=== PATIENT | male | born 1975 | race Caucasian/White ===

== ENCOUNTER → 2018-07-28 | Outpatient (CLI) | payer OTHER | END | disposition home or self-care (01) | LOC: RADPETMAIN 12:59 | PROVIDERS: ATTEND Internal Medicine Hematology & Oncology | DX: Z53.9 Procedure and treatment not carried out, unspecified reason (principal) ==

== ENCOUNTER 2018-07-31 13:46 | Inpatient (IN) | payer OTHER ==
[~2018-07-31 13:46] MED LIST: ACETAMINOPHEN TAB 325 MG TAB PO ONE; FAMOTIDINE 20 MG/2 ML VIAL IV SCH; ONDANSETRON 16 MG in SODIUM CHLORIDE 0.9% 50 ML IVPB SCH; ONDANSETRON 4 MG/2 ML VIAL IVP PRN; diphenhydrAMINE 50 MG/ML 1 ML VIAL IVP ONE; methylPREDNISolone SOD SUCCI 125 MG/2 ML VIAL IVP ONE
[2018-07-31] MEDS ORDERED: DOXORUBICIN HCL IV SCH (23:00)
[2018-07-31] MEDS ORDERED: VINCRISTINE SULFATE IV SCH (23:00)
[2018-07-31] MEDS ORDERED: ETOPOSIDE IV SCH (23:00)
[2018-07-31] MEDS ORDERED: SODIUM CHLORIDE 0.9% IV SCH ×3 (23:00)
[2018-08-01] MEDS ORDERED: ONDANSETRON 4 MG/2 ML VIAL IVP PRN ×2 (07:14→14:38)
[2018-08-01 09:34] LABS: Basophils % (A) 1 %; Eosinophils # (A) 0.1 k/uL (0-0.7); Eosinophils % (A) 2 %; HCT 40.2 % (39.0-53.0); Hypochromasia Slight; Lymphocytes # (A) 0.9 k/uL (1.0-4.8); Lymphocytes % (A) 22 %; MCH 29.1 pg (25.0-35.0); MCHC 32.4 g/dL (31.0-37.0); MCV 89.7 fL (80.0-100.0); Mean Platelet Volume 7.9; Monocytes # (A) 0.4 k/uL (0-1.0); Monocytes % (A) 11 %; Neutrophils # (A) 2.6 k/uL (1.3-7.7); Neutrophils % (A) 63 %; Platelet Count 247 k/uL (150-450); RBC 4.48 m/uL (4.30-5.90); WBC 4.1 k/uL (3.8-10.6)
[2018-08-01 09:47] LABS: ALT 65 U/L (21-72); AST 60 U/L (17-59); Albumin 4.1 g/dL (3.5-5.0); Alkaline Phosphatase 66 U/L (38-126); Anion Gap 12 mmol/L; Blood Urea Nitrogen 11 mg/dL (9-20); Calcium 9.6 mg/dL (8.4-10.2); Carbon Dioxide 25 mmol/L (22-30); Chloride 103 mmol/L (98-107); Glucose 96 mg/dL (74-99); Potassium 4.4 mmol/L (3.5-5.1); Sodium 140 mmol/L (137-145); Total Bilirubin 1.1 mg/dL (0.2-1.3); Uric Acid 7.3 mg/dL (3.5-8.5)
[2018-08-01] MEDS ORDERED: ACETAMINOPHEN ORAL SUSP 160 MG/5 ML CUP PO ONE (10:30)
[2018-08-01] MEDS: SODIUM CHLORIDE 0.9% 1,000 ML IV SCH ×4 (10:31→17:44)
[2018-08-01] MEDS: predniSONE 20 MG TAB PO SCH ×3 (10:33→20:12)
[2018-08-01] MEDS: predniSONE 50 MG TAB PO SCH ×3 (10:33→20:12)
[2018-08-01] MEDS ORDERED: ACETAMINOPHEN TAB 325 MG TAB PO ONE (12:00)
[2018-08-01] MEDS ORDERED: methylPREDNISolone SOD SUCCI 125 MG/2 ML VIAL IVP ONE (12:00)
[2018-08-01] MEDS ORDERED: diphenhydrAMINE 50 MG/ML 1 ML VIAL IVP ONE (12:00)
[2018-08-01 12:03] LABS: LDH 3114 U/L (313-618)
[2018-08-01 12:20] LABS: Glucose,Whole Blood 115 mg/dL (75-99)
[2018-08-01] MEDS: INSULIN ASPART 100 UNIT/ML 1 ML 10 ML VIAL SQ SCH ×3 (13:07→20:21)
[2018-08-01] MEDS ORDERED: PROCHLORPERAZINE 10 MG TAB PO PRN (14:38)
--- NOTE | 2018-08-01 14:50 | P.HPIM ---
History of Present Illness H&P Date: 08/01/18 Chief Complaint: B-Cell Lymphoma This is a very nice patient who presented to [facility],on 07/20/2018 with chest pain,had a CXR which revealed mediastinal mass,CT scan of chest on 07/20/2018 revealed large anterior mediastinal mass,8.6x5.6 cm,abuts and partially displaced ascenting aorta,,right paratracheal nodes up to 2.5cm. He was transferred to [facility],on 07/22/2018,his CBC and CMP were unremarkable,serum AFP,HCG were normal,uric acid was 7.2,LDH was 705 (upper limit of normal was 250).Testicular ultrasound on 07/23/[address] scan of neck on 07/23/2018 revealed bilateral supraclavicular nodes that are visible but not enlarged,CT scan of abdomen/pelvis was negative. He had an echocardiogram at [facility] on 07/23/2018 which revealed normal EF of 69%. 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 BCL2 + in 30% and Cmyc + 40%, Molecular characteristics sent for FISH. He developed swelling in LUE at [facility],doppler confirmed DVT and was started on Lovenox. He continues to have dyspnea,also he has had cough for over a month and progressive dysphagea,has night sweats,lost 15-20 pounds over the last month. He presents today for first cycle of R-EPOCH Chemotherapy. He was started on ALlopurinol 2 days prior in office by Dr. Cervantes. An Echocardiogram was completed at [facility] on 07/23/18 and Hepatitis panel drawn prior to starting chemo. His sister at bedside. Review of Systems A 14 point review of systems assessed and completed and all negative except HPI. Past Medical History Past Medical History: Cancer, Diabetes Mellitus, Deep Vein Thrombosis (DVT), Hypertension, Osteoarthritis (OA), Pneumonia Additional Past Medical History / Comment(s): Pt states he started noticing difficulty with swallowing late in May 2018, went to [facility] on 07/20/18 d/t cough and chest pain, had cat scan that showed mediastinal mass and was sent on 07/21/18 to [facility] where he had mediastinal mass biopsy. He states he has also had a L arm DVT. Other hx: Chronic low back pain, NIDDM type II and last month unable to swallow his diabetic med, "walking" pneumonia as a teen. History of Any Multi-Drug Resistant Organisms: MRSA Date of last positivie culture/infection: 2013 per pt MDRO Source:: L leg Past Surgical History: Adenoidectomy, Orthopedic Surgery, Tonsillectomy Additional Past Surgical History / Comment(s): 07/23/18 PICC line, 07/22/18 mediastinal mass biopsy at [facility], R hand fracure with surgery/pins since removed. Past Anesthesia/Blood Transfusion Reactions: No Reported Reaction Smoking Status: Former smoker - Past Family History Mother Family Medical History: CVA/TIA, Diabetes Mellitus, Hyperlipidemia, Hypertension Father Family Medical History: Diabetes Mellitus Medications and Allergies Home Medications Medication Instructions Recorded Confirmed Type ARIPiprazole [Abilify] 5 mg PO HS 08/01/18 08/01/18 History Allopurinol [Zyloprim] 300 mg PO HS 08/01/18 08/01/18 History Atorvastatin [Lipitor] 20 mg PO HS 08/01/18 08/01/18 History Enoxaparin Sodium 150 mg SQ BID 08/01/18 08/01/18 History Gabapentin [Neurontin] 300 mg PO TID 08/01/18 08/01/18 History Glimepiride [Amaryl] 2 mg PO DAILY 08/01/18 08/01/18 History amLODIPine [Norvasc] 10 mg PO DAILY 08/01/18 08/01/18 History metFORMIN HCL [Glucophage] 1,000 mg PO BID 08/01/18 08/01/18 History Allergies Allergy/AdvReac Type Severity Reaction Status Date / Time No Known Allergies Allergy Verified 08/01/18 09:13 Physical Exam Vitals: Vital Signs Temp Pulse Resp BP Pulse Ox 08/01/18 13:56 97.5 F L 95 14 129/82 92 L 08/01/18 08:51 97.8 F 120 H 22 119/90 95 08/01/18 08:30 14 Intake and Output 07/31/18 08/01/18 08/01/18 22:59 06:59 14:59 Intake Total 300 Balance 300 Intake: Intake, IV Titration 300 Amount Sodium Chloride 0.9% 1, 300 000 ml @ 150 mls/hr IV . Q6H40M [facility] Rx#:[id number] - Constitutional General appearance: cooperative, no acute distress - EENT Eyes: EOMI, PERRLA ENT: NA/AT, normal oropharynx - Neck Neck: lymphadenopathy - Respiratory Respiratory: bilateral: diminished (MIld increased effort) - Cardiovascular Heart rate: 112 Rhythm: regular Heart sounds: normal: S1, S2 - Gastrointestinal Obese General gastrointestinal: soft - Integumentary Integumentary: pale - Neurologic non focal Neurologic: CNII-XII intact - Musculoskeletal Musculoskeletal: gait normal, strength equal bilaterally - Psychiatric Psychiatric: A&O x's 3, appropriate affect, intact judgment & insight Results CBC & Chem 7: 08/01/18 08:55 08/01/18 08:55 Labs: Abnormal Lab Results - Last 24 Hours (Table) 08/01/18 08/01/18 08/01/18 Range/Units 08:55 08:55 12:19 Lymphocytes # 0.9 L (1.0-4.8) k/uL POC Glucose (mg/dL) 115 H (75-99) mg/dL AST 60 H (17-59) U/L Lactate Dehydrogenase 3114 H (313-618) U/L Comments: Pathology from [facility] reviewed CT scan - abdomen: report reviewed CT scan - chest: report reviewed CT scan - pelvis: report reviewed Thrombosis Risk Factor Assmnt - DVT/VTE Prophylaxis DVT/VTE Prophylaxis: Pharmacologic Prophylaxis ordered - Choose All That Apply Any of the Below Risk Factors Present?: Yes Each Factor Represents 1 point: Age 41-60 years, Obesity (BMI >25) Other Risk Factors: Yes Each Risk Factor Represents 2 Points: Malignancy Each Risk Factor Represents 3 Points: Family history of DVT/PE Other congenital or acquired thrombophilia - If yes, enter type in comment: No Thrombosis Risk Factor Assessment Total Risk Factor Score: 7 Thrombosis Risk Factor Assessment Level: High Risk Assessment and Plan Plan: Assessment and Recommendations: 1. High Grade Large B Cell Lymphoma - 8.6X5.7CM Anterior mediastinal mass with bulky above diaphragm disease. CMYC , BCL2, BCL6 are pending by FISH - Cycle one of Chemotherapy to begin today DOse [id number] - He will follow-up in office after chemotherapy for neulasta. - Monitor closely for tumor lysis as he has bulky above diaphragm disease 2. LUE DVT: - Continue on Lovenox BID 3. Diabetes Mellitus: - Will ask Dr. Griffiths from to assist in managing medically during hospitalization Face to Face Counseling and coordinating care were discussed with patient and sister related to diagnosis and treatment plan. PPI PProphylaxis and VTE Time with Patient: Greater than 30
[2018-08-01] MEDS: GLIMEPIRIDE 2 MG TAB PO SCH (14:57)
[2018-08-01 15:37] VITALS: BMI 40.6
--- NOTE | 2018-08-01 16:23 | P.CONS ---
History of Present Illness - Reason for Consult Consult date: 08/01/18 medical management Requesting physician: Anand Cervantes - Chief Complaint cough shortness of breath - History of Present Illness This is a 42 years old male with past medical history of type 2 diabetes, recent diagnosis of DVT on Lovenox, hypertension, osteoarthritis with recent diagnosis of high-grade B cell lymphoma diagnosed by a computed tomography scan of the chest on 07/20/2018 which revealed a large anterior mediastinal mass 8.6 into 5.6 cm causing difficulty swallowing with dry cough and shortness of breath at rest. Patient to start EPOCH-R treatment cycle 1 of cycle 5 today Patient endorses orthopnea and difficulty swallowing solid food for the past 2 weeks. Patient has lost 10 pounds in the last 1 week and he is currently taking boost as a diet as he is unable to swallow anything else. He denies any use productive cough or PND, Lower extremity edema. He does have peripheral neuropathy from diabetes and is currently managed with metformin and glimepiride. Our team is consulted for medical management Review of Systems Constitutional: Denies chills, Denies fever, Denies lethargy, Denies malaise, Denies poor appetite, Denies weakness, Denies weight loss Eyes: denies decreased vision, denies diplopia, denies discharge, denies pain Ears: deny: decreased hearing Ears, nose, mouth and throat: Denies dental pain, Denies headache, Denies nasal discharge, Denies nose pain Cardiovascular: Denies chest pain, endorses decreased exercise tolerance, Denies edema, endorses high blood pressure, Denies irregular heart beat, Denies palpitations, Denies paroxysmal nocturnal dyspnea, Denies rapid heart beat, endorses shortness of breath Respiratory: Denies congestion, endorses cough, Denies cough with sputum, endorses dyspnea, Denies home oxygen, Denies wheezing Gastrointestinal: Denies abdominal pain, Denies change in bowel habits, Denies coffee ground emesis, Denies early satiety, Denies excessive gas, Denies heartburn, Denies hematemesis, Denies hematochezia, Denies loss of appetite, Denies nausea, Denies vomiting Genitourinary: Denies dysuria, Denies flank pain, Denies kidney stones, Denies menorrhagia, Denies urgency, Denies urinary frequency Musculoskeletal: Denies gait dysfunction, Denies limitation of motion, Denies morning stiffness, Denies muscle cramps Integumentary: Denies rash, Denies wounds, Denies brittle nails, Denies change in hair/nails, Denies darkening of skin Neurological: Denies balance difficulties, Denies change in speech, Denies double vision, Denies gait dysfunction, Denies loss of vision, Denies motor disturbance, Denies numbness, Denies paralysis, Denies paresthesias, Denies seizures Psychiatric: Denies anxiety, Denies depression Endocrine: Denies excessive sweating, Denies excessive thirst, Denies high blood sugars, Denies palpitations Hematologic/Lymphatic: Denies easy bruising, Denies lymphadenopathy Past Medical History Past Medical History: Cancer, Diabetes Mellitus, Deep Vein Thrombosis (DVT), Hyperlipidemia, Hypertension, Osteoarthritis (OA), Pneumonia Additional Past Medical History / Comment(s): Pt states he started noticing difficulty with swallowing late in May 2018, went to [facility] on 07/20/18 d/t cough and chest pain, had cat scan that showed mediastinal mass and was sent on 07/21/18 to [facility] where he had mediastinal mass biopsy. He states he has also had a L arm DVT. Other hx: Chronic low back pain, NIDDM type II and last month unable to swallow his diabetic med, "walking" pneumonia as a teen. History of Any Multi-Drug Resistant Organisms: MRSA Year Discovered:: 2013 per pt MDRO Source:: L leg Past Surgical History: Adenoidectomy, Orthopedic Surgery, Tonsillectomy Additional Past Surgical History / Comment(s): 07/23/18 PICC line, 07/22/18 mediastinal mass biopsy at [facility], R hand fracure with surgery/pins since removed. Past Anesthesia/Blood Transfusion Reactions: No Reported Reaction Past Psychological History: Bipolar Smoking Status: Former smoker (smoked 1 pack a day for 30 years quit on 2017) - Past Family History Mother Family Medical History: CVA/TIA, Diabetes Mellitus, Hyperlipidemia, Hypertension Father Family Medical History: Diabetes Mellitus Additional Family Medical History / Comment(s): Unmarried, caregiver for his mother, Medications and Allergies Home Medications Medication Instructions Recorded Confirmed Type ARIPiprazole [Abilify] 5 mg PO HS 08/01/18 08/01/18 History Allopurinol [Zyloprim] 300 mg PO HS 08/01/18 08/01/18 History Atorvastatin [Lipitor] 20 mg PO HS 08/01/18 08/01/18 History Enoxaparin Sodium 150 mg SQ BID 08/01/18 08/01/18 History Gabapentin [Neurontin] 300 mg PO TID 08/01/18 08/01/18 History Glimepiride [Amaryl] 2 mg PO DAILY 08/01/18 08/01/18 History amLODIPine [Norvasc] 10 mg PO DAILY 08/01/18 08/01/18 History metFORMIN HCL [Glucophage] 1,000 mg PO BID 08/01/18 08/01/18 History Allergies Allergy/AdvReac Type Severity Reaction Status Date / Time No Known Allergies Allergy Verified 08/01/18 09:13 Physical Exam Vitals: Vital Signs Temp Pulse Resp BP Pulse Ox 08/01/18 15:45 97.9 F 89 130/85 95 08/01/18 13:56 97.5 F L 95 14 129/82 92 L 08/01/18 08:51 97.8 F 120 H 22 119/90 95 08/01/18 08:30 14 Intake and Output 08/01/18 08/01/18 08/01/18 06:59 14:59 22:59 Intake Total 335 68 Balance 335 68 Intake: Intake, IV Titration 335 68 Amount Sodium Chloride 0.9% 1, 300 000 ml @ 150 mls/hr IV . Q6H40M [facility] Rx#:[id number] riTUXimab 1,000 mg In 35 68 Sodium Chloride 0.9% 500 ml @ Titrate IV .Q0M [facility] Rx#:[id number] Other: Weight 145.286 kg - Constitutional General appearance: cooperative, no acute distress, obese - EENT Eyes: anicteric sclerae, PERRLA, normal appearance ENT: hearing grossly normal - Neck Neck: no lymphadenopathy, normal ROM, no other, no rigidity, no stridor, no thyromegaly - Respiratory Respiratory: bilateral: CTA, decreased air entry bilaterally negative: dullness , rales, rhonchi - Cardiovascular Rhythm: regular Heart sounds: normal: S1, S2 Abnormal Heart Sounds: no systolic murmur, no diastolic murmur, no rub, no S3 Gallop, no S4 Gallop, no click, no other - Gastrointestinal General gastrointestinal: normal bowel sounds, soft nontender - Integumentary Integumentary: no rash - Neurologic Neurologic: CNII-XII intact - Musculoskeletal Musculoskeletal: gait normal, strength equal bilaterally - Psychiatric Psychiatric: A&O x's 3, appropriate affect Results CBC & Chem 7: 08/01/18 08:55 08/01/18 08:55 Labs: Abnormal Lab Results - Last 24 Hours (Table) 08/01/18 08/01/18 08/01/18 Range/Units 08:55 08:55 12:19 Lymphocytes # 0.9 L (1.0-4.8) k/uL POC Glucose (mg/dL) 115 H (75-99) mg/dL AST 60 H (17-59) U/L Lactate Dehydrogenase 3114 H (313-618) U/L Assessment and Plan Plan: #1 Mediastinal high-grade large B-cell lymphoma on R-EPOCH therapy with allopurinol. Cycle 1 of cycle 5. Monitor for pancytopenia, cystitis, worsening shortness of breath, blurry vision, hyperglycemia. Oncology managing the chemotherapy. Chemotherapy precautions to be followed #2 dysphagia secondary to compression of the esophagus by these mediastinal mass. Dietitian assess the patient. Clear liquid diet for now. Ensure clear with meals #3 shortness of breath and cough secondary to compression of trachea. DuoNeb as needed for shortness of breath. Watch for increased oxygen requirement. SpO2 to be maintained above 92% #4 type 2 diabetes. Continue metformin and glimepiride 2 mg at the current dose. Last A1c 5.7 according to patient. Watch for hypoglycemia glucose checked before meals and at bedtime #5 hyperlipidemia continue atorvastatin 20 mg by mouth at bedtime #6 hypertension continue amlodipine 10 mg by mouth daily #7 bipolar disorder continue Abilify 5 mg daily at bedtime #8 diabetes neuropathy continue gabapentin 300 mg 3 times a day #9 GI prophylaxis with Protonix 40 twice a day #10 recent diagnosis of DVT in left upper extremity on Lovenox 150 twice a day Code status full code Thank you for the consult. I'll be happy to assist the patient and his medical needs while patient is in the hospital..
[2018-08-01 16:37] LABS: Hepatitis A Antibody IgM Non-Reactive (Non-Reactive); Hepatitis B Core IgM Non-Reactive (Non-Reactive)
[2018-08-01 16:40] LABS: Glucose,Whole Blood 153 mg/dL (75-99)
--- NOTE | 2018-08-01 16:58 | ECHOF ---
Referral Reason:chemo started MEASUREMENTS -------- HEIGHT: 188.0 cm WEIGHT: 145.1 kg BP: 119/90 RVIDd: 3.5 cm (< 3.3) IVSd: 1.0 cm (0.6 - 1.1) LVIDd: 4.9 cm (3.9 - 5.3) LVPWd: 1.0 cm (0.6 - 1.1) IVSs: 1.5 cm LVIDs: 2.5 cm LVPWs: 1.5 cm LA Diam: 3.1 cm (2.7 - 3.8) Ao Diam: 3.6 cm (2.0 - 3.7) AV Cusp: 2.2 cm (1.5 - 2.6) LA Diam: 2.5 cm (2.7 - 3.8) MV E Anam: 0.90 m/s MV DecT: 514 ms MV A Anam: 1.04 m/s MV E/A Ratio: 0.87 AV maxP.63 mmHg AV meanP.72 mmHg RAP: 5.00 mmHg RVSP: 13.46 mmHg FINDINGS -------- Sinus rhythm. This was a technically difficult study with suboptimal views. The left ventricular size is normal. Left ventricular wall thickness is normal. Overall left vent ricular systolic function is normal with, an EF between 55 - 60 %. The right ventricle is mildly enlarged. The left atrial size is normal. The right atrium was not well visualized. 3 ml of Lumason was utilized for enhancement of images. There is mild aortic valve sclerosis. There is no evidence of aortic regurgitation. There is mild aortic stenosis present. Peak/mean gradient across the Aortic Valve is 20.63mmHg / 11.72mmHg. The mitral valve leaflets are mildly thickened. Mild mitral regurgitation is present. Trace tricuspid regurgitation present. Right ventricular systolic pressure is normal at < 35 mmHg. There is no evidence of pulmonary hypertension. The pulmonic valve was not well visualized. The aortic root size is normal. Normal inferior vena cava with normal inspiratory collapse consistent with estimated right atrial pre ssure of 5 mmHg. There is a moderate, generalized pericardial effusion present. There is no evidence of cardiac tamp onade. CONCLUSIONS -------- 1. Sinus rhythm. 2. This was a technically difficult study with suboptimal views. 3. The left ventricular size is normal. 4. Left ventricular wall thickness is normal. 5. Overall left ventricular systolic function is normal with, an EF between 55 - 60 %. 6. The right ventricle is mildly enlarged. 7. The left atrial size is normal. 8. The right atrium was not well visualized. 9. 3 ml of Lumason was utilized for enhancement of images. 10. There is mild aortic valve sclerosis. 11. There is mild aortic stenosis present. 12. Peak/mean gradient across the Aortic Valve is 20.63mmHg / 11.72mmHg. 13. The mitral valve leaflets are mildly thickened. 14. Mild mitral regurgitation is present. 15. Trace tricuspid regurgitation present. 16. Right ventricular systolic pressure is normal at < 35 mmHg. 17. The pulmonic valve was not well visualized. 18. The aortic root size is normal. 19. There is a moderate, generalized pericardial effusion present. 20. There is no evidence of cardiac tamponade. [employer]: Clyde Hill RDCS
[2018-08-01] MEDS: GABAPENTIN 300 MG CAP PO SCH ×2 (17:45→20:10)
[2018-08-01] MEDS: PANTOPRAZOLE 40 MG TABLET PO SCH (17:48)
[2018-08-01 19:14] LABS: Hemoglobin A1C 5.4 % (4.0-6.0)
[2018-08-01 19:52] LABS: Glucose,Whole Blood 334 mg/dL (75-99)
[2018-08-01] MEDS: ONDANSETRON 16 MG in SODIUM CHLORIDE 0.9% 50 ML IVPB SCH (20:00)
[2018-08-01] MEDS: SODIUM CHLORIDE 0.9% IV SCH ×3 (20:08→20:09)
[2018-08-01] MEDS: VINCRISTINE SULFATE IV SCH (20:08)
[2018-08-01] MEDS: ETOPOSIDE IV SCH (20:09)
[2018-08-01] MEDS: ENOXAPARIN 150 MG/ML SYRINGE SQ SCH (20:09)
[2018-08-01] MEDS: DOXORUBICIN HCL IV SCH (20:09)
[2018-08-01] MEDS: ALLOPURINOL 300 MG TAB PO SCH (20:10)
[2018-08-01] MEDS: ARIPiprazole 5 MG TAB PO SCH (20:10)
[2018-08-01] MEDS: ATORVASTATIN 20 MG TAB PO SCH (20:10)
[2018-08-01] MEDS: metFORMIN 500 MG TAB PO SCH (20:10)
[2018-08-01] MEDS: SENNOSIDES-DOCUSATE SODIUM 1 EACH TAB PO SCH (20:10)
[2018-08-01] MEDS: FAMOTIDINE 20 MG/2 ML VIAL IV SCH (20:25)
[2018-08-02] MEDS: SODIUM CHLORIDE 0.9% 1,000 ML IV SCH ×4 (00:15→19:19)
[2018-08-02 07:35] LABS: Glucose,Whole Blood 146 mg/dL (75-99)
[2018-08-02 07:45] LABS: Basophils % (A) 0 %; Eosinophils % (A) 1 %; HCT 35.8 % (39.0-53.0); HGB 11.7 gm/dL (13.0-17.5); Lymphocytes # (A) 0.4 k/uL (1.0-4.8); Lymphocytes % (A) 10 %; MCH 28.2 pg (25.0-35.0); MCHC 32.6 g/dL (31.0-37.0); MCV 86.5 fL (80.0-100.0); Mean Platelet Volume 7.8; Monocytes # (A) 0.2 k/uL (0-1.0); Monocytes % (A) 4 %; Neutrophils # (A) 3.3 k/uL (1.3-7.7); Neutrophils % (A) 85 %; Platelet Count 226 k/uL (150-450); RBC 4.14 m/uL (4.30-5.90); WBC 3.9 k/uL (3.8-10.6)
[2018-08-02] MEDS: predniSONE 50 MG TAB PO SCH ×2 (07:55→20:36)
[2018-08-02] MEDS: predniSONE 20 MG TAB PO SCH ×2 (07:55→20:37)
[2018-08-02] MEDS: INSULIN ASPART 100 UNIT/ML 1 ML 10 ML VIAL SQ SCH ×5 (07:56→21:13)
[2018-08-02] MEDS: PANTOPRAZOLE 40 MG TABLET PO SCH ×2 (07:56→16:59)
[2018-08-02] MEDS: ENOXAPARIN 150 MG/ML SYRINGE SQ SCH ×2 (07:56→20:37)
[2018-08-02] MEDS: GLIMEPIRIDE 2 MG TAB PO SCH (07:56)
[2018-08-02] MEDS: metFORMIN 500 MG TAB PO SCH ×2 (07:56→20:37)
[2018-08-02] MEDS: GABAPENTIN 300 MG CAP PO SCH ×3 (07:56→20:38)
[2018-08-02] MEDS: amLODIPine 10 MG TAB PO SCH (07:56)
[2018-08-02 07:58] LABS: ALT 49 U/L (21-72); AST 33 U/L (17-59); Albumin 3.6 g/dL (3.5-5.0); Alkaline Phosphatase 60 U/L (38-126); Anion Gap 8 mmol/L; Blood Urea Nitrogen 8 mg/dL (9-20); Calcium 9.3 mg/dL (8.4-10.2); Carbon Dioxide 22 mmol/L (22-30); Chloride 111 mmol/L (98-107); Glucose 137 mg/dL (74-99); Potassium 4.3 mmol/L (3.5-5.1); Sodium 141 mmol/L (137-145); Total Bilirubin 0.6 mg/dL (0.2-1.3); Total Protein 7.1 g/dL (6.3-8.2); Uric Acid 5.2 mg/dL (3.5-8.5)
[2018-08-02] MEDS: SENNOSIDES-DOCUSATE SODIUM 1 EACH TAB PO SCH ×2 (09:43→20:38)
[2018-08-02 11:35] LABS: Glucose,Whole Blood 230 mg/dL (75-99)
[2018-08-02] MEDS: FAMOTIDINE 20 MG/2 ML VIAL IV SCH ×2 (13:50→20:36)
[2018-08-02] MEDS: ONDANSETRON 16 MG in SODIUM CHLORIDE 0.9% 50 ML IVPB SCH ×2 (13:50→20:35)
--- NOTE | 2018-08-02 13:57 | P.PN ---
Subjective Progress Note Date: 08/02/18 This is a 42 years old male with past medical history of type 2 diabetes, recent diagnosis of DVT on Lovenox, hypertension, osteoarthritis with recent diagnosis of high-grade B cell lymphoma diagnosed by a computed tomography scan of the chest on 07/20/2018 which revealed a large anterior mediastinal mass 8.6 into 5.6 cm causing difficulty swallowing with dry cough and shortness of breath at rest. Patient to start EPOCH-R treatment cycle 1 of cycle 5 today Patient endorses orthopnea and difficulty swallowing solid food for the past 2 weeks. Patient has lost 10 pounds in the last 1 week and he is currently taking boost as a diet as he is unable to swallow anything else. He denies any use productive cough or PND, Lower extremity edema. He does have peripheral neuropathy from diabetes and is currently managed with metformin and glimepiride. Our team is consulted for medical management 08/02: Patient is tolerating a clear liquid diet and is asking for this to be advanced area patient has had some dysphagia and [place] therapy will be requested. For now diet will be advanced to full liquid only. Patient has started chemotherapy. He has been ambulating to the bathroom and back to his bed without dizziness. He denies having any diarrhea. No leg pain. No chest pain or shortness of breath. White count is currently normal. Creatinine 0.59. Blood sugars have had a few elevated readings secondary to steroids. No medication changes for this at this point. He'll be continued on his home medications of metformin and glimepiride along with NovoLog scale. We'll signs are stable. He has been afebrile. Pulse ox 94% on room air. Objective - Vital Signs Vital signs: Vital Signs Temp 97.4 F L 08/02/18 03:54 Pulse 81 08/02/18 03:54 Resp 16 08/02/18 03:54 BP 118/74 08/02/18 03:54 Pulse Ox 93 L 08/02/18 03:54 Intake & Output 08/01/18 08/02/18 08/02/18 18:59 06:59 18:59 Intake Total 717.0 2109.7 Balance 717.0 2109.7 Weight 145.286 kg Intake: Intake, IV Titration 717.0 2109.7 Amount DOXOrubicin HCL 27 mg In 56.7 Sodium Chloride 0.9% 250 ml @ 10.979 mls/hr IV Q24H [facility] Rx#:[id number] Etoposide 130 mg In 180 Sodium Chloride 0.9% 500 ml @ 21.104 mls/hr IV Q24H [facility] Rx#:[id number] Ondansetron 16 mg In 50 Sodium Chloride 0.9% 50 ml @ 100 mls/hr IVPB Q24H [facility] Rx#:[id number] Sodium Chloride 0.9% 1, 300 1800 000 ml @ 150 mls/hr IV . Q6H40M [facility] Rx#:[id number] riTUXimab 1,000 mg In 417.0 Sodium Chloride 0.9% 500 ml @ Titrate IV .Q0M [facility] Rx#:[id number] vinCRIStine SULFATE 1.1 23.0 mg In Sodium Chloride 0.9 % 50 ml @ 2.129 mls/hr IV Q24H [facility] Rx#:[id number] Other: Voiding Method Toilet - Exam General appearance: cooperative, no acute distress, obese - EENT Eyes: anicteric sclerae, PERRLA, normal appearance ENT: hearing grossly normal - Neck Neck: no lymphadenopathy, normal ROM, no other, no rigidity, no stridor, no thyromegaly - Respiratory Respiratory: bilateral: CTA, decreased air entry bilaterally negative: dullness , rales, rhonchi - Cardiovascular Rhythm: regular Heart sounds: normal: S1, S2 Abnormal Heart Sounds: no systolic murmur, no diastolic murmur, no rub, no S3 Gallop, no S4 Gallop, no click, no other - Gastrointestinal General gastrointestinal: normal bowel sounds, soft nontender - Integumentary Integumentary: no rash - Neurologic Neurologic: CNII-XII intact - Musculoskeletal Musculoskeletal: gait normal, strength equal bilaterally - Psychiatric Psychiatric: A&O x's 3, appropriate affect - Labs CBC & Chem 7: 08/02/18 07:02 08/02/18 07:02 Labs: Abnormal Lab Results - Last 24 Hours (Table) 08/01/18 08/01/18 08/01/18 Range/Units 08:55 12:19 16:39 RBC (4.30-5.90) m/uL Hgb (13.0-17.5) gm/dL Hct (39.0-53.0) % Lymphocytes # (1.0-4.8) k/uL Chloride (98-107) mmol/L BUN (9-20) mg/dL Creatinine (0.66-1.25) mg/dL Glucose (74-99) mg/dL POC Glucose (mg/dL) 115 H 153 H (75-99) mg/dL AST 60 H (17-59) U/L Lactate Dehydrogenase 3114 H (313-618) U/L 08/01/18 08/02/18 08/02/18 Range/Units 19:51 07:02 07:02 RBC 4.14 L (4.30-5.90) m/uL Hgb 11.7 L (13.0-17.5) gm/dL Hct 35.8 L (39.0-53.0) % Lymphocytes # 0.4 L (1.0-4.8) k/uL Chloride 111 H (98-107) mmol/L BUN 8 L (9-20) mg/dL Creatinine 0.59 L (0.66-1.25) mg/dL Glucose 137 H (74-99) mg/dL POC Glucose (mg/dL) 334 H (75-99) mg/dL AST (17-59) U/L Lactate Dehydrogenase (313-618) U/L 08/02/18 Range/Units 07:33 RBC (4.30-5.90) m/uL Hgb (13.0-17.5) gm/dL Hct (39.0-53.0) % Lymphocytes # (1.0-4.8) k/uL Chloride (98-107) mmol/L BUN (9-20) mg/dL Creatinine (0.66-1.25) mg/dL Glucose (74-99) mg/dL POC Glucose (mg/dL) 146 H (75-99) mg/dL AST (17-59) U/L Lactate Dehydrogenase (313-618) U/L Assessment and Plan Plan: #1 Mediastinal high-grade large B-cell lymphoma on R-EPOCH therapy with allopurinol. Cycle 1 of cycle 5. Monitor for pancytopenia, cystitis, worsening shortness of breath, blurry vision, hyperglycemia. Oncology managing the chemotherapy. Chemotherapy precautions to be followed #2 dysphagia secondary to compression of the esophagus by these mediastinal mass. Dietitian consult. Clear liquid diet and advance to full liquid. Ensure clear with meals. Speech therapy evaluation requested. #3 shortness of breath and cough secondary to compression of trachea. DuoNeb as needed for shortness of breath. Watch for increased oxygen requirement. SpO2 to be maintained above 92% #4 type 2 diabetes uncontrolled with hyperglycemia secondary to steroids. Continue metformin and glimepiride 2 mg at the current dose and NovoLog scale. Last A1c 5.7 according to patient. Watch for hypoglycemia glucose checked before meals and at bedtime #5 hyperlipidemia continue atorvastatin 20 mg by mouth at bedtime #6 hypertension continue amlodipine 10 mg by mouth daily #7 bipolar disorder continue Abilify 5 mg daily at bedtime #8 diabetes neuropathy continue gabapentin 300 mg 3 times a day #9 GI prophylaxis with Protonix 40 twice a day #10 recent diagnosis of DVT in left upper extremity on Lovenox 150 twice a day Code status full code Discharge plan: Return home Impression and plan of care have been directed as dictated by the signing physician. Ashley Hernandez nurse practitioner acting as scribe for signing physician.
--- NOTE | 2018-08-02 16:19 | P.PN ---
Subjective Progress Note Date: 08/02/18 Principal diagnosis: Large Diffuse B Cell non-hodgkins Lymphoma Tolerated Day one of R-EPOCH Well. Patient seen and evluated by Dr. Peguero today Objective - Vital Signs Vital signs: Vital Signs Temp 97.3 F L 08/02/18 13:24 Pulse 99 08/02/18 13:24 Resp 20 08/02/18 13:24 BP 134/91 08/02/18 13:24 Pulse Ox 94 L 08/02/18 13:24 Intake & Output 08/01/18 08/02/18 08/02/18 18:59 06:59 18:59 Intake Total 717.0 2109.7 1456.152 Balance 717.0 2109.7 1456.152 Weight 145.286 kg Intake: Intake, IV Titration 717.0 2109.7 1456.152 Amount DOXOrubicin HCL 27 mg In 56.7 87.832 Sodium Chloride 0.9% 250 ml @ 10.979 mls/hr IV Q24H [facility] Rx#:[id number] Etoposide 130 mg In 180 Sodium Chloride 0.9% 500 ml @ 21.104 mls/hr IV Q24H [facility] Rx#:[id number] Ondansetron 16 mg In 50 Sodium Chloride 0.9% 50 ml @ 100 mls/hr IVPB Q24H [facility] Rx#:[id number] Sodium Chloride 0.9% 1, 300 1800 1200 000 ml @ 150 mls/hr IV . Q6H40M [facility] Rx#:[id number] riTUXimab 1,000 mg In 417.0 Sodium Chloride 0.9% 500 ml @ Titrate IV .Q0M [facility] Rx#:[id number] vinCRIStine SULFATE 1.1 23.0 168.32 mg In Sodium Chloride 0.9 % 50 ml @ 2.129 mls/hr IV Q24H [facility] Rx#:[id number] Other: Voiding Method Toilet - Exam - Constitutional General appearance: cooperative, no acute distress - EENT Eyes: EOMI, PERRLA ENT: NA/AT, normal oropharynx - Neck Neck: lymphadenopathy - Respiratory Respiratory: bilateral: diminished (MIld increased effort) - Cardiovascular Heart rate: 112 Rhythm: regular Heart sounds: normal: S1, S2 - Gastrointestinal Obese General gastrointestinal: soft - Integumentary Integumentary: pale - Neurologic non focal Neurologic: CNII-XII intact - Musculoskeletal Musculoskeletal: gait normal, strength equal bilaterally - Psychiatric Psychiatric: A&O x's 3, appropriate affect, intact judgment & insight - Labs CBC & Chem 7: 08/02/18 07:02 08/02/18 07:02 Labs: Abnormal Lab Results - Last 24 Hours (Table) 08/01/18 08/01/18 08/02/18 Range/Units 16:39 19:51 07:02 RBC 4.14 L (4.30-5.90) m/uL Hgb 11.7 L (13.0-17.5) gm/dL Hct 35.8 L (39.0-53.0) % Lymphocytes # 0.4 L (1.0-4.8) k/uL Chloride (98-107) mmol/L BUN (9-20) mg/dL Creatinine (0.66-1.25) mg/dL Glucose (74-99) mg/dL POC Glucose (mg/dL) 153 H 334 H (75-99) mg/dL 08/02/18 08/02/18 08/02/18 Range/Units 07:02 07:33 11:33 RBC (4.30-5.90) m/uL Hgb (13.0-17.5) gm/dL Hct (39.0-53.0) % Lymphocytes # (1.0-4.8) k/uL Chloride 111 H (98-107) mmol/L BUN 8 L (9-20) mg/dL Creatinine 0.59 L (0.66-1.25) mg/dL Glucose 137 H (74-99) mg/dL POC Glucose (mg/dL) 146 H 230 H (75-99) mg/dL Assessment and Plan Plan: Assessment and Recommendations: 1. 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 CMYC , BCL2, BCL6 are pending by FISH - Cycle one of Chemotherapy to begin today DOse [id number] - He will follow-up in office after chemotherapy for neulasta. - Monitor closely for tumor lysis as he has bulky above diaphragm disease - COntinue Day 2 of Chemo 2. LUE DVT: Acute Diagnosed at [facility] last month - Continue on Lovenox BID - Present on admission 3. Diabetes Mellitus: - Will ask Dr. Griffiths from to assist in managing medically during hospitalization Face to Face Counseling and coordinating care were discussed with patient and sister related to diagnosis and treatment plan. PPI PProphylaxis and VTE Physician Attest: I have completed the full history and physical of this patient and agree with above dictation by Natalia Batista NP Dictated as a scribe.
[2018-08-02 16:55] LABS: Glucose,Whole Blood 93 mg/dL (75-99)
[2018-08-02] MEDS: ALLOPURINOL 300 MG TAB PO SCH (20:36)
[2018-08-02] MEDS: ATORVASTATIN 20 MG TAB PO SCH (20:36)
[2018-08-02] MEDS: ARIPiprazole 5 MG TAB PO SCH (20:37)
[2018-08-02 20:53] LABS: Glucose,Whole Blood 147 mg/dL (75-99)
[2018-08-02] MEDS: SODIUM CHLORIDE 0.9% IV SCH ×3 (21:46→21:53)
[2018-08-02] MEDS: DOXORUBICIN HCL IV SCH (21:46)
[2018-08-02] MEDS: VINCRISTINE SULFATE IV SCH (21:49)
[2018-08-02] MEDS: ETOPOSIDE IV SCH (21:53)
[2018-08-03] MEDS: SODIUM CHLORIDE 0.9% 1,000 ML IV SCH ×3 (04:12→16:39)
[2018-08-03 06:58] LABS: Basophils % (A) 0 %; Eosinophils # (A) 0.1 k/uL (0-0.7); Eosinophils % (A) 1 %; HCT 33.5 % (39.0-53.0); HGB 10.7 gm/dL (13.0-17.5); Hypochromasia Slight; Lymphocytes # (A) 0.4 k/uL (1.0-4.8); Lymphocytes % (A) 5 %; MCHC 31.9 g/dL (31.0-37.0); MCV 87.9 fL (80.0-100.0); Mean Platelet Volume 7.9; Monocytes # (A) 0.2 k/uL (0-1.0); Monocytes % (A) 3 %; Neutrophils % (A) 91 %; Platelet Count 223 k/uL (150-450); RBC 3.81 m/uL (4.30-5.90); RDW 13.2 % (11.5-15.5); WBC 7.7 k/uL (3.8-10.6)
[2018-08-03 07:08] LABS: Glucose,Whole Blood 130 mg/dL (75-99)
[2018-08-03 07:09] LABS: ALT 52 U/L (21-72); AST 27 U/L (17-59); Albumin 3.2 g/dL (3.5-5.0); Alkaline Phosphatase 47 U/L (38-126); Anion Gap 7 mmol/L; Blood Urea Nitrogen 8 mg/dL (9-20); Calcium 9.3 mg/dL (8.4-10.2); Carbon Dioxide 22 mmol/L (22-30); Chloride 111 mmol/L (98-107); Glucose 130 mg/dL (74-99); Potassium 4.2 mmol/L (3.5-5.1); Sodium 140 mmol/L (137-145); Total Bilirubin 0.4 mg/dL (0.2-1.3); Total Protein 6.3 g/dL (6.3-8.2); Uric Acid 4.4 mg/dL (3.5-8.5)
[2018-08-03] MEDS: INSULIN ASPART 100 UNIT/ML 1 ML 10 ML VIAL SQ SCH ×4 (08:39→21:38)
[2018-08-03] MEDS: predniSONE 20 MG TAB PO SCH ×2 (09:27→21:41)
[2018-08-03] MEDS: GLIMEPIRIDE 2 MG TAB PO SCH (09:27)
[2018-08-03] MEDS: PANTOPRAZOLE 40 MG TABLET PO SCH ×2 (09:27→16:40)
[2018-08-03] MEDS: GABAPENTIN 300 MG CAP PO SCH ×3 (09:28→21:41)
[2018-08-03] MEDS: amLODIPine 10 MG TAB PO SCH (09:28)
[2018-08-03] MEDS: predniSONE 50 MG TAB PO SCH ×2 (09:28→21:41)
[2018-08-03] MEDS: SENNOSIDES-DOCUSATE SODIUM 1 EACH TAB PO SCH ×2 (09:28→21:42)
[2018-08-03] MEDS: metFORMIN 500 MG TAB PO SCH ×2 (09:28→21:40)
[2018-08-03] MEDS: ENOXAPARIN 150 MG/ML SYRINGE SQ SCH ×2 (09:28→21:40)
[2018-08-03 11:38] LABS: Glucose,Whole Blood 136 mg/dL (75-99)
[2018-08-03] MEDS: SALT AND SODA MOUTHWASH 1,000 ML PO SCH ×2 (13:03→16:40)
--- NOTE | 2018-08-03 14:16 | P.PN ---
Subjective Progress Note Date: 08/03/18 Principal diagnosis: Large Diffuse B Cell non-hodgkins Lymphoma Day 3 of chemo tolerating well no acute complaints, wants to increase diet. Objective - Vital Signs Vital signs: Vital Signs Temp 97.4 F L 08/03/18 12:07 Pulse 76 08/03/18 12:07 Resp 20 08/03/18 12:07 BP 137/90 08/03/18 12:07 Pulse Ox 94 L 08/03/18 12:07 Intake & Output 08/02/18 08/03/18 08/03/18 18:59 06:59 18:59 Intake Total 4000.745 7035 Balance 8713.385 9955 Weight 145.286 kg Intake: Intake, IV Titration 6476.909 9417 Amount DOXOrubicin HCL 27 mg In 87.832 250 Sodium Chloride 0.9% 250 ml @ 10.979 mls/hr IV Q24H [facility] Rx#:[id number] Etoposide 130 mg In 500 Sodium Chloride 0.9% 500 ml @ 21.104 mls/hr IV Q24H [facility] Rx#:[id number] Sodium Chloride 0.9% 1, 1200 1350 000 ml @ 150 mls/hr IV . Q6H40M [facility] Rx#:[id number] vinCRIStine SULFATE 1.1 168.32 50 mg In Sodium Chloride 0.9 % 50 ml @ 2.129 mls/hr IV Q24H [facility] Rx#:[id number] Oral 100 Other: Voiding Method Toilet Toilet # Voids 2 # Bowel Movements 1 - Exam - Constitutional General appearance: cooperative, no acute distress - EENT Eyes: EOMI, PERRLA ENT: NA/AT, normal oropharynx - Neck Neck: lymphadenopathy - Respiratory Respiratory: bilateral: diminished (MIld increased effort) - Cardiovascular Heart rate: 112 Rhythm: regular Heart sounds: normal: S1, S2 - Gastrointestinal Obese General gastrointestinal: soft - Integumentary Integumentary: pale - Neurologic non focal Neurologic: CNII-XII intact - Musculoskeletal Musculoskeletal: gait normal, strength equal bilaterally - Psychiatric Psychiatric: A&O x's 3, appropriate affect, intact judgment & insight - Labs CBC & Chem 7: 08/03/18 06:44 08/03/18 06:44 Labs: Abnormal Lab Results - Last 24 Hours (Table) 08/02/18 08/03/18 08/03/18 Range/Units 20:51 06:44 06:44 RBC 3.81 L (4.30-5.90) m/uL Hgb 10.7 L (13.0-17.5) gm/dL Hct 33.5 L (39.0-53.0) % Lymphocytes # 0.4 L (1.0-4.8) k/uL Chloride 111 H (98-107) mmol/L BUN 8 L (9-20) mg/dL Creatinine 0.57 L (0.66-1.25) mg/dL Glucose 130 H (74-99) mg/dL POC Glucose (mg/dL) 147 H (75-99) mg/dL Albumin 3.2 L (3.5-5.0) g/dL 08/03/18 08/03/18 Range/Units 07:07 11:37 RBC (4.30-5.90) m/uL Hgb (13.0-17.5) gm/dL Hct (39.0-53.0) % Lymphocytes # (1.0-4.8) k/uL Chloride (98-107) mmol/L BUN (9-20) mg/dL Creatinine (0.66-1.25) mg/dL Glucose (74-99) mg/dL POC Glucose (mg/dL) 130 H 136 H (75-99) mg/dL Albumin (3.5-5.0) g/dL Assessment and Plan Plan: Assessment and Recommendations: 1. 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 CMYC , BCL2, BCL6 are pending by FISH - Cycle one of Chemotherapy to begin today DOse [id number] - He will follow-up in office after chemotherapy for neulasta. - Monitor closely for tumor lysis as he has bulky above diaphragm disease - COntinue Day 3 of Chemo - Increase Diet 2. LUE DVT: Acute Diagnosed at [facility] last month - Continue on Lovenox BID - Present on admission 3. Diabetes Mellitus: - Will ask Dr. Griffiths from to assist in managing medically during hospitalization Face to Face Counseling and coordinating care were discussed with patient and sister related to diagnosis and treatment plan. PPI PProphylaxis and VTE
--- NOTE | 2018-08-03 15:27 | P.PN ---
Subjective Progress Note Date: 08/03/18 This is a 42 years old male with past medical history of type 2 diabetes, recent diagnosis of DVT on Lovenox, hypertension, osteoarthritis with recent diagnosis of high-grade B cell lymphoma diagnosed by a computed tomography scan of the chest on 07/20/2018 which revealed a large anterior mediastinal mass 8.6 into 5.6 cm causing difficulty swallowing with dry cough and shortness of breath at rest. Patient to start EPOCH-R treatment cycle 1 of cycle 5 today Patient endorses orthopnea and difficulty swallowing solid food for the past 2 weeks. Patient has lost 10 pounds in the last 1 week and he is currently taking boost as a diet as he is unable to swallow anything else. He denies any use productive cough or PND, Lower extremity edema. He does have peripheral neuropathy from diabetes and is currently managed with metformin and glimepiride. Our team is consulted for medical management 08/02: Patient is tolerating a clear liquid diet and is asking for this to be advanced area patient has had some dysphagia and Beach therapy will be requested. For now diet will be advanced to full liquid only. Patient has started chemotherapy. He has been ambulating to the bathroom and back to his bed without dizziness. He denies having any diarrhea. No leg pain. No chest pain or shortness of breath. White count is currently normal. Creatinine 0.59. Blood sugars have had a few elevated readings secondary to steroids. No medication changes for this at this point. He'll be continued on his home medications of metformin and glimepiride along with NovoLog scale. We'll signs are stable. He has been afebrile. Pulse ox 94% on room air. 08/03: Hemoglobin is stable at 10.7. Speech therapy has evaluated and recommends GI consult which is been placed. Patient denies any new complaints. He is requesting diet advanced. He has been ambulating in his room with no lightheadedness or dizziness. No chest pain. No nausea or vomiting. Objective - Vital Signs Vital signs: Vital Signs Temp 97.9 F 08/03/18 04:00 Pulse 74 08/03/18 04:00 Resp 16 08/03/18 04:00 BP 117/65 08/03/18 04:00 Pulse Ox 94 L 08/03/18 04:00 Intake & Output 08/02/18 08/03/18 08/03/18 18:59 06:59 18:59 Intake Total 6482.775 5959 Balance 6320.298 7555 Intake: Intake, IV Titration 2109.709 5917 Amount DOXOrubicin HCL 27 mg In 87.832 250 Sodium Chloride 0.9% 250 ml @ 10.979 mls/hr IV Q24H [facility] Rx#:[id number] Etoposide 130 mg In 500 Sodium Chloride 0.9% 500 ml @ 21.104 mls/hr IV Q24H [facility] Rx#:[id number] Sodium Chloride 0.9% 1, 1200 1350 000 ml @ 150 mls/hr IV . Q6H40M [facility] Rx#:[id number] vinCRIStine SULFATE 1.1 168.32 50 mg In Sodium Chloride 0.9 % 50 ml @ 2.129 mls/hr IV Q24H [facility] Rx#:[id number] Oral 100 Other: Voiding Method Toilet Toilet # Voids 2 # Bowel Movements 1 - Exam General appearance: cooperative, no acute distress, obese - EENT Eyes: anicteric sclerae, PERRLA, normal appearance ENT: hearing grossly normal - Neck Neck: no lymphadenopathy, normal ROM, no other, no rigidity, no stridor, no thyromegaly - Respiratory Respiratory: bilateral: CTA, decreased air entry bilaterally negative: dullness , rales, rhonchi - Cardiovascular Rhythm: regular Heart sounds: normal: S1, S2 Abnormal Heart Sounds: no systolic murmur, no diastolic murmur, no rub, no S3 Gallop, no S4 Gallop, no click, no other - Gastrointestinal General gastrointestinal: normal bowel sounds, soft nontender - Integumentary Integumentary: no rash - Neurologic Neurologic: CNII-XII intact - Musculoskeletal Musculoskeletal: gait normal, strength equal bilaterally - Psychiatric Psychiatric: A&O x's 3, appropriate affect - Labs CBC & Chem 7: 08/03/18 06:44 08/03/18 06:44 Labs: Abnormal Lab Results - Last 24 Hours (Table) 08/02/18 08/02/18 08/03/18 Range/Units 11:33 20:51 06:44 RBC 3.81 L (4.30-5.90) m/uL Hgb 10.7 L (13.0-17.5) gm/dL Hct 33.5 L (39.0-53.0) % Lymphocytes # 0.4 L (1.0-4.8) k/uL Chloride (98-107) mmol/L BUN (9-20) mg/dL Creatinine (0.66-1.25) mg/dL Glucose (74-99) mg/dL POC Glucose (mg/dL) 230 H 147 H (75-99) mg/dL Albumin (3.5-5.0) g/dL 08/03/18 08/03/18 Range/Units 06:44 07:07 RBC (4.30-5.90) m/uL Hgb (13.0-17.5) gm/dL Hct (39.0-53.0) % Lymphocytes # (1.0-4.8) k/uL Chloride 111 H (98-107) mmol/L BUN 8 L (9-20) mg/dL Creatinine 0.57 L (0.66-1.25) mg/dL Glucose 130 H (74-99) mg/dL POC Glucose (mg/dL) 130 H (75-99) mg/dL Albumin 3.2 L (3.5-5.0) g/dL Assessment and Plan Plan: #1 Mediastinal high-grade large B-cell lymphoma on R-EPOCH therapy with allopurinol. Cycle 1 of cycle 5. Monitor for pancytopenia, cystitis, worsening shortness of breath, blurry vision, hyperglycemia. Oncology managing the chemotherapy. Chemotherapy precautions to be followed #2 dysphagia secondary to compression of the esophagus by these mediastinal mass. Dietitian consult. Clear liquid diet and advance to full liquid. Ensure clear with meals. Speech therapy evaluation noted. Consult with GI. #3 shortness of breath and cough secondary to compression of trachea. DuoNeb as needed for shortness of breath. Watch for increased oxygen requirement. SpO2 to be maintained above 92% #4 type 2 diabetes uncontrolled with hyperglycemia secondary to steroids. Continue metformin and glimepiride 2 mg at the current dose and NovoLog scale. Last A1c 5.7 according to patient. Watch for hypoglycemia glucose checked before meals and at bedtime #5 hyperlipidemia continue atorvastatin 20 mg by mouth at bedtime #6 hypertension continue amlodipine 10 mg by mouth daily #7 bipolar disorder continue Abilify 5 mg daily at bedtime #8 diabetes neuropathy continue gabapentin 300 mg 3 times a day #9 GI prophylaxis with Protonix 40 twice a day #10 recent diagnosis of DVT in left upper extremity on Lovenox 150 twice a day Code status full code Discharge plan: Return home Impression and plan of care have been directed as dictated by the signing physician. Ashley Hernandez nurse practitioner acting as scribe for signing physician.
[2018-08-03 16:59] LABS: Glucose,Whole Blood 98 mg/dL (75-99)
[2018-08-03 20:46] LABS: Glucose,Whole Blood 124 mg/dL (75-99)
[2018-08-03] MEDS: FAMOTIDINE 20 MG/2 ML VIAL IV SCH (21:39)
[2018-08-03] MEDS: ALLOPURINOL 300 MG TAB PO SCH (21:39)
[2018-08-03] MEDS: ONDANSETRON 16 MG in SODIUM CHLORIDE 0.9% 50 ML IVPB SCH (21:39)
[2018-08-03] MEDS: ARIPiprazole 5 MG TAB PO SCH (21:40)
[2018-08-03] MEDS: ATORVASTATIN 20 MG TAB PO SCH (21:40)
[2018-08-03] MEDS: SODIUM CHLORIDE 0.9% IV SCH ×3 (23:04)
[2018-08-03] MEDS: DOXORUBICIN HCL IV SCH (23:04)
[2018-08-03] MEDS: ETOPOSIDE IV SCH (23:04)
[2018-08-03] MEDS: VINCRISTINE SULFATE IV SCH (23:04)
[2018-08-04] MEDS: SODIUM CHLORIDE 0.9% 1,000 ML IV SCH ×4 (05:04→21:40)
[2018-08-04 07:47] LABS: Glucose,Whole Blood 114 mg/dL (75-99)
[2018-08-04] MEDS: INSULIN ASPART 100 UNIT/ML 1 ML 10 ML VIAL SQ SCH ×4 (08:02→21:40)
[2018-08-04 08:33] LABS: Basophils % (A) 0 %; Eosinophils % (A) 1 %; HGB 11.4 gm/dL (13.0-17.5); Hypochromasia Slight; Lymphocytes # (A) 0.3 k/uL (1.0-4.8); Lymphocytes % (A) 5 %; MCH 28.4 pg (25.0-35.0); MCHC 32.5 g/dL (31.0-37.0); MCV 87.5 fL (80.0-100.0); Mean Platelet Volume 7.8; Monocytes # (A) 0.2 k/uL (0-1.0); Monocytes % (A) 3 %; Neutrophils # (A) 4.7 k/uL (1.3-7.7); Neutrophils % (A) 91 %; Platelet Count 251 k/uL (150-450); RDW 13.3 % (11.5-15.5); WBC 5.2 k/uL (3.8-10.6)
[2018-08-04 08:50] LABS: ALT 50 U/L (21-72); AST 27 U/L (17-59); Albumin 3.5 g/dL (3.5-5.0); Alkaline Phosphatase 52 U/L (38-126); Anion Gap 8 mmol/L; Blood Urea Nitrogen 10 mg/dL (9-20); Calcium 9.4 mg/dL (8.4-10.2); Carbon Dioxide 26 mmol/L (22-30); Chloride 108 mmol/L (98-107); Glucose 127 mg/dL (74-99); Potassium 3.9 mmol/L (3.5-5.1); Sodium 142 mmol/L (137-145); Total Bilirubin 0.6 mg/dL (0.2-1.3); Total Protein 6.7 g/dL (6.3-8.2)
[2018-08-04] MEDS: SENNOSIDES-DOCUSATE SODIUM 1 EACH TAB PO SCH ×2 (08:50→21:39)
[2018-08-04] MEDS: metFORMIN 500 MG TAB PO SCH ×2 (08:51→21:40)
[2018-08-04] MEDS: GLIMEPIRIDE 2 MG TAB PO SCH (08:51)
[2018-08-04] MEDS: predniSONE 50 MG TAB PO SCH ×2 (08:51→21:41)
[2018-08-04] MEDS: predniSONE 20 MG TAB PO SCH ×2 (08:51→21:42)
[2018-08-04] MEDS: amLODIPine 10 MG TAB PO SCH (08:51)
[2018-08-04] MEDS: GABAPENTIN 300 MG CAP PO SCH ×3 (08:51→21:43)
[2018-08-04] MEDS: ENOXAPARIN 150 MG/ML SYRINGE SQ SCH ×2 (08:51→21:42)
[2018-08-04] MEDS: PANTOPRAZOLE 40 MG TABLET PO SCH ×2 (08:52→18:08)
[2018-08-04] MEDS: SALT AND SODA MOUTHWASH 1,000 ML PO SCH ×3 (08:52→18:08)
[2018-08-04 11:23] LABS: Glucose,Whole Blood 140 mg/dL (75-99)
--- NOTE | 2018-08-04 12:40 | P.PN ---
Subjective Progress Note Date: 08/04/18 This is a 42 years old male with past medical history of type 2 diabetes, recent diagnosis of DVT on Lovenox, hypertension, osteoarthritis with recent diagnosis of high-grade B cell lymphoma diagnosed by a computed tomography scan of the chest on 07/20/2018 which revealed a large anterior mediastinal mass 8.6 into 5.6 cm causing difficulty swallowing with dry cough and shortness of breath at rest. Patient to start EPOCH-R treatment cycle 1 of cycle 5 today Patient endorses orthopnea and difficulty swallowing solid food for the past 2 weeks. Patient has lost 10 pounds in the last 1 week and he is currently taking boost as a diet as he is unable to swallow anything else. He denies any use productive cough or PND, Lower extremity edema. He does have peripheral neuropathy from diabetes and is currently managed with metformin and glimepiride. Our team is consulted for medical management 08/02: Patient is tolerating a clear liquid diet and is asking for this to be advanced area patient has had some dysphagia and Beach therapy will be requested. For now diet will be advanced to full liquid only. Patient has started chemotherapy. He has been ambulating to the bathroom and back to his bed without dizziness. He denies having any diarrhea. No leg pain. No chest pain or shortness of breath. White count is currently normal. Creatinine 0.59. Blood sugars have had a few elevated readings secondary to steroids. No medication changes for this at this point. He'll be continued on his home medications of metformin and glimepiride along with NovoLog scale. We'll signs are stable. He has been afebrile. Pulse ox 94% on room air. 08/03: Hemoglobin is stable at 10.7. Speech therapy has evaluated and recommends GI consult which is been placed. Patient denies any new complaints. He is requesting diet advanced. He has been ambulating in his room with no lightheadedness or dizziness. No chest pain. No nausea or vomiting. 08/04. Patient denies any difficulty swallowing at this time patient states that it is now better. He was evaluated by speech and awaiting a GI consult. Hemoglobin has increased to 11.4. Patient tolerated the increase and diet well. Denies any nausea or vomiting. He has been ambulating in his room denies any lightheadedness or dizziness. Denies any chest pain. Objective - Vital Signs Vital signs: Vital Signs Temp 97.7 F 08/04/18 08:00 Pulse 83 08/04/18 08:00 Resp 17 08/04/18 08:00 BP 147/87 08/04/18 08:00 Pulse Ox 100 08/04/18 08:00 Intake & Output 08/03/18 08/04/18 08/04/18 18:59 06:59 18:59 Weight 145.286 kg 145.286 kg Other: Voiding Method Toilet Toilet # Voids 4 2 # Bowel Movements 1 - Exam Gen: This is a 42-year-old male, no acute distress, cooperative, obese HEENT: Head is atraumatic, normocephalic. Pupils equal, round. Sclerae is anicteric. NECK: Supple. No JVD. No lymphadenopathy. No thyromegaly. LUNGS: Clear to auscultation. No wheezes or rhonchi. No intercostal retractions. HEART: Regular rate and rhythm. No murmur. ABDOMEN: Soft. Bowel sounds are present. No masses. No tenderness. EXTREMITIES: No pedal edema. No calf tenderness. NEUROLOGICAL: Patient is awake, alert and oriented x3. Cranial nerves 2 through 12 are grossly intact. - Labs CBC & Chem 7: 08/04/18 08:07 08/04/18 08:07 Labs: Abnormal Lab Results - Last 24 Hours (Table) 08/03/18 08/04/18 08/04/18 Range/Units 20:45 07:45 08:07 RBC 4.00 L (4.30-5.90) m/uL Hgb 11.4 L (13.0-17.5) gm/dL Hct 35.0 L (39.0-53.0) % Lymphocytes # 0.3 L (1.0-4.8) k/uL Chloride (98-107) mmol/L Creatinine (0.66-1.25) mg/dL Glucose (74-99) mg/dL POC Glucose (mg/dL) 124 H 114 H (75-99) mg/dL 08/04/18 08/04/18 Range/Units 08:07 11:21 RBC (4.30-5.90) m/uL Hgb (13.0-17.5) gm/dL Hct (39.0-53.0) % Lymphocytes # (1.0-4.8) k/uL Chloride 108 H (98-107) mmol/L Creatinine 0.63 L (0.66-1.25) mg/dL Glucose 127 H (74-99) mg/dL POC Glucose (mg/dL) 140 H (75-99) mg/dL Assessment and Plan Plan: #1 Mediastinal high-grade large B-cell lymphoma on R-EPOCH therapy with allopurinol. Cycle 1 of cycle 5. Monitor for pancytopenia, cystitis, worsening shortness of breath, blurry vision, hyperglycemia. Oncology managing the chemotherapy. Chemotherapy precautions to be followed #2 dysphagia secondary to compression of the esophagus by these mediastinal mass. Dietitian consult. Advance to regular diet. Ensure clear with meals. Speech therapy evaluation noted. Consult with GI, completed. #3 shortness of breath and cough secondary to compression of trachea. DuoNeb as needed for shortness of breath. Watch for increased oxygen requirement. SpO2 to be maintained above 92% #4 type 2 diabetes uncontrolled with hyperglycemia secondary to steroids. Continue metformin and glimepiride 2 mg at the current dose and NovoLog scale. Last A1c 5.7 according to patient. Watch for hypoglycemia glucose checked before meals and at bedtime #5 hyperlipidemia continue atorvastatin 20 mg by mouth at bedtime #6 hypertension continue amlodipine 10 mg by mouth daily #7 bipolar disorder continue Abilify 5 mg daily at bedtime #8 diabetes neuropathy continue gabapentin 300 mg 3 times a day #9 GI prophylaxis with Protonix 40 twice a day #10 recent diagnosis of DVT in left upper extremity on Lovenox 150 twice a day Discharge plan: Return home Impression and plan of care have been directed as dictated by the signing physician. Rossy Quintanilla nurse practitioner acting as scribe for signing physician.
--- NOTE | 2018-08-04 16:00 | CONS ---
CONSULTATION DATE OF CONSULTATION: August 04, 2018. REQUESTING PHYSICIAN: Dr. Gibson. REASON FOR CONSULTATION: Dysphagia. HISTORY OF PRESENT ILLNESS: The patient is a 42 -year-old pleasant white male who was diagnosed with high-grade B- cell lymphoma on July 23, 2018 when he presented to the emergency room with chest pain and subsequent CT scan of the abdomen showed an 8 x 5 cm mass in the mediastinum. He was transferred to [facility], where he then had a biopsy performed. He was admitted to the hospital 3 days ago for the 1st cycle of chemotherapy. The reason we are consulted is because of progressive dysphagia to solids for the last 2 months duration. Initially, he started having dysphagia sometime in mid May that was progressively getting worse to a point that before this recent hospitalization, he was only able to swallow liquids. He lost 30 pounds since the onset of the symptoms. He denies any heartburn. He reports no odynophagia. He never had these symptoms in the past. Since the chemotherapy was started 3 days ago, today being his 3rd day of his 1st cycle, he feels that the dysphagia is better. Yesterday, his diet was advanced to a full liquid diet and tolerating well and requesting for more food today. He denies any abdominal pain. No nausea, vomiting. PAST MEDICAL HISTORY: Significant for diabetes mellitus, hyperlipidemia, degenerative joint disease, hypertension, DVT and recently diagnosed B-cell lymphoma. PAST SURGICAL HISTORY: Tonsillectomy and adenoidectomy, right hand fracture, surgery for right hand fracture. MEDICATIONS: Abilify, Zyloprim, Lipitor, Neurontin, Amaryl, Norvasc, Glucophage, and currently receiving chemotherapy. ALLERGIES: None. SOCIAL HISTORY: Former smoker. Occasional alcohol use. FAMILY HISTORY: Father has diabetes mellitus. Mother has diabetes mellitus and hyperlipidemia. REVIEW OF SYSTEMS: Cardiopulmonary: Denies any chest pain. He had this 2 weeks ago. No shortness of breath. Genitourinary: No dysuria or hematuria. Musculoskeletal: Unremarkable. Skin unremarkable. Endocrine unremarkable. Psychiatric unremarkable. GI as mentioned above. Neurology unremarkable. Oncology: Newly diagnosed high-grade B-cell lymphoma, presently undergoing chemotherapy. ENT: Vision unremarkable. Constitutional: Weight loss of 30 pounds. No fever, chills, night sweats. PHYSICAL EXAMINATION: He appears comfortable. No apparent distress. Vital signs stable. Blood pressure is 135/82, pulse is 92, temperature 97.6. HEENT examination unremarkable. Conjunctivae pink. Sclerae anicteric. Oral cavity no lesions. Neck no jugular venous distention or lymph node enlargement. Chest was clear to auscultation. HEART: Regular rate and rhythm. ABDOMEN: Soft. Nontender. Liver and spleen not palpable. Bowel sounds are positive. No organomegaly. Extremities: No pedal edema. Skin no rashes. NEUROLOGIC: Alert and oriented x3. No focal deficits. LABORATORY DATA: Labs from today WBC 5.2, hemoglobin 11.4, platelets are normal. Basic metabolic panel is within normal limits. IMPRESSION: This is a patient who was diagnosed with high-grade B-cell lymphoma 2 weeks ago when he presented with severe chest pain and a CT scan showing a 9 x 5 cm mediastinal mass for which he had a biopsy done at [facility]. He started on 1st cycle of chemotherapy today day #3 he has progressive dysphagia to solids for the last 2 months duration and lost about 30 pounds. In fact at the time of admission the hospital, he was only able to swallow liquids. However, as of today, he states that his dysphagia is gradually improving. Yesterday, he was able to tolerate full liquid diet and requesting to advance diet at this time. Denies any other gastrointestinal symptoms. Most likely we are dealing with extrinsic compression for the mediastinal mass of the esophagus causing progressive dysphagia to solids. RECOMMENDATIONS: 1. Continue with current medications. 2. Advance diet as tolerated and see how he handles it. 3. No need for any endoscopic intervention as the symptoms are gradually improving. We will follow the patient closely during the hospital stay. Thank you for this consultation. MMODL / IJN: [id number] /
[2018-08-04 17:33] LABS: Glucose,Whole Blood 120 mg/dL (75-99)
[2018-08-04 21:11] LABS: Glucose,Whole Blood 207 mg/dL (75-99)
[2018-08-04] MEDS: ATORVASTATIN 20 MG TAB PO SCH (21:40)
[2018-08-04] MEDS: ALLOPURINOL 300 MG TAB PO SCH (21:42)
[2018-08-04] MEDS: ARIPiprazole 5 MG TAB PO SCH (21:43)
--- NOTE | 2018-08-04 22:41 | PN ---
PROGRESS NOTE DATE OF SERVICE: August 04, 2018 CHIEF COMPLAINT: Tired. Senthil seen today as a followup. He feels a little tired, but overall he feels well. No nausea or vomiting. He is able to swallow very well. The swelling and his left upper extremity has dramatically improved. Bowels moving fine. No melena, hematochezia, hematuria or hemoptysis. MEDICATION: Reviewed in electronic medical record. PHYSICAL EXAM: Alert, oriented x3. No acute distress. Well developed, well nourished. Vital signs temperature 97.8, afebrile, pulse 71 regular, respiration 18, blood pressure 134/89. HEENT: Normocephalic, atraumatic. NECK: Supple. Chest equal expansion bilaterally. Lungs are clear to auscultation and percussion. Heart is regular rhythm. Abdomen is soft. No tenderness. Bowel sounds present. Extremities revealed no edema. The edema in the left upper extremity has significantly improved. LABORATORY DATA: From today, WBC of 5.2, hemoglobin 11.4, hematocrit 35.0, MCV is 87.5, platelets are 291. Sodium 142, potassium 3.9, chloride 108, the BUN is 10, creatinine 0.63. LFTs and alkaline phosphatase are within normal limits. IMPRESSION: 1. Mediastinal large B-cell lymphoma. The patient admitted for cycle #1 of the dose adjusted R-EPOCH regimen. He is tolerating cycle 1 fairly well. 2. Left upper extremity deep venous thrombosis related to bulky mediastinal node. This has improved. 3. Dysphagia and dyspnea also related to his mediastinal B-cell lymphoma. This has improved as well. RECOMMENDATION: 1. Continue with cycle #1 as scheduled without any dose medication. 2. Continue supportive care. 3. Monitor blood count. 4. Continue allopurinol. 5. Continue Lovenox. MMODL / IJN: [id number] /
[2018-08-05] MEDS: FAMOTIDINE 20 MG/2 ML VIAL IV SCH (00:30)
[2018-08-05] MEDS: ONDANSETRON 16 MG in SODIUM CHLORIDE 0.9% 50 ML IVPB SCH (00:30)
[2018-08-05] MEDS: ETOPOSIDE IV SCH (01:10)
[2018-08-05] MEDS: SODIUM CHLORIDE 0.9% IV SCH ×3 (01:10→01:12)
[2018-08-05] MEDS: DOXORUBICIN HCL IV SCH (01:11)
[2018-08-05] MEDS: VINCRISTINE SULFATE IV SCH (01:12)
[2018-08-05] MEDS: SODIUM CHLORIDE 0.9% 1,000 ML IV SCH ×4 (05:57→20:27)
[2018-08-05 07:49] LABS: Glucose,Whole Blood 121 mg/dL (75-99)
[2018-08-05 07:58] LABS: Basophils % (A) 0 %; Eosinophils % (A) 1 %; HCT 33.6 % (39.0-53.0); Lymphocytes # (A) 0.2 k/uL (1.0-4.8); Lymphocytes % (A) 6 %; MCH 28.4 pg (25.0-35.0); MCHC 32.8 g/dL (31.0-37.0); MCV 86.5 fL (80.0-100.0); Mean Platelet Volume 7.9; Monocytes % (A) 2 %; Neutrophils # (A) 2.6 k/uL (1.3-7.7); Neutrophils % (A) 91 %; Platelet Count 255 k/uL (150-450); RBC 3.88 m/uL (4.30-5.90); WBC 2.8 k/uL (3.8-10.6)
[2018-08-05 08:19] LABS: ALT 42 U/L (21-72); AST 23 U/L (17-59); Alkaline Phosphatase 47 U/L (38-126); Anion Gap 7 mmol/L; Blood Urea Nitrogen 14 mg/dL (9-20); Calcium 8.7 mg/dL (8.4-10.2); Carbon Dioxide 25 mmol/L (22-30); Chloride 110 mmol/L (98-107); Glucose 107 mg/dL (74-99); Potassium 3.9 mmol/L (3.5-5.1); Sodium 142 mmol/L (137-145); Total Bilirubin 0.5 mg/dL (0.2-1.3); Uric Acid 3.7 mg/dL (3.5-8.5)
--- NOTE | 2018-08-05 09:16 | PN ---
PROGRESS NOTE Patient is a 42-year-old pleasant white male diagnosed with high-grade large B-cell lymphoma 10 days ago and presently on his 1st cycle of chemotherapy. He was evaluated by me yesterday for progressive dysphagia to solids for the last 2 months duration. Since the chemotherapy has started dysphagia has significantly improved. He is on a clear liquid diet until yesterday. He was advanced to regular diet yesterday afternoon and the patient states that he has been able to tolerate food well with no episodes of dysphagia. In fact, he denies any esophageal symptoms. No heartburn. No odynophagia. He denies any abdominal pain. No nausea, vomiting. PHYSICAL EXAMINATION: He appears comfortable. No apparent distress. Vital signs are stable. Blood pressure is 129/80, pulse 82, temperature 97.5. HEENT examination unremarkable. Conjunctivae pink. Sclerae anicteric. Oral cavity no lesions. No jugular venous distention or lymph node enlargement. Chest was clear to auscultation. HEART: Regular rate and rhythm. Abdomen is soft. Bowel sounds are positive. No organomegaly. EXTREMITIES: No pedal edema. SKIN: No rashes. NEUROLOGIC: Alert and oriented x3. No focal deficits. LABS: From today: WBC 2.8, hemoglobin 11, platelets are normal. Basic metabolic panel is within normal limits. IMPRESSION: 1. Progressive dysphagia to solids for the last 2 months duration secondary to esophageal compression, possibly from the mediastinal mass, which has significantly improved since he was started on chemotherapy 4 days ago. The patient is on regular diet tolerating well. 2. High-grade B-cell lymphoma, presently on 1st cycle of chemotherapy, doing well. RECOMMENDATIONS: 1. Continue with regular diet. 2. No need for any endoscopy intervention. If he has any symptoms in the future, please call us. Thank you for this consultation. MMODL / IJN: [id number] /
[2018-08-05] MEDS: INSULIN ASPART 100 UNIT/ML 1 ML 10 ML VIAL SQ SCH ×4 (09:44→20:25)
[2018-08-05] MEDS: SENNOSIDES-DOCUSATE SODIUM 1 EACH TAB PO SCH ×2 (09:44→20:25)
[2018-08-05] MEDS: predniSONE 20 MG TAB PO SCH ×2 (09:50→20:20)
[2018-08-05] MEDS: predniSONE 50 MG TAB PO SCH ×2 (09:51→20:21)
[2018-08-05] MEDS: ENOXAPARIN 150 MG/ML SYRINGE SQ SCH ×2 (09:51→20:21)
[2018-08-05] MEDS: GABAPENTIN 300 MG CAP PO SCH ×3 (09:51→20:21)
[2018-08-05] MEDS: metFORMIN 500 MG TAB PO SCH ×2 (09:51→20:21)
[2018-08-05] MEDS: GLIMEPIRIDE 2 MG TAB PO SCH (09:51)
[2018-08-05] MEDS: SALT AND SODA MOUTHWASH 1,000 ML PO SCH ×3 (09:52→17:35)
[2018-08-05] MEDS: PANTOPRAZOLE 40 MG TABLET PO SCH ×2 (09:52→17:35)
[2018-08-05] MEDS: amLODIPine 10 MG TAB PO SCH (09:55)
[2018-08-05 11:56] LABS: Glucose,Whole Blood 139 mg/dL (75-99)
--- NOTE | 2018-08-05 12:57 | P.PN ---
Subjective Progress Note Date: 08/05/18 This is a 42 years old male with past medical history of type 2 diabetes, recent diagnosis of DVT on Lovenox, hypertension, osteoarthritis with recent diagnosis of high-grade B cell lymphoma diagnosed by a computed tomography scan of the chest on 07/20/2018 which revealed a large anterior mediastinal mass 8.6 into 5.6 cm causing difficulty swallowing with dry cough and shortness of breath at rest. Patient to start EPOCH-R treatment cycle 1 of cycle 5 today Patient endorses orthopnea and difficulty swallowing solid food for the past 2 weeks. Patient has lost 10 pounds in the last 1 week and he is currently taking boost as a diet as he is unable to swallow anything else. He denies any use productive cough or PND, Lower extremity edema. He does have peripheral neuropathy from diabetes and is currently managed with metformin and glimepiride. Our team is consulted for medical management 08/02: Patient is tolerating a clear liquid diet and is asking for this to be advanced area patient has had some dysphagia and Beach therapy will be requested. For now diet will be advanced to full liquid only. Patient has started chemotherapy. He has been ambulating to the bathroom and back to his bed without dizziness. He denies having any diarrhea. No leg pain. No chest pain or shortness of breath. White count is currently normal. Creatinine 0.59. Blood sugars have had a few elevated readings secondary to steroids. No medication changes for this at this point. He'll be continued on his home medications of metformin and glimepiride along with NovoLog scale. We'll signs are stable. He has been afebrile. Pulse ox 94% on room air. 08/03: Hemoglobin is stable at 10.7. Speech therapy has evaluated and recommends GI consult which is been placed. Patient denies any new complaints. He is requesting diet advanced. He has been ambulating in his room with no lightheadedness or dizziness. No chest pain. No nausea or vomiting. 08/04. Patient denies any difficulty swallowing at this time patient states that it is now better. He was evaluated by speech and awaiting a GI consult. Hemoglobin has increased to 11.4. Patient tolerated the increase and diet well. Denies any nausea or vomiting. He has been ambulating in his room denies any lightheadedness or dizziness. Denies any chest pain. 08/05: Patient denies any stridor, difficulty swallowing, difficulty breathing, patient states that he is feeling much better at this time. It is on a regular diet and tolerating it well at this time. GI consult was completed no endoscopic testing needed at this time. He denies any nausea or vomiting. He has been ambulating in his room without any difficulties. He continues to receive chemotherapy and is under chemotherapy precautions. WBC 2.8, RBCs 3.88 , hemoglobin 11.0 platelets 255 Objective - Vital Signs Vital signs: Vital Signs Temp 97.6 F 08/05/18 12:09 Pulse 79 08/05/18 12:09 Resp 16 08/05/18 12:09 BP 136/93 08/05/18 12:09 Pulse Ox 94 L 08/05/18 12:09 Intake & Output 08/04/18 08/05/18 08/05/18 18:59 06:59 18:59 Intake Total 1473.6 590 Balance 1473.6 590 Weight 145.286 kg Intake: Intake, IV Titration 1473.6 Amount DOXOrubicin HCL 27 mg In 88 Sodium Chloride 0.9% 250 ml @ 10.979 mls/hr IV Q24H [facility] Rx#:[id number] Etoposide 130 mg In 168 Sodium Chloride 0.9% 500 ml @ 21.104 mls/hr IV Q24H [facility] Rx#:[id number] Sodium Chloride 0.9% 1, 1200 000 ml @ 150 mls/hr IV . Q6H40M [facility] Rx#:[id number] vinCRIStine SULFATE 1.1 17.6 mg In Sodium Chloride 0.9 % 50 ml @ 2.129 mls/hr IV Q24H [facility] Rx#:[id number] Oral 590 Other: Voiding Method Toilet Toilet Toilet # Voids 2 - Exam Gen: This is a 42-year-old male, no acute distress, cooperative, obese HEENT: Head is atraumatic, normocephalic. Pupils equal, round. Sclerae is anicteric. NECK: Supple. No JVD. No lymphadenopathy. No thyromegaly. LUNGS: Clear to auscultation. No wheezes or rhonchi. No intercostal retractions. HEART: Regular rate and rhythm. No murmur. ABDOMEN: Soft. Bowel sounds are present. No masses. No tenderness. EXTREMITIES: No pedal edema. No calf tenderness. NEUROLOGICAL: Patient is awake, alert and oriented x3. Cranial nerves 2 through 12 are grossly intact. - Labs CBC & Chem 7: 08/05/18 07:30 08/05/18 07:30 Labs: Abnormal Lab Results - Last 24 Hours (Table) 08/04/18 08/04/18 08/05/18 Range/Units 17:32 20:51 07:30 WBC 2.8 L (3.8-10.6) k/uL RBC 3.88 L (4.30-5.90) m/uL Hgb 11.0 L (13.0-17.5) gm/dL Hct 33.6 L (39.0-53.0) % Lymphocytes # 0.2 L (1.0-4.8) k/uL Chloride (98-107) mmol/L Creatinine (0.66-1.25) mg/dL Glucose (74-99) mg/dL POC Glucose (mg/dL) 120 H 207 H (75-99) mg/dL Total Protein (6.3-8.2) g/dL Albumin (3.5-5.0) g/dL 08/05/18 08/05/18 08/05/18 Range/Units 07:30 07:47 11:55 WBC (3.8-10.6) k/uL RBC (4.30-5.90) m/uL Hgb (13.0-17.5) gm/dL Hct (39.0-53.0) % Lymphocytes # (1.0-4.8) k/uL Chloride 110 H (98-107) mmol/L Creatinine 0.57 L (0.66-1.25) mg/dL Glucose 107 H (74-99) mg/dL POC Glucose (mg/dL) 121 H 139 H (75-99) mg/dL Total Protein 6.0 L (6.3-8.2) g/dL Albumin 3.0 L (3.5-5.0) g/dL Assessment and Plan Plan: #1 Mediastinal high-grade large B-cell lymphoma on R-EPOCH therapy with allopurinol. Cycle 1 of cycle 5. Monitor for pancytopenia, cystitis, worsening shortness of breath, blurry vision, hyperglycemia. Oncology managing the chemotherapy. Chemotherapy precautions to be followed #2 dysphagia secondary to compression of the esophagus by these mediastinal mass. Dietitian consult. Advance to regular diet. Ensure clear with meals. Speech therapy evaluation noted. Consult with GI, completed no endoscopic procedures needed at this time. #3 shortness of breath and cough secondary to compression of trachea. DuoNeb as needed for shortness of breath. Watch for increased oxygen requirement. SpO2 to be maintained above 92% #4 type 2 diabetes uncontrolled with hyperglycemia secondary to steroids. Continue metformin and glimepiride 2 mg at the current dose and NovoLog scale. Last A1c 5.7 according to patient. Watch for hypoglycemia glucose checked before meals and at bedtime #5 hyperlipidemia continue atorvastatin 20 mg by mouth at bedtime #6 hypertension continue amlodipine 10 mg by mouth daily #7 bipolar disorder continue Abilify 5 mg daily at bedtime #8 diabetes neuropathy continue gabapentin 300 mg 3 times a day #9 GI prophylaxis with Protonix 40 twice a day #10 recent diagnosis of DVT in left upper extremity on Lovenox 150 twice a day Discharge plan: Return home Impression and plan of care have been directed as dictated by the signing physician. Rossy Quintanilla nurse practitioner acting as scribe for signing physician.
[2018-08-05 16:38] LABS: Glucose,Whole Blood 96 mg/dL (75-99)
--- NOTE | 2018-08-05 18:34 | PN ---
PROGRESS NOTE DATE OF SERVICE: August 05, 2018. CHIEF COMPLAINT: Tired. Senthil is seen today as followup. He feels a little tired but overall is tolerating chemotherapy very well. No nausea or vomiting. The bowels are working fine. No diarrhea. No fever or chills. His medication reviewed in electronic record. PHYSICAL EXAMINATION: He is alert, oriented x3. No acute distress. Well developed, well nourished. VITAL SIGNS: Temperature 97.6, afebrile, pulse 79 and regular, respirations 16, blood pressure 136/93. HEENT: Normocephalic, atraumatic. NECK: Supple. Chest equal expansion bilaterally. LUNGS: Clear to auscultation. Heart is regular rate and rhythm. ABDOMEN: Soft. No tenderness or organomegaly. EXTREMITIES: No edema. SKIN: No significant bruises. SIGNIFICANT LABORATORY DATA: From today WBC of 2.8, hemoglobin 11.0, hematocrit 33.6, platelets are 255. Sodium 142, potassium 3.9, chloride 110, BUN is 7, creatinine is 0.57, and LFT and alkaline phosphatase are within normal range. IMPRESSION: 1. Mediastinal B-cell lymphoma. The patient on his 1st cycle of dose adjusted R Epoch regimen. He is tolerating treatment fairly well and clinically he does appear to be responding as well. His dysphagia has resolved and the swelling in the left upper extremity has improved as well. 2. Left upper extremity deep venous thrombosis. 3. Developing anemia and leukopenia related to chemotherapy. RECOMMENDATIONS: 1. Monitor blood count. Continue to monitor blood count. 2. Continue with the chemotherapy as scheduled without any dose adjustment or changes. 3. Continue low molecular weight heparin. 4. Continue supportive care. 5. MMODL / IJN: [id number] /
[2018-08-05 20:14] LABS: Glucose,Whole Blood 121 mg/dL (75-99)
[2018-08-05] MEDS: ATORVASTATIN 20 MG TAB PO SCH (20:21)
[2018-08-05] MEDS: ALLOPURINOL 300 MG TAB PO SCH (20:22)
[2018-08-05] MEDS: ARIPiprazole 5 MG TAB PO SCH (20:22)
[2018-08-05] MEDS ORDERED: SODIUM CHLORIDE 0.9% IV ONE (23:00)
[2018-08-05] MEDS ORDERED: CYCLOPHOSPHAMIDE IV ONE (23:00)
[2018-08-06 00:32] VITALS: RESP 16
[2018-08-06] MEDS: ONDANSETRON 16 MG in SODIUM CHLORIDE 0.9% 50 ML IVPB SCH (01:18)
[2018-08-06] MEDS: FAMOTIDINE 20 MG/2 ML VIAL IV SCH (01:18)
[2018-08-06] MEDS: SODIUM CHLORIDE 0.9% 1,000 ML IV SCH ×2 (01:45→08:13)
[2018-08-06 07:20] LABS: Glucose,Whole Blood 119 mg/dL (75-99)
[2018-08-06] MEDS: INSULIN ASPART 100 UNIT/ML 1 ML 10 ML VIAL SQ SCH ×2 (08:14→11:45)
[2018-08-06] MEDS: PANTOPRAZOLE 40 MG TABLET PO SCH (08:15)
[2018-08-06] MEDS: SALT AND SODA MOUTHWASH 1,000 ML PO SCH ×2 (08:15→11:45)
[2018-08-06] MEDS: GLIMEPIRIDE 2 MG TAB PO SCH (08:15)
[2018-08-06] MEDS: metFORMIN 500 MG TAB PO SCH (08:16)
[2018-08-06] MEDS: amLODIPine 10 MG TAB PO SCH (08:16)
[2018-08-06] MEDS: GABAPENTIN 300 MG CAP PO SCH (08:16)
[2018-08-06] MEDS: SENNOSIDES-DOCUSATE SODIUM 1 EACH TAB PO SCH (08:29)
[2018-08-06 09:14] LABS: Basophils % (A) 0 %; Eosinophils % (A) 1 %; HCT 32.7 % (39.0-53.0); HGB 11.4 gm/dL (13.0-17.5); Lymphocytes # (A) 0.2 k/uL (1.0-4.8); Lymphocytes % (A) 5 %; MCHC 34.8 g/dL (31.0-37.0); MCV 83.5 fL (80.0-100.0); Mean Platelet Volume 7.4; Monocytes % (A) 1 %; Neutrophils % (A) 93 %; Platelet Count 236 k/uL (150-450); Poikilocytosis Slight; RBC 3.91 m/uL (4.30-5.90); RDW 12.9 % (11.5-15.5); WBC 3.3 k/uL (3.8-10.6)
[2018-08-06 09:22] LABS: ALT 40 U/L (21-72); AST 27 U/L (17-59); Alkaline Phosphatase 43 U/L (38-126); Anion Gap 10 mmol/L; Blood Urea Nitrogen 15 mg/dL (9-20); Calcium 8.6 mg/dL (8.4-10.2); Carbon Dioxide 24 mmol/L (22-30); Chloride 106 mmol/L (98-107); Glucose 142 mg/dL (74-99); Potassium 3.4 mmol/L (3.5-5.1); Sodium 140 mmol/L (137-145); Total Bilirubin 0.5 mg/dL (0.2-1.3); Total Protein 5.8 g/dL (6.3-8.2); Uric Acid 3.3 mg/dL (3.5-8.5)
[2018-08-06] MEDS: ENOXAPARIN 150 MG/ML SYRINGE SQ SCH (10:01)
[2018-08-06] MEDS ORDERED: POTASSIUM CHLORIDE ER 20 MEQ TAB.ER PO STA (11:04)
[2018-08-06 11:35] LABS: Glucose,Whole Blood 101 mg/dL (75-99)
--- NOTE | 2018-08-06 12:03 | P.DS ---
Providers Date of admission: 08/01/18 08:00 Expected date of discharge: 08/06/18 Attending physician: Anand Cervantes Consults: 08/01/18 11:58 Consult Physician Routine Consulting Provider: Nena Griffiths Consult Reason/Comments: medical mgmt. Do you want consulting provider notified?: Yes 08/03/18 11:16 Consult Physician Routine Consulting Provider: Catalino Wise Consult Reason/Comments: dysphagia Do you want consulting provider notified?: Yes Primary care physician: Luisa Gibson - Discharge Diagnosis(es) (1) Lymphoma Primary medistinal, s/p 1st dose of DA R-EPOCH with good tolerance. Pt insurance would not approve G-CSF prophylactically, pt has to become neutropenic. Pt educated on infection prevention and self care. CBC in 2 days in office Current Visit: Yes Status: Acute Priority: High (2) Hypokalemia Mild hypokalemia, 3.4. 1 dose oral given STAT. 3 days oral supplement prescribed, Rx sent to pt [facility]. He is aware. BMP with lab draw in 2 days. Current Visit: Yes Status: Acute Priority: Medium Hospital Course: Pt admitted for 1st cycle of dose credit adjuster R-EPOCH for newly diagnosed primary medistinal lymphoma. Pt tolerated treatment well, no fever, nausea, new couhg, abd discomfort, treated constipation, no bleeding, swelling or pain. He is ready to go home. Pertinent Studies: none Procedures: ECHO Patient Condition at Discharge: Stable Plan - Discharge Summary Discharge Rx Participant: No New Discharge Prescriptions: New Potassium Chloride [Klor-Con 20] 20 meq PO DAILY #3 tab No Action metFORMIN HCL [Glucophage] 1,000 mg PO BID Gabapentin [Neurontin] 300 mg PO TID amLODIPine [Norvasc] 10 mg PO DAILY Glimepiride [Amaryl] 2 mg PO DAILY Enoxaparin Sodium 150 mg SQ BID Atorvastatin [Lipitor] 20 mg PO HS ARIPiprazole [Abilify] 5 mg PO HS Allopurinol [Zyloprim] 300 mg PO HS Discharge Medication List ARIPiprazole [Abilify] 5 mg PO HS 08/01/18 [History] Allopurinol [Zyloprim] 300 mg PO HS 08/01/18 [History] Atorvastatin [Lipitor] 20 mg PO HS 08/01/18 [History] Enoxaparin Sodium 150 mg SQ BID 08/01/18 [History] Gabapentin [Neurontin] 300 mg PO TID 08/01/18 [History] Glimepiride [Amaryl] 2 mg PO DAILY 08/01/18 [History] amLODIPine [Norvasc] 10 mg PO DAILY 08/01/18 [History] metFORMIN HCL [Glucophage] 1,000 mg PO BID 08/01/18 [History] Potassium Chloride [Klor-Con 20] 20 meq PO DAILY #3 tab 08/06/18 [Rx] Follow up Appointment(s)/Referral(s): Anand Cervantes MD [STAFF PHYSICIAN] - 08/08/18 2:30 pm Patient Instructions/Handouts: Eating During Cancer Treatment (DC), Hypokalemia (DC), Preventing Infections (GEN), Self Care Measures With Cancer ( DC), How To Wash Your Hands (DC), Mouth Care for the Cancer Patient (DC), Intravenous Chemotherapy (DC), Types of Chemotherapy (GEN) Activity/Diet/Wound Care/Special Instructions: Activity as tolerated Diet as tolerated Monitor for fevers. CALL DR FOR TEMP 100.5F or higher [place] fluid intake Plenty of rest/balance with activity Discharge Disposition: HOME SELF-CARE Pending Studies Pending Results: none
[2018-08-06 12:49] VITALS: BP 140/92; PULSE 80; TEMP 96.1
--- NOTE | 2018-08-06 15:56 | P.PN ---
Subjective Progress Note Date: 08/06/18 This is a 42 years old male with past medical history of type 2 diabetes, recent diagnosis of DVT on Lovenox, hypertension, osteoarthritis with recent diagnosis of high-grade B cell lymphoma diagnosed by a computed tomography scan of the chest on 07/20/2018 which revealed a large anterior mediastinal mass 8.6 into 5.6 cm causing difficulty swallowing with dry cough and shortness of breath at rest. Patient to start EPOCH-R treatment cycle 1 of cycle 5 today Patient endorses orthopnea and difficulty swallowing solid food for the past 2 weeks. Patient has lost 10 pounds in the last 1 week and he is currently taking boost as a diet as he is unable to swallow anything else. He denies any use productive cough or PND, Lower extremity edema. He does have peripheral neuropathy from diabetes and is currently managed with metformin and glimepiride. Our team is consulted for medical management 08/02: Patient is tolerating a clear liquid diet and is asking for this to be advanced area patient has had some dysphagia and Beach therapy will be requested. For now diet will be advanced to full liquid only. Patient has started chemotherapy. He has been ambulating to the bathroom and back to his bed without dizziness. He denies having any diarrhea. No leg pain. No chest pain or shortness of breath. White count is currently normal. Creatinine 0.59. Blood sugars have had a few elevated readings secondary to steroids. No medication changes for this at this point. He'll be continued on his home medications of metformin and glimepiride along with NovoLog scale. We'll signs are stable. He has been afebrile. Pulse ox 94% on room air. 08/03: Hemoglobin is stable at 10.7. Speech therapy has evaluated and recommends GI consult which is been placed. Patient denies any new complaints. He is requesting diet advanced. He has been ambulating in his room with no lightheadedness or dizziness. No chest pain. No nausea or vomiting. 08/04. Patient denies any difficulty swallowing at this time patient states that it is now better. He was evaluated by speech and awaiting a GI consult. Hemoglobin has increased to 11.4. Patient tolerated the increase and diet well. Denies any nausea or vomiting. He has been ambulating in his room denies any lightheadedness or dizziness. Denies any chest pain. 08/05: Patient denies any stridor, difficulty swallowing, difficulty breathing, patient states that he is feeling much better at this time. It is on a regular diet and tolerating it well at this time. GI consult was completed no endoscopic testing needed at this time. He denies any nausea or vomiting. He has been ambulating in his room without any difficulties. He continues to receive chemotherapy and is under chemotherapy precautions. WBC 2.8, RBCs 3.88 , hemoglobin 11.0 platelets 255 08/06: Patient states he completed his chemotherapy this morning at 3 AM. He states his swallowing is much better. He denies any chest pain or shortness of breath. He has been seen by Dr. Hoang and diet advanced. He denies any joint pain. He has a little cough. Patient is scheduled for discharge home today by oncology. Objective - Vital Signs Vital signs: Vital Signs Temp 97.7 F 08/06/18 06:34 Pulse 84 08/06/18 06:34 Resp 16 08/06/18 06:34 BP 154/99 08/06/18 06:34 Pulse Ox 94 L 08/06/18 06:34 Intake & Output 08/05/18 08/06/18 08/06/18 18:59 06:59 18:59 Intake Total 1464 3830 Balance 1464 3830 Intake: Intake, IV Titration 1464 2450 Amount Cyclophosphamide 2,000 mg 250 In Sodium Chloride 0.9% 250 ml @ 500 mls/hr IV ONCE ONE Rx#:[id number] DOXOrubicin HCL 27 mg In 80 250 Sodium Chloride 0.9% 250 ml @ 10.979 mls/hr IV Q24H [facility] Rx#:[id number] Etoposide 130 mg In 168 500 Sodium Chloride 0.9% 500 ml @ 21.104 mls/hr IV Q24H [facility] Rx#:[id number] Ondansetron 16 mg In 50 Sodium Chloride 0.9% 50 ml @ 100 mls/hr IVPB Q24H [facility] Rx#:[id number] Sodium Chloride 0.9% 1, 1200 1350 000 ml @ 150 mls/hr IV . Q6H40M [facility] Rx#:[id number] vinCRIStine SULFATE 1.1 16 50 mg In Sodium Chloride 0.9 % 50 ml @ 2.129 mls/hr IV Q24H [facility] Rx#:[id number] Oral 1380 Other: Voiding Method Toilet Toilet Toilet # Voids 3 - Exam General appearance: cooperative, no acute distress, obese - EENT Eyes: anicteric sclerae, PERRLA, normal appearance ENT: hearing grossly normal - Neck Neck: no lymphadenopathy, normal ROM, no other, no rigidity, no stridor, no thyromegaly - Respiratory Respiratory: bilateral: CTA, decreased air entry bilaterally negative: dullness , rales, rhonchi - Cardiovascular Rhythm: regular Heart sounds: normal: S1, S2 Abnormal Heart Sounds: no systolic murmur, no diastolic murmur, no rub, no S3 Gallop, no S4 Gallop, no click, no other - Gastrointestinal General gastrointestinal: normal bowel sounds, soft nontender - Integumentary Integumentary: no rash - Neurologic Neurologic: CNII-XII intact - Musculoskeletal Musculoskeletal: gait normal, strength equal bilaterally - Psychiatric Psychiatric: A&O x's 3, appropriate affect - Labs CBC & Chem 7: 08/06/18 08:52 08/06/18 08:52 Labs: Abnormal Lab Results - Last 24 Hours (Table) 08/05/18 08/05/18 08/06/18 Range/Units 11:55 20:13 07:20 WBC (3.8-10.6) k/uL RBC (4.30-5.90) m/uL Hgb (13.0-17.5) gm/dL Hct (39.0-53.0) % Lymphocytes # (1.0-4.8) k/uL Potassium (3.5-5.1) mmol/L Creatinine (0.66-1.25) mg/dL Glucose (74-99) mg/dL POC Glucose (mg/dL) 139 H 121 H 119 H (75-99) mg/dL Uric Acid (3.5-8.5) mg/dL Total Protein (6.3-8.2) g/dL Albumin (3.5-5.0) g/dL 08/06/18 08/06/18 Range/Units 08:52 08:52 WBC 3.3 L (3.8-10.6) k/uL RBC 3.91 L (4.30-5.90) m/uL Hgb 11.4 L (13.0-17.5) gm/dL Hct 32.7 L (39.0-53.0) % Lymphocytes # 0.2 L (1.0-4.8) k/uL Potassium 3.4 L (3.5-5.1) mmol/L Creatinine 0.55 L (0.66-1.25) mg/dL Glucose 142 H (74-99) mg/dL POC Glucose (mg/dL) (75-99) mg/dL Uric Acid 3.3 L (3.5-8.5) mg/dL Total Protein 5.8 L (6.3-8.2) g/dL Albumin 3.0 L (3.5-5.0) g/dL Assessment and Plan Plan: #1 Mediastinal high-grade large B-cell lymphoma on R-EPOCH therapy with allopurinol. Cycle 1 of cycle 5. Monitor for pancytopenia, cystitis, worsening shortness of breath, blurry vision, hyperglycemia. Oncology managing the chemotherapy. Chemotherapy precautions to be followed #2 dysphagia secondary to compression of the esophagus by these mediastinal mass. Dietitian consult. Ensure clear with meals. Speech therapy evaluation noted. Consult with GI. Symptoms have resolved and diet advanced. #3 shortness of breath and cough secondary to compression of trachea. DuoNeb as needed for shortness of breath. Watch for increased oxygen requirement. SpO2 to be maintained above 92% #4 type 2 diabetes uncontrolled with hyperglycemia secondary to steroids. Continue metformin and glimepiride 2 mg at the current dose and NovoLog scale. Last A1c 5.7 according to patient. Watch for hypoglycemia glucose checked before meals and at bedtime #5 hyperlipidemia continue atorvastatin 20 mg by mouth at bedtime #6 hypertension continue amlodipine 10 mg by mouth daily #7 bipolar disorder continue Abilify 5 mg daily at bedtime #8 diabetes neuropathy continue gabapentin 300 mg 3 times a day #9 GI prophylaxis with Protonix 40 twice a day #10 recent diagnosis of DVT in left upper extremity on Lovenox 150 twice a day Code status full code Discharge plan: Return home Impression and plan of care have been directed as dictated by the signing physician. Ashley Hernandez nurse practitioner acting as scribe for signing physician.
== END 2018-08-06 13:25 | disposition home or self-care (01) | DRG 847 ==
LOC: 5ONC 08-01 08:00
PROVIDERS: ADMIT Internal Medicine Hematology & Oncology; ATTEND Internal Medicine Hematology & Oncology
DX: Z51.11 Encounter for antineoplastic chemotherapy (principal); C85.22 Mediastinal (thymic) large B-cell lymphoma, intrathoracic lymph nodes; I82.622 Acute embolism and thrombosis of deep veins of left upper extremity; D70.1 Agranulocytosis secondary to cancer chemotherapy; E11.42 Type 2 diabetes mellitus with diabetic polyneuropathy; E11.65 Type 2 diabetes mellitus with hyperglycemia; R13.10 Dysphagia, unspecified; K22.2 Esophageal obstruction; J39.8 Other specified diseases of upper respiratory tract; T45.1X5A Adverse effect of antineoplastic and immunosuppressive drugs, initial encounter; E78.5 Hyperlipidemia, unspecified; F31.9 Bipolar disorder, unspecified; I10 Essential (primary) hypertension; M19.91 Primary osteoarthritis, unspecified site; E87.6 Hypokalemia; T38.0X5A Adverse effect of glucocorticoids and synthetic analogues, initial encounter; G89.29 Other chronic pain; M54.5 Low back pain; Z79.84 Long term (current) use of oral hypoglycemic drugs; Z79.899 Other long term (current) drug therapy; Z87.01 Personal history of pneumonia (recurrent); Z86.718 Personal history of other venous thrombosis and embolism; Z86.14 Personal history of Methicillin resistant Staphylococcus aureus infection; Z87.81 Personal history of (healed) traumatic fracture; Z87.891 Personal history of nicotine dependence; Z83.3 Family history of diabetes mellitus; Z82.49 Family history of ischemic heart disease and other diseases of the circulatory system; Z83.49 Family history of other endocrine, nutritional and metabolic diseases; Z82.3 Family history of stroke
CPT/HCPCS: 80053; 80074; 83036; 83615; 84550; 85025; 93306

== ENCOUNTER 2018-08-23 09:02 | Inpatient (IN) | payer OTHER ==
[~2018-08-23 09:02] MED LIST changes: -ACETAMINOPHEN TAB 325 MG TAB PO ONE; -FAMOTIDINE 20 MG/2 ML VIAL IV SCH; -ONDANSETRON 16 MG in SODIUM CHLORIDE 0.9% 50 ML IVPB SCH; -diphenhydrAMINE 50 MG/ML 1 ML VIAL IVP ONE; -methylPREDNISolone SOD SUCCI 125 MG/2 ML VIAL IVP ONE
[2018-08-23] MEDS ORDERED: LIDOCAINE 1% INJ 10MG/ML (20 ML MDV) SQ ONE (11:45)
[2018-08-23] MEDS ORDERED: ACETAMINOPHEN TAB 325 MG TAB PO ONE (12:00)
[2018-08-23] MEDS ORDERED: methylPREDNISolone SOD SUCCI 125 MG/2 ML VIAL IV ONE (12:00)
[2018-08-23] MEDS ORDERED: diphenhydrAMINE 50 MG/ML 1 ML VIAL IVP ONE (12:00)
[2018-08-23 12:09] LABS: Glucose,Whole Blood 97 mg/dL (75-99)
[2018-08-23 12:11] LABS: HCT 36.8 % (39.0-53.0); HGB 12.2 gm/dL (13.0-17.5); MCH 28.3 pg (25.0-35.0); MCV 85.7 fL (80.0-100.0); Mean Platelet Volume 6.8; Platelet Count 337 k/uL (150-450); RDW 15.5 % (11.5-15.5); WBC 6.9 k/uL (3.8-10.6)
[2018-08-23] MEDS: INSULIN ASPART 100 UNIT/ML 1 ML 10 ML VIAL SQ SCH ×3 (12:22→22:14)
[2018-08-23] MEDS: SODIUM CHLORIDE 0.9% 1,000 ML IV SCH ×2 (12:22→17:51)
[2018-08-23 12:24] LABS: ALT 68 U/L (21-72); AST 32 U/L (17-59); Albumin 3.7 g/dL (3.5-5.0); Alkaline Phosphatase 84 U/L (38-126); Anion Gap 6 mmol/L; Blood Urea Nitrogen 8 mg/dL (9-20); Calcium 9.2 mg/dL (8.4-10.2); Carbon Dioxide 26 mmol/L (22-30); Chloride 108 mmol/L (98-107); Glucose 94 mg/dL (74-99); Potassium 4.2 mmol/L (3.5-5.1); Sodium 140 mmol/L (137-145); Total Bilirubin 0.4 mg/dL (0.2-1.3); Total Protein 6.7 g/dL (6.3-8.2); Uric Acid 4.5 mg/dL (3.5-8.5)
[2018-08-23] MEDS ORDERED: riTUXimab 1,000 MG in SODIUM CHLORIDE 0.9% 500 ML 500 ML IV ONE (12:30)
[2018-08-23 12:38] LABS: Band Neutrophils % 4 %; Metamyelocytes # (M) 0.07 k/uL (0); Metamyelocytes % 1 %; Monocytes # (M) 0.97 k/uL (0-1.0); Myelocytes # (M) 0.14 k/uL (0); Myelocytes % 2 %; Neutrophils % (M) 62 %; Nucleated Red Blood Cells 0 /100 WBC (0-0); Promyelocytes # (M) 0.14 k/uL (0); Promyelocytes % 2 %; Total Cells Counted 200
[2018-08-23 12:39] LABS: Anisocytosis (M) Present; Poikilocytosis (M) Present
[2018-08-23] MEDS: predniSONE 20 MG TAB PO SCH ×3 (12:43→22:30)
[2018-08-23] MEDS: ONDANSETRON 16 MG in SODIUM CHLORIDE 0.9% 50 ML IVPB SCH (12:43)
[2018-08-23] MEDS: FAMOTIDINE 20 MG/2 ML VIAL IV SCH (12:44)
[2018-08-23] MEDS: predniSONE 50 MG TAB PO SCH ×2 (12:44→22:30)
--- NOTE | 2018-08-23 14:01 | P.HPIM ---
History of Present Illness H&P Date: 08/23/18 Chief Complaint: Timed Chemotherapy This is a very nice patient who presented to [facility],on 07/20/2018 with chest pain,had a CXR which revealed mediastinal mass,CT scan of chest on 07/20/2018 revealed large anterior mediastinal mass,8.6x5.6 cm,abuts and partially displaced ascenting aorta,,right paratracheal nodes up to 2.5cm. He was transferred to [facility],on 07/22/2018,his CBC and CMP were unremarkable,serum AFP,HCG were normal,uric acid was 7.2,LDH was 705 (upper limit of normal was 250).Testicular ultrasound on 07/23/[address] scan of neck on 07/23/2018 revealed bilateral supraclavicular nodes that are visible but not enlarged,CT scan of abdomen/pelvis was negative. He had an echocardiogram at [facility] on 07/23/2018 which revealed normal EF of 69%. 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 He developed swelling in LUE at [facility],doppler confirmed DVT and was started on Lovenox. Attempted staging PET scan,however,he could not have it due to significant dyspnea. On 07/31/2018,he was admitted for cycle#1 of DA-R-EPOCH regimen, He tolerated the first cycle well,the swelling in LUE resolved,no more dysphagea,no more dyspnea. He now presents for inpatient chemotherapy cycle number 2 of R-EPOCH. Review of Systems A 14 point review of systems assessed and completed and all negative except HPI Past Medical History Past Medical History: Cancer, Diabetes Mellitus, Deep Vein Thrombosis (DVT), Hyperlipidemia, Hypertension, Osteoarthritis (OA), Pneumonia Additional Past Medical History / Comment(s): Pt states he started noticing difficulty with swallowing June,, went to [facility] on 07/20/18 d/t cough and chest pain, had cat scan that showed mediastinal mass and was sent on to [facility] where he had mediastinal mass biopsy. He states he has also had a L arm DVT. Other hx: Chronic low back pain, NIDDM type II, pt states dysphagia has resolved, "walking" pneumonia as a teen. History of Any Multi-Drug Resistant Organisms: MRSA Date of last positivie culture/infection: 2013 per pt MDRO Source:: L leg Past Surgical History: Adenoidectomy, Orthopedic Surgery, Tonsillectomy Additional Past Surgical History / Comment(s): PICC lines with current one placed 08/23/18, 07/22/18 mediastinal mass biopsy at [facility], R hand fracure with surgery/pins since removed. 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, Medications and Allergies Home Medications Medication Instructions Recorded Confirmed Type ARIPiprazole [Abilify] 5 mg PO HS 08/01/18 08/23/18 History Allopurinol [Zyloprim] 300 mg PO DAILY 08/01/18 08/23/18 History Atorvastatin [Lipitor] 20 mg PO HS 08/01/18 08/23/18 History Enoxaparin Sodium 150 mg SQ BID 08/01/18 08/23/18 History Gabapentin [Neurontin] 300 mg PO TID 08/01/18 08/23/18 History Glimepiride [Amaryl] 2 mg PO DAILY 08/01/18 08/23/18 History amLODIPine [Norvasc] 10 mg PO HS 08/01/18 08/23/18 History metFORMIN HCL [Glucophage] 1,000 mg PO BID 08/01/18 08/23/18 History Allergies Allergy/AdvReac Type Severity Reaction Status Date / Time No Known Allergies Allergy Verified 08/23/18 10:00 Physical Exam - Constitutional General appearance: average body habitus, cooperative, morbidly obese, no acute distress - EENT Eyes: EOMI, PERRLA, dentition normal, normal appearance ENT: NA/AT, normal oropharynx - Neck mild cervical adenopathy, improved, neck supple, trachea midline - Respiratory Respiratory: bilateral: CTA (No increased effort) - Cardiovascular Rhythm: regular Heart sounds: normal: S1, S2 - Gastrointestinal General gastrointestinal: normal bowel sounds, soft - Integumentary Integumentary: normal - Neurologic no focal defects Neurologic: CNII-XII intact - Musculoskeletal Musculoskeletal: gait normal, generalized weakness, strength equal bilaterally - Psychiatric Psychiatric: A&O x's 3, appropriate affect, intact judgment & insight Results CBC & Chem 7: 08/24/18 07:44 08/24/18 07:44 Labs: Abnormal Lab Results - Last 24 Hours (Table) 08/23/18 08/23/18 Range/Units 11:55 11:55 Hgb 12.2 L (13.0-17.5) gm/dL Hct 36.8 L (39.0-53.0) % Metamyelocytes # (Man) 0.07 H (0) k/uL Myelocytes # (Manual) 0.14 H (0) k/uL Promyelocytes # (Man) 0.14 H (0) k/uL Chloride 108 H (98-107) mmol/L BUN 8 L (9-20) mg/dL Creatinine 0.59 L (0.66-1.25) mg/dL Thrombosis Risk Factor Assmnt - DVT/VTE Prophylaxis DVT/VTE Prophylaxis: Pharmacologic Prophylaxis ordered - Choose All That Apply Each Factor Represents 1 point: Age 41-60 years Other Risk Factors: No Thrombosis Risk Factor Assessment Total Risk Factor Score: 1 Thrombosis Risk Factor Assessment Level: Low Risk Assessment and Plan Plan: Assessment and Plan Plan: Assessment and Recommendations: 1. High Grade Large B Cell Lymphoma - 8.6X5.7CM Anterior mediastinal mass with bulky above diaphragm disease. CMYC , BCL2, BCL6 are pending by FISH - Cycle Two of Chemotherapy to begin today DOse [id number] - He will follow-up in office after chemotherapy for neulasta. He did become neutropenic after cycle one as insurance would not approve prophylaxis neulasta , now since he had prolonged neutropenia resubmission for neulasta has been placed and appointment in office 24 hours after chemotherapy (likely next week Monday) will be made for him. - Monitor closely for tumor lysis as he has bulky above diaphragm disease, continue allopurinol - CBC, CMP, Uric acid daily 2. LUE DVT: - Continue on Lovenox BID 3. Diabetes Mellitus: - Will ask Dr. Griffiths from to assist in managing medically during hospitalization for known Diabetes and high dose steroids. PPI PProphylaxis and VTE
[2018-08-23] MEDS ORDERED: PROCHLORPERAZINE 10 MG TAB PO PRN (14:02)
[2018-08-23] MEDS: GLIMEPIRIDE 2 MG TAB PO SCH (15:57)
[2018-08-23] MEDS: ALLOPURINOL 300 MG TAB PO SCH (15:57)
[2018-08-23] MEDS: metFORMIN 500 MG TAB PO SCH ×2 (15:57→22:14)
[2018-08-23 16:48] LABS: Glucose,Whole Blood 170 mg/dL (75-99)
[2018-08-23] MEDS: GABAPENTIN 300 MG CAP PO SCH ×2 (17:09→22:15)
[2018-08-23] MEDS: PANTOPRAZOLE 40 MG TABLET PO SCH (18:39)
[2018-08-23] MEDS: SODIUM CHLORIDE 0.9% IV SCH ×3 (18:40)
[2018-08-23] MEDS: ETOPOSIDE IV SCH (18:40)
[2018-08-23] MEDS: VINCRISTINE SULFATE IV SCH (18:40)
[2018-08-23] MEDS: DOXORUBICIN HCL IV SCH (18:40)
[2018-08-23 20:45] LABS: Glucose,Whole Blood 205 mg/dL (75-99)
[2018-08-23] MEDS: ENOXAPARIN 150 MG/ML SYRINGE SQ SCH (22:13)
[2018-08-23] MEDS: ARIPiprazole 5 MG TAB PO SCH (22:13)
[2018-08-23] MEDS: amLODIPine 10 MG TAB PO SCH (22:13)
[2018-08-23] MEDS: ATORVASTATIN 20 MG TAB PO SCH (22:13)
[2018-08-24 07:01] LABS: Glucose,Whole Blood 165 mg/dL (75-99)
[2018-08-24] MEDS: ENOXAPARIN 150 MG/ML SYRINGE SQ SCH ×2 (08:05→21:00)
[2018-08-24] MEDS: INSULIN ASPART 100 UNIT/ML 1 ML 10 ML VIAL SQ SCH ×4 (08:05→21:02)
[2018-08-24 08:06] LABS: Basophils % (A) 0 %; Eosinophils % (A) 0 %; HGB 12.6 gm/dL (13.0-17.5); Lymphocytes # (A) 1.2 k/uL (1.0-4.8); Lymphocytes % (A) 7 %; MCH 28.4 pg (25.0-35.0); MCHC 33.2 g/dL (31.0-37.0); MCV 85.5 fL (80.0-100.0); Mean Platelet Volume 7.2; Monocytes # (A) 0.4 k/uL (0-1.0); Monocytes % (A) 2 %; Neutrophils # (A) 16.4 k/uL (1.3-7.7); Neutrophils % (A) 91 %; Platelet Count 329 k/uL (150-450); RBC 4.44 m/uL (4.30-5.90); RDW 15.2 % (11.5-15.5); WBC 18.1 k/uL (3.8-10.6)
[2018-08-24] MEDS: metFORMIN 500 MG TAB PO SCH ×2 (08:07→21:01)
[2018-08-24] MEDS: predniSONE 50 MG TAB PO SCH ×2 (08:07→21:00)
[2018-08-24] MEDS: ALLOPURINOL 300 MG TAB PO SCH (08:07)
[2018-08-24] MEDS: PANTOPRAZOLE 40 MG TABLET PO SCH ×2 (08:07→17:52)
[2018-08-24] MEDS: GLIMEPIRIDE 2 MG TAB PO SCH (08:07)
[2018-08-24] MEDS: GABAPENTIN 300 MG CAP PO SCH ×3 (08:07→21:01)
[2018-08-24] MEDS: predniSONE 20 MG TAB PO SCH ×2 (08:07→21:01)
[2018-08-24 08:16] LABS: ALT 54 U/L (21-72); AST 22 U/L (17-59); Albumin 3.6 g/dL (3.5-5.0); Alkaline Phosphatase 70 U/L (38-126); Anion Gap 9 mmol/L; Blood Urea Nitrogen 10 mg/dL (9-20); Calcium 9.6 mg/dL (8.4-10.2); Carbon Dioxide 22 mmol/L (22-30); Chloride 111 mmol/L (98-107); Glucose 172 mg/dL (74-99); Potassium 4.1 mmol/L (3.5-5.1); Sodium 142 mmol/L (137-145); Total Bilirubin 0.4 mg/dL (0.2-1.3); Total Protein 6.6 g/dL (6.3-8.2); Uric Acid 4.2 mg/dL (3.5-8.5)
[2018-08-24 11:14] LABS: Glucose,Whole Blood 189 mg/dL (75-99)
[2018-08-24] MEDS: SODIUM CHLORIDE 0.9% 1,000 ML IV SCH ×4 (11:29→17:54)
--- NOTE | 2018-08-24 13:42 | P.CONS ---
History of Present Illness - Reason for Consult Consult date: 08/24/18 Requesting physician: Anand Cervantes - Chief Complaint timed chemotherapy - History of Present Illness This is a 42-year-old gentleman patient of Dr. Gibson. He has underlying history of diabetes mellitus type 2, recently diagnosed high-grade B-cell lymphoma on 07/20/2018, workup up at [facility] with a large anterior mediastinal mass 8.6 cm x 5.6 cm causing severe dysphagia, was started on 08/01/18 now coming in for time chemotherapy using etoposide ,doxorubicin cyclophosphamideand vincristine. Patient's doing well, appetite is 100%, and the nausea no vomiting or diarrhea, patient denies any GI upset, no chest pain, patient denies any concurrent dysphagia, no headaches and no neuropathy balance is good without any recent falls.patient is requesting a brand-new meter for his blood sugar checks at home, Review of Systems Constitutional: Reports as per HPI, Denies anorexia, Denies chills, Denies chronic headaches, Denies chronic pain, Denies daytime sleepiness, Denies fatigue, Denies fever, Denies lethargy, Denies malaise, Denies night sweats, Denies poor appetite, Denies sweats, Denies weakness, Denies weight gain, Denies weight loss Ears, nose, mouth and throat: Reports as per HPI, Denies ant. neck pain, Denies bleeding gums, Denies dental pain, Denies dysphagia, Denies epistaxis, Denies headache, Denies hoarseness, Denies mouth pain, Denies nasal congestion, Denies nasal discharge, Denies neck fullness/pressure, Denies neck lump, Denies nose pain, Denies odynophagia, Denies post-nasal drip, Denies sinus pain, Denies sinus pressure, Denies swelling in mouth, Denies swelling in throat, Denies sore throat, Denies vertigo, Denies voice changes Cardiovascular: Reports as per HPI, Denies chest pain, Denies claudication, Denies decreased exercise tolerance, Denies dyspnea on exertion, Denies edema, Denies high blood pressure, Denies irregular heart beat, Denies leg edema, Denies lightheadedness, Denies orthopnea, Denies palpitations, Denies paroxysmal nocturnal dyspnea, Denies phlebitis, Denies rapid heart beat, Denies shortness of breath, Denies syncope Respiratory: Reports as per HPI, Denies congestion, Denies cough, Denies cough with sputum, Denies dyspnea, Denies excessive sputum, Denies hemoptysis, Denies home oxygen, Denies pain, Denies pain on inspiration, Denies pleurisy, Denies respiratory infections, Denies sleep apnea, Denies snoring, Denies wheezing Gastrointestinal: Reports as per HPI, Denies abdominal pain, Denies belching, Denies bloating, Denies BRBPR, Denies change in bowel habits, Denies coffee ground emesis, Denies constipation, Denies diarrhea, Denies dyspepsia, Denies early satiety, Denies excessive gas, Denies heartburn, Denies hematemesis, Denies hematochezia, Denies indigestion, Denies jaundice, Denies lactose intolerance, Denies loss of appetite, Denies melena, Denies nausea, Denies vomiting Genitourinary: Reports as per HPI, Denies decreased libido, Denies difficulties fathering child, Denies discharge, Denies dysuria, Denies erectile dysfunction, Denies flank pain, Denies genital pain, Denies genital sores, Denies hematuria, Denies impotence, Denies incontinence, Denies kidney stones, Denies nocturia, Denies polyuria, Denies testicular lump, Denies testicular pain, Denies urinary frequency, Denies urinary hesitancy, Denies urinary retention Musculoskeletal: Reports as per HPI, Denies arm numbness/tingling, Denies atrophy, Denies fractures, Denies frequent falls, Denies gait dysfunction, Denies hot joints, Denies leg numbness/tingling, Denies limitation of motion, Denies loss of height, Denies low back pain, Denies morning stiffness, Denies muscle cramps, Denies muscle weakness, Denies myalgias, Denies neck pain, Denies neck stiffness, Denies prior amputations, Denies redness of joints, Denies shooting arm pain, Denies shooting leg pain Integumentary: Reports as per HPI, Denies acne, Denies boils, Denies brittle nails, Denies change in hair/nails, Denies color changes, Denies darkening of skin, Denies depigmentation, Denies dryness, Denies foot/leg ulcers, Denies growths, Denies hirsutism, Denies lesions, Denies onychomycosis, Denies pruritus , Denies rash, Denies sores, Denies striae, Denies unusual bruising, Denies wounds Neurological: Reports as per HPI, Denies aphasia, Denies ataxia, Denies balance difficulties, Denies burning pain, Denies change in mentation, Denies change in smell/taste, Denies change in speech, Denies confusion, Denies convulsions, Denies double vision, Denies gait dysfunction, Denies head injury, Denies headaches, Denies hearing difficulties, Denies lack of coordination, Denies loss of vision, Denies memory loss, Denies migraines, Denies motor disturbance, Denies numbness, Denies paralysis, Denies paresthesias, Denies seizures, Denies sensory deficit, Denies spasticity, Denies syncope, Denies tic, Denies tingling , Denies transient paralysis, Denies tremors, Denies vertigo, Denies weakness, Denies visual changes Psychiatric: Reports as per HPI, Reports change in appetite, Denies anhedonia, Denies anxiety, Denies anxiety attacks, Denies change in libido, Denies change in sleep habits, Denies confusion, Denies depression, Denies difficulty concentrating, Denies disorientation, Denies hallucinations, Denies hopelessness , Denies hypersomnia, Denies insomnia, Denies irritability, Denies memory loss, Denies mood swings, Denies paranoia, Denies sadness/tearfulness, Denies sleep disturbances, Denies suicidal ideation Endocrine: Reports as per HPI, Denies cold intolerance, Denies deepening of the voice, Denies excessive sweating, Denies excessive thirst, Denies fatigue, Denies flushing, Denies heat intolerance, Denies high blood sugars, Denies increase in ring/shoe/hat size, Denies low blood sugars, Denies nocturia, Denies palpitations, Denies polydipsia, Denies polyphagia, Denies polyuria, Denies proptosis, Denies recent glucocorticoid use, Denies thyroid mass, Denies weight change Hematologic/Lymphatic: Reports as per HPI, Reports lymphadenopathy Allergic/Immunologic: Reports as per HPI, Denies allergic rhinitis, Denies anaphylaxis, Denies angioedema, Denies gluten intolerance, Denies persistent infections, Denies seasonal allergies, Denies urticaria, Denies wheezing Past Medical History Past Medical History: Cancer, Diabetes Mellitus, Deep Vein Thrombosis (DVT), Hyperlipidemia, Hypertension, Osteoarthritis (OA), Pneumonia Additional Past Medical History / Comment(s): Pt states he started noticing difficulty with swallowing June,, went to [facility] on 07/20/18 d/t cough and chest pain, had cat scan that showed mediastinal mass and was sent on to [facility] where he had mediastinal mass biopsy. He states he has also had a L arm DVT. Other hx: Chronic low back pain, NIDDM type II, pt states dysphagia has resolved, "walking" pneumonia as a teen. History of Any Multi-Drug Resistant Organisms: MRSA Year Discovered:: 2013 per pt MDRO Source:: L leg Past Surgical History: Adenoidectomy, Orthopedic Surgery, Tonsillectomy Additional Past Surgical History / Comment(s): PICC lines with current one placed 08/23/18, 07/22/18 mediastinal mass biopsy at [facility], R hand fracure with surgery/pins since removed. 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, Medications and Allergies Home Medications Medication Instructions Recorded Confirmed Type ARIPiprazole [Abilify] 5 mg PO HS 08/01/18 08/23/18 History Allopurinol [Zyloprim] 300 mg PO DAILY 08/01/18 08/23/18 History Atorvastatin [Lipitor] 20 mg PO HS 08/01/18 08/23/18 History Enoxaparin Sodium 150 mg SQ BID 08/01/18 08/23/18 History Gabapentin [Neurontin] 300 mg PO TID 08/01/18 08/23/18 History Glimepiride [Amaryl] 2 mg PO DAILY 08/01/18 08/23/18 History amLODIPine [Norvasc] 10 mg PO HS 08/01/18 08/23/18 History metFORMIN HCL [Glucophage] 1,000 mg PO BID 08/01/18 08/23/18 History Allergies Allergy/AdvReac Type Severity Reaction Status Date / Time No Known Allergies Allergy Verified 08/23/18 10:00 Physical Exam Vitals: Vital Signs Temp Pulse Pulse Resp BP Pulse Ox 08/23/18 16:21 98.1 F 82 14 124/85 94 L 08/23/18 16:00 98.0 F 80 18 128/74 96 08/23/18 15:43 98.2 F 82 18 126/70 97 08/23/18 15:42 98.2 F 82 18 139/70 98 08/23/18 14:42 82 16 117/79 08/23/18 14:20 85 16 116/80 08/23/18 14:05 98 129/83 94 L 08/23/18 13:50 91 139/93 96 08/23/18 13:35 98.2 F 95 16 131/91 98 Intake and Output 08/23/18 08/23/18 08/23/18 06:59 14:59 22:59 Intake Total 289.6 254.20 Balance 289.6 254.20 Intake: Intake, IV Titration 49.6 254.20 Amount riTUXimab 1,000 mg In 49.6 254.20 Sodium Chloride 0.9% 500 ml 500 ml @ 31 mls/hr IV .[id number] Rx#: [id number] Oral 240 Other: Voiding Method Toilet Urinal # Voids 3 - Constitutional General appearance: cooperative, no acute distress - EENT Eyes: anicteric sclerae, PERRLA, dentition normal, normal appearance ENT: hearing grossly normal, NA/AT, normal oropharynx - Neck Neck: normal ROM - Respiratory Respiratory: bilateral: CTA, negative: diminished, dullness, rales, rhonchi, wheezing, prolonged expiration - Cardiovascular Rhythm: regular Heart sounds: normal: S1, S2 - Gastrointestinal General gastrointestinal: normal bowel sounds, soft - Integumentary Integumentary: decreased turgor, normal - Neurologic Neurologic: CNII-XII intact - Musculoskeletal Musculoskeletal: gait normal, strength equal bilaterally - Psychiatric Psychiatric: A&O x's 3, appropriate affect, intact judgment & insight Results CBC & Chem 7: 08/24/18 07:44 08/24/18 07:44 Labs: Abnormal Lab Results - Last 24 Hours (Table) 08/23/18 08/23/18 Range/Units 11:55 11:55 Hgb 12.2 L (13.0-17.5) gm/dL Hct 36.8 L (39.0-53.0) % Metamyelocytes # (Man) 0.07 H (0) k/uL Myelocytes # (Manual) 0.14 H (0) k/uL Promyelocytes # (Man) 0.14 H (0) k/uL Chloride 108 H (98-107) mmol/L BUN 8 L (9-20) mg/dL Creatinine 0.59 L (0.66-1.25) mg/dL Laboratory Results WBC 18.1 k/uL (3.8-10.6) H 08/24/18 07:44 RBC 4.44 m/uL (4.30-5.90) 08/24/18 07:44 Hgb 12.6 gm/dL (13.0-17.5) L 08/24/18 07:44 Hct 38.0 % (39.0-53.0) L 08/24/18 07:44 MCV 85.5 fL (80.0-100.0) 08/24/18 07:44 MCH 28.4 pg (25.0-35.0) 08/24/18 07:44 MCHC 33.2 g/dL (31.0-37.0) 08/24/18 07:44 RDW 15.2 % (11.5-15.5) 08/24/18 07:44 Plt Count 329 k/uL (150-450) 08/24/18 07:44 Neutrophils % 91 % 08/24/18 07:44 Neutrophils % (Manual) 62 % 08/23/18 11:55 Band Neutrophils % 4 % 08/23/18 11:55 Lymphocytes % 7 % 08/24/18 07:44 Lymphocytes % (Manual) 16 % 08/23/18 11:55 Monocytes % 2 % 08/24/18 07:44 Monocytes % (Manual) 14 % 08/23/18 11:55 Eosinophils % 0 % 08/24/18 07:44 Basophils % 0 % 08/24/18 07:44 Metamyelocytes % 1 % 08/23/18 11:55 Myelocytes % 2 % 08/23/18 11:55 Promyelocytes % 2 % 08/23/18 11:55 Neutrophils # 16.4 k/uL (1.3-7.7) H 08/24/18 07:44 Neutrophils # (Manual) 4.50 k/uL (1.3-7.7) 08/23/18 11:55 Lymphocytes # 1.2 k/uL (1.0-4.8) 08/24/18 07:44 Lymphocytes # (Manual) 1.10 k/uL (1.0-4.8) 08/23/18 11:55 Monocytes # 0.4 k/uL (0-1.0) 08/24/18 07:44 Monocytes # (Manual) 0.97 k/uL (0-1.0) 08/23/18 11:55 Eosinophils # 0.0 k/uL (0-0.7) 08/24/18 07:44 Basophils # 0.0 k/uL (0-0.2) 08/24/18 07:44 Metamyelocytes # (Man) 0.07 k/uL (0) H 08/23/18 11:55 Myelocytes # (Manual) 0.14 k/uL (0) H 08/23/18 11:55 Promyelocytes # (Man) 0.14 k/uL (0) H 08/23/18 11:55 Nucleated RBCs 0 /100 WBC (0-0) 08/23/18 11:55 Poikilocytosis (manual Present 08/23/18 11:55 Anisocytosis (manual) Present 08/23/18 11:55 Sodium 142 mmol/L (137-145) 08/24/18 07:44 Potassium 4.1 mmol/L (3.5-5.1) 08/24/18 07:44 Chloride 111 mmol/L (98-107) H 08/24/18 07:44 Carbon Dioxide 22 mmol/L (22-30) 08/24/18 07:44 Anion Gap 9 mmol/L 08/24/18 07:44 BUN 10 mg/dL (9-20) 08/24/18 07:44 Creatinine 0.55 mg/dL (0.66-1.25) L 08/24/18 07:44 Est GFR (CKD-EPI)AfAm >90 (>60 ml/min/1.73 sqM) 08/24/18 07:44 Est GFR (CKD-EPI)NonAf >90 (>60 ml/min/1.73 sqM) 08/24/18 07:44 Glucose 172 mg/dL (74-99) H 08/24/18 07:44 POC Glucose (mg/dL) 189 mg/dL (75-99) H 08/24/18 11:08 POC Glu [employer] ID Ld Wolfe 08/24/18 11:[address] Glu mg/dL 126 08/23/18 11:55 Hemoglobin A1c 6.0 % (4.0-6.0) 08/23/18 11:55 Uric Acid 4.2 mg/dL (3.5-8.5) 08/24/18 07:44 Calcium 9.6 mg/dL (8.4-10.2) 08/24/18 07:44 Total Bilirubin 0.4 mg/dL (0.2-1.3) 08/24/18 07:44 AST 22 U/L (17-59) 08/24/18 07:44 ALT 54 U/L (21-72) 08/24/18 07:44 Alkaline Phosphatase 70 U/L (38-126) 08/24/18 07:44 Total Protein 6.6 g/dL (6.3-8.2) 08/24/18 07:44 Albumin 3.6 g/dL (3.5-5.0) 08/24/18 07:44 Assessment and Plan Plan: 1 Primary Mediastinal high-grade large B-cell lymphoma on R-EPOCH therapy with allopurinol. Cycle [address]-guided biopsy at [facility] on , hyperlipidemia Sagastume for acute index, germinal type BCL-2plus in 30% and CMyc +40% Monitor for pancytopenia, cystitis, worsening shortness of breath , blurry vision, hyperglycemia. Oncology managing the chemotherapy. Chemotherapy precautions to be followed #2 dysphagia secondary to compression of the esophagus by these mediastinal massimproving nutrition, soft diet,. monitor blood sugars, Ensure clear with meals #3 history ofshortness of breath and cough secondary to compression of tracheaimproved. DuoNeb as needed for shortness of breath. provide O2 supplementation if needed SpO2 to be maintained above 92% #4 type 2 diabeteswith labile blood sugars secondary to intermittent nutritional deficits, doing ok with intake currently, expect fluctuation related to chemo sideeffects in the next few days. Continue metformin and glimepiride 2 mg at the current dose. Last A1c 5.7 according to patient. Watch for hypoglycemia glucose checked before meals and at bedtime, home blood sugar monitor #5 hyperlipidemia continue atorvastatin 20 mg by mouth at bedtime #6 hypertension continue amlodipine 10 mg by mouth daily #7 bipolar disorder continue Abilify 5 mg daily at bedtime #8 diabetes neuropathy continue gabapentin 300 mg 3 times a day #9 GI prophylaxis with Protonix 40 twice a day #10 recent diagnosis of DVT in left upper extremity on Lovenox 150 twice a daydate of diagnosis [id number]/24/2018
[2018-08-24] MEDS: FAMOTIDINE 20 MG/2 ML VIAL IV SCH (16:56)
[2018-08-24] MEDS: ONDANSETRON 16 MG in SODIUM CHLORIDE 0.9% 50 ML IVPB SCH (16:58)
[2018-08-24 17:08] LABS: Glucose,Whole Blood 184 mg/dL (75-99)
[2018-08-24] MEDS: VINCRISTINE SULFATE IV SCH (17:41)
[2018-08-24] MEDS: DOXORUBICIN HCL IV SCH (17:41)
[2018-08-24] MEDS: ETOPOSIDE IV SCH (17:41)
[2018-08-24] MEDS: SODIUM CHLORIDE 0.9% IV SCH ×3 (17:41)
--- NOTE | 2018-08-24 19:51 | P.PN ---
Subjective Progress Note Date: 08/24/18 Principal diagnosis: Large b cell lymphoma timed chemo Day 2 of R-EPOCH and no complaints, eating well, tolerating well and in good spirits. Objective - Vital Signs Vital signs: Vital Signs Temp 97.7 F 08/24/18 16:00 Pulse 80 08/24/18 16:00 Resp 16 08/24/18 16:00 BP 126/76 08/24/18 16:00 Pulse Ox 94 L 08/24/18 16:00 Intake & Output 08/24/18 08/24/18 08/25/18 06:59 18:59 06:59 Intake Total 450 240 Balance 450 240 Intake: Intake, IV Titration 450 Amount Sodium Chloride 0.9% 1, 450 000 ml @ 150 mls/hr IV . Q6H40M [facility] Rx#:[id number] Oral 240 Other: Voiding Method Toilet Toilet Urinal Urinal # Voids 4 - Exam Constitutional General appearance: average body habitus, cooperative, morbidly obese, no acute distress - EENT Eyes: EOMI, PERRLA, dentition normal, normal appearance ENT: NA/AT, normal oropharynx - Neck mild cervical adenopathy, improved, neck supple, trachea midline - Respiratory Respiratory: bilateral: CTA (No increased effort) - Cardiovascular Rhythm: regular Heart sounds: normal: S1, S2 - Gastrointestinal General gastrointestinal: normal bowel sounds, soft - Integumentary Integumentary: normal - Neurologic no focal defects Neurologic: CNII-XII intact - Musculoskeletal Musculoskeletal: gait normal, generalized weakness, strength equal bilaterally - Psychiatric Psychiatric: A&O x's 3, appropriate affect, intact judgment & insight - Labs CBC & Chem 7: 08/24/18 07:44 08/24/18 07:44 Labs: Abnormal Lab Results - Last 24 Hours (Table) 08/23/18 08/24/18 08/24/18 Range/Units 20:41 07:00 07:44 WBC 18.1 H (3.8-10.6) k/uL Hgb 12.6 L (13.0-17.5) gm/dL Hct 38.0 L (39.0-53.0) % Neutrophils # 16.4 H (1.3-7.7) k/uL Chloride (98-107) mmol/L Creatinine (0.66-1.25) mg/dL Glucose (74-99) mg/dL POC Glucose (mg/dL) 205 H 165 H (75-99) mg/dL 08/24/18 08/24/18 08/24/18 Range/Units 07:44 11:08 17:07 WBC (3.8-10.6) k/uL Hgb (13.0-17.5) gm/dL Hct (39.0-53.0) % Neutrophils # (1.3-7.7) k/uL Chloride 111 H (98-107) mmol/L Creatinine 0.55 L (0.66-1.25) mg/dL Glucose 172 H (74-99) mg/dL POC Glucose (mg/dL) 189 H 184 H (75-99) mg/dL Assessment and Plan Plan: Assessment and Plan Plan: Assessment and Recommendations: 1. High Grade Large B Cell Lymphoma - 8.6X5.7CM Anterior mediastinal mass with bulky above diaphragm disease. CMYC , BCL2, BCL6 are pending by FISH - Cycle Two of Chemotherapy to begin today DOse [id number] - He will follow-up in office after chemotherapy for neulasta. He did become neutropenic after cycle one as insurance would not approve prophylaxis neulasta , now since he had prolonged neutropenia resubmission for neulasta has been placed and appointment in office 24 hours after chemotherapy (likely next week Monday) will be made for him. - Monitor closely for tumor lysis as he has bulky above diaphragm disease, continue allopurinol - CBC, CMP, Uric acid daily - Continue today with Day 2 of R-epoch 2. LUE DVT: - Continue on Lovenox BID 3. Diabetes Mellitus: - Will ask Dr. Griffiths from to assist in managing medically during hospitalization for known Diabetes and high dose steroids. PPI PProphylaxis and VTE
[2018-08-24 20:42] LABS: Glucose,Whole Blood 210 mg/dL (75-99)
[2018-08-24] MEDS: ATORVASTATIN 20 MG TAB PO SCH (21:00)
[2018-08-24] MEDS: amLODIPine 10 MG TAB PO SCH (21:01)
[2018-08-24] MEDS: ARIPiprazole 5 MG TAB PO SCH (21:02)
[2018-08-25] MEDS: SODIUM CHLORIDE 0.9% 1,000 ML IV SCH ×3 (05:23→17:53)
[2018-08-25 07:22] LABS: Glucose,Whole Blood 174 mg/dL (75-99)
[2018-08-25 07:48] LABS: Basophils % (A) 0 %; Eosinophils % (A) 0 %; HCT 35.2 % (39.0-53.0); HGB 11.5 gm/dL (13.0-17.5); Lymphocytes # (A) 0.7 k/uL (1.0-4.8); Lymphocytes % (A) 4 %; MCH 28.2 pg (25.0-35.0); MCHC 32.8 g/dL (31.0-37.0); Mean Platelet Volume 7.3; Monocytes # (A) 0.5 k/uL (0-1.0); Monocytes % (A) 3 %; Neutrophils # (A) 14.7 k/uL (1.3-7.7); Neutrophils % (A) 92 %; Platelet Count 278 k/uL (150-450); RBC 4.09 m/uL (4.30-5.90); RDW 15.4 % (11.5-15.5); WBC 15.9 k/uL (3.8-10.6)
[2018-08-25 08:51] LABS: ALT 38 U/L (21-72); AST 16 U/L (17-59); Albumin 3.1 g/dL (3.5-5.0); Alkaline Phosphatase 64 U/L (38-126); Anion Gap 8 mmol/L; Blood Urea Nitrogen 14 mg/dL (9-20); Carbon Dioxide 22 mmol/L (22-30); Chloride 112 mmol/L (98-107); Glucose 149 mg/dL (74-99); Sodium 142 mmol/L (137-145); Total Bilirubin 0.3 mg/dL (0.2-1.3); Total Protein 5.9 g/dL (6.3-8.2); Uric Acid 4.2 mg/dL (3.5-8.5)
[2018-08-25] MEDS: ENOXAPARIN 150 MG/ML SYRINGE SQ SCH ×2 (09:20→20:30)
[2018-08-25] MEDS: predniSONE 20 MG TAB PO SCH ×2 (09:21→20:31)
[2018-08-25] MEDS: INSULIN ASPART 100 UNIT/ML 1 ML 10 ML VIAL SQ SCH ×4 (09:21→20:32)
[2018-08-25] MEDS: predniSONE 50 MG TAB PO SCH ×2 (09:21→20:30)
[2018-08-25] MEDS: GABAPENTIN 300 MG CAP PO SCH ×3 (09:21→20:31)
[2018-08-25] MEDS: GLIMEPIRIDE 2 MG TAB PO SCH (09:22)
[2018-08-25] MEDS: PANTOPRAZOLE 40 MG TABLET PO SCH ×2 (09:22→17:54)
[2018-08-25] MEDS: metFORMIN 500 MG TAB PO SCH ×2 (09:22→20:32)
[2018-08-25] MEDS: ALLOPURINOL 300 MG TAB PO SCH (09:22)
[2018-08-25 11:27] LABS: Glucose,Whole Blood 182 mg/dL (75-99)
--- NOTE | 2018-08-25 12:25 | P.PN ---
Subjective Progress Note Date: 08/25/18 This is a 42-year-old gentleman patient of Dr. Gibson. He has underlying history of diabetes mellitus type 2, recently diagnosed high-grade B-cell lymphoma on 07/20/2018, workup up at [facility] with a large anterior mediastinal mass 8.6 cm x 5.6 cm causing severe dysphagia, was started on 08/01/18 now coming in for time chemotherapy using etoposide ,doxorubicin cyclophosphamideand vincristine. Patient's doing well, appetite is 100%, and the nausea no vomiting or diarrhea, patient denies any GI upset, no chest pain, patient denies any concurrent dysphagia, no headaches and no neuropathy balance is good without any recent falls.patient is requesting a brand-new meter for his blood sugar checks at home, 08/25: Patient is tolerating chemotherapy with no new complaints. He is not having any dysphagia. No nausea or vomiting. He denies having any diarrhea. Patient has been afebrile. Pulse ox is 93% on room air. White count is at 15.9 , hemoglobin 11.5, platelet count normal. Creatinine 0.62. Capillary blood glucose running between 174 and 210. Review Of Systems: Constitutional: No fever, no chills, no night sweats. No weight change. No weakness, fatigue or lethargy. EENT: No headache. No blurred vision or double vision, no loss of vision. No nasal drainage or congestion. No epistaxis. No sore throat. No dysphagia. Lungs: No shortness of breath, cough, no sputum production. No wheezing. Cardiovascular: No chest pain, no lower extremity edema. No lightheadedness or dizziness. No syncopal episodes. Abdominal: No abdominal pain. No nausea, vomiting. No diarrhea. No constipation. No bloody or tarry stools. No loss of appetite. Genitourinary: No dysuria, increased frequency, urgency. No urinary retention. Musculoskeletal: No myalgias. No muscle weakness, no gait dysfunction, no frequent falls. No back pain. No neck pain. Integumentary: No wounds, no lesions. No rash or pruritus. No unusual bruising. No change in hair or nails. Neurologic: No aphasia. No facial droop. No change in mentation. No head injury. No headache. No paralysis. No paresthesia. Psychiatric: No depression. No anxiety. No mood swings. Endocrine: +abnormal blood sugars. No weight change. No excessive sweating or thirst. No cold intolerance. Objective - Vital Signs Vital signs: Vital Signs Temp 97.6 F 08/25/18 08:00 Pulse 93 08/25/18 08:00 Resp 18 08/25/18 08:00 BP 128/76 08/25/18 08:00 Pulse Ox 93 L 08/25/18 08:00 Intake & Output 08/24/18 08/25/18 08/25/18 18:59 06:59 18:59 Intake Total 240 450 Balance 240 450 Weight 139.253 kg Intake: IV 450 Sodium Chloride 0.9% 1, 450 000 ml @ 150 mls/hr IV . Q6H40M [facility] Rx#:[id number] Oral 240 Other: Voiding Method Toilet Toilet Toilet Urinal Urinal Urinal # Voids 4 2 - Exam General appearance: cooperative, no acute distress, patient resting in bed. - EENT Eyes: anicteric sclerae, PERRLA, dentition normal, normal appearance ENT: hearing grossly normal, NA/AT, normal oropharynx - Neck Neck: normal ROM - Respiratory Respiratory: bilateral: CTA, negative: diminished, dullness, rales, rhonchi, wheezing, prolonged expiration - Cardiovascular Rhythm: regular Heart sounds: normal: S1, S2 - Gastrointestinal General gastrointestinal: normal bowel sounds, soft, nontender - Integumentary Integumentary: decreased turgor, normal - Neurologic Neurologic: CNII-XII intact - Musculoskeletal Musculoskeletal: gait normal, strength equal bilaterally - Psychiatric Psychiatric: A&O x's 3, appropriate affect, intact judgment & insight - Labs CBC & Chem 7: 08/25/18 07:06 08/25/18 07:06 Labs: Abnormal Lab Results - Last 24 Hours (Table) 08/24/18 08/24/18 08/24/18 Range/Units 11:08 17:07 20:39 WBC (3.8-10.6) k/uL RBC (4.30-5.90) m/uL Hgb (13.0-17.5) gm/dL Hct (39.0-53.0) % Neutrophils # (1.3-7.7) k/uL Lymphocytes # (1.0-4.8) k/uL Chloride (98-107) mmol/L Creatinine (0.66-1.25) mg/dL Glucose (74-99) mg/dL POC Glucose (mg/dL) 189 H 184 H 210 H (75-99) mg/dL AST (17-59) U/L Total Protein (6.3-8.2) g/dL Albumin (3.5-5.0) g/dL 08/25/18 08/25/18 08/25/18 Range/Units 07:06 07:06 07:10 WBC 15.9 H (3.8-10.6) k/uL RBC 4.09 L (4.30-5.90) m/uL Hgb 11.5 L (13.0-17.5) gm/dL Hct 35.2 L (39.0-53.0) % Neutrophils # 14.7 H (1.3-7.7) k/uL Lymphocytes # 0.7 L (1.0-4.8) k/uL Chloride 112 H (98-107) mmol/L Creatinine 0.62 L (0.66-1.25) mg/dL Glucose 149 H (74-99) mg/dL POC Glucose (mg/dL) 174 H (75-99) mg/dL AST 16 L (17-59) U/L Total Protein 5.9 L (6.3-8.2) g/dL Albumin 3.1 L (3.5-5.0) g/dL Assessment and Plan Plan: 1. Primary mediastinal high-grade large B-cell lymphoma on R-EPOCH therapy with allopurinol. Cycle [address]-guided biopsy at [facility] on 07/23/2018, hyperlipidemia Sagastume for acute index, germinal type BCL-2plus in 30% and CMyc +40% Monitor for pancytopenia, cystitis, worsening shortness of breath, blurry vision, hyperglycemia. Oncology managing the chemotherapy. Chemotherapy precautions to be followed 2. Dysphagia secondary to compression of the esophagus by these mediastinal massimproving nutrition, soft diet, improved. Ensure clear with meals 3. history of shortness of breath and cough secondary to compression of trachea , improved. DuoNeb as needed for shortness of breath. provide O2 supplementation if needed SpO2 to be maintained above 92% 4. type 2 diabetes uncontrolled with hyperglycemia. Continue metformin and glimepiride 2 mg at the current dose, insulin scale. A1c 6. 5. Hyperlipidemia continue atorvastatin 20 mg by mouth at bedtime 6. hypertension continue amlodipine 10 mg by mouth daily 7. bipolar disorder continue Abilify 5 mg daily at bedtime 8. diabetes neuropathy continue gabapentin 300 mg 3 times a day 9. GI prophylaxis with Protonix 40 twice a day 10. recent diagnosis of DVT in left upper extremity on Lovenox 150 twice a daydate of diagnosis [id number]/24/2018 Discharge plan: Return home Impression and plan of care have been directed as dictated by the signing physician. Ashley Hernandez nurse practitioner acting as scribe for signing physician.
--- NOTE | 2018-08-25 15:54 | P.PN ---
Subjective Progress Note Date: 08/25/18 Principal diagnosis: Large b cell lymphoma timed chemo Day 3 of R-EPOCH and no complaints, eating well, tolerating well and in good spirits. Eating well, just "bored" Objective - Vital Signs Vital signs: Vital Signs Temp 97.7 F 08/25/18 12:00 Pulse 82 08/25/18 12:00 Resp 18 08/25/18 12:00 BP 135/82 08/25/18 12:00 Pulse Ox 96 08/25/18 12:00 Intake & Output 08/24/18 08/25/18 08/25/18 18:59 06:59 18:59 Intake Total 240 450 Balance 240 450 Weight 139.253 kg Intake: IV 450 Sodium Chloride 0.9% 1, 450 000 ml @ 150 mls/hr IV . Q6H40M [facility] Rx#:[id number] Oral 240 Other: Voiding Method Toilet Toilet Toilet Urinal Urinal Urinal # Voids 4 2 2 - Exam Constitutional General appearance: average body habitus, cooperative, morbidly obese, no acute distress - EENT Eyes: EOMI, PERRLA, dentition normal, normal appearance ENT: NA/AT, normal oropharynx - Neck mild cervical adenopathy, improved, neck supple, trachea midline - Respiratory Respiratory: bilateral: CTA (No increased effort) - Cardiovascular Rhythm: regular Heart sounds: normal: S1, S2 - Gastrointestinal General gastrointestinal: normal bowel sounds, soft - Integumentary Integumentary: normal - Neurologic no focal defects Neurologic: CNII-XII intact - Musculoskeletal Musculoskeletal: gait normal, generalized weakness, strength equal bilaterally - Psychiatric Psychiatric: A&O x's 3, appropriate affect, intact judgment & insight - Labs CBC & Chem 7: 08/25/18 07:06 08/25/18 07:06 Labs: Abnormal Lab Results - Last 24 Hours (Table) 08/24/18 08/24/18 08/25/18 Range/Units 17:07 20:39 07:06 WBC 15.9 H (3.8-10.6) k/uL RBC 4.09 L (4.30-5.90) m/uL Hgb 11.5 L (13.0-17.5) gm/dL Hct 35.2 L (39.0-53.0) % Neutrophils # 14.7 H (1.3-7.7) k/uL Lymphocytes # 0.7 L (1.0-4.8) k/uL Chloride (98-107) mmol/L Creatinine (0.66-1.25) mg/dL Glucose (74-99) mg/dL POC Glucose (mg/dL) 184 H 210 H (75-99) mg/dL AST (17-59) U/L Total Protein (6.3-8.2) g/dL Albumin (3.5-5.0) g/dL 08/25/18 08/25/18 08/25/18 Range/Units 07:06 07:10 11:25 WBC (3.8-10.6) k/uL RBC (4.30-5.90) m/uL Hgb (13.0-17.5) gm/dL Hct (39.0-53.0) % Neutrophils # (1.3-7.7) k/uL Lymphocytes # (1.0-4.8) k/uL Chloride 112 H (98-107) mmol/L Creatinine 0.62 L (0.66-1.25) mg/dL Glucose 149 H (74-99) mg/dL POC Glucose (mg/dL) 174 H 182 H (75-99) mg/dL AST 16 L (17-59) U/L Total Protein 5.9 L (6.3-8.2) g/dL Albumin 3.1 L (3.5-5.0) g/dL Assessment and Plan Plan: Assessment and Plan Plan: Assessment and Recommendations: 1. High Grade Large B Cell Lymphoma - 8.6X5.7CM Anterior mediastinal mass with bulky above diaphragm disease. CMYC , BCL2, BCL6 are pending by FISH - Cycle Two of Chemotherapy to begin today DOse [id number] - He will follow-up in office after chemotherapy for neulasta. He did become neutropenic after cycle one as insurance would not approve prophylaxis neulasta , now since he had prolonged neutropenia resubmission for neulasta has been placed and appointment in office 24 hours after chemotherapy (likely next week Monday) will be made for him. - Monitor closely for tumor lysis as he has bulky above diaphragm disease, continue allopurinol - CBC, CMP, Uric acid daily 2. LUE DVT: - Continue on Lovenox BID 3. Diabetes Mellitus: - Will ask Dr. Griffiths from to assist in managing medically during hospitalization for known Diabetes and high dose steroids. PPI PProphylaxis and VTE Continue with Day 3 of chemotherapy and supportive medications prn.
[2018-08-25 16:56] LABS: Glucose,Whole Blood 111 mg/dL (75-99)
[2018-08-25] MEDS: ONDANSETRON 16 MG in SODIUM CHLORIDE 0.9% 50 ML IVPB SCH (17:46)
[2018-08-25] MEDS: FAMOTIDINE 20 MG/2 ML VIAL IV SCH (17:46)
[2018-08-25] MEDS: SODIUM CHLORIDE 0.9% IV SCH ×3 (19:04→19:08)
[2018-08-25] MEDS: VINCRISTINE SULFATE IV SCH (19:04)
[2018-08-25] MEDS: ETOPOSIDE IV SCH (19:05)
[2018-08-25] MEDS: DOXORUBICIN HCL IV SCH (19:08)
[2018-08-25 20:18] LABS: Glucose,Whole Blood 182 mg/dL (75-99)
[2018-08-25] MEDS: ARIPiprazole 5 MG TAB PO SCH (20:30)
[2018-08-25] MEDS: amLODIPine 10 MG TAB PO SCH (20:31)
[2018-08-25] MEDS: ATORVASTATIN 20 MG TAB PO SCH (20:31)
[2018-08-26] MEDS: SODIUM CHLORIDE 0.9% 1,000 ML IV SCH ×5 (04:51→21:02)
[2018-08-26 07:01] LABS: Glucose,Whole Blood 162 mg/dL (75-99)
[2018-08-26 07:06] LABS: Basophils % (A) 0 %; Eosinophils % (A) 0 %; HCT 33.6 % (39.0-53.0); HGB 11.2 gm/dL (13.0-17.5); Lymphocytes # (A) 0.6 k/uL (1.0-4.8); Lymphocytes % (A) 6 %; MCH 28.8 pg (25.0-35.0); MCHC 33.4 g/dL (31.0-37.0); Mean Platelet Volume 7.2; Monocytes # (A) 0.4 k/uL (0-1.0); Monocytes % (A) 4 %; Neutrophils # (A) 9.8 k/uL (1.3-7.7); Neutrophils % (A) 90 %; Platelet Count 258 k/uL (150-450); RDW 15.8 % (11.5-15.5); WBC 10.9 k/uL (3.8-10.6)
[2018-08-26 07:22] LABS: ALT 28 U/L (21-72); AST 17 U/L (17-59); Alkaline Phosphatase 55 U/L (38-126); Anion Gap 9 mmol/L; Blood Urea Nitrogen 15 mg/dL (9-20); Calcium 8.9 mg/dL (8.4-10.2); Carbon Dioxide 22 mmol/L (22-30); Chloride 111 mmol/L (98-107); Glucose 139 mg/dL (74-99); Potassium 3.9 mmol/L (3.5-5.1); Sodium 142 mmol/L (137-145); Total Bilirubin 0.4 mg/dL (0.2-1.3); Total Protein 5.7 g/dL (6.3-8.2); Uric Acid 4.4 mg/dL (3.5-8.5)
[2018-08-26] MEDS: INSULIN ASPART 100 UNIT/ML 1 ML 10 ML VIAL SQ SCH ×4 (08:19→20:59)
[2018-08-26] MEDS: PANTOPRAZOLE 40 MG TABLET PO SCH ×2 (08:21→17:46)
[2018-08-26] MEDS: predniSONE 20 MG TAB PO SCH ×2 (08:22→20:59)
[2018-08-26] MEDS: metFORMIN 500 MG TAB PO SCH ×2 (08:22→20:59)
[2018-08-26] MEDS: predniSONE 50 MG TAB PO SCH ×2 (08:22→20:59)
[2018-08-26] MEDS: ENOXAPARIN 150 MG/ML SYRINGE SQ SCH ×2 (08:23→20:59)
[2018-08-26] MEDS: ALLOPURINOL 300 MG TAB PO SCH (08:23)
[2018-08-26] MEDS: GLIMEPIRIDE 2 MG TAB PO SCH (08:24)
[2018-08-26] MEDS: GABAPENTIN 300 MG CAP PO SCH ×3 (08:24→21:00)
[2018-08-26 11:41] LABS: Glucose,Whole Blood 130 mg/dL (75-99)
--- NOTE | 2018-08-26 11:50 | P.PN ---
Subjective Progress Note Date: 08/26/18 This is a 42-year-old gentleman patient of Dr. Gibson. He has underlying history of diabetes mellitus type 2, recently diagnosed high-grade B-cell lymphoma on 07/20/2018, workup up at [facility] with a large anterior mediastinal mass 8.6 cm x 5.6 cm causing severe dysphagia, was started on 08/01/18 now coming in for time chemotherapy using etoposide ,doxorubicin cyclophosphamideand vincristine. Patient's doing well, appetite is 100%, and the nausea no vomiting or diarrhea, patient denies any GI upset, no chest pain, patient denies any concurrent dysphagia, no headaches and no neuropathy balance is good without any recent falls.patient is requesting a brand-new meter for his blood sugar checks at home, 08/25: Patient is tolerating chemotherapy with no new complaints. He is not having any dysphagia. No nausea or vomiting. He denies having any diarrhea. Patient has been afebrile. Pulse ox is 93% on room air. White count is at 15.9 , hemoglobin 11.5, platelet count normal. Creatinine 0.62. Capillary blood glucose running between 174 and 210. 08/26: Patient is tolerating chemotherapy well. He has not had any nausea, vomiting, diarrhea. He has been able to ambulate. His blood sugars are improved. He does have some increased edema to the left hand and has been recommended to elevate on 2 pillows. He has been receiving Lovenox for DVT of the left arm. Patient will be completing his chemotherapy late tomorrow anticipate discharge on Monday. Review Of Systems: Constitutional: No fever, no chills, no night sweats. No weight change. No weakness, fatigue or lethargy. EENT: No headache. No blurred vision or double vision, no loss of vision. No nasal drainage or congestion. No epistaxis. No sore throat. No dysphagia. Lungs: No shortness of breath, cough, no sputum production. No wheezing. Cardiovascular: No chest pain, no lower extremity edema. No lightheadedness or dizziness. No syncopal episodes. Abdominal: No abdominal pain. No nausea, vomiting. No diarrhea. No constipation. No bloody or tarry stools. No loss of appetite. Genitourinary: No dysuria, increased frequency, urgency. No urinary retention. Musculoskeletal: No myalgias. No muscle weakness, no gait dysfunction, no frequent falls. No back pain. No neck pain. Integumentary: No wounds, no lesions. No rash or pruritus. No unusual bruising. No change in hair or nails. Neurologic: No aphasia. No facial droop. No change in mentation. No head injury. No headache. No paralysis. No paresthesia. Psychiatric: No depression. No anxiety. No mood swings. Endocrine: +abnormal blood sugars. Objective - Vital Signs Vital signs: Vital Signs Temp 97.6 F 08/26/18 07:59 Pulse 50 L 08/26/18 07:59 Resp 18 08/26/18 07:59 BP 132/77 08/26/18 07:59 Pulse Ox 97 08/26/18 07:59 Intake & Output 08/25/18 08/26/18 08/26/18 18:59 06:59 18:59 Intake Total 1650 Balance 1650 Intake: IV 1650 Sodium Chloride 0.9% 1, 1650 000 ml @ 150 mls/hr IV . Q6H40M [facility] Rx#:[id number] Other: Voiding Method Toilet Toilet Toilet Urinal Urinal Urinal # Voids 2 - Exam General appearance: cooperative, no acute distress, patient resting in bed. - EENT Eyes: anicteric sclerae, PERRLA, dentition normal, normal appearance ENT: hearing grossly normal, NA/AT, normal oropharynx - Neck Neck: normal ROM - Respiratory Respiratory: bilateral: CTA, negative: diminished, dullness, rales, rhonchi, wheezing, prolonged expiration - Cardiovascular Rhythm: regular Heart sounds: normal: S1, S2 - Gastrointestinal General gastrointestinal: normal bowel sounds, soft, nontender - Integumentary Integumentary: decreased turgor, normal - Neurologic Neurologic: CNII-XII intact - Musculoskeletal Musculoskeletal: gait normal, strength equal bilaterally, increased edema to the left hand - Psychiatric Psychiatric: A&O x's 3, appropriate affect, intact judgment & insight - Labs CBC & Chem 7: 08/26/18 06:37 08/26/18 06:37 Labs: Abnormal Lab Results - Last 24 Hours (Table) 08/25/18 08/25/18 08/25/18 Range/Units 11:25 16:53 20:16 WBC (3.8-10.6) k/uL RBC (4.30-5.90) m/uL Hgb (13.0-17.5) gm/dL Hct (39.0-53.0) % RDW (11.5-15.5) % Neutrophils # (1.3-7.7) k/uL Lymphocytes # (1.0-4.8) k/uL Chloride (98-107) mmol/L Creatinine (0.66-1.25) mg/dL Glucose (74-99) mg/dL POC Glucose (mg/dL) 182 H 111 H 182 H (75-99) mg/dL Total Protein (6.3-8.2) g/dL Albumin (3.5-5.0) g/dL 08/26/18 08/26/18 08/26/18 Range/Units 06:37 06:37 06:59 WBC 10.9 H (3.8-10.6) k/uL RBC 3.90 L (4.30-5.90) m/uL Hgb 11.2 L (13.0-17.5) gm/dL Hct 33.6 L (39.0-53.0) % RDW 15.8 H (11.5-15.5) % Neutrophils # 9.8 H (1.3-7.7) k/uL Lymphocytes # 0.6 L (1.0-4.8) k/uL Chloride 111 H (98-107) mmol/L Creatinine 0.65 L (0.66-1.25) mg/dL Glucose 139 H (74-99) mg/dL POC Glucose (mg/dL) 162 H (75-99) mg/dL Total Protein 5.7 L (6.3-8.2) g/dL Albumin 3.0 L (3.5-5.0) g/dL Assessment and Plan Plan: 1. Primary mediastinal high-grade large B-cell lymphoma on R-EPOCH therapy with allopurinol. [address]-guided biopsy at [facility] on 07/23/2018, hyperlipidemia Sagastume for acute index, germinal type BCL-2plus in 30% and CMyc +40% Monitor for pancytopenia, cystitis, worsening shortness of breath, blurry vision, hyperglycemia. Oncology managing the chemotherapy. Chemotherapy precautions. 2. Dysphagia secondary to compression of the esophagus by these mediastinal massimproving nutrition, consistent carb diet Ensure clear with meals 3. History of shortness of breath and cough secondary to compression of trachea , improved. DuoNeb as needed for shortness of breath. provide O2 supplementation if needed SpO2 to be maintained above 92%. Respiratory status is stable 4. Type 2 diabetes uncontrolled with hyperglycemia. Continue metformin and glimepiride 2 mg at the current dose, insulin scale. A1c 6. 5. Hyperlipidemia continue atorvastatin 20 mg by mouth at bedtime 6. Hypertension continue amlodipine 10 mg by mouth daily 7. Bipolar disorder continue Abilify 5 mg daily at bedtime 8. Diabetes neuropathy continue gabapentin 300 mg 3 times a day 9. GI prophylaxis with Protonix 40 twice a day 10. Recent diagnosis of DVT in left upper extremity on Lovenox 150 twice a daydate of diagnosis [id number]/24/2018. Elevate left arm on 2 pillows Discharge plan: Return home Impression and plan of care have been directed as dictated by the signing physician. Ashley Hernandez nurse practitioner acting as scribe for signing physician.
--- NOTE | 2018-08-26 12:52 | P.PN ---
Subjective Progress Note Date: 08/26/18 Principal diagnosis: Large b cell lymphoma timed chemo Day 4 of R-EPOCH and no complaints, eating well, tolerating well and in good spirits. Objective - Vital Signs Vital signs: Vital Signs Temp 97.6 F 08/26/18 11:33 Pulse 68 08/26/18 11:33 Resp 18 08/26/18 11:33 BP 136/86 08/26/18 11:33 Pulse Ox 98 08/26/18 11:33 Intake & Output 08/25/18 08/26/18 08/26/18 18:59 06:59 18:59 Intake Total 1650 Balance 1650 Intake: IV 1650 Sodium Chloride 0.9% 1, 1650 000 ml @ 150 mls/hr IV . Q6H40M [facility] Rx#:[id number] Other: Voiding Method Toilet Toilet Toilet Urinal Urinal Urinal # Voids 2 - Exam Constitutional General appearance: average body habitus, cooperative, morbidly obese, no acute distress - EENT Eyes: EOMI, PERRLA, dentition normal, normal appearance ENT: NA/AT, normal oropharynx - Neck mild cervical adenopathy, improved, neck supple, trachea midline - Respiratory Respiratory: bilateral: CTA (No increased effort) - Cardiovascular Rhythm: regular Heart sounds: normal: S1, S2 - Gastrointestinal General gastrointestinal: normal bowel sounds, soft - Integumentary Integumentary: normal - Neurologic no focal defects Neurologic: CNII-XII intact - Musculoskeletal Musculoskeletal: gait normal, generalized weakness, strength equal bilaterally - Psychiatric Psychiatric: A&O x's 3, appropriate affect, intact judgment & insight - Labs CBC & Chem 7: 08/26/18 06:37 08/26/18 06:37 Labs: Abnormal Lab Results - Last 24 Hours (Table) 08/25/18 08/25/18 08/26/18 Range/Units 16:53 20:16 06:37 WBC 10.9 H (3.8-10.6) k/uL RBC 3.90 L (4.30-5.90) m/uL Hgb 11.2 L (13.0-17.5) gm/dL Hct 33.6 L (39.0-53.0) % RDW 15.8 H (11.5-15.5) % Neutrophils # 9.8 H (1.3-7.7) k/uL Lymphocytes # 0.6 L (1.0-4.8) k/uL Chloride (98-107) mmol/L Creatinine (0.66-1.25) mg/dL Glucose (74-99) mg/dL POC Glucose (mg/dL) 111 H 182 H (75-99) mg/dL Total Protein (6.3-8.2) g/dL Albumin (3.5-5.0) g/dL 08/26/18 08/26/18 08/26/18 Range/Units 06:37 06:59 11:28 WBC (3.8-10.6) k/uL RBC (4.30-5.90) m/uL Hgb (13.0-17.5) gm/dL Hct (39.0-53.0) % RDW (11.5-15.5) % Neutrophils # (1.3-7.7) k/uL Lymphocytes # (1.0-4.8) k/uL Chloride 111 H (98-107) mmol/L Creatinine 0.65 L (0.66-1.25) mg/dL Glucose 139 H (74-99) mg/dL POC Glucose (mg/dL) 162 H 130 H (75-99) mg/dL Total Protein 5.7 L (6.3-8.2) g/dL Albumin 3.0 L (3.5-5.0) g/dL Assessment and Plan Plan: Assessment and Plan Plan: Assessment and Recommendations: 1. High Grade Large B Cell Lymphoma - 8.6X5.7CM Anterior mediastinal mass with bulky above diaphragm disease. CMYC , BCL2, BCL6 are pending by FISH - Cycle Two of Chemotherapy to begin today DOse [id number] - He will follow-up in office after chemotherapy for neulasta. He did become neutropenic after cycle one as insurance would not approve prophylaxis neulasta , now since he had prolonged neutropenia resubmission for neulasta has been placed and appointment in office 24 hours after chemotherapy (likely next week Monday) will be made for him. - Monitor closely for tumor lysis as he has bulky above diaphragm disease, continue allopurinol - CBC, CMP, Uric acid daily 2. LUE DVT: - Continue on Lovenox BID 3. Diabetes Mellitus: - Will ask Dr. Griffiths from to assist in managing medically during hospitalization for known Diabetes and high dose steroids. PPI PProphylaxis and VTE Continue with Day 4 of chemotherapy and supportive medications prn. Physician Attst: I have completed the full history and physical of this patient and agree with above dictation by Natalia Batista NP DIctated as a scribe
[2018-08-26 17:25] LABS: Glucose,Whole Blood 153 mg/dL (75-99)
[2018-08-26] MEDS: ONDANSETRON 16 MG in SODIUM CHLORIDE 0.9% 50 ML IVPB SCH (17:46)
[2018-08-26] MEDS: FAMOTIDINE 20 MG/2 ML VIAL IV SCH (17:46)
[2018-08-26] MEDS: DOXORUBICIN HCL IV SCH (19:45)
[2018-08-26] MEDS: SODIUM CHLORIDE 0.9% IV SCH ×3 (19:45→19:46)
[2018-08-26] MEDS: VINCRISTINE SULFATE IV SCH (19:45)
[2018-08-26] MEDS: ETOPOSIDE IV SCH (19:46)
[2018-08-26 20:58] LABS: Glucose,Whole Blood 178 mg/dL (75-99)
[2018-08-26] MEDS: amLODIPine 10 MG TAB PO SCH (21:00)
[2018-08-26] MEDS: ARIPiprazole 5 MG TAB PO SCH (21:00)
[2018-08-26] MEDS: ATORVASTATIN 20 MG TAB PO SCH (21:00)
[2018-08-27] MEDS: SODIUM CHLORIDE 0.9% 1,000 ML IV SCH ×3 (06:11→16:32)
[2018-08-27 06:56] LABS: Glucose,Whole Blood 132 mg/dL (75-99)
[2018-08-27] MEDS: metFORMIN 500 MG TAB PO SCH (07:43)
[2018-08-27] MEDS: predniSONE 50 MG TAB PO SCH (07:43)
[2018-08-27] MEDS: predniSONE 20 MG TAB PO SCH (07:43)
[2018-08-27] MEDS: ALLOPURINOL 300 MG TAB PO SCH (07:43)
[2018-08-27] MEDS: PANTOPRAZOLE 40 MG TABLET PO SCH ×2 (07:43→17:50)
[2018-08-27] MEDS: GABAPENTIN 300 MG CAP PO SCH ×2 (07:43→17:50)
[2018-08-27] MEDS: INSULIN ASPART 100 UNIT/ML 1 ML 10 ML VIAL SQ SCH ×3 (07:44→17:50)
[2018-08-27] MEDS: GLIMEPIRIDE 2 MG TAB PO SCH (07:44)
[2018-08-27 07:51] LABS: Basophils % (A) 0 %; Eosinophils % (A) 0 %; HCT 33.5 % (39.0-53.0); HGB 11.5 gm/dL (13.0-17.5); Lymphocytes # (A) 0.4 k/uL (1.0-4.8); Lymphocytes % (A) 5 %; MCH 28.9 pg (25.0-35.0); MCHC 34.3 g/dL (31.0-37.0); MCV 84.3 fL (80.0-100.0); Mean Platelet Volume 7.5; Monocytes # (A) 0.2 k/uL (0-1.0); Monocytes % (A) 3 %; Neutrophils # (A) 5.9 k/uL (1.3-7.7); Neutrophils % (A) 91 %; Platelet Count 243 k/uL (150-450); RBC 3.98 m/uL (4.30-5.90); RDW 15.2 % (11.5-15.5); WBC 6.5 k/uL (3.8-10.6)
[2018-08-27 07:53] LABS: ALT 40 U/L (21-72); AST 19 U/L (17-59); Alkaline Phosphatase 53 U/L (38-126); Anion Gap 5 mmol/L; Blood Urea Nitrogen 15 mg/dL (9-20); Calcium 8.7 mg/dL (8.4-10.2); Carbon Dioxide 27 mmol/L (22-30); Chloride 108 mmol/L (98-107); Glucose 120 mg/dL (74-99); Potassium 3.9 mmol/L (3.5-5.1); Sodium 140 mmol/L (137-145); Total Bilirubin 0.5 mg/dL (0.2-1.3); Total Protein 5.7 g/dL (6.3-8.2); Uric Acid 4.4 mg/dL (3.5-8.5)
--- NOTE | 2018-08-27 10:48 | IR ---
EXAMINATION TYPE: IR cvc insert >=5 years DATE OF EXAM: 08/23/2018 COMPARISON: NONE CLINICAL HISTORY: B-cell lymphoma Needs long-term intravenous access for therapy. PROCEDURE: After informed consent, the skin overlying the left cephalic vein was localized with ultrasound and n oted to be compressible and patent. An ultrasound image was obtained and submitted on the patient's chart. The overlying skin was prepped and draped and Lidocaine was used for local anesthesia. A ski n eli was made with a scalpel. Access was gained to the vein under ultrasound guidance with a 21 ga uge needle and a 0.018 inch wire was advanced. Access site was dilated with Peel-Away sheath and cat heter tailored to the appropriate length and advanced such that the distal tip is at the cavoatrial j unction. Spot image was obtained verifying placement. Catheter was fixed to the skin and a sterile dressing was placed following hemostasis. Catheter was aspirated and flushed with saline. Patient w as discharged in stable condition without complication. Maximal barrier technique is utilized. Ultra sound image is documented on the chart. Ultrasound used with sterile technique. Fluoro time and fluoroscopic images submitted to document procedure: 796 intraoperative C-arm images, 2.3 minutes fluoroscopy time IMPRESSION: STATUS POST ULTRASOUND AND FLUOROSCOPIC GUIDED PICC LINE PLACEMENT, READY FOR USE. THIS PROCEDURE WAS PERFORMED BY THE UNDERSIGNED.
[2018-08-27] MEDS: ENOXAPARIN 150 MG/ML SYRINGE SQ SCH (11:26)
[2018-08-27 11:53] LABS: Glucose,Whole Blood 82 mg/dL (75-99)
[2018-08-27 12:21] VITALS: RESP 20; TEMP 98
--- NOTE | 2018-08-27 15:16 | P.PN ---
Subjective Progress Note Date: 08/27/18 This is a 42-year-old gentleman patient of Dr. Gibson. 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 with a large anterior mediastinal mass 8.6 cm x 5.6 cm causing severe dysphagia, was started on 08/01/18 now coming in for time chemotherapy using etoposide ,doxorubicin cyclophosphamideand vincristine. Patient's doing well, appetite is 100%, and the nausea no vomiting or diarrhea, patient denies any GI upset, no chest pain, patient denies any concurrent dysphagia, no headaches and no neuropathy balance is good without any recent falls.patient is requesting a brand-new meter for his blood sugar checks at home, 08/25: Patient is tolerating chemotherapy with no new complaints. He is not having any dysphagia. No nausea or vomiting. He denies having any diarrhea. Patient has been afebrile. Pulse ox is 93% on room air. White count is at 15.9 , hemoglobin 11.5, platelet count normal. Creatinine 0.62. Capillary blood glucose running between 174 and 210. 08/26: Patient is tolerating chemotherapy well. He has not had any nausea, vomiting, diarrhea. He has been able to ambulate. His blood sugars are improved. He does have some increased edema to the left hand and has been recommended to elevate on 2 pillows. He has been receiving Lovenox for DVT of the left arm. Patient will be completing his chemotherapy late tomorrow anticipate discharge on Monday. 08/27: Patient denies any new complaints. He does state that he is tired and on ambulating very much. Oncology is planning for possible discharge later today after chemotherapy is completed and plan for follow-up in the office for [facility]ader. Regarding the glucometer that we have ordered, correctional case records supervisor is trying to obtain glucometer for him prior to discharge. His vital signs have been stable, blood pressure on the high side. Pulse ox is 98% on room air. Blood sugars are running between 82 and 178 which will be improved once he is off steroids for chemotherapy. White count is 6.5, hemoglobin 11.5, platelet count 243. Patient is cleared for discharge from medicine if arrangements are made for this evening. Review Of Systems: Constitutional: No fever, no chills, no night sweats. No weight change. No weakness, +fatigue. EENT: No headache. No blurred vision or double vision, no loss of vision. No nasal drainage or congestion. No epistaxis. No sore throat. No dysphagia. Lungs: No shortness of breath, cough, no sputum production. No wheezing. Cardiovascular: No chest pain, no lower extremity edema. No lightheadedness or dizziness. No syncopal episodes. Abdominal: No abdominal pain. No nausea, vomiting. No diarrhea. No constipation. No bloody or tarry stools. No loss of appetite. No dysuria. Genitourinary: No dysuria, increased frequency, urgency. No urinary retention. Musculoskeletal: No myalgias. No muscle weakness, no gait dysfunction, no frequent falls. No back pain. No neck pain. Integumentary: No wounds, no lesions. No rash or pruritus. No unusual bruising. No change in hair or nails. Neurologic: No aphasia. No facial droop. No change in mentation. No head injury. No headache. No paralysis. No paresthesia. Psychiatric: No depression. No anxiety. No mood swings. Endocrine: +abnormal blood sugars. Objective - Vital Signs Vital signs: Vital Signs Temp 97.7 F 08/27/18 08:00 Pulse 90 08/27/18 08:00 Resp 18 08/27/18 08:00 BP 128/74 08/27/18 08:00 Pulse Ox 95 08/27/18 08:00 Intake & Output 08/26/18 08/27/18 08/27/18 18:59 06:59 18:59 Intake Total 1468.0 2913.6 Balance 1468.0 2913.6 Intake: IV 1800 Sodium Chloride 0.9% 1, 1800 000 ml @ 150 mls/hr IV . Q6H40M [facility] Rx#:[id number] Intake, IV Titration 1468.0 403.6 Amount DOXOrubicin HCL 26 mg In 80.8 129.6 Sodium Chloride 0.9% 250 ml @ 10.958 mls/hr IV Q24H [facility] Rx#:[id number] Etoposide 130 mg In 168.8 249 Sodium Chloride 0.9% 500 ml 500 ml @ 21.104 mls/hr IV Q24H [facility] Rx#: [id number] Sodium Chloride 0.9% 1, 1200 000 ml @ 150 mls/hr IV . Q6H40M [facility] Rx#:[id number] vinCRIStine SULFATE 1.1 18.4 25.0 mg In Sodium Chloride 0.9 % 50 ml @ 2.129 mls/hr IV Q24H [facility] Rx#:[id number] Oral 710 Other: Voiding Method Toilet Toilet Toilet - Exam General appearance: cooperative, no acute distress, patient sistting up in bed. - EENT Eyes: anicteric sclerae, PERRLA, dentition normal, normal appearance ENT: hearing grossly normal, NA/AT, normal oropharynx - Neck Neck: normal ROM - Respiratory Respiratory: bilateral: CTA, negative: diminished, dullness, rales, rhonchi, wheezing, prolonged expiration - Cardiovascular Rhythm: regular Heart sounds: normal: S1, S2 - Gastrointestinal General gastrointestinal: normal bowel sounds, soft, nontender - Integumentary Integumentary: decreased turgor, normal - Neurologic Neurologic: CNII-XII intact - Musculoskeletal Musculoskeletal: gait normal, strength equal bilaterally, increased edema to the left hand - Psychiatric Psychiatric: A&O x's 3, appropriate affect, intact judgment & insight - Labs CBC & Chem 7: 08/27/18 06:29 08/27/18 06:29 Labs: Abnormal Lab Results - Last 24 Hours (Table) 08/26/18 08/26/18 08/27/18 Range/Units 17:24 20:57 06:29 RBC 3.98 L (4.30-5.90) m/uL Hgb 11.5 L (13.0-17.5) gm/dL Hct 33.5 L (39.0-53.0) % Lymphocytes # 0.4 L (1.0-4.8) k/uL Chloride (98-107) mmol/L Creatinine (0.66-1.25) mg/dL Glucose (74-99) mg/dL POC Glucose (mg/dL) 153 H 178 H (75-99) mg/dL Total Protein (6.3-8.2) g/dL Albumin (3.5-5.0) g/dL 08/27/18 08/27/18 Range/Units 06:29 06:55 RBC (4.30-5.90) m/uL Hgb (13.0-17.5) gm/dL Hct (39.0-53.0) % Lymphocytes # (1.0-4.8) k/uL Chloride 108 H (98-107) mmol/L Creatinine 0.65 L (0.66-1.25) mg/dL Glucose 120 H (74-99) mg/dL POC Glucose (mg/dL) 132 H (75-99) mg/dL Total Protein 5.7 L (6.3-8.2) g/dL Albumin 3.0 L (3.5-5.0) g/dL Assessment and Plan Plan: 1. Primary mediastinal high-grade large B-cell lymphoma on R-EPOCH therapy with allopurinol. Cycle [address]-guided biopsy at [facility] on 07/23/2018, hyperlipidemia Sagastume for acute index, germinal type BCL-2plus in 30% and CMyc +40% Monitor for pancytopenia, cystitis, worsening shortness of breath, blurry vision, hyperglycemia. Oncology managing the chemotherapy. Chemotherapy precautions. 2. Dysphagia secondary to compression of the esophagus by these mediastinal massimproving nutrition, consistent carb diet Ensure clear with meals 3. History of shortness of breath and cough secondary to compression of trachea , improved. DuoNeb as needed for shortness of breath. provide O2 supplementation if needed SpO2 to be maintained above 92%. Respiratory status is stable 4. Type 2 diabetes uncontrolled with hyperglycemia. Continue metformin and glimepiride 2 mg at the current dose, insulin scale. A1c 6. 5. Hyperlipidemia continue atorvastatin 20 mg by mouth at bedtime 6. Hypertension continue amlodipine 10 mg by mouth daily 7. Bipolar disorder continue Abilify 5 mg daily at bedtime 8. Diabetes neuropathy continue gabapentin 300 mg 3 times a day 9. GI prophylaxis with Protonix 40 twice a day 10. Recent diagnosis of DVT in left upper extremity on Lovenox 150 twice a daydate of diagnosis [id number]/2018. Elevate left arm on 2 pillows Discharge plan: Return home this evening Impression and plan of care have been directed as dictated by the signing physician. Ashley Hernandez nurse practitioner acting as scribe for signing physician.
[2018-08-27] MEDS ORDERED: SODIUM CHLORIDE 0.9% IV ONE (16:00)
[2018-08-27] MEDS ORDERED: CYCLOPHOSPHAMIDE IV ONE (16:00)
[2018-08-27 17:32] LABS: Glucose,Whole Blood 163 mg/dL (75-99)
[2018-08-27 17:39] VITALS: BP 136/83; PULSE 87
--- NOTE | 2018-08-27 17:45 | P.DS ---
Providers Date of admission: 08/23/18 09:02 Expected date of discharge: 08/27/18 Attending physician: Ángel Peguero Consults: 08/23/18 13:56 Consult Physician Routine Consulting Provider: Nena Griffiths Consult Reason/Comments: medical Management Do you want consulting provider notified?: Yes Primary care physician: Stated None Hospital Course: Timed Chemotherapy with cycle 2 of R-EPOCH tolerated well Pertinent Studies: CBC, CMP, Uric Acid Patient Condition at Discharge: Fair Plan - Discharge Summary Discharge Rx Participant: No New Discharge Prescriptions: New Prochlorperazine [Compazine] 10 mg PO Q6HR PRN #45 tab PRN Reason: Nausea And Vomiting Ondansetron [Zofran] 4 mg PO QID PRN #45 vial PRN Reason: Nausea Pantoprazole [Protonix] 40 mg PO AC-BID tablet. Continue metFORMIN HCL [Glucophage] 1,000 mg PO BID Gabapentin [Neurontin] 300 mg PO TID amLODIPine [Norvasc] 10 mg PO HS Glimepiride [Amaryl] 2 mg PO DAILY Enoxaparin Sodium 150 mg SQ BID Atorvastatin [Lipitor] 20 mg PO HS ARIPiprazole [Abilify] 5 mg PO HS Allopurinol [Zyloprim] 300 mg PO DAILY Discharge Medication List ARIPiprazole [Abilify] 5 mg PO HS 08/01/18 [History] Allopurinol [Zyloprim] 300 mg PO DAILY 08/01/18 [History] Atorvastatin [Lipitor] 20 mg PO HS 08/01/18 [History] Enoxaparin Sodium 150 mg SQ BID 08/01/18 [History] Gabapentin [Neurontin] 300 mg PO TID 08/01/18 [History] Glimepiride [Amaryl] 2 mg PO DAILY 08/01/18 [History] amLODIPine [Norvasc] 10 mg PO HS 08/01/18 [History] metFORMIN HCL [Glucophage] 1,000 mg PO BID 08/01/18 [History] Ondansetron [Zofran] 4 mg PO QID PRN #45 vial 08/27/18 [Rx] Pantoprazole [Protonix] 40 mg PO AC-BID tablet. 08/27/18 [Rx] Prochlorperazine [Compazine] 10 mg PO Q6HR PRN #45 tab 08/27/18 [Rx] Follow up Appointment(s)/Referral(s): Natalia Batista ANPBC [Nurse Practitioner] - 08/29/18 9:00 am Patient Instructions/Handouts: Eating During Cancer Treatment (GEN), Neutropenia (GEN), Chemo Induced Nausea and Vomiting (GEN) Activity/Diet/Wound Care/Special Instructions: 20 minutes of walking a day wash hands and stay away from those sick See COLLEGE ADVISOR or DR in office next week Neulasta injection in office on 08/29 - start claritin every night at 10mg dose on day of injectin. Discharge Disposition: HOME SELF-CARE
--- NOTE | 2018-08-27 17:46 | P.PN ---
Subjective Progress Note Date: 08/27/18 Principal diagnosis: Large b cell lymphoma timed chemo Day 5 of R-EPOCH and no complaints, eating well, tolerating well and in good spirits. Objective - Vital Signs Vital signs: Vital Signs Temp 98 F 08/27/18 12:00 Pulse 87 08/27/18 16:00 Resp 20 08/27/18 12:00 BP 136/83 08/27/18 16:00 Pulse Ox 97 08/27/18 16:00 Intake & Output 08/26/18 08/27/18 08/27/18 18:59 06:59 18:59 Intake Total 1468.0 2913.6 1455.984 Balance 1468.0 2913.6 1455.984 Intake: IV 1800 Sodium Chloride 0.9% 1, 1800 000 ml @ 150 mls/hr IV . Q6H40M [facility] Rx#:[id number] Intake, IV Titration 1468.0 403.6 1455.984 Amount DOXOrubicin HCL 26 mg In 80.8 129.6 87.664 Sodium Chloride 0.9% 250 ml @ 10.958 mls/hr IV Q24H [facility] Rx#:[id number] Etoposide 130 mg In 168.8 249 168.32 Sodium Chloride 0.9% 500 ml 500 ml @ 21.104 mls/hr IV Q24H [facility] Rx#: [id number] Sodium Chloride 0.9% 1, 1200 1200 000 ml @ 150 mls/hr IV . Q6H40M [facility] Rx#:[id number] vinCRIStine SULFATE 1.1 18.4 25.0 mg In Sodium Chloride 0.9 % 50 ml @ 2.129 mls/hr IV Q24H [facility] Rx#:[id number] Oral 710 Other: Voiding Method Toilet Toilet Toilet - Exam Constitutional General appearance: average body habitus, cooperative, morbidly obese, no acute distress - EENT Eyes: EOMI, PERRLA, dentition normal, normal appearance ENT: NA/AT, normal oropharynx - Neck mild cervical adenopathy, improved, neck supple, trachea midline - Respiratory Respiratory: bilateral: CTA (No increased effort) - Cardiovascular Rhythm: regular Heart sounds: normal: S1, S2 - Gastrointestinal General gastrointestinal: normal bowel sounds, soft - Integumentary Integumentary: normal - Neurologic no focal defects Neurologic: CNII-XII intact - Musculoskeletal Musculoskeletal: gait normal, generalized weakness, strength equal bilaterally - Psychiatric Psychiatric: A&O x's 3, appropriate affect, intact judgment & insight - Labs CBC & Chem 7: 08/27/18 06:29 08/27/18 06:29 Labs: Abnormal Lab Results - Last 24 Hours (Table) 08/26/18 08/27/18 08/27/18 Range/Units 20:57 06:29 06:29 RBC 3.98 L (4.30-5.90) m/uL Hgb 11.5 L (13.0-17.5) gm/dL Hct 33.5 L (39.0-53.0) % Lymphocytes # 0.4 L (1.0-4.8) k/uL Chloride 108 H (98-107) mmol/L Creatinine 0.65 L (0.66-1.25) mg/dL Glucose 120 H (74-99) mg/dL POC Glucose (mg/dL) 178 H (75-99) mg/dL Total Protein 5.7 L (6.3-8.2) g/dL Albumin 3.0 L (3.5-5.0) g/dL 08/27/18 08/27/18 Range/Units 06:55 17:25 RBC (4.30-5.90) m/uL Hgb (13.0-17.5) gm/dL Hct (39.0-53.0) % Lymphocytes # (1.0-4.8) k/uL Chloride (98-107) mmol/L Creatinine (0.66-1.25) mg/dL Glucose (74-99) mg/dL POC Glucose (mg/dL) 132 H 163 H (75-99) mg/dL Total Protein (6.3-8.2) g/dL Albumin (3.5-5.0) g/dL Assessment and Plan Plan: Assessment and Plan Plan: Assessment and Recommendations: 1. High Grade Large B Cell Lymphoma - 8.6X5.7CM Anterior mediastinal mass with bulky above diaphragm disease. CMYC , BCL2, BCL6 are pending by FISH - Cycle Two of Chemotherapy to begin today DOse [id number] - He will follow-up in office after chemotherapy for neulasta. He did become neutropenic after cycle one as insurance would not approve prophylaxis neulasta , now since he had prolonged neutropenia resubmission for neulasta has been placed and appointment in office 24 hours after chemotherapy (likely next week Monday) will be made for him. - Monitor closely for tumor lysis as he has bulky above diaphragm disease, continue allopurinol - CBC, CMP, Uric acid daily 2. LUE DVT: - Continue on Lovenox BID 3. Diabetes Mellitus: - Will ask Dr. Griffiths from to assist in managing medically during hospitalization for known Diabetes and high dose steroids. PPI PProphylaxis and VTE Continue with Day 5 of chemotherapy and supportive medications prn. follow-up on 08/29 in office Physician Attst: I have completed the full history and physical of this patient and agree with above dictation by Natalia Batista NP DIctated as a scribe
[2018-08-27] MEDS: FAMOTIDINE 20 MG/2 ML VIAL IV SCH (19:11)
[2018-08-27] MEDS: ONDANSETRON 16 MG in SODIUM CHLORIDE 0.9% 50 ML IVPB SCH (19:12)
== END 2018-08-27 20:08 | disposition home or self-care (01) | DRG 847 ==
LOC: 3NMEDONC 09:02
PROVIDERS: ADMIT Internal Medicine Hematology & Oncology; ATTEND Internal Medicine Hematology & Oncology
PROC: 3E04305 Introduction of Other Antineoplastic into Central Vein, Percutaneous Approach (ICD-10-PCS; principal; 2018-08-23 14:05)
PROC: 02HV33Z Insertion of Infusion Device into Superior Vena Cava, Percutaneous Approach (ICD-10-PCS; 2018-08-23 14:05)
DX: Z51.11 Encounter for antineoplastic chemotherapy (principal); C85.22 Mediastinal (thymic) large B-cell lymphoma, intrathoracic lymph nodes; E11.40 Type 2 diabetes mellitus with diabetic neuropathy, unspecified; E66.01 Morbid (severe) obesity due to excess calories; K22.2 Esophageal obstruction; E11.65 Type 2 diabetes mellitus with hyperglycemia; J39.8 Other specified diseases of upper respiratory tract; Z68.38 Body mass index [BMI] 38.0-38.9, adult; E78.5 Hyperlipidemia, unspecified; I10 Essential (primary) hypertension; F31.9 Bipolar disorder, unspecified; G89.29 Other chronic pain; M54.5 Low back pain; M19.91 Primary osteoarthritis, unspecified site; Z79.01 Long term (current) use of anticoagulants; Z79.84 Long term (current) use of oral hypoglycemic drugs; Z79.899 Other long term (current) drug therapy; Z86.2 Personal history of diseases of the blood and blood-forming organs and certain disorders involving the immune mechanism; Z87.01 Personal history of pneumonia (recurrent); Z86.718 Personal history of other venous thrombosis and embolism; Z86.14 Personal history of Methicillin resistant Staphylococcus aureus infection; Z87.81 Personal history of (healed) traumatic fracture; Z87.891 Personal history of nicotine dependence; Z82.3 Family history of stroke; Z82.49 Family history of ischemic heart disease and other diseases of the circulatory system; Z83.3 Family history of diabetes mellitus; Z83.49 Family history of other endocrine, nutritional and metabolic diseases
CPT/HCPCS: 36569; 76937; 77001; 80053; 83036; 84550; 85025

== ENCOUNTER 2018-09-11 16:23 | Inpatient (IN) | payer OTHER ==
[2018-09-17] MEDS ORDERED: ONDANSETRON 4 MG/2 ML VIAL IVP PRN ×2 (08:00→18:17)
[2018-09-17 10:02] LABS: Anisocytosis Slight; Basophils % (A) 1 %; Eosinophils # (A) 0.1 k/uL (0-0.7); Eosinophils % (A) 2 %; HCT 37.7 % (39.0-53.0); HGB 13.1 gm/dL (13.0-17.5); Lymphocytes # (A) 0.7 k/uL (1.0-4.8); Lymphocytes % (A) 16 %; MCH 29.7 pg (25.0-35.0); MCHC 34.6 g/dL (31.0-37.0); MCV 85.8 fL (80.0-100.0); Mean Platelet Volume 7.9; Monocytes # (A) 0.6 k/uL (0-1.0); Monocytes % (A) 13 %; Neutrophils # (A) 2.8 k/uL (1.3-7.7); Neutrophils % (A) 66 %; Platelet Count 261 k/uL (150-450); RDW 17.7 % (11.5-15.5); WBC 4.3 k/uL (3.8-10.6)
[2018-09-17 10:16] LABS: ALT 56 U/L (21-72); AST 29 U/L (17-59); Albumin 4.1 g/dL (3.5-5.0); Alkaline Phosphatase 71 U/L (38-126); Anion Gap 9 mmol/L; Blood Urea Nitrogen 6 mg/dL (9-20); Calcium 9.5 mg/dL (8.4-10.2); Carbon Dioxide 25 mmol/L (22-30); Chloride 110 mmol/L (98-107); Glucose 126 mg/dL (74-99); Potassium 3.7 mmol/L (3.5-5.1); Sodium 144 mmol/L (137-145); Total Bilirubin 0.8 mg/dL (0.2-1.3); Total Protein 6.9 g/dL (6.3-8.2); Uric Acid 6.5 mg/dL (3.5-8.5)
[2018-09-17 11:11] LABS: Glucose,Whole Blood 104 mg/dL (75-99)
[2018-09-17] MEDS ORDERED: ACETAMINOPHEN TAB 325 MG TAB PO ONE (11:30)
[2018-09-17] MEDS ORDERED: methylPREDNISolone SOD SUCCI 125 MG/2 ML VIAL IV ONE (11:30)
[2018-09-17] MEDS ORDERED: diphenhydrAMINE 50 MG/ML 1 ML VIAL IVP ONE (11:30)
[2018-09-17] MEDS: SODIUM CHLORIDE 0.9% 1,000 ML IV SCH ×3 (11:50→22:47)
[2018-09-17] MEDS: predniSONE 20 MG TAB PO SCH ×2 (11:51→22:45)
[2018-09-17] MEDS: predniSONE 50 MG TAB PO SCH ×2 (11:51→22:45)
[2018-09-17] MEDS ORDERED: riTUXimab 1,000 MG in SODIUM CHLORIDE 0.9% 500 ML 500 ML IV ONE ×2 (12:00→21:00)
--- NOTE | 2018-09-17 16:09 | P.CONS ---
History of Present Illness - Reason for Consult Consult date: 09/17/18 And comanagement Requesting physician: Ángel Peguero - Chief Complaint Chemotherapy - History of Present Illness This is a 42-year-old gentleman patient of Dr. Gibson. 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 Patient's doing well, appetite is 100%, and the nausea no vomiting or diarrhea, patient denies any GI upset, no chest pain, patient denies any concurrent dysphagia, no headaches and no neuropathy balance is good without any recent falls no diarrhea no rash, no frequent infections prior to this current admission. Review of Systems Constitutional: Reports as per HPI, Denies anorexia, Denies chills, Denies chronic headaches, Denies chronic pain, Denies daytime sleepiness, Denies fatigue, Denies fever, Denies lethargy, Denies malaise, Denies night sweats, Denies poor appetite, Denies sweats, Denies weakness, Denies weight gain, Denies weight loss Cardiovascular: Reports as per HPI, Denies chest pain, Denies claudication, Denies decreased exercise tolerance, Denies dyspnea on exertion, Denies edema, Denies high blood pressure, Denies irregular heart beat, Denies leg edema, Denies lightheadedness, Denies orthopnea, Denies palpitations, Denies paroxysmal nocturnal dyspnea, Denies phlebitis, Denies rapid heart beat, Denies shortness of breath, Denies syncope Respiratory: Reports as per HPI, Reports cough, Denies congestion, Denies cough with sputum, Denies dyspnea, Denies excessive sputum, Denies hemoptysis, Denies home oxygen, Denies pain, Denies pain on inspiration, Denies pleurisy, Denies respiratory infections, Denies sleep apnea, Denies snoring, Denies wheezing Gastrointestinal: Reports as per HPI, Denies abdominal pain, Denies belching, Denies bloating, Denies BRBPR, Denies change in bowel habits, Denies coffee ground emesis, Denies constipation, Denies diarrhea, Denies dyspepsia, Denies early satiety, Denies excessive gas, Denies heartburn, Denies hematemesis, Denies hematochezia, Denies indigestion, Denies jaundice, Denies lactose intolerance, Denies loss of appetite, Denies melena, Denies nausea, Denies vomiting Genitourinary: Reports as per HPI, Denies discharge, Denies dysuria, Denies flank pain, Denies genital pain, Denies genital sores, Denies hematuria, Denies kidney stones, Denies nocturia, Denies urinary frequency, Denies urinary hesitancy, Denies urinary retention Musculoskeletal: Reports as per HPI, Denies arm numbness/tingling, Denies fractures, Denies frequent falls, Denies gait dysfunction, Denies hot joints, Denies leg numbness/tingling, Denies limitation of motion, Denies loss of height , Denies low back pain, Denies muscle cramps, Denies muscle weakness, Denies myalgias, Denies neck pain, Denies neck stiffness, Denies redness of joints, Denies shooting arm pain, Denies shooting leg pain Integumentary: Reports as per HPI, Denies acne, Denies boils, Denies brittle nails, Denies change in hair/nails, Denies color changes, Denies darkening of skin, Denies depigmentation, Denies dryness, Denies foot/leg ulcers, Denies growths, Denies hirsutism, Denies lesions, Denies onychomycosis, Denies pruritus , Denies rash, Denies sores, Denies striae, Denies unusual bruising, Denies wounds Neurological: Reports as per HPI, Denies aphasia, Denies ataxia, Denies balance difficulties, Denies burning pain, Denies change in mentation, Denies change in smell/taste, Denies change in speech, Denies confusion, Denies convulsions, Denies double vision, Denies gait dysfunction, Denies head injury, Denies headaches, Denies hearing difficulties, Denies lack of coordination, Denies loss of vision, Denies memory loss, Denies migraines, Denies motor disturbance, Denies numbness, Denies paralysis, Denies paresthesias, Denies seizures, Denies sensory deficit, Denies spasticity, Denies syncope, Denies tic, Denies tingling , Denies transient paralysis, Denies tremors, Denies vertigo, Denies weakness, Denies visual changes Psychiatric: Reports as per HPI, Denies anhedonia, Denies anxiety, Denies anxiety attacks, Denies change in appetite, Denies change in libido, Denies change in sleep habits, Denies confusion, Denies depression, Denies difficulty concentrating, Denies disorientation, Denies hallucinations, Denies hopelessness , Denies hypersomnia, Denies insomnia, Denies irritability, Denies memory loss, Denies mood swings, Denies paranoia, Denies sadness/tearfulness, Denies sleep disturbances, Denies suicidal ideation Endocrine: Reports as per HPI Hematologic/Lymphatic: Reports as per HPI Allergic/Immunologic: Reports as per HPI Past Medical History Past Medical History: Cancer, Diabetes Mellitus, Deep Vein Thrombosis (DVT), Hyperlipidemia, Hypertension, Osteoarthritis (OA), Pneumonia Additional Past Medical History / Comment(s): Pt states he started noticing difficulty with swallowing June,, went to [facility] on 07/20/18 d/t cough and chest pain, had cat scan that showed mediastinal mass and was sent on to [facility] where he had mediastinal mass biopsy. He states he has also had a L arm DVT. Other hx: Chronic low back pain, NIDDM type II, pt states dysphagia has resolved, "walking" pneumonia as a teen. History of Any Multi-Drug Resistant Organisms: MRSA Year Discovered:: 2013 per pt MDRO Source:: L leg Past Surgical History: Adenoidectomy, Orthopedic Surgery, Tonsillectomy Additional Past Surgical History / Comment(s): PICC lines with current one placed 08/23/18, 07/22/18 mediastinal mass biopsy at [facility], R hand fracure with surgery/pins since removed. 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, Medications and Allergies Home Medications Medication Instructions Recorded Confirmed Type ARIPiprazole [Abilify] 5 mg PO HS 08/01/18 09/17/18 History Allopurinol [Zyloprim] 300 mg PO DAILY 08/01/18 09/17/18 History Atorvastatin [Lipitor] 20 mg PO HS 08/01/18 09/17/18 History Gabapentin [Neurontin] 300 mg PO TID 08/01/18 09/17/18 History Glimepiride [Amaryl] 2 mg PO DAILY 08/01/18 09/17/18 History amLODIPine [Norvasc] 10 mg PO HS 08/01/18 09/17/18 History metFORMIN HCL [Glucophage] 1,000 mg PO BID 08/01/18 09/17/18 History Ondansetron [Zofran] 4 mg PO QID PRN #45 vial 08/27/18 09/17/18 Rx Pantoprazole [Protonix] 40 mg PO AC-BID tablet. 08/27/18 09/17/18 Rx Prochlorperazine [Compazine] 10 mg PO Q6HR PRN #45 tab 08/27/18 09/17/18 Rx Allergies Allergy/AdvReac Type Severity Reaction Status Date / Time No Known Allergies Allergy Verified 09/17/18 09:40 Physical Exam Vitals: Vital Signs Temp Pulse Resp BP Pulse Ox 09/17/18 12:00 97.8 F 84 18 111/73 99 09/17/18 09:32 97.7 F 107 H 20 113/79 95 Intake and Output 09/17/18 09/17/18 09/17/18 06:59 14:59 22:59 Intake Total 265 Balance 265 Intake: Intake, IV Titration 265 Amount riTUXimab 1,000 mg In 265 Sodium Chloride 0.9% 500 ml 500 ml @ 0 mls/hr IV . Q0M ONE Rx#:[id number] Other: # Voids 1 Weight 138 kg - Constitutional General appearance: cooperative, no acute distress, obese - EENT Eyes: anicteric sclerae, EOMI, PERRLA ENT: no hard of hearing, no hearing grossly normal, NA/AT, normal oropharynx, no other, no pharyngeal erythema, no thrush, no tonsillar exudates, no tonsillar swelling - Neck Neck: normal ROM - Respiratory Respiratory: bilateral: CTA, negative: diminished, dullness, rales, rhonchi, wheezing - Cardiovascular Rhythm: regular Heart sounds: normal: S1, S2 Abnormal Heart Sounds: no systolic murmur, no diastolic murmur, no rub, no S3 Gallop, no S4 Gallop, no click, no other - Gastrointestinal General gastrointestinal: normal bowel sounds, soft - Integumentary Integumentary: normal, normal turgor - Neurologic Neurologic: CNII-XII intact - Musculoskeletal Musculoskeletal: gait normal, strength equal bilaterally - Psychiatric Psychiatric: A&O x's 3, appropriate affect, intact judgment & insight Results CBC & Chem 7: 09/17/18 09:35 09/17/18 09:35 Labs: Abnormal Lab Results - Last 24 Hours (Table) 09/17/18 09/17/18 09/17/18 Range/Units 09:35 09:35 11:09 Hct 37.7 L (39.0-53.0) % RDW 17.7 H (11.5-15.5) % Lymphocytes # 0.7 L (1.0-4.8) k/uL Chloride 110 H (98-107) mmol/L BUN 6 L (9-20) mg/dL Glucose 126 H (74-99) mg/dL POC Glucose (mg/dL) 104 H (75-99) mg/dL Laboratory Results WBC 4.3 k/uL (3.8-10.6) 09/17/18 09:35 RBC 4.40 m/uL (4.30-5.90) 09/17/18 09:35 Hgb 13.1 gm/dL (13.0-17.5) 09/17/18 09:35 Hct 37.7 % (39.0-53.0) L 09/17/18 09:35 MCV 85.8 fL (80.0-100.0) 09/17/18 09:35 MCH 29.7 pg (25.0-35.0) 09/17/18 09:35 MCHC 34.6 g/dL (31.0-37.0) 09/17/18 09:35 RDW 17.7 % (11.5-15.5) H 09/17/18 09:35 Plt Count 261 k/uL (150-450) 09/17/18 09:35 Neutrophils % 66 % 09/17/18 09:35 Lymphocytes % 16 % 09/17/18 09:35 Monocytes % 13 % 09/17/18 09:35 Eosinophils % 2 % 09/17/18 09:35 Basophils % 1 % 09/17/18 09:35 Neutrophils # 2.8 k/uL (1.3-7.7) 09/17/18 09:35 Lymphocytes # 0.7 k/uL (1.0-4.8) L 09/17/18 09:35 Monocytes # 0.6 k/uL (0-1.0) 09/17/18 09:35 Eosinophils # 0.1 k/uL (0-0.7) 09/17/18 09:35 Basophils # 0.0 k/uL (0-0.2) 09/17/18 09:35 Anisocytosis Slight 09/17/18 09:35 Sodium 144 mmol/L (137-145) 09/17/18 09:35 Potassium 3.7 mmol/L (3.5-5.1) 09/17/18 09:35 Chloride 110 mmol/L (98-107) H 09/17/18 09:35 Carbon Dioxide 25 mmol/L (22-30) 09/17/18 09:35 Anion Gap 9 mmol/L 09/17/18 09:35 BUN 6 mg/dL (9-20) L 09/17/18 09:35 Creatinine 0.68 mg/dL (0.66-1.25) 09/17/18 09:35 Est GFR (CKD-EPI)AfAm >90 (>60 ml/min/1.73 sqM) 09/17/18 09:35 Est GFR (CKD-EPI)NonAf >90 (>60 ml/min/1.73 sqM) 09/17/18 09:35 Glucose 126 mg/dL (74-99) H 09/17/18 09:35 POC Glucose (mg/dL) 104 mg/dL (75-99) H 09/17/18 11:09 POC Glu Irrigation Pump Installer ID Wilma Lauren 09/17/18 11:09 Uric Acid 6.5 mg/dL (3.5-8.5) 09/17/18 09:35 Calcium 9.5 mg/dL (8.4-10.2) 09/17/18 09:35 Total Bilirubin 0.8 mg/dL (0.2-1.3) 09/17/18 09:35 AST 29 U/L (17-59) 09/17/18 09:35 ALT 56 U/L (21-72) 09/17/18 09:35 Alkaline Phosphatase 71 U/L (38-126) 09/17/18 09:35 Total Protein 6.9 g/dL (6.3-8.2) 09/17/18 09:35 Albumin 4.1 g/dL (3.5-5.0) 09/17/18 09:35 Assessment and Plan Plan: 1 Primary Mediastinal high-grade large B-cell lymphoma on R-EPOCH therapy Cycle [address]-guided biopsy at [facility] on 07/23/2018, hyperlipidemia Sagastume for acute index, germinal type BCL-2plus in 30% and CMyc + 40% Monitor for pancytopenia, cystitis, worsening shortness of breath, blurry vision, hyperglycemia. Oncology managing the chemotherapy. Chemotherapy precautions to be followed #2 dysphagia secondary to compression of the esophagus by these mediastinal massimproving nutrition, soft diet, dysphagia resolved. monitor blood sugars, Ensure clear with meals #3 history of shortness of breath and cough secondary to compression of tracheaimproved no current aggravation. DuoNeb as needed for shortness of breath. provide O2 supplementation if needed SpO2 to be maintained above 92% #4 type 2 diabetes with labile blood sugars secondary to intermittent nutritional deficits, doing ok with intake currently, expect fluctuation related to chemo sideeffects in the next few days. Continue metformin and glimepiride 2 mg at the current dose. Last A1c 5.7 according to patient. Watch for hypoglycemia glucose checked before meals and at bedtime, home blood sugar monitor #5 hyperlipidemia continue atorvastatin 20 mg by mouth at bedtime #6 hypertension continue amlodipine 10 mg by mouth daily #7 bipolar disorder continue Abilify 5 mg daily at bedtime #8 diabetes neuropathy continue gabapentin 300 mg 3 times a day #9 GI prophylaxis with Protonix 40 twice a day #10 recent diagnosis of DVT in left upper extremity on Lovenox 150 twice a day date of diagnosis approximately 07/23/2018 treatment to be completed approximately 10/22/2018 then DVT prophylaxis with aspirin
[2018-09-17] MEDS: ONDANSETRON 16 MG in SODIUM CHLORIDE 0.9% 50 ML IVPB SCH (16:35)
[2018-09-17] MEDS: FAMOTIDINE 20 MG/2 ML VIAL IV SCH (16:35)
[2018-09-17 17:11] LABS: Glucose,Whole Blood 217 mg/dL (75-99)
[2018-09-17] MEDS: vinCRIStine SULFATE 1 MG in SODIUM CHLORIDE 0.9% 50 ML IV SCH (17:11)
[2018-09-17] MEDS: SODIUM CHLORIDE 0.9% IV SCH ×2 (17:12)
[2018-09-17] MEDS: DOXORUBICIN HCL IV SCH (17:12)
[2018-09-17] MEDS: ETOPOSIDE IV SCH (17:12)
[2018-09-17] MEDS ORDERED: PROCHLORPERAZINE 10 MG TAB PO PRN (18:17)
--- NOTE | 2018-09-17 18:25 | P.HPIM ---
History of Present Illness H&P Date: 09/17/18 Chief Complaint: Timed Chemotherapy R-EPOCH Cycle 3 This is a very nice patient who presented to [facility],on 07/20/2018 with chest pain,had a CXR which revealed mediastinal mass,CT scan of chest on 07/20/2018 revealed large anterior mediastinal mass,8.6x5.6 cm,abuts and partially displaced ascenting aorta,,right paratracheal nodes up to 2.5cm. He was transferred to [facility],on 07/22/2018,his CBC and CMP were unremarkable,serum AFP,HCG were normal,uric acid was 7.2,LDH was 705 (upper limit of normal was 250).Testicular ultrasound on 07/23/[address] scan of neck on 07/23/2018 revealed bilateral supraclavicular nodes that are visible but not enlarged,CT scan of abdomen/pelvis was negative. He had an echocardiogram at [facility] on 07/23/2018 which revealed normal EF of 69%. 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 He developed swelling in LUE at [facility],doppler confirmed DVT and was started on Lovenox. Attempted staging PET scan,however,he could not have it due to significant dyspnea. On 07/31/2018,he was admitted for cycle#1 of DA-R-EPOCH regimen, He tolerated the first cycle well,the swelling in LUE resolved,no more dysphagea,no more dyspnea. He has tolerated chemotherapy great this far with the exception of adding Neulasta after cycle 1 for neutropenia. He now presents for inpatient chemotherapy cycle number 3 of R-EPOCH. Review of Systems A 14 point review of systems assessed and completed and all negative except HPI Past Medical History Past Medical History: Cancer, Diabetes Mellitus, Deep Vein Thrombosis (DVT), Hyperlipidemia, Hypertension, Osteoarthritis (OA), Pneumonia Additional Past Medical History / Comment(s): Pt states he started noticing difficulty with swallowing June,, went to [facility] on 07/20/18 d/t cough and chest pain, had cat scan that showed mediastinal mass and was sent on to [facility] where he had mediastinal mass biopsy. He states he has also had a L arm DVT. Other hx: Chronic low back pain, NIDDM type II, pt states dysphagia has resolved, "walking" pneumonia as a teen. History of Any Multi-Drug Resistant Organisms: MRSA Date of last positivie culture/infection: 2013 per pt MDRO Source:: L leg Past Surgical History: Adenoidectomy, Orthopedic Surgery, Tonsillectomy Additional Past Surgical History / Comment(s): PICC lines with current one placed 08/23/18, 07/22/18 mediastinal mass biopsy at [facility], R hand fracure with surgery/pins since removed. 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, Medications and Allergies Home Medications Medication Instructions Recorded Confirmed Type ARIPiprazole [Abilify] 5 mg PO HS 08/01/18 09/17/18 History Allopurinol [Zyloprim] 300 mg PO DAILY 08/01/18 09/17/18 History Atorvastatin [Lipitor] 20 mg PO HS 08/01/18 09/17/18 History Gabapentin [Neurontin] 300 mg PO TID 08/01/18 09/17/18 History Glimepiride [Amaryl] 2 mg PO DAILY 08/01/18 09/17/18 History amLODIPine [Norvasc] 10 mg PO HS 08/01/18 09/17/18 History metFORMIN HCL [Glucophage] 1,000 mg PO BID 08/01/18 09/17/18 History Ondansetron [Zofran] 4 mg PO QID PRN #45 vial 08/27/18 09/17/18 Rx Pantoprazole [Protonix] 40 mg PO AC-BID tablet. 08/27/18 09/17/18 Rx Prochlorperazine [Compazine] 10 mg PO Q6HR PRN #45 tab 08/27/18 09/17/18 Rx Allergies Allergy/AdvReac Type Severity Reaction Status Date / Time No Known Allergies Allergy Verified 09/17/18 09:40 Physical Exam Vitals: Vital Signs Temp Pulse Resp BP Pulse Ox 09/17/18 16:00 98 F 94 18 123/80 92 L 09/17/18 12:00 97.8 F 84 18 111/73 99 09/17/18 09:32 97.7 F 107 H 20 113/79 95 Intake and Output 09/17/18 09/17/18 09/17/18 06:59 14:59 22:59 Intake Total 265 Balance 265 Intake: Intake, IV Titration 265 Amount riTUXimab 1,000 mg In 265 Sodium Chloride 0.9% 500 ml 500 ml @ 0 mls/hr IV . Q0M [facility] Rx#:[id number] Other: # Voids 1 Weight 138 kg - Constitutional General appearance: average body habitus, cooperative, morbidly obese, no acute distress - EENT Eyes: EOMI, PERRLA, dentition normal, normal appearance ENT: NA/AT, normal oropharynx - Neck mild cervical adenopathy, improved, neck supple, trachea midline - Respiratory Respiratory: bilateral: CTA (No increased effort) - Cardiovascular Rhythm: regular Heart sounds: normal: S1, S2 - Gastrointestinal General gastrointestinal: normal bowel sounds, soft - Integumentary Integumentary: normal - Neurologic no focal defects Neurologic: CNII-XII intact - Musculoskeletal Musculoskeletal: gait normal, generalized weakness, strength equal bilaterally - Psychiatric Psychiatric: A&O x's 3, appropriate affect, intact judgment & insight Results CBC & Chem 7: 09/17/18 09:35 09/17/18 09:35 Labs: Abnormal Lab Results - Last 24 Hours (Table) 09/17/18 09/17/18 09/17/18 Range/Units 09:35 09:35 11:09 Hct 37.7 L (39.0-53.0) % RDW 17.7 H (11.5-15.5) % Lymphocytes # 0.7 L (1.0-4.8) k/uL Chloride 110 H (98-107) mmol/L BUN 6 L (9-20) mg/dL Glucose 126 H (74-99) mg/dL POC Glucose (mg/dL) 104 H (75-99) mg/dL 09/17/18 Range/Units 17:10 Hct (39.0-53.0) % RDW (11.5-15.5) % Lymphocytes # (1.0-4.8) k/uL Chloride (98-107) mmol/L BUN (9-20) mg/dL Glucose (74-99) mg/dL POC Glucose (mg/dL) 217 H (75-99) mg/dL Thrombosis Risk Factor Assmnt - DVT/VTE Prophylaxis DVT/VTE Prophylaxis: Pharmacologic Prophylaxis ordered - Choose All That Apply Any of the Below Risk Factors Present?: Yes Each Factor Represents 1 point: Age 41-60 years, Obesity (BMI >25) Other Risk Factors: Yes Each Risk Factor Represents 2 Points: Malignancy Other congenital or acquired thrombophilia - If yes, enter type in comment: No Thrombosis Risk Factor Assessment Total Risk Factor Score: 4 Thrombosis Risk Factor Assessment Level: Moderate Risk Assessment and Plan Plan: Assessment and Recommendations: 1. High Grade Large B Cell Lymphoma - 8.6X5.7CM Anterior mediastinal mass with bulky above diaphragm disease. - Cycle Three of Chemotherapy to begin today DOse [id number] - He will follow-up in office after chemotherapy for neulasta. He did become neutropenic after cycle one neulasta has been placed and appointment in office 24 hours after chemotherapy (likely next week Monday) will be made for him. - Monitor closely for tumor lysis as he has bulky above diaphragm disease, continue allopurinol - CBC, CMP, Uric acid daily 2. LUE DVT: - Change to Eliquis BID through remainder of treatment per Dr. Cervantes 3. Diabetes Mellitus: - Will ask MM to assist in managing medically during hospitalization for known Diabetes and high dose steroids. PPI Prophylaxis and VTE
[2018-09-17 20:09] LABS: Glucose,Whole Blood 246 mg/dL (75-99)
[2018-09-17] MEDS: amLODIPine 10 MG TAB PO SCH (21:22)
[2018-09-17] MEDS: metFORMIN 500 MG TAB PO SCH (21:22)
[2018-09-17] MEDS: PANTOPRAZOLE 40 MG TABLET PO SCH (21:22)
[2018-09-17] MEDS: ATORVASTATIN 20 MG TAB PO SCH (21:22)
[2018-09-17] MEDS: GABAPENTIN 300 MG CAP PO SCH (21:22)
[2018-09-17] MEDS: ARIPiprazole 5 MG TAB PO SCH (21:23)
[2018-09-17] MEDS: APIXABAN 5 MG TAB PO SCH (21:23)
[2018-09-18] MEDS: SODIUM CHLORIDE 0.9% 1,000 ML IV SCH ×4 (04:40→18:29)
[2018-09-18 07:08] LABS: Glucose,Whole Blood 161 mg/dL (75-99)
[2018-09-18] MEDS ORDERED: PANTOPRAZOLE 40 MG TABLET PO SCH (07:30)
[2018-09-18 08:35] LABS: Anisocytosis Slight; Basophils % (A) 0 %; Eosinophils % (A) 0 %; HCT 36.6 % (39.0-53.0); HGB 11.8 gm/dL (13.0-17.5); Lymphocytes # (A) 0.3 k/uL (1.0-4.8); Lymphocytes % (A) 3 %; MCH 28.3 pg (25.0-35.0); MCHC 32.4 g/dL (31.0-37.0); MCV 87.5 fL (80.0-100.0); Mean Platelet Volume 7.6; Monocytes # (A) 0.2 k/uL (0-1.0); Monocytes % (A) 2 %; Neutrophils % (A) 95 %; Platelet Count 274 k/uL (150-450); RBC 4.18 m/uL (4.30-5.90); RDW 18.2 % (11.5-15.5); WBC 9.6 k/uL (3.8-10.6)
[2018-09-18] MEDS: ALLOPURINOL 300 MG TAB PO SCH (08:45)
[2018-09-18] MEDS: metFORMIN 500 MG TAB PO SCH ×2 (08:45→21:57)
[2018-09-18] MEDS: predniSONE 20 MG TAB PO SCH ×2 (08:45→21:58)
[2018-09-18] MEDS: GABAPENTIN 300 MG CAP PO SCH ×3 (08:46→21:58)
[2018-09-18] MEDS: predniSONE 50 MG TAB PO SCH ×2 (08:46→21:58)
[2018-09-18] MEDS: GLIMEPIRIDE 2 MG TAB PO SCH (08:46)
[2018-09-18] MEDS: APIXABAN 5 MG TAB PO SCH ×2 (08:46→21:57)
[2018-09-18] MEDS: PANTOPRAZOLE 40 MG TABLET PO SCH ×2 (08:47→18:16)
[2018-09-18 08:51] LABS: ALT 43 U/L (21-72); AST 16 U/L (17-59); Albumin 3.4 g/dL (3.5-5.0); Alkaline Phosphatase 69 U/L (38-126); Anion Gap 8 mmol/L; Blood Urea Nitrogen 8 mg/dL (9-20); Calcium 9.3 mg/dL (8.4-10.2); Carbon Dioxide 23 mmol/L (22-30); Chloride 112 mmol/L (98-107); Glucose 151 mg/dL (74-99); Potassium 4.1 mmol/L (3.5-5.1); Sodium 143 mmol/L (137-145); Total Bilirubin 0.7 mg/dL (0.2-1.3); Uric Acid 4.6 mg/dL (3.5-8.5)
[2018-09-18 11:22] LABS: Glucose,Whole Blood 187 mg/dL (75-99)
--- NOTE | 2018-09-18 13:40 | P.PN ---
Subjective Progress Note Date: 09/18/18 Principal diagnosis: Timed Chemo - B cell Lymphoma No acute complaints, day 2 tolerating well Objective - Vital Signs Vital signs: Vital Signs Temp 97.6 F 09/18/18 12:00 Pulse 85 09/18/18 12:00 Resp 14 09/18/18 12:00 BP 132/75 09/18/18 12:00 Pulse Ox 93 L 09/18/18 12:00 Intake & Output 09/17/18 09/18/18 09/18/18 18:59 06:59 18:59 Intake Total 265 2690 Balance 265 2690 Weight 138 kg Intake: Intake, IV Titration 265 2270 Amount DOXOrubicin HCL 26 mg In 85 Sodium Chloride 0.9% 250 ml @ 10.958 mls/hr IV Q24H [facility] Rx#:[id number] Etoposide 130 mg In 168 Sodium Chloride 0.9% 500 ml 500 ml @ 21.104 mls/hr IV Q24H [facility] Rx#: [id number] Ondansetron 16 mg In 800 Sodium Chloride 0.9% 50 ml @ 100 mls/hr IVPB Q24H [facility] Rx#:[id number] Sodium Chloride 0.9% 1, 1200 000 ml @ 150 mls/hr IV . Q6H40M [facility] Rx#:[id number] riTUXimab 1,000 mg In 265 Sodium Chloride 0.9% 500 ml 500 ml @ 0 mls/hr IV . Q0M [facility] Rx#:[id number] vinCRIStine SULFATE 1 mg 17 In Sodium Chloride 0.9% 50 ml @ 2.125 mls/hr IV Q24H [facility] Rx#:[id number] Oral 420 Other: Voiding Method Toilet # Voids 1 2 - Exam - Constitutional General appearance: average body habitus, cooperative, morbidly obese, no acute distress - EENT Eyes: EOMI, PERRLA, dentition normal, normal appearance ENT: NA/AT, normal oropharynx - Neck mild cervical adenopathy, improved, neck supple, trachea midline - Respiratory Respiratory: bilateral: CTA (No increased effort) - Cardiovascular Rhythm: regular Heart sounds: normal: S1, S2 - Gastrointestinal General gastrointestinal: normal bowel sounds, soft - Integumentary Integumentary: normal - Neurologic no focal defects Neurologic: CNII-XII intact - Musculoskeletal Musculoskeletal: gait normal, generalized weakness, strength equal bilaterally - Psychiatric Psychiatric: A&O x's 3, appropriate affect, intact judgment & insight - Labs CBC & Chem 7: 09/18/18 08:06 09/18/18 08:06 Labs: Abnormal Lab Results - Last 24 Hours (Table) 09/17/18 09/17/18 09/18/18 Range/Units 17:10 20:08 07:05 RBC (4.30-5.90) m/uL Hgb (13.0-17.5) gm/dL Hct (39.0-53.0) % RDW (11.5-15.5) % Neutrophils # (1.3-7.7) k/uL Lymphocytes # (1.0-4.8) k/uL Chloride (98-107) mmol/L BUN (9-20) mg/dL Creatinine (0.66-1.25) mg/dL Glucose (74-99) mg/dL POC Glucose (mg/dL) 217 H 246 H 161 H (75-99) mg/dL AST (17-59) U/L Total Protein (6.3-8.2) g/dL Albumin (3.5-5.0) g/dL 09/18/18 09/18/18 09/18/18 Range/Units 08:06 08:06 11:21 RBC 4.18 L (4.30-5.90) m/uL Hgb 11.8 L (13.0-17.5) gm/dL Hct 36.6 L (39.0-53.0) % RDW 18.2 H (11.5-15.5) % Neutrophils # 9.0 H (1.3-7.7) k/uL Lymphocytes # 0.3 L (1.0-4.8) k/uL Chloride 112 H (98-107) mmol/L BUN 8 L (9-20) mg/dL Creatinine 0.61 L (0.66-1.25) mg/dL Glucose 151 H (74-99) mg/dL POC Glucose (mg/dL) 187 H (75-99) mg/dL AST 16 L (17-59) U/L Total Protein 6.0 L (6.3-8.2) g/dL Albumin 3.4 L (3.5-5.0) g/dL Assessment and Plan Plan: Assessment and Recommendations: 1. High Grade Large B Cell Lymphoma - 8.6X5.7CM Anterior mediastinal mass with bulky above diaphragm disease. - Cycle Three of Chemotherapy to begin today DOse [id number] - He will follow-up in office after chemotherapy for neulasta. He did become neutropenic after cycle one neulasta has been placed and appointment in office 24 hours after chemotherapy (likely next week Monday) will be made for him. - Monitor closely for tumor lysis as he has bulky above diaphragm disease, continue allopurinol - CBC, CMP, Uric acid daily - continue on day two - Explained Eliquis and AC therapy with patient 2. LUE DVT: - Change to Eliquis BID through remainder of treatment per Dr. Cervantes 3. Diabetes Mellitus: - Will ask MM to assist in managing medically during hospitalization for known Diabetes and high dose steroids. PPI Prophylaxis and VTE Physician Attest: I have completed the full history and physical of this patient and agree with above dictation by rachel khan [employer]IATION ELECTRICAL TECHNICIAN, dictated as a scribe
--- NOTE | 2018-09-18 15:09 | P.PN ---
Subjective Progress Note Date: 09/18/18 This is a 42-year-old gentleman patient of Dr. Gibson. 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 Patient's doing well, appetite is 100%, and the nausea no vomiting or diarrhea, patient denies any GI upset, no chest pain, patient denies any concurrent dysphagia, no headaches and no neuropathy balance is good without any recent falls no diarrhea no rash, no frequent infections prior to this current admission. 09/18: Patient is receiving the third round of 6 for chemotherapy. He denies any Occasions. He denies any cold symptoms, cough, shortness of breath. His appetite is good. Denies having any diarrhea. White count is 9.6, hemoglobin 1.8 and platelet count 274. Creatinine 0.71. Blood sugars been running between 161 and 246. Uric acid is 4.6. Review Of Systems: Constitutional: No fever, no chills, no night sweats. No weight change. No weakness, fatigue or lethargy. No daytime sleepiness. EENT: No headache. No blurred vision or double vision, no loss of vision. No loss of Hearing, no ringing in the ears, no dizziness. No nasal drainage or congestion. No epistaxis. No sore throat. Lungs: No shortness of breath, cough, no sputum production. No wheezing. Cardiovascular: No chest pain, no lower extremity edema. No palpitations. No paroxysmal nocturnal dyspnea. No orthopnea. No lightheadedness or dizziness. No syncopal episodes. Abdominal: No abdominal pain. No nausea, vomiting. No diarrhea. No constipation. No bloody or tarry stools.. No loss of appetite. Genitourinary: No dysuria, increased frequency, urgency. No urinary retention. Musculoskeletal: No myalgias. No muscle weakness, no gait dysfunction, no frequent falls. No back pain. No neck pain. Integumentary: No wounds, no lesions. No rash or pruritus. No unusual bruising. No change in hair or nails. Neurologic: No aphasia. No facial droop. No change in mentation. No head injury. No headache. No paralysis. No paresthesia. Psychiatric: No depression. No anxiety. No mood swings. Endocrine: No abnormal blood sugars. No weight change. No excessive sweating or thirst. No cold intolerance. Objective - Vital Signs Vital signs: Vital Signs Temp 97.5 F L 09/18/18 07:35 Pulse 79 09/18/18 07:35 Resp 15 09/18/18 07:35 BP 129/79 09/18/18 07:35 Pulse Ox 95 09/18/18 07:35 Intake & Output 09/17/18 09/18/18 09/18/18 18:59 06:59 18:59 Intake Total 265 2690 Balance 265 2690 Weight 138 kg Intake: Intake, IV Titration 265 2270 Amount DOXOrubicin HCL 26 mg In 85 Sodium Chloride 0.9% 250 ml @ 10.958 mls/hr IV Q24H [facility] Rx#:[id number] Etoposide 130 mg In 168 Sodium Chloride 0.9% 500 ml 500 ml @ 21.104 mls/hr IV Q24H [facility] Rx#: [id number] Ondansetron 16 mg In 800 Sodium Chloride 0.9% 50 ml @ 100 mls/hr IVPB Q24H [facility] Rx#:[id number] Sodium Chloride 0.9% 1, 1200 000 ml @ 150 mls/hr IV . Q6H40M [facility] Rx#:[id number] riTUXimab 1,000 mg In 265 Sodium Chloride 0.9% 500 ml 500 ml @ 0 mls/hr IV . Q0M [facility] Rx#:[id number] vinCRIStine SULFATE 1 mg 17 In Sodium Chloride 0.9% 50 ml @ 2.125 mls/hr IV Q24H [facility] Rx#:[id number] Oral 420 Other: Voiding Method Toilet # Voids 1 2 - Exam General appearance: cooperative, no acute distress, obese, sitting up in bed - EENT Eyes: anicteric sclerae, EOMI, PERRLA ENT: no hard of hearing, no hearing grossly normal, NA/AT, normal oropharynx, no other, no pharyngeal erythema, no thrush, no tonsillar exudates, no tonsillar swelling - Neck Neck: normal ROM - Respiratory Respiratory: bilateral: CTA, negative: diminished, dullness, rales, rhonchi, wheezing - Cardiovascular Rhythm: regular Heart sounds: normal: S1, S2 Abnormal Heart Sounds: no systolic murmur, no diastolic murmur, no rub, no S3 Gallop, no S4 Gallop, no click, no other - Gastrointestinal General gastrointestinal: normal bowel sounds, soft - Integumentary Integumentary: normal, normal turgor - Neurologic Neurologic: CNII-XII intact - Musculoskeletal Musculoskeletal: gait normal, strength equal bilaterally - Psychiatric Psychiatric: A&O x's 3, appropriate affect, intact judgment & insight - Labs CBC & Chem 7: 09/18/18 08:06 09/18/18 08:06 Labs: Abnormal Lab Results - Last 24 Hours (Table) 09/17/18 09/17/18 09/17/18 Range/Units 09:35 09:35 11:09 RBC (4.30-5.90) m/uL Hgb (13.0-17.5) gm/dL Hct 37.7 L (39.0-53.0) % RDW 17.7 H (11.5-15.5) % Neutrophils # (1.3-7.7) k/uL Lymphocytes # 0.7 L (1.0-4.8) k/uL Chloride 110 H (98-107) mmol/L BUN 6 L (9-20) mg/dL Creatinine (0.66-1.25) mg/dL Glucose 126 H (74-99) mg/dL POC Glucose (mg/dL) 104 H (75-99) mg/dL AST (17-59) U/L Total Protein (6.3-8.2) g/dL Albumin (3.5-5.0) g/dL 09/17/18 09/17/18 09/18/18 Range/Units 17:10 20:08 07:05 RBC (4.30-5.90) m/uL Hgb (13.0-17.5) gm/dL Hct (39.0-53.0) % RDW (11.5-15.5) % Neutrophils # (1.3-7.7) k/uL Lymphocytes # (1.0-4.8) k/uL Chloride (98-107) mmol/L BUN (9-20) mg/dL Creatinine (0.66-1.25) mg/dL Glucose (74-99) mg/dL POC Glucose (mg/dL) 217 H 246 H 161 H (75-99) mg/dL AST (17-59) U/L Total Protein (6.3-8.2) g/dL Albumin (3.5-5.0) g/dL 09/18/18 09/18/18 Range/Units 08:06 08:06 RBC 4.18 L (4.30-5.90) m/uL Hgb 11.8 L (13.0-17.5) gm/dL Hct 36.6 L (39.0-53.0) % RDW 18.2 H (11.5-15.5) % Neutrophils # 9.0 H (1.3-7.7) k/uL Lymphocytes # 0.3 L (1.0-4.8) k/uL Chloride 112 H (98-107) mmol/L BUN 8 L (9-20) mg/dL Creatinine 0.61 L (0.66-1.25) mg/dL Glucose 151 H (74-99) mg/dL POC Glucose (mg/dL) (75-99) mg/dL AST 16 L (17-59) U/L Total Protein 6.0 L (6.3-8.2) g/dL Albumin 3.4 L (3.5-5.0) g/dL Assessment and Plan Plan: 1 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-guided biopsy at [facility] on 07/23/2018, hyperlipidemia Sagastume for acute index, germinal type BCL-2plus in 30% and CMyc + 40% Monitor for pancytopenia, cystitis, worsening shortness of breath, blurry vision, hyperglycemia. Oncology managing the chemotherapy. Chemotherapy precautions to be followed #2 dysphagia secondary to compression of the esophagus by these mediastinal massimproving nutrition, soft diet, dysphagia resolved. monitor blood sugars, Ensure clear with meals #3 history of shortness of breath and cough secondary to compression of tracheaimproved no current aggravation. DuoNeb as needed for shortness of breath. provide O2 supplementation if needed SpO2 to be maintained above 92% #4 type 2 diabetes with labile blood sugars secondary to intermittent nutritional deficits, doing ok with intake currently, expect fluctuation related to chemo sideeffects in the next few days. Continue metformin and glimepiride 2 mg at the current dose. Last A1c 5.7 according to patient. Watch for hypoglycemia glucose checked before meals and at bedtime, home blood sugar monitor #5 hyperlipidemia continue atorvastatin 20 mg by mouth at bedtime #6 hypertension continue amlodipine 10 mg by mouth daily #7 bipolar disorder continue Abilify 5 mg daily at bedtime #8 diabetes neuropathy continue gabapentin 300 mg 3 times a day #9 GI prophylaxis with Protonix 40 twice a day #10 recent diagnosis of DVT in left upper extremity on Lovenox 150 twice a day date of diagnosis approximately 07/23/2018 treatment to be completed approximately 10/22/2018 then DVT prophylaxis with aspirin Discharge plan: Return home on 09/21 or 09/22 pending completion of chemotherapy. Impression and plan of care have been directed as dictated by the signing physician. Ashley Hernandez nurse practitioner acting as scribe for signing physician.
[2018-09-18 17:16] LABS: Glucose,Whole Blood 149 mg/dL (75-99)
[2018-09-18] MEDS: ONDANSETRON 16 MG in SODIUM CHLORIDE 0.9% 50 ML IVPB SCH (18:30)
[2018-09-18] MEDS: FAMOTIDINE 20 MG/2 ML VIAL IV SCH (18:30)
[2018-09-18 19:57] LABS: Hemoglobin A1C 6.4 % (4.0-6.0)
[2018-09-18] MEDS: vinCRIStine SULFATE 1 MG in SODIUM CHLORIDE 0.9% 50 ML IV SCH (19:59)
[2018-09-18] MEDS: SODIUM CHLORIDE 0.9% IV SCH ×2 (20:00→20:01)
[2018-09-18] MEDS: ETOPOSIDE IV SCH (20:00)
[2018-09-18] MEDS: DOXORUBICIN HCL IV SCH (20:01)
[2018-09-18 20:19] LABS: Glucose,Whole Blood 226 mg/dL (75-99)
[2018-09-18] MEDS: amLODIPine 10 MG TAB PO SCH (21:56)
[2018-09-18] MEDS: ATORVASTATIN 20 MG TAB PO SCH (21:57)
[2018-09-18] MEDS: ARIPiprazole 5 MG TAB PO SCH (21:57)
[2018-09-19] MEDS: SODIUM CHLORIDE 0.9% 1,000 ML IV SCH ×4 (06:03→20:22)
[2018-09-19 06:51] LABS: Glucose,Whole Blood 156 mg/dL (75-99)
[2018-09-19] MEDS: metFORMIN 500 MG TAB PO SCH ×2 (08:59→21:16)
[2018-09-19] MEDS: GABAPENTIN 300 MG CAP PO SCH ×3 (08:59→21:16)
[2018-09-19] MEDS: ALLOPURINOL 300 MG TAB PO SCH (09:00)
[2018-09-19] MEDS: predniSONE 20 MG TAB PO SCH ×2 (09:00→21:16)
[2018-09-19] MEDS: PANTOPRAZOLE 40 MG TABLET PO SCH ×2 (09:00→17:31)
[2018-09-19] MEDS: GLIMEPIRIDE 2 MG TAB PO SCH (09:00)
[2018-09-19] MEDS: predniSONE 50 MG TAB PO SCH ×2 (09:00→21:16)
[2018-09-19] MEDS: APIXABAN 5 MG TAB PO SCH ×2 (09:01→21:16)
[2018-09-19 10:20] LABS: Anisocytosis Slight; Basophils % (A) 0 %; Eosinophils % (A) 0 %; HCT 35.6 % (39.0-53.0); HGB 11.9 gm/dL (13.0-17.5); Lymphocytes # (A) 0.2 k/uL (1.0-4.8); Lymphocytes % (A) 2 %; MCH 29.7 pg (25.0-35.0); MCHC 33.5 g/dL (31.0-37.0); MCV 88.8 fL (80.0-100.0); Mean Platelet Volume 7.4; Monocytes # (A) 0.3 k/uL (0-1.0); Monocytes % (A) 3 %; Neutrophils # (A) 10.3 k/uL (1.3-7.7); Neutrophils % (A) 95 %; Platelet Count 270 k/uL (150-450); RBC 4.01 m/uL (4.30-5.90); RDW 18.2 % (11.5-15.5); WBC 10.9 k/uL (3.8-10.6)
[2018-09-19 10:31] LABS: ALT 31 U/L (21-72); AST 19 U/L (17-59); Albumin 3.3 g/dL (3.5-5.0); Alkaline Phosphatase 60 U/L (38-126); Anion Gap 8 mmol/L; Blood Urea Nitrogen 14 mg/dL (9-20); Carbon Dioxide 22 mmol/L (22-30); Chloride 111 mmol/L (98-107); Glucose 231 mg/dL (74-99); Potassium 4.1 mmol/L (3.5-5.1); Sodium 141 mmol/L (137-145); Total Bilirubin 0.6 mg/dL (0.2-1.3); Total Protein 5.8 g/dL (6.3-8.2); Uric Acid 4.1 mg/dL (3.5-8.5)
[2018-09-19 11:20] LABS: Glucose,Whole Blood 185 mg/dL (75-99)
--- NOTE | 2018-09-19 15:00 | P.PN ---
Subjective Progress Note Date: 09/19/18 This is a 42-year-old gentleman patient of Dr. Gibson. 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 with a large anterior mediastinal mass 8.6 cm x 5.6 cm causing severe dysphagia, was started on 08/01/18 now coming in for time chemotherapy using etoposide ,doxorubicin cyclophosphamideand vincristine- This would be his third series of chemotherapy. Patient's doing well, appetite is 100%, and the nausea no vomiting or diarrhea, patient denies any GI upset, no chest pain, patient denies any concurrent dysphagia, no headaches and no neuropathy balance is good without any recent falls no diarrhea no rash, no frequent infections prior to this current admission. 09/18: Patient is receiving the third round of 6 for chemotherapy. He denies any Occasions. He denies any cold symptoms, cough, shortness of breath. His appetite is good. Denies having any diarrhea. White count is 9.6, hemoglobin 1.8 and platelet count 274. Creatinine 0.71. Blood sugars been running between 161 and 246. Uric acid is 4.6. 09/19: Patient has been afebrile, pulse ox 95% on room air, vital signs stable. WBC is 10.9, hemoglobin 11.9, platelet count 270, uric acid 4.1, creatinine 0.63. Blood sugars been running between 156 and 231. NovoLog scale will be added. Patient is tolerating chemotherapy without any new symptoms. Patient's sister is at the bedside. All questions were answered. Review Of Systems: Constitutional: No fever, no chills, no night sweats. No weight change. No weakness, fatigue or lethargy. No daytime sleepiness. EENT: No headache. No blurred vision or double vision, no loss of vision. No loss of Hearing, no ringing in the ears, no dizziness. No nasal drainage or congestion. No epistaxis. No sore throat. Lungs: No shortness of breath, cough, no sputum production. No wheezing. Cardiovascular: No chest pain, no lower extremity edema. No palpitations. No paroxysmal nocturnal dyspnea. No orthopnea. No lightheadedness or dizziness. No syncopal episodes. Abdominal: No abdominal pain. No nausea, vomiting. No diarrhea. No constipation. No bloody or tarry stools. No loss of appetite. Genitourinary: No dysuria, increased frequency, urgency. No urinary retention. Musculoskeletal: No myalgias. No muscle weakness, no gait dysfunction, no frequent falls. No back pain. No neck pain. Integumentary: No wounds, no lesions. No rash or pruritus. No unusual bruising. No change in hair or nails. Neurologic: No aphasia. No facial droop. No change in mentation. No head injury. No headache. No paralysis. No paresthesia. Psychiatric: No depression. No anxiety. No mood swings. Endocrine: No abnormal blood sugars. No weight change. No excessive sweating or thirst. Objective - Vital Signs Vital signs: Vital Signs Temp 97.9 F 09/19/18 07:51 Pulse 91 09/19/18 07:51 Resp 15 09/19/18 07:51 BP 133/81 09/19/18 07:51 Pulse Ox 95 09/19/18 07:51 Intake & Output 09/18/18 09/19/18 09/19/18 18:59 06:59 18:59 Intake Total 1472.8 2709 Balance 1472.8 2709 Intake: Intake, IV Titration 1472.8 1389 Amount DOXOrubicin HCL 26 mg In 88 77 Sodium Chloride 0.9% 250 ml @ 10.958 mls/hr IV Q24H [facility] Rx#:[id number] Etoposide 130 mg In 168 147 Sodium Chloride 0.9% 500 ml 500 ml @ 21.104 mls/hr IV Q24H [facility] Rx#: [id number] Ondansetron 16 mg In 100 Sodium Chloride 0.9% 50 ml @ 100 mls/hr IVPB Q24H [facility] Rx#:[id number] Sodium Chloride 0.9% 1, 1200 1050 000 ml @ 150 mls/hr IV . Q6H40M [facility] Rx#:[id number] vinCRIStine SULFATE 1 mg 16.8 15 In Sodium Chloride 0.9% 50 ml @ 2.125 mls/hr IV Q24H [facility] Rx#:[id number] Oral 1320 Other: Voiding Method Toilet Toilet Toilet # Voids 2 - Exam General appearance: cooperative, no acute distress, obese, sitting up in bed. Sister is at bedside - EENT Eyes: anicteric sclerae, EOMI, PERRLA ENT: no hard of hearing, no hearing grossly normal, NA/AT, normal oropharynx, no other, no pharyngeal erythema, no thrush, no tonsillar exudates, no tonsillar swelling - Neck Neck: normal ROM - Respiratory Respiratory: bilateral: CTA, negative: diminished, dullness, rales, rhonchi, wheezing - Cardiovascular Rhythm: regular Heart sounds: normal: S1, S2 Abnormal Heart Sounds: no systolic murmur, no diastolic murmur, no rub, no S3 Gallop, no S4 Gallop, no click, no other - Gastrointestinal General gastrointestinal: normal bowel sounds, soft - Integumentary Integumentary: normal, normal turgor - Neurologic Neurologic: CNII-XII intact - Musculoskeletal Musculoskeletal: gait normal, strength equal bilaterally - Psychiatric Psychiatric: A&O x's 3, appropriate affect, intact judgment & insight - Labs CBC & Chem 7: 09/19/18 09:25 09/19/18 09:25 Labs: Abnormal Lab Results - Last 24 Hours (Table) 09/18/18 09/18/18 09/18/18 Range/Units 08:06 11:21 17:15 WBC (3.8-10.6) k/uL RBC (4.30-5.90) m/uL Hgb (13.0-17.5) gm/dL Hct (39.0-53.0) % RDW (11.5-15.5) % Neutrophils # (1.3-7.7) k/uL Lymphocytes # (1.0-4.8) k/uL Chloride (98-107) mmol/L Creatinine (0.66-1.25) mg/dL Glucose (74-99) mg/dL POC Glucose (mg/dL) 187 H 149 H (75-99) mg/dL Hemoglobin A1c 6.4 H (4.0-6.0) % Total Protein (6.3-8.2) g/dL Albumin (3.5-5.0) g/dL 09/18/18 09/19/18 09/19/18 Range/Units 20:17 06:49 09:25 WBC 10.9 H (3.8-10.6) k/uL RBC 4.01 L (4.30-5.90) m/uL Hgb 11.9 L (13.0-17.5) gm/dL Hct 35.6 L (39.0-53.0) % RDW 18.2 H (11.5-15.5) % Neutrophils # 10.3 H (1.3-7.7) k/uL Lymphocytes # 0.2 L (1.0-4.8) k/uL Chloride (98-107) mmol/L Creatinine (0.66-1.25) mg/dL Glucose (74-99) mg/dL POC Glucose (mg/dL) 226 H 156 H (75-99) mg/dL Hemoglobin A1c (4.0-6.0) % Total Protein (6.3-8.2) g/dL Albumin (3.5-5.0) g/dL 09/19/18 Range/Units 09:25 WBC (3.8-10.6) k/uL RBC (4.30-5.90) m/uL Hgb (13.0-17.5) gm/dL Hct (39.0-53.0) % RDW (11.5-15.5) % Neutrophils # (1.3-7.7) k/uL Lymphocytes # (1.0-4.8) k/uL Chloride 111 H (98-107) mmol/L Creatinine 0.63 L (0.66-1.25) mg/dL Glucose 231 H (74-99) mg/dL POC Glucose (mg/dL) (75-99) mg/dL Hemoglobin A1c (4.0-6.0) % Total Protein 5.8 L (6.3-8.2) g/dL Albumin 3.3 L (3.5-5.0) g/dL Assessment and Plan Plan: 1 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guided biopsy at [facility] on 07/23/2018, hyperlipidemia Sagastume for acute index, germinal type BCL-2plus in 30% and CMyc + 40% Monitor for pancytopenia, cystitis, worsening shortness of breath, blurry vision, hyperglycemia. Oncology managing the chemotherapy. Chemotherapy precautions to be followed #2 dysphagia secondary to compression of the esophagus by these mediastinal massimproving nutrition, soft diet, dysphagia resolved. monitor blood sugars, Ensure clear with meals #3 history of shortness of breath and cough secondary to compression of trachea improved no current aggravation. DuoNeb as needed for shortness of breath. provide O2 supplementation if needed SpO2 to be maintained above 92% #4 type 2 diabetes with labile blood sugars secondary to intermittent nutritional deficits, doing ok with intake currently, expect fluctuation related to chemo sideeffects in the next few days. Continue metformin and glimepiride 2 mg at the current dose. Last A1c 5.7 according to patient. Watch for hypoglycemia glucose checked before meals and at bedtime, home blood sugar monitor #5 hyperlipidemia continue atorvastatin 20 mg by mouth at bedtime #6 hypertension continue amlodipine 10 mg by mouth daily #7 bipolar disorder continue Abilify 5 mg daily at bedtime #8 diabetes neuropathy continue gabapentin 300 mg 3 times a day #9 GI prophylaxis with Protonix 40 twice a day #10 recent diagnosis of DVT in left upper extremity on eliquis 5 mg twice daily. Discharge plan: Return home on 09/21 or 09/22 pending completion of chemotherapy. Impression and plan of care have been directed as dictated by the signing physician. Ashley Hernandez nurse practitioner acting as scribe for signing physician.
[2018-09-19 17:18] LABS: Glucose,Whole Blood 133 mg/dL (75-99)
--- NOTE | 2018-09-19 18:14 | P.PN ---
Subjective Progress Note Date: 09/19/18 The patient is on day #3 of high-dose infusional chemotherapy specifically R- EPO CH for his non-Hodgkin lymphoma. His tolerating treatment well so far. Denied any fever/chills/nausea/vomiting/obvious bleeding/mouth sores. Objective - Vital Signs Vital signs: Vital Signs Temp 97.7 F 09/19/18 16:17 Pulse 85 09/19/18 16:38 Resp 18 09/19/18 16:17 BP 189/109 09/19/18 16:38 Pulse Ox 93 L 09/19/18 16:38 Intake & Output 09/18/18 09/19/18 09/19/18 18:59 06:59 18:59 Intake Total 1472.8 2709 Balance 1472.8 2709 Intake: Intake, IV Titration 1472.8 1389 Amount DOXOrubicin HCL 26 mg In 88 77 Sodium Chloride 0.9% 250 ml @ 10.958 mls/hr IV Q24H [facility] Rx#:[id number] Etoposide 130 mg In 168 147 Sodium Chloride 0.9% 500 ml 500 ml @ 21.104 mls/hr IV Q24H [facility] Rx#: [id number] Ondansetron 16 mg In 100 Sodium Chloride 0.9% 50 ml @ 100 mls/hr IVPB Q24H [facility] Rx#:[id number] Sodium Chloride 0.9% 1, 1200 1050 000 ml @ 150 mls/hr IV . Q6H40M [facility] Rx#:[id number] vinCRIStine SULFATE 1 mg 16.8 15 In Sodium Chloride 0.9% 50 ml @ 2.125 mls/hr IV Q24H [facility] Rx#:[id number] Oral 1320 Other: Voiding Method Toilet Toilet Toilet # Voids 2 3 - Constitutional General appearance: Present: no acute distress - EENT Eyes: Present: EOMI ENT: Present: hearing grossly normal, normal oropharynx - Respiratory Respiratory: bilateral: CTA - Cardiovascular Rhythm: regular Heart sounds: normal: S1, S2 - Gastrointestinal General gastrointestinal: Present: normal bowel sounds, soft - Integumentary Integumentary: Present: normal - Neurologic Neurologic: Present: CNII-XII intact - Musculoskeletal Musculoskeletal: Present: generalized weakness - Psychiatric Psychiatric: Present: A&O x's 3, appropriate affect - Labs CBC & Chem 7: 09/19/18 09:25 09/19/18 09:25 Labs: Abnormal Lab Results - Last 24 Hours (Table) 09/18/18 09/18/18 09/19/18 Range/Units 08:06 20:17 06:49 WBC (3.8-10.6) k/uL RBC (4.30-5.90) m/uL Hgb (13.0-17.5) gm/dL Hct (39.0-53.0) % RDW (11.5-15.5) % Neutrophils # (1.3-7.7) k/uL Lymphocytes # (1.0-4.8) k/uL Chloride (98-107) mmol/L Creatinine (0.66-1.25) mg/dL Glucose (74-99) mg/dL POC Glucose (mg/dL) 226 H 156 H (75-99) mg/dL Hemoglobin A1c 6.4 H (4.0-6.0) % Total Protein (6.3-8.2) g/dL Albumin (3.5-5.0) g/dL 09/19/18 09/19/18 09/19/18 Range/Units 09:25 09:25 11:19 WBC 10.9 H (3.8-10.6) k/uL RBC 4.01 L (4.30-5.90) m/uL Hgb 11.9 L (13.0-17.5) gm/dL Hct 35.6 L (39.0-53.0) % RDW 18.2 H (11.5-15.5) % Neutrophils # 10.3 H (1.3-7.7) k/uL Lymphocytes # 0.2 L (1.0-4.8) k/uL Chloride 111 H (98-107) mmol/L Creatinine 0.63 L (0.66-1.25) mg/dL Glucose 231 H (74-99) mg/dL POC Glucose (mg/dL) 185 H (75-99) mg/dL Hemoglobin A1c (4.0-6.0) % Total Protein 5.8 L (6.3-8.2) g/dL Albumin 3.3 L (3.5-5.0) g/dL 09/19/18 Range/Units 17:16 WBC (3.8-10.6) k/uL RBC (4.30-5.90) m/uL Hgb (13.0-17.5) gm/dL Hct (39.0-53.0) % RDW (11.5-15.5) % Neutrophils # (1.3-7.7) k/uL Lymphocytes # (1.0-4.8) k/uL Chloride (98-107) mmol/L Creatinine (0.66-1.25) mg/dL Glucose (74-99) mg/dL POC Glucose (mg/dL) 133 H (75-99) mg/dL Hemoglobin A1c (4.0-6.0) % Total Protein (6.3-8.2) g/dL Albumin (3.5-5.0) g/dL Assessment and Plan (1) 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 So far is tolerating treatment well. Physical exam and laboratory satisfactory. Continue to monitor with clinical exams, and labs which have been ordered. Current Visit: Yes Status: Acute Code(s): C85.22 - MEDIASTNL (THYMIC) LARGE B-CELL LYMPHOMA, INTRATHORAC NODES SNOMED Code(s): 773236871 (2) Diabetes mellitus Narrative/Plan: Blood sugars are being monitored. The patient is on sliding scale protocol Current Visit: No Status: Acute Code(s): E11.9 - TYPE 2 DIABETES MELLITUS WITHOUT COMPLICATIONS SNOMED Code(s): 49427571
[2018-09-19] MEDS: INSULIN ASPART 100 UNIT/ML 1 ML 10 ML VIAL SQ SCH ×2 (18:53→21:16)
[2018-09-19] MEDS: FAMOTIDINE 20 MG/2 ML VIAL IV SCH (19:34)
[2018-09-19] MEDS: ONDANSETRON 16 MG in SODIUM CHLORIDE 0.9% 50 ML IVPB SCH (19:34)
[2018-09-19] MEDS: SODIUM CHLORIDE 0.9% IV SCH ×2 (20:12)
[2018-09-19] MEDS: vinCRIStine SULFATE 1 MG in SODIUM CHLORIDE 0.9% 50 ML IV SCH (20:12)
[2018-09-19] MEDS: DOXORUBICIN HCL IV SCH (20:12)
[2018-09-19] MEDS: ETOPOSIDE IV SCH (20:12)
[2018-09-19 20:28] LABS: Glucose,Whole Blood 160 mg/dL (75-99)
[2018-09-19] MEDS: amLODIPine 10 MG TAB PO SCH (21:16)
[2018-09-19] MEDS: ATORVASTATIN 20 MG TAB PO SCH (21:16)
[2018-09-19] MEDS: ARIPiprazole 5 MG TAB PO SCH (21:16)
[2018-09-20] MEDS: SODIUM CHLORIDE 0.9% 1,000 ML IV SCH ×3 (04:56→16:36)
[2018-09-20 07:23] LABS: Glucose,Whole Blood 143 mg/dL (75-99)
[2018-09-20 07:56] LABS: Anisocytosis Slight; Basophils % (A) 0 %; Eosinophils % (A) 0 %; HCT 35.7 % (39.0-53.0); HGB 11.8 gm/dL (13.0-17.5); Lymphocytes # (A) 0.2 k/uL (1.0-4.8); Lymphocytes % (A) 3 %; MCH 29.1 pg (25.0-35.0); Mean Platelet Volume 7.3; Monocytes # (A) 0.2 k/uL (0-1.0); Monocytes % (A) 4 %; Neutrophils # (A) 5.2 k/uL (1.3-7.7); Neutrophils % (A) 92 %; Platelet Count 250 k/uL (150-450); RBC 4.05 m/uL (4.30-5.90); RDW 18.2 % (11.5-15.5); WBC 5.6 k/uL (3.8-10.6)
[2018-09-20 07:58] LABS: ALT 33 U/L (21-72); AST 16 U/L (17-59); Albumin 3.2 g/dL (3.5-5.0); Alkaline Phosphatase 53 U/L (38-126); Anion Gap 7 mmol/L; Blood Urea Nitrogen 13 mg/dL (9-20); Calcium 8.9 mg/dL (8.4-10.2); Carbon Dioxide 26 mmol/L (22-30); Chloride 109 mmol/L (98-107); Glucose 131 mg/dL (74-99); Potassium 3.8 mmol/L (3.5-5.1); Sodium 142 mmol/L (137-145); Total Bilirubin 0.9 mg/dL (0.2-1.3); Total Protein 5.7 g/dL (6.3-8.2); Uric Acid 4.1 mg/dL (3.5-8.5)
[2018-09-20] MEDS: INSULIN ASPART 100 UNIT/ML 1 ML 10 ML VIAL SQ SCH ×4 (08:36→21:28)
[2018-09-20] MEDS: ALLOPURINOL 300 MG TAB PO SCH (08:37)
[2018-09-20] MEDS: PANTOPRAZOLE 40 MG TABLET PO SCH ×2 (08:37→16:36)
[2018-09-20] MEDS: predniSONE 20 MG TAB PO SCH ×2 (08:38→21:26)
[2018-09-20] MEDS: APIXABAN 5 MG TAB PO SCH ×2 (08:39→21:26)
[2018-09-20] MEDS: predniSONE 50 MG TAB PO SCH ×2 (08:39→21:26)
[2018-09-20] MEDS: GABAPENTIN 300 MG CAP PO SCH ×3 (08:39→21:26)
[2018-09-20] MEDS: metFORMIN 500 MG TAB PO SCH ×2 (08:40→21:26)
[2018-09-20] MEDS: GLIMEPIRIDE 2 MG TAB PO SCH (08:40)
--- NOTE | 2018-09-20 11:19 | P.PN ---
Subjective Progress Note Date: 09/20/18 The patient continues to tolerate his treatment well subjectively. He has no specific complaints. No history of fever/chills/nausea/vomiting/mouth sores or change in bowel habits. Appetite is maintained Objective - Vital Signs Vital signs: Vital Signs Temp 97.6 F 09/20/18 08:00 Pulse 85 09/20/18 08:00 Resp 20 09/20/18 08:00 BP 131/74 09/20/18 08:00 Pulse Ox 96 09/20/18 08:00 Intake & Output 09/19/18 09/20/18 09/20/18 18:59 06:59 18:59 Intake Total 2730.8 Balance 2730.8 Intake: Intake, IV Titration 2250.8 Amount Cyclophosphamide 2,000 mg 93 In Sodium Chloride 0.9% 250 ml @ 700 mls/hr IV ONCE ONE Rx#:[id number] DOXOrubicin HCL 26 mg In 35.1 Sodium Chloride 0.9% 250 ml @ 10.958 mls/hr IV Q24H [facility] Rx#:[id number] Etoposide 130 mg In 247.8 Sodium Chloride 0.9% 500 ml 500 ml @ 21.104 mls/hr IV Q24H [facility] Rx#: [id number] Ondansetron 16 mg In 50 Sodium Chloride 0.9% 50 ml @ 100 mls/hr IVPB Q24H [facility] Rx#:[id number] Sodium Chloride 0.9% 1, 1800 000 ml @ 150 mls/hr IV . Q6H40M [facility] Rx#:[id number] vinCRIStine SULFATE 1 mg 24.9 In Sodium Chloride 0.9% 50 ml @ 2.125 mls/hr IV Q24H [facility] Rx#:[id number] Oral 480 Other: Voiding Method Toilet Toilet Toilet # Voids 3 3 - Constitutional General appearance: Present: no acute distress - EENT Eyes: Present: EOMI ENT: Present: hearing grossly normal, normal oropharynx - Respiratory Respiratory: bilateral: CTA - Cardiovascular Rhythm: regular Heart sounds: normal: S1, S2 - Gastrointestinal General gastrointestinal: Present: normal bowel sounds, soft - Integumentary Integumentary: Present: normal - Neurologic Neurologic: Present: CNII-XII intact - Musculoskeletal Musculoskeletal: Present: strength equal bilaterally - Psychiatric Psychiatric: Present: A&O x's 3, appropriate affect - Labs CBC & Chem 7: 09/20/18 07:06 09/20/18 07:06 Labs: Abnormal Lab Results - Last 24 Hours (Table) 09/19/18 09/19/18 09/19/18 Range/Units 11:19 17:16 20:26 RBC (4.30-5.90) m/uL Hgb (13.0-17.5) gm/dL Hct (39.0-53.0) % RDW (11.5-15.5) % Lymphocytes # (1.0-4.8) k/uL Chloride (98-107) mmol/L Creatinine (0.66-1.25) mg/dL Glucose (74-99) mg/dL POC Glucose (mg/dL) 185 H 133 H 160 H (75-99) mg/dL AST (17-59) U/L Total Protein (6.3-8.2) g/dL Albumin (3.5-5.0) g/dL 09/20/18 09/20/18 09/20/18 Range/Units 07:06 07:06 07:21 RBC 4.05 L (4.30-5.90) m/uL Hgb 11.8 L (13.0-17.5) gm/dL Hct 35.7 L (39.0-53.0) % RDW 18.2 H (11.5-15.5) % Lymphocytes # 0.2 L (1.0-4.8) k/uL Chloride 109 H (98-107) mmol/L Creatinine 0.60 L (0.66-1.25) mg/dL Glucose 131 H (74-99) mg/dL POC Glucose (mg/dL) 143 H (75-99) mg/dL AST 16 L (17-59) U/L Total Protein 5.7 L (6.3-8.2) g/dL Albumin 3.2 L (3.5-5.0) g/dL Assessment and Plan (1) 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 He is tolerating treatment well subjectively. Labs are satisfactory. Continue chemotherapy per protocol. Continue to monitor with clinical exams, and labs which have been ordered Current Visit: Yes Status: Acute Code(s): C85.22 - MEDIASTNL (THYMIC) LARGE B-CELL LYMPHOMA, INTRATHORAC NODES SNOMED Code(s): 040517646 (2) Diabetes mellitus Narrative/Plan: Medicine is following for medical management. Blood sugars have overall been satisfactory on sliding scale. Current Visit: No Status: Acute Code(s): E11.9 - TYPE 2 DIABETES MELLITUS WITHOUT COMPLICATIONS SNOMED Code(s): 12889264
[2018-09-20 11:25] LABS: Glucose,Whole Blood 188 mg/dL (75-99)
[2018-09-20 16:57] LABS: Glucose,Whole Blood 139 mg/dL (75-99)
[2018-09-20] MEDS: ONDANSETRON 16 MG in SODIUM CHLORIDE 0.9% 50 ML IVPB SCH (19:09)
--- NOTE | 2018-09-20 19:29 | P.PN ---
Subjective Progress Note Date: 09/20/18 This is a 42-year-old gentleman patient of Dr. Gibson. 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 Patient's doing well, appetite is 100%, and the nausea no vomiting or diarrhea, patient denies any GI upset, no chest pain, patient denies any concurrent dysphagia, no headaches and no neuropathy balance is good without any recent falls no diarrhea no rash, no frequent infections prior to this current admission. 09/18: Patient is receiving the third round of 6 for chemotherapy. He denies any Occasions. He denies any cold symptoms, cough, shortness of breath. His appetite is good. Denies having any diarrhea. White count is 9.6, hemoglobin 1.8 and platelet count 274. Creatinine 0.71. Blood sugars been running between 161 and 246. Uric acid is 4.6. 09/19: Patient has been afebrile, pulse ox 95% on room air, vital signs stable. WBC is 10.9, hemoglobin 11.9, platelet count 270, uric acid 4.1, creatinine 0.63. Blood sugars been running between 156 and 231. NovoLog scale will be added. Patient is tolerating chemotherapy without any new symptoms. Patient's sister is at the bedside. All questions were answered. 09/20, patient has worsening cough today, we'll going to decrease IV infusion to 75 mL an hour from a current rate of 150 mL an hour, possibly fluid overload noted. Patient is tolerating chemotherapy otherwise, no rash noted diarrhea, no fever no chills Objective - Vital Signs Vital signs: Vital Signs Temp 96.9 F L 09/20/18 12:00 Pulse 84 09/20/18 12:00 Resp 20 09/20/18 12:00 BP 118/66 09/20/18 12:00 Pulse Ox 96 09/20/18 12:00 Intake & Output 09/19/18 09/20/18 09/20/18 18:59 06:59 18:59 Intake Total 2730.8 Balance 2730.8 Intake: Intake, IV Titration 2250.8 Amount Cyclophosphamide 2,000 mg 93 In Sodium Chloride 0.9% 250 ml @ 700 mls/hr IV ONCE ONE Rx#:[id number] DOXOrubicin HCL 26 mg In 35.1 Sodium Chloride 0.9% 250 ml @ 10.958 mls/hr IV Q24H [facility] Rx#:[id number] Etoposide 130 mg In 247.8 Sodium Chloride 0.9% 500 ml 500 ml @ 21.104 mls/hr IV Q24H [facility] Rx#: [id number] Ondansetron 16 mg In 50 Sodium Chloride 0.9% 50 ml @ 100 mls/hr IVPB Q24H [facility] Rx#:[id number] Sodium Chloride 0.9% 1, 1800 000 ml @ 150 mls/hr IV . Q6H40M [facility] Rx#:[id number] vinCRIStine SULFATE 1 mg 24.9 In Sodium Chloride 0.9% 50 ml @ 2.125 mls/hr IV Q24H [facility] Rx#:[id number] Oral 480 Other: Voiding Method Toilet Toilet Toilet # Voids 3 3 - Constitutional General appearance: Present: cooperative, no acute distress, obese - EENT Eyes: Present: anicteric sclerae, EOMI, PERRLA, dentition normal ENT: Present: hearing grossly normal, NA/AT, normal oropharynx - Neck Neck: Present: normal ROM. Absent: lymphadenopathy, other, rigidity, stridor, thyromegaly - Respiratory Respiratory: bilateral: CTA, diminished, negative: dullness, rales, rhonchi - Cardiovascular Rhythm: regular Heart sounds: normal: S1, S2 Abnormal Heart Sounds: Absent: systolic murmur, diastolic murmur, rub, S3 Gallop , S4 Gallop, click, other - Gastrointestinal General gastrointestinal: Present: normal bowel sounds, soft - Integumentary Integumentary: Present: normal - Neurologic Neurologic: Present: CNII-XII intact - Musculoskeletal Musculoskeletal: Present: gait normal, strength equal bilaterally - Labs CBC & Chem 7: 09/20/18 07:06 09/20/18 07:06 Labs: Abnormal Lab Results - Last 24 Hours (Table) 09/19/18 09/19/18 09/20/18 Range/Units 17:16 20:26 07:06 RBC 4.05 L (4.30-5.90) m/uL Hgb 11.8 L (13.0-17.5) gm/dL Hct 35.7 L (39.0-53.0) % RDW 18.2 H (11.5-15.5) % Lymphocytes # 0.2 L (1.0-4.8) k/uL Chloride (98-107) mmol/L Creatinine (0.66-1.25) mg/dL Glucose (74-99) mg/dL POC Glucose (mg/dL) 133 H 160 H (75-99) mg/dL AST (17-59) U/L Total Protein (6.3-8.2) g/dL Albumin (3.5-5.0) g/dL 09/20/18 09/20/18 09/20/18 Range/Units 07:06 07:21 11:22 RBC (4.30-5.90) m/uL Hgb (13.0-17.5) gm/dL Hct (39.0-53.0) % RDW (11.5-15.5) % Lymphocytes # (1.0-4.8) k/uL Chloride 109 H (98-107) mmol/L Creatinine 0.60 L (0.66-1.25) mg/dL Glucose 131 H (74-99) mg/dL POC Glucose (mg/dL) 143 H 188 H (75-99) mg/dL AST 16 L (17-59) U/L Total Protein 5.7 L (6.3-8.2) g/dL Albumin 3.2 L (3.5-5.0) g/dL Assessment and Plan Plan: 1 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-guided biopsy at [facility] on 07/23/2018, hyperlipidemia Sagastume for acute index, germinal type BCL-2plus in 30% and CMyc + 40% Monitor for pancytopenia, cystitis, worsening shortness of breath, blurry vision, hyperglycemia. Oncology managing the chemotherapy. Chemotherapy precautions to be followed 2. Mild fluid overload, decrease IV rate at 75 mL an hour, no diuretics needed at this time #2 dysphagia secondary to compression of the esophagus by these mediastinal massimproving nutrition, soft diet, dysphagia resolved. monitor blood sugars, Ensure clear with meals #3 history of shortness of breath and cough secondary to compression of trachea improved no current aggravation. DuoNeb as needed for shortness of breath. provide O2 supplementation if needed SpO2 to be maintained above 92% #4 type 2 diabetes with labile blood sugars secondary to intermittent nutritional deficits, doing ok with intake currently, expect fluctuation related to chemo side effects in the next few days. Continue metformin and glimepiride 2 mg at the current dose. Last A1c 5.7 according to patient. Watch for hypoglycemia glucose checked before meals and at bedtime, home blood sugar monitor #5 hyperlipidemia continue atorvastatin 20 mg by mouth at bedtime #6 hypertension continue amlodipine 10 mg by mouth daily #7 bipolar disorder continue Abilify 5 mg daily at bedtime #8 diabetes neuropathy continue gabapentin 300 mg 3 times a day #9 GI prophylaxis with Protonix 40 twice a day #10 recent diagnosis of DVT in left upper extremity on eliquis 5 mg twice daily. Discharge plan: Return home on 09/21 or 09/22 pending completion of chemotherapy.
[2018-09-20] MEDS: ETOPOSIDE IV SCH (19:46)
[2018-09-20] MEDS: SODIUM CHLORIDE 0.9% IV SCH ×2 (19:46→19:47)
[2018-09-20] MEDS: DOXORUBICIN HCL IV SCH (19:47)
[2018-09-20] MEDS: vinCRIStine SULFATE 1 MG in SODIUM CHLORIDE 0.9% 50 ML IV SCH (19:47)
[2018-09-20] MEDS: FAMOTIDINE 20 MG/2 ML VIAL IV SCH (19:47)
[2018-09-20 21:07] LABS: Glucose,Whole Blood 208 mg/dL (75-99)
[2018-09-20] MEDS: ATORVASTATIN 20 MG TAB PO SCH (21:26)
[2018-09-20] MEDS: amLODIPine 10 MG TAB PO SCH (21:26)
[2018-09-20] MEDS: ARIPiprazole 5 MG TAB PO SCH (21:26)
[2018-09-21] MEDS: SODIUM CHLORIDE 0.9% 1,000 ML IV SCH ×2 (00:29→13:38)
[2018-09-21 06:55] LABS: Glucose,Whole Blood 141 mg/dL (75-99)
[2018-09-21 07:47] LABS: Anisocytosis Slight; Basophils % (A) 0 %; Eosinophils % (A) 1 %; HCT 34.9 % (39.0-53.0); HGB 11.8 gm/dL (13.0-17.5); Lymphocytes # (A) 0.1 k/uL (1.0-4.8); Lymphocytes % (A) 3 %; MCH 29.5 pg (25.0-35.0); MCHC 33.7 g/dL (31.0-37.0); MCV 87.4 fL (80.0-100.0); Mean Platelet Volume 7.5; Monocytes # (A) 0.2 k/uL (0-1.0); Monocytes % (A) 4 %; Neutrophils # (A) 3.6 k/uL (1.3-7.7); Neutrophils % (A) 92 %; Platelet Count 253 k/uL (150-450); RBC 3.99 m/uL (4.30-5.90); RDW 17.8 % (11.5-15.5); WBC 3.9 k/uL (3.8-10.6)
[2018-09-21 08:00] LABS: ALT 35 U/L (21-72); AST 16 U/L (17-59); Albumin 3.1 g/dL (3.5-5.0); Alkaline Phosphatase 52 U/L (38-126); Anion Gap 6 mmol/L; Blood Urea Nitrogen 13 mg/dL (9-20); Calcium 8.8 mg/dL (8.4-10.2); Carbon Dioxide 26 mmol/L (22-30); Chloride 108 mmol/L (98-107); Glucose 127 mg/dL (74-99); Potassium 3.8 mmol/L (3.5-5.1); Sodium 140 mmol/L (137-145); Total Bilirubin 1.1 mg/dL (0.2-1.3); Total Protein 5.5 g/dL (6.3-8.2); Uric Acid 3.9 mg/dL (3.5-8.5)
[2018-09-21] MEDS: INSULIN ASPART 100 UNIT/ML 1 ML 10 ML VIAL SQ SCH ×3 (08:03→17:38)
[2018-09-21] MEDS: PANTOPRAZOLE 40 MG TABLET PO SCH ×2 (08:06→17:38)
[2018-09-21] MEDS: predniSONE 20 MG TAB PO SCH ×2 (08:06→20:46)
[2018-09-21] MEDS: GABAPENTIN 300 MG CAP PO SCH ×2 (08:06→17:41)
[2018-09-21] MEDS: GLIMEPIRIDE 2 MG TAB PO SCH (08:06)
[2018-09-21] MEDS: APIXABAN 5 MG TAB PO SCH ×2 (08:06→20:47)
[2018-09-21] MEDS: metFORMIN 500 MG TAB PO SCH (08:06)
[2018-09-21] MEDS: predniSONE 50 MG TAB PO SCH ×2 (08:06→20:46)
[2018-09-21] MEDS: ALLOPURINOL 300 MG TAB PO SCH (08:07)
--- NOTE | 2018-09-21 10:48 | P.DS ---
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 He has been tolerating chemotherapy well so far. He was admitted for cycle #3. He tolerated chemotherapy well without any untoward side effects. He was monitored closely with labs and clinical exams. He did not require any transfusion support. After completion of treatment and so therefore decided to discharge him home. Procedures: High dose infusional chemotherapy Patient Condition at Discharge: Good Plan - Discharge Summary Discharge Rx Participant: No New Discharge Prescriptions: No Action metFORMIN HCL [Glucophage] 1,000 mg PO BID Gabapentin [Neurontin] 300 mg PO TID amLODIPine [Norvasc] 10 mg PO HS Glimepiride [Amaryl] 2 mg PO DAILY Atorvastatin [Lipitor] 20 mg PO HS ARIPiprazole [Abilify] 5 mg PO HS Allopurinol [Zyloprim] 300 mg PO DAILY Prochlorperazine [Compazine] 10 mg PO Q6HR PRN #45 tab PRN Reason: Nausea And Vomiting Ondansetron [Zofran] 4 mg PO QID PRN #45 vial PRN Reason: Nausea Pantoprazole [Protonix] 40 mg PO AC-BID tablet.dr Discharge Medication List ARIPiprazole [Abilify] 5 mg PO HS 08/01/18 [History] Allopurinol [Zyloprim] 300 mg PO DAILY 08/01/18 [History] Atorvastatin [Lipitor] 20 mg PO HS 08/01/18 [History] Gabapentin [Neurontin] 300 mg PO TID 08/01/18 [History] Glimepiride [Amaryl] 2 mg PO DAILY 08/01/18 [History] amLODIPine [Norvasc] 10 mg PO HS 08/01/18 [History] metFORMIN HCL [Glucophage] 1,000 mg PO BID 08/01/18 [History] Ondansetron [Zofran] 4 mg PO QID PRN #45 vial 08/27/18 [Rx] Pantoprazole [Protonix] 40 mg PO AC-BID tablet. 08/27/18 [Rx] Prochlorperazine [Compazine] 10 mg PO Q6HR PRN #45 tab 08/27/18 [Rx] Follow up Appointment(s)/Referral(s): Anand Cervantes MD [STAFF PHYSICIAN] - (call office on 09/24/18 AM to schedule neulasta for the same day F/U OV according to previously scheduled appt) Discharge Disposition: HOME SELF-CARE
[2018-09-21 11:08] LABS: Glucose,Whole Blood 95 mg/dL (75-99)
--- NOTE | 2018-09-21 16:03 | P.PN ---
Subjective Progress Note Date: 09/21/18 This is a 42-year-old gentleman patient of Dr. Gibson. He has underlying history of diabetes mellitus type 2, recently diagnosed high-grade B-cell lymphoma on 07/20/2018, workup up at [facility] with a large anterior mediastinal mass 8.6 cm x 5.6 cm causing severe dysphagia, was started on 08/01/18 now coming in for time chemotherapy using etoposide ,doxorubicin cyclophosphamideand vincristine- This would be his third series of chemotherapy. Patient's doing well, appetite is 100%, and the nausea no vomiting or diarrhea, patient denies any GI upset, no chest pain, patient denies any concurrent dysphagia, no headaches and no neuropathy balance is good without any recent falls no diarrhea no rash, no frequent infections prior to this current admission. 09/18: Patient is receiving the third round of 6 for chemotherapy. He denies any Occasions. He denies any cold symptoms, cough, shortness of breath. His appetite is good. Denies having any diarrhea. White count is 9.6, hemoglobin 1.8 and platelet count 274. Creatinine 0.71. Blood sugars been running between 161 and 246. Uric acid is 4.6. 09/19: Patient has been afebrile, pulse ox 95% on room air, vital signs stable. WBC is 10.9, hemoglobin 11.9, platelet count 270, uric acid 4.1, creatinine 0.63. Blood sugars been running between 156 and 231. NovoLog scale will be added. Patient is tolerating chemotherapy without any new symptoms. Patient's sister is at the bedside. All questions were answered. 09/20, patient has worsening cough today, we'll going to decrease IV infusion to 75 mL an hour from a current rate of 150 mL an hour, possibly fluid overload noted. Patient is tolerating chemotherapy otherwise, no rash noted diarrhea, no fever no chills 09/21: Patient has been stable, afebrile. He denies nausea and vomiting. No diarrhea. WBC 3.9, hgb 11.8, plt 253. Creatinine 0.6. Uric acid 3.9. Patient has chemotherapy to complete today. Dr. Peguero has cleared him for discharge home later today. Patient will be discharged in stable condition. Review Of Systems: Constitutional: No fever, no chills, no night sweats. No weight change. No weakness, fatigue or lethargy. EENT: No headache. No blurred vision or double vision, no loss of vision. No loss of Hearing, no ringing in the ears, no dizziness. No nasal drainage or congestion. No epistaxis. No sore throat. Lungs: No shortness of breath, cough, no sputum production. No wheezing. Cardiovascular: No chest pain, no lower extremity edema. No palpitations. No paroxysmal nocturnal dyspnea. No orthopnea. No lightheadedness or dizziness. No syncopal episodes. Abdominal: No abdominal pain. No nausea, vomiting. No diarrhea. No constipation. No bloody or tarry stools. No loss of appetite. Genitourinary: No dysuria, increased frequency, urgency. No urinary retention. Musculoskeletal: No myalgias. No muscle weakness, no gait dysfunction, no frequent falls. No back pain. No neck pain. Integumentary: No wounds, no lesions. No rash or pruritus. No unusual bruising. No change in hair or nails. Neurologic: No aphasia. No facial droop. No change in mentation. No head injury. No headache. No paralysis. No paresthesia. Psychiatric: No depression. No anxiety. No mood swings. Endocrine: No abnormal blood sugars. No weight change. No excessive sweating or thirst. Objective - Vital Signs Vital signs: Vital Signs Temp 97.0 F L 09/21/18 08:00 Pulse 78 09/21/18 08:00 Resp 18 09/21/18 08:00 BP 137/78 09/21/18 08:00 Pulse Ox 96 09/21/18 08:00 Intake & Output 09/20/18 09/21/18 09/21/18 18:59 06:59 18:59 Intake Total 856 1812.8 Balance 856 1812.8 Intake: Intake, IV Titration 856 1692.8 Amount DOXOrubicin HCL 26 mg In 80 145.2 Sodium Chloride 0.9% 250 ml @ 10.958 mls/hr IV Q24H [facility] Rx#:[id number] Etoposide 130 mg In 160 270 Sodium Chloride 0.9% 500 ml 500 ml @ 21.104 mls/hr IV Q24H [facility] Rx#: [id number] Ondansetron 16 mg In 50 Sodium Chloride 0.9% 50 ml @ 100 mls/hr IVPB Q24H [facility] Rx#:[id number] Sodium Chloride 0.9% 1, 600 1200 000 ml @ 75 mls/hr IV . [id number] [facility] Rx#:[id number] vinCRIStine SULFATE 1 mg 16 27.6 In Sodium Chloride 0.9% 50 ml @ 2.125 mls/hr IV Q24H [facility] Rx#:[id number] Oral 120 Other: Voiding Method Toilet Toilet - Exam General appearance: cooperative, no acute distress, obese, sitting up in bed. - EENT Eyes: anicteric sclerae, EOMI, PERRLA ENT: no hard of hearing, no hearing grossly normal, NA/AT, normal oropharynx, no other, no pharyngeal erythema, no thrush, no tonsillar exudates, no tonsillar swelling - Neck Neck: normal ROM - Respiratory Respiratory: bilateral: CTA, negative: diminished, dullness, rales, rhonchi, wheezing - Cardiovascular Rhythm: regular Heart sounds: normal: S1, S2 Abnormal Heart Sounds: no systolic murmur, no diastolic murmur, no rub, no S3 Gallop, no S4 Gallop, no click, no other - Gastrointestinal General gastrointestinal: normal bowel sounds, soft - Integumentary Integumentary: normal, normal turgor - Neurologic Neurologic: CNII-XII intact - Musculoskeletal Musculoskeletal: gait normal, strength equal bilaterally - Psychiatric Psychiatric: A&O x's 3, appropriate affect, intact judgment & insight - Labs CBC & Chem 7: 09/21/18 06:50 09/21/18 06:50 Labs: Abnormal Lab Results - Last 24 Hours (Table) 09/20/18 09/20/18 09/20/18 Range/Units 11:22 16:56 20:50 RBC (4.30-5.90) m/uL Hgb (13.0-17.5) gm/dL Hct (39.0-53.0) % RDW (11.5-15.5) % Lymphocytes # (1.0-4.8) k/uL Chloride (98-107) mmol/L Creatinine (0.66-1.25) mg/dL Glucose (74-99) mg/dL POC Glucose (mg/dL) 188 H 139 H 208 H (75-99) mg/dL AST (17-59) U/L Total Protein (6.3-8.2) g/dL Albumin (3.5-5.0) g/dL 09/21/18 09/21/18 09/21/18 Range/Units 06:50 06:50 06:53 RBC 3.99 L (4.30-5.90) m/uL Hgb 11.8 L (13.0-17.5) gm/dL Hct 34.9 L (39.0-53.0) % RDW 17.8 H (11.5-15.5) % Lymphocytes # 0.1 L (1.0-4.8) k/uL Chloride 108 H (98-107) mmol/L Creatinine 0.60 L (0.66-1.25) mg/dL Glucose 127 H (74-99) mg/dL POC Glucose (mg/dL) 141 H (75-99) mg/dL AST 16 L (17-59) U/L Total Protein 5.5 L (6.3-8.2) g/dL Albumin 3.1 L (3.5-5.0) g/dL Assessment and Plan Plan: 1 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-guided biopsy at [facility] on 07/23/2018, hyperlipidemia Sagastume for acute index, germinal type BCL-2plus in 30% and CMyc + 40% Monitor for pancytopenia, cystitis, worsening shortness of breath, blurry vision, hyperglycemia. Oncology managing the chemotherapy. Chemotherapy precautions to be followed #2 dysphagia secondary to compression of the esophagus by these mediastinal massimproving nutrition, soft diet, dysphagia resolved. monitor blood sugars, Ensure clear with meals #3 history of shortness of breath and cough secondary to compression of trachea improved no current aggravation. DuoNeb as needed for shortness of breath. provide O2 supplementation if needed SpO2 to be maintained above 92% #4 type 2 diabetes with labile blood sugars secondary to intermittent nutritional deficits, doing ok with intake currently, expect fluctuation related to chemo sideeffects in the next few days. Continue metformin and glimepiride 2 mg at the current dose. Last A1c 5.7 according to patient. Watch for hypoglycemia glucose checked before meals and at bedtime, home blood sugar monitor #5 hyperlipidemia continue atorvastatin 20 mg by mouth at bedtime #6 hypertension continue amlodipine 10 mg by mouth daily #7 bipolar disorder continue Abilify 5 mg daily at bedtime #8 diabetes neuropathy continue gabapentin 300 mg 3 times a day #9 GI prophylaxis with Protonix 40 twice a day #10 recent diagnosis of DVT in left upper extremity on eliquis 5 mg twice daily. Discharge plan: Return home tonight after completion of chemotherapy. Impression and plan of care have been directed as dictated by the signing physician. Ashley Hernandez nurse practitioner acting as scribe for signing physician.
[2018-09-21 17:22] LABS: Glucose,Whole Blood 177 mg/dL (75-99)
[2018-09-21] MEDS: FAMOTIDINE 20 MG/2 ML VIAL IV SCH (20:11)
[2018-09-21] MEDS: ONDANSETRON 16 MG in SODIUM CHLORIDE 0.9% 50 ML IVPB SCH (20:12)
[2018-09-21 20:52] VITALS: BP 124/84; PULSE 83; RESP 17; TEMP 97.4
[2018-09-21] MEDS ORDERED: SODIUM CHLORIDE 0.9% IV ONE (21:00)
[2018-09-21] MEDS ORDERED: CYCLOPHOSPHAMIDE IV ONE (21:00)
== END 2018-09-21 21:44 | disposition home or self-care (01) | DRG 847 ==
LOC: 3NMEDONC 09-17 09:04
PROVIDERS: ADMIT Internal Medicine Hematology & Oncology; ATTEND Internal Medicine Hematology & Oncology
DX: Z51.11 Encounter for antineoplastic chemotherapy (principal); C85.22 Mediastinal (thymic) large B-cell lymphoma, intrathoracic lymph nodes; E11.40 Type 2 diabetes mellitus with diabetic neuropathy, unspecified; Z79.4 Long term (current) use of insulin; E78.5 Hyperlipidemia, unspecified; I10 Essential (primary) hypertension; Z82.49 Family history of ischemic heart disease and other diseases of the circulatory system; Z83.3 Family history of diabetes mellitus; Z87.891 Personal history of nicotine dependence; Z79.899 Other long term (current) drug therapy; M19.90 Unspecified osteoarthritis, unspecified site; Z82.3 Family history of stroke; Z87.01 Personal history of pneumonia (recurrent); G89.29 Other chronic pain; M54.5 Low back pain; Z86.14 Personal history of Methicillin resistant Staphylococcus aureus infection; R13.10 Dysphagia, unspecified; F31.9 Bipolar disorder, unspecified; E87.70 Fluid overload, unspecified; Z86.718 Personal history of other venous thrombosis and embolism
CPT/HCPCS: 80053; 83036; 84550; 85025

== ENCOUNTER → 2018-09-29 | Outpatient (CLI) | payer OTHER ==
--- NOTE | 2018-10-01 16:01 | PE ---
EXAMINATION TYPE: PET CT fusion skull to thigh DATE OF EXAM: 09/29/2018 COMPARISON: NONE HISTORY: Large B-cell lymphoma with last chemotherapy on 09/21/2018. No prior radiation or surgery. TECHNIQUE: Following the intravenous administration of 13.04 mCi of F-18 FDG, whole body images are performed from the skull base to the midthigh. Images are reviewed on the computer in the coronal, a xial, and sagittal planes. Reconstructed rotating images are created on independent workstation and reviewed on the computer. A localization and attenuation correction CT is performed in conjunction with the PET scan. SCAN: Initial exam FINDINGS: Background thoracic uptake: 2.15 Background abdominal uptake 2.92 SKULL BASE AND NECK: No supraclavicular adenopathy remains as described on the outside report. A sma ll left supraclavicular lymph node on image 76 measures up to 5 mm. CHEST, MEDIASTINUM, AND HILAR REGION: Minimal strand-like density with without hypermetabolic uptake is seen anterior to the brachiocephalic vein measuring approximately 2.8 x 1.2 cm. This is marked on series 3 image 94. No enlarged mediastinal lymph nodes are present. The largest is within the right p aratracheal region measuring 9 mm in short axis on image 97 and does not demonstrate hypermetabolic u ptake. ABDOMEN AND PELVIS: No suspicious hypermetabolic uptake. OSSEOUS STRUCTURES: There is diffuse hypermetabolic uptake throughout the entirety of the osseous str uctures. For reference maximum uptake within the cervical spine measures 6.4 at the level of C7. Maxi mum uptake within the thoracic spine measures 9.1 within the T11-T12 vertebral bodies. Maximum uptake within the lumbar spine measures 10.12 at the level of L3. Maximum uptake in the sternum measures 6. 4 and the sternal manubrium. Maximum uptake in the sacrum measures 11.48 in the right hemisacrum. Max imum uptake within the left femur measures 8 and right femur measures 8.18. Maximal uptake within the proximal left humerus measures 7.78 and on the right measure 7.9 values can be used for comparison o n subsequent examinations. OTHER CT: There is a left-sided PICC line terminating in the superior vena cava/right atrial junction . The heart is upper limits of normal in size. Scattered dependent atelectasis is seen throughout the lungs. Minimal multilevel degenerative changes of the spine are noted throughout. Punctate probable bone island is seen on image 259 within the right acetabulum and the posterior wall. The unenhanced a bdominal viscera are grossly unremarkable. There is no dilated large or small bowel. No adenopathy is seen within the abdomen or pelvis. Nonenlarged superficial inguinal lymph nodes are noted. There is a patulous left inguinal canal. Diffuse subcutaneous densities within the ventral abdominal wall on s eries 3 image 201 and 200 likely relate to subcutaneous injection sites or contusions. IMPRESSION: 1. Although outside imaging is not available for comparison there appears to be response to treatment given the description of a large mediastinal mass on prior exams mass as there is only minimal soft tissue density anterior to the brachiocephalic vein measuring up to 2.8 cm in length and no mediastin al nor supraclavicular adenopathy. 2. Extensive and diffuse hypermetabolic activity throughout the entirety of the visualized osseous st ructures concerning for lymphomatous involvement. Bone marrow stimulation given the recent chemothera py remains a possibility however there is avid FDG avidity with a maximum SUV of up to 11.48 favoring bone marrow involvement.
== END | disposition home or self-care (01) ==
LOC: RADPETMAIN 10:06
PROVIDERS: ATTEND Internal Medicine Hematology & Oncology
DX: C85.22 Mediastinal (thymic) large B-cell lymphoma, intrathoracic lymph nodes (principal); R22.9 Localized swelling, mass and lump, unspecified; Z51.11 Encounter for antineoplastic chemotherapy
CPT/HCPCS: 78815; A9552

== ENCOUNTER 2018-10-24 08:07 | Inpatient (IN) | payer OTHER ==
[2018-10-24 08:47] LABS: Anisocytosis Slight; Basophils % (A) 1 %; Eosinophils # (A) 0.2 k/uL (0-0.7); Eosinophils % (A) 4 %; HGB 14.1 gm/dL (13.0-17.5); Lymphocytes # (A) 0.7 k/uL (1.0-4.8); Lymphocytes % (A) 16 %; MCH 30.5 pg (25.0-35.0); MCHC 34.3 g/dL (31.0-37.0); Mean Platelet Volume 7.1; Monocytes # (A) 0.5 k/uL (0-1.0); Monocytes % (A) 10 %; Neutrophils # (A) 3.2 k/uL (1.3-7.7); Neutrophils % (A) 67 %; Platelet Count 154 k/uL (150-450); RBC 4.61 m/uL (4.30-5.90); RDW 17.3 % (11.5-15.5); WBC 4.7 k/uL (3.8-10.6)
[2018-10-24 08:57] LABS: ALT 30 U/L (21-72); AST 24 U/L (17-59); Alkaline Phosphatase 67 U/L (38-126); Anion Gap 7 mmol/L; Blood Urea Nitrogen 8 mg/dL (9-20); Calcium 9.2 mg/dL (8.4-10.2); Carbon Dioxide 27 mmol/L (22-30); Chloride 106 mmol/L (98-107); Glucose 201 mg/dL (74-99); Sodium 140 mmol/L (137-145); Total Bilirubin 1.1 mg/dL (0.2-1.3); Total Protein 6.8 g/dL (6.3-8.2); Uric Acid 6.2 mg/dL (3.5-8.5)
[2018-10-24] MEDS ORDERED: methylPREDNISolone SOD SUCCI 125 MG/2 ML VIAL IV ONE (10:00)
[2018-10-24] MEDS ORDERED: ACETAMINOPHEN TAB 325 MG TAB PO ONE (10:00)
[2018-10-24] MEDS ORDERED: diphenhydrAMINE 50 MG/ML 1 ML VIAL IVP ONE (10:00)
[2018-10-24] MEDS ORDERED: ASPIRIN-ACET-CAFF 250-250-65MG 1 EACH TAB PO PRN (10:28)
--- NOTE | 2018-10-24 10:33 | P.HPIM ---
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 Morrow is a very pleasant male pt of Dr. Cervantes with malignancy history that includes hypertension, DM II, LUE DVT and hyperlipidemia, all medication controlled. His malignancy history started 07/20/18 when he presented to [facility] ER with c/o chest pain, CXR revealed a mediastinal mass, CT chest 07/20/18 revealed large anterior mediastinal mass, 8.6x5.6 cm that partially displaced ascenting aorta, there were also right paratracheal nodes measuring up to 2.5cm. He was transferred to [facility] 07/22/18. Further work up included unremarkable CBC and CMP, AFP, uric acid and HCG were normal, LDH was elevated at 705. On 07/23/18 he had testicular ultrasound- negative, CT neck-visible bilateral supraclavicular nodes, not enlarged, CT AP- negative, echo-normal EF of 69%. 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 His hospitalization was complicated with a LUE DVT. Staging PET unable to be performed due to dyspnea. He was admitted 07/31/18 for 1st cycle of DA-R-EPOCH regimen. He has tolerated chemotherapy, he did require addition of GCSF after cycle 1 for neutropenia. He is admitted today for cycle #4 CIVI DA R-EPOCH. He has a MENDEZ this AM, denies fever, sore throat, ear or sinus pressure/pain, no vision changes. No oral irritation, nausea, SOB, chest pain, indigestion, nausea, abd bloating, last BM was this AM, normal color and consistency for him, no swelling, appetite fair. He questioned why he had to continue chemotherapy if his lymphoma is "gone". No other physical c/o, questions or concerns. Review of Systems 14 point ROS is as stated in HPI Past Medical History Past Medical History: Cancer, Diabetes Mellitus, Deep Vein Thrombosis (DVT), Hyperlipidemia, Hypertension, Osteoarthritis (OA), Pneumonia Additional Past Medical History / Comment(s): Pt states he started noticing difficulty with swallowing June,, went to [facility] on 07/20/18 d/t cough and chest pain, had cat scan that showed mediastinal mass and was sent on to [facility] where he had mediastinal mass biopsy. He states he has also had a L arm DVT. Other hx: Chronic low back pain, NIDDM type II, pt states dysphagia has resolved, "walking" pneumonia as a teen. History of Any Multi-Drug Resistant Organisms: MRSA Date of last positivie culture/infection: 2013 per pt MDRO Source:: L leg Past Surgical History: Adenoidectomy, Orthopedic Surgery, Tonsillectomy Additional Past Surgical History / Comment(s): PICC lines with current one placed 08/23/18, 07/22/18 mediastinal mass biopsy at [facility], R hand fracure with surgery/pins since removed. Past Anesthesia/Blood Transfusion Reactions: No Reported Reaction Past Psychological History: Depression Smoking Status: Former smoker Past Alcohol Use History: None Reported Past Drug Use History: None Reported - Past Family History Mother Family Medical History: CVA/TIA, Diabetes Mellitus, Hyperlipidemia, Hypertension Father Family Medical History: Diabetes Mellitus Additional Family Medical History / Comment(s): Unmarried, caregiver for his mother, Medications and Allergies Home Medications Medication Instructions Recorded Confirmed Type ARIPiprazole [Abilify] 5 mg PO HS 08/01/18 10/24/18 History Atorvastatin [Lipitor] 20 mg PO HS 08/01/18 10/24/18 History Gabapentin [Neurontin] 300 mg PO TID 08/01/18 10/24/18 History Glimepiride [Amaryl] 2 mg PO DAILY 08/01/18 10/24/18 History amLODIPine [Norvasc] 10 mg PO HS 08/01/18 10/24/18 History metFORMIN HCL [Glucophage] 1,000 mg PO BID 08/01/18 10/24/18 History Prochlorperazine [Compazine] 10 mg PO Q6HR PRN #45 tab 08/27/18 10/24/18 Rx Allergies Allergy/AdvReac Type Severity Reaction Status Date / Time No Known Allergies Allergy Verified 10/24/18 09:18 Physical Exam Vitals: Intake and Output 10/23/18 10/24/18 10/24/18 22:59 06:59 14:59 Other: Weight 138.2 kg - Constitutional General appearance: cooperative, no acute distress, obese - EENT Eyes: anicteric sclerae, EOMI, normal appearance ENT: hearing grossly normal, normal oropharynx - Neck Neck: no lymphadenopathy - Respiratory Respiratory: bilateral: CTA - Cardiovascular Rhythm: regular Heart sounds: normal: S1, S2 Abnormal Heart Sounds: no systolic murmur, no diastolic murmur, no rub, no S3 Gallop, no S4 Gallop, no click, no other leg Peripheral Edema: bilateral: None - Gastrointestinal General gastrointestinal: no absent bowel sounds, no decreased bowel sounds, no distended, no hepatomegaly, no hyperactive bowel sounds, normal bowel sounds, no organomegaly, no rigid, no scaphoid, soft, no splenomegaly, no tenderness, no umbilical hernia, no ventral hernia - Integumentary Integumentary: normal - Neurologic Neurologic: CNII-XII intact - Musculoskeletal Musculoskeletal: strength equal bilaterally - Psychiatric Psychiatric: A&O x's 3, appropriate affect, intact judgment & insight Results CBC & Chem 7: 10/24/18 08:31 10/24/18 08:31 Labs: Abnormal Lab Results - Last 24 Hours (Table) 10/24/18 10/24/18 Range/Units 08:31 08:31 RDW 17.3 H (11.5-15.5) % Lymphocytes # 0.7 L (1.0-4.8) k/uL BUN 8 L (9-20) mg/dL Creatinine 0.65 L (0.66-1.25) mg/dL Glucose 201 H (74-99) mg/dL Thrombosis Risk Factor Assmnt - DVT/VTE Prophylaxis DVT/VTE Prophylaxis: Contraindicated - See note (pt is on anticoagulation) Assessment and Plan (1) 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 Supportive meds ordered Labs daily Daily follow up Current Visit: Yes Status: Acute Priority: High Code(s): C85.22 - MEDIASTNL (THYMIC) LARGE B-CELL LYMPHOMA, INTRATHORAC NODES SNOMED Code(s): 069560506 (2) HTN (hypertension) Current Visit: No Status: Chronic Priority: Low Code(s): I10 - ESSENTIAL ( PRIMARY) HYPERTENSION SNOMED Code(s): 93278109 (3) Hyperlipidemia Current Visit: No Status: Chronic Priority: Low Code(s): E78.5 - HYPERLIPIDEMIA, UNSPECIFIED SNOMED Code(s): 33771803 (4) Diabetes mellitus Narrative/Plan: Accuchecks ACHS and SSI as pt is on steroids Current Visit: Yes Status: Chronic Priority: Medium Code(s): E11.9 - TYPE 2 DIABETES MELLITUS WITHOUT COMPLICATIONS SNOMED Code(s): 14384765 (5) DVT (deep venous thrombosis) Narrative/Plan: MELISSA, diagnosed in Jun. Pt states he takes eliquis when he remembers. Will order while inpatient. Will clarify duration of therapy Current Visit: Yes Status: Acute Priority: Medium Code(s): I82.409 - ACUTE EMBOLISM AND THOMBOS UNSP DEEP VN UNSP LOWER EXTREMITY SNOMED Code(s): 206764965 Plan: Home meds reconciled for chronic conditions IM consulted for medical mgmt GI prophylaxis, on full dose anticoagulation
[2018-10-24] MEDS ORDERED: PROCHLORPERAZINE 10 MG TAB PO PRN (10:49)
[2018-10-24] MEDS ORDERED: riTUXimab 1,000 MG in SODIUM CHLORIDE 0.9% 500 ML 500 ML IV NR (11:00)
[2018-10-24] MEDS: predniSONE 20 MG TAB PO SCH ×2 (12:25→21:22)
[2018-10-24] MEDS: FAMOTIDINE 20 MG/2 ML VIAL IV SCH (12:25)
[2018-10-24] MEDS: SODIUM CHLORIDE 0.9% 1,000 ML IV SCH ×2 (12:25→12:27)
[2018-10-24] MEDS: predniSONE 50 MG TAB PO SCH ×2 (12:25→21:21)
[2018-10-24] MEDS: INSULIN ASPART 100 UNIT/ML 1 ML 10 ML VIAL SQ SCH ×3 (12:26→21:22)
[2018-10-24 12:28] LABS: Glucose,Whole Blood 105 mg/dL (75-99)
[2018-10-24 12:39] VITALS: BMI 39.1
[2018-10-24] MEDS: ONDANSETRON 16 MG in SODIUM CHLORIDE 0.9% 50 ML IVPB SCH (13:47)
[2018-10-24] MEDS: GABAPENTIN 300 MG CAP PO SCH ×2 (16:18→21:22)
[2018-10-24 17:00] LABS: Glucose,Whole Blood 184 mg/dL (75-99)
[2018-10-24] MEDS: metFORMIN 500 MG TAB PO SCH (17:12)
[2018-10-24] MEDS: SODIUM CHLORIDE 0.9% IV SCH ×2 (17:59→18:00)
[2018-10-24] MEDS: vinCRIStine SULFATE 1 MG in SODIUM CHLORIDE 0.9% 50 ML IV SCH (17:59)
[2018-10-24] MEDS: DOXORUBICIN HCL IV SCH (17:59)
[2018-10-24] MEDS: ETOPOSIDE IV SCH (18:00)
[2018-10-24 19:32] LABS: Hemoglobin A1C 6.2 % (4.0-6.0)
[2018-10-24 19:55] LABS: Glucose,Whole Blood 226 mg/dL (75-99)
[2018-10-24] MEDS ORDERED: INSULIN DETEMIR 100 UNIT/ML 10 ML VIAL SQ SCH (21:00)
[2018-10-24] MEDS: SALT AND SODA MOUTHWASH 1,000 ML PO SCH (21:20)
[2018-10-24] MEDS: amLODIPine 10 MG TAB PO SCH (21:21)
[2018-10-24] MEDS: ATORVASTATIN 20 MG TAB PO SCH (21:21)
[2018-10-24] MEDS: APIXABAN 5 MG TAB PO SCH (21:21)
[2018-10-24] MEDS: ARIPiprazole 5 MG TAB PO SCH (21:21)
[2018-10-25] MEDS: SALT AND SODA MOUTHWASH 1,000 ML PO SCH ×5 (00:13→19:47)
[2018-10-25] MEDS: SODIUM CHLORIDE 0.9% 1,000 ML IV SCH ×5 (02:00→20:39)
[2018-10-25 06:55] LABS: Glucose,Whole Blood 214 mg/dL (75-99)
[2018-10-25] MEDS ORDERED: GLIMEPIRIDE 2 MG TAB PO SCH (09:00)
[2018-10-25] MEDS: predniSONE 20 MG TAB PO SCH ×2 (09:25→21:13)
[2018-10-25] MEDS: INSULIN ASPART 100 UNIT/ML 1 ML 10 ML VIAL SQ SCH ×5 (09:25→22:00)
[2018-10-25] MEDS: predniSONE 50 MG TAB PO SCH ×2 (09:25→21:13)
[2018-10-25] MEDS: metFORMIN 500 MG TAB PO SCH ×2 (09:25→18:06)
[2018-10-25] MEDS: GABAPENTIN 300 MG CAP PO SCH ×3 (09:26→21:13)
[2018-10-25] MEDS: APIXABAN 5 MG TAB PO SCH ×2 (09:26→21:13)
[2018-10-25 11:04] LABS: Glucose,Whole Blood 269 mg/dL (75-99)
[2018-10-25 11:31] LABS: ALT 26 U/L (21-72); AST 19 U/L (17-59); Albumin 3.5 g/dL (3.5-5.0); Alkaline Phosphatase 63 U/L (38-126); Anion Gap 8 mmol/L; Blood Urea Nitrogen 14 mg/dL (9-20); Calcium 9.6 mg/dL (8.4-10.2); Carbon Dioxide 22 mmol/L (22-30); Chloride 112 mmol/L (98-107); Glucose 211 mg/dL (74-99); Sodium 142 mmol/L (137-145); Total Protein 6.1 g/dL (6.3-8.2)
[2018-10-25] MEDS: FAMOTIDINE 20 MG/2 ML VIAL IV SCH ×2 (12:32→19:45)
[2018-10-25] MEDS: ONDANSETRON 16 MG in SODIUM CHLORIDE 0.9% 50 ML IVPB SCH ×2 (12:33→19:45)
[2018-10-25 14:34] LABS: Anisocytosis Slight; Basophils % (A) 0 %; Eosinophils # (A) 0.2 k/uL (0-0.7); Eosinophils % (A) 1 %; HCT 39.2 % (39.0-53.0); HGB 12.7 gm/dL (13.0-17.5); Lymphocytes # (A) 0.4 k/uL (1.0-4.8); Lymphocytes % (A) 2 %; MCH 29.3 pg (25.0-35.0); MCHC 32.3 g/dL (31.0-37.0); MCV 90.5 fL (80.0-100.0); Mean Platelet Volume 7.1; Monocytes # (A) 0.6 k/uL (0-1.0); Monocytes % (A) 3 %; Neutrophils # (A) 15.5 k/uL (1.3-7.7); Neutrophils % (A) 93 %; Platelet Count 170 k/uL (150-450); RBC 4.33 m/uL (4.30-5.90); RDW 17.3 % (11.5-15.5); WBC 16.6 k/uL (3.8-10.6)
--- NOTE | 2018-10-25 14:59 | P.CONS ---
History of Present Illness - Reason for Consult Consult date: 10/25/18 - History of Present Illness This is a 42-year-old gentleman patient of Dr. Gibson. He has underlying history of diabetes mellitus type 2, recently diagnosed high-grade B-cell lymphoma on 07/20/2018, hyperlipidemia DVT oneliquis workup up [facility] with a large anterior mediastinal mass 8.6 cm x 5.6 cm causing severe dysphagia, was started on 08/01/18, last treatment on with chemotherapy using etoposide ,doxorubicin cyclophosphamideand vincristine. He is admitted this time for this fourth cycle on R- EPOCH. Internal medicine team is consulted for medical management patient assessed bedside denies any headache or chest pain or breathing difficulty. He does document improvement in dysphagia since the chemotherapy has been initiated. Diabetes is managed at home with a metformin and glimepiride. Vitals assess suggest a temp of 97.5 saturating well on room air and blood pressure 124/78. Labs suggestive leukocytosis of 16.6 secondary to prednisone, creatinine 0.6 glucose ranging from 184-269. Review of Systems Constitutional: Denies chills, Denies fever, Denies lethargy, Denies malaise, Denies poor appetite, Denies weakness, Denies weight loss Eyes: denies decreased vision, denies diplopia, denies discharge, denies pain Ears: deny: decreased hearing Ears, nose, mouth and throat: Denies dental pain, Denies headache, Denies nasal discharge, Denies nose pain Cardiovascular: Denies chest pain, Denies decreased exercise tolerance, Denies edema, Denies high blood pressure, Denies irregular heart beat, Denies palpitations, Denies paroxysmal nocturnal dyspnea, Denies rapid heart beat, Denies shortness of breath Respiratory: Denies congestion, Denies cough, Denies cough with sputum, Denies dyspnea, Denies home oxygen, Denies wheezing Gastrointestinal: Denies abdominal pain, Denies change in bowel habits, Denies coffee ground emesis, Denies early satiety, Denies excessive gas, Denies heartburn, Denies hematemesis, Denies hematochezia, Denies loss of appetite, Denies nausea, Denies vomiting Genitourinary: Denies dysuria, Denies flank pain, Denies kidney stones, Denies menorrhagia, Denies urgency, Denies urinary frequency Musculoskeletal: Denies gait dysfunction, Denies limitation of motion, Denies morning stiffness, Denies muscle cramps Integumentary: Denies rash, Denies wounds, Denies brittle nails, Denies change in hair/nails, Denies darkening of skin Neurological: Denies balance difficulties, Denies change in speech, Denies double vision, Denies gait dysfunction, Denies loss of vision, Denies motor disturbance, Denies numbness, Denies paralysis, Denies paresthesias, Denies seizures Psychiatric: Denies anxiety, Denies depression Endocrine: Denies excessive sweating, Denies excessive thirst, endorses high blood sugars in the hospital but does not measure blood sugar at home, Denies palpitations Hematologic/Lymphatic: Denies easy bruising, Denies lymphadenopathy Past Medical History Past Medical History: Cancer, Diabetes Mellitus, Deep Vein Thrombosis (DVT), Hyperlipidemia, Hypertension, Osteoarthritis (OA), Pneumonia Additional Past Medical History / Comment(s): Pt states he started noticing difficulty with swallowing June,, went to [facility] on 07/20/18 d/t cough and chest pain, had cat scan that showed mediastinal mass and was sent on to [facility] where he had mediastinal mass biopsy. He states he has also had a L arm DVT. Other hx: Chronic low back pain, NIDDM type II, pt states dysphagia has resolved, "walking" pneumonia as a teen. History of Any Multi-Drug Resistant Organisms: MRSA Year Discovered:: 2013 per pt MDRO Source:: L leg Past Surgical History: Adenoidectomy, Orthopedic Surgery, Tonsillectomy Additional Past Surgical History / Comment(s): PICC lines with current one placed 08/23/18, 07/22/18 mediastinal mass biopsy at [facility], R hand fracure with surgery/pins since removed. Past Anesthesia/Blood Transfusion Reactions: No Reported Reaction Past Psychological History: Depression Smoking Status: Former smoker Past Alcohol Use History: None Reported Past Drug Use History: None Reported - Past Family History Mother Family Medical History: CVA/TIA, Diabetes Mellitus, Hyperlipidemia, Hypertension Father Family Medical History: Diabetes Mellitus Additional Family Medical History / Comment(s): Unmarried, caregiver for his mother, Medications and Allergies Home Medications Medication Instructions Recorded Confirmed Type ARIPiprazole [Abilify] 5 mg PO HS 08/01/18 10/24/18 History Atorvastatin [Lipitor] 20 mg PO HS 08/01/18 10/24/18 History Gabapentin [Neurontin] 300 mg PO TID 08/01/18 10/24/18 History Glimepiride [Amaryl] 2 mg PO DAILY 08/01/18 10/24/18 History amLODIPine [Norvasc] 10 mg PO HS 08/01/18 10/24/18 History metFORMIN HCL [Glucophage] 1,000 mg PO BID 08/01/18 10/24/18 History Prochlorperazine [Compazine] 10 mg PO Q6HR PRN #45 tab 08/27/18 10/24/18 Rx Allergies Allergy/AdvReac Type Severity Reaction Status Date / Time No Known Allergies Allergy Verified 10/24/18 09:18 Physical Exam Vitals: Vital Signs Temp Pulse Pulse Resp BP Pulse Ox 10/25/18 11:37 97.5 F L 94 18 124/78 95 10/25/18 08:00 97.6 F 90 18 131/83 93 L 10/25/18 04:00 97.6 F 71 16 117/75 94 L 10/25/18 00:00 97.7 F 89 16 107/73 94 L 10/24/18 20:00 98.3 F 86 16 118/80 94 L 10/24/18 15:52 98.5 F 92 18 119/77 94 L Intake and Output 10/24/18 10/25/18 10/25/18 22:59 06:59 14:59 Intake Total 704 1200 1800 Balance 704 1200 1800 Intake: Intake, IV Titration 704 1200 1200 Amount Sodium Chloride 0.9% 1, 450 1200 1200 000 ml @ 150 mls/hr IV . Q6H40M [facility] Rx#:[id number] riTUXimab 1,000 mg In 254 Sodium Chloride 0.9% 500 ml 500 ml @ Titrate IV . Q0M NR Rx#:[id number] Oral 600 Other: Voiding Method Toilet Toilet # Voids 1 4 - Constitutional General appearance: cooperative, no acute distress, obese - EENT Eyes: anicteric sclerae, PERRLA, normal appearance ENT: hearing grossly normal - Neck Neck: no lymphadenopathy, normal ROM, no other, no rigidity, no stridor, no thyromegaly - Respiratory Respiratory: bilateral: CTA, negative: diminished, dullness, rales, rhonchi - Cardiovascular Rhythm: regular Heart sounds: normal: S1, S2 Abnormal Heart Sounds: no systolic murmur, no diastolic murmur, no rub, no S3 Gallop, no S4 Gallop, no click, no other - Gastrointestinal General gastrointestinal: normal bowel sounds, soft - Integumentary Integumentary: no rash - Neurologic Neurologic: CNII-XII intact - Musculoskeletal Musculoskeletal: gait normal, strength equal bilaterally - Psychiatric Psychiatric: A&O x's 3, appropriate affect Results CBC & Chem 7: 10/25/18 06:00 10/25/18 11:01 Labs: Abnormal Lab Results - Last 24 Hours (Table) 10/24/18 10/24/18 10/24/18 Range/Units 08:31 16:59 19:53 Chloride (98-107) mmol/L Creatinine (0.66-1.25) mg/dL Glucose (74-99) mg/dL POC Glucose (mg/dL) 184 H 226 H (75-99) mg/dL Hemoglobin A1c 6.2 H (4.0-6.0) % Total Protein (6.3-8.2) g/dL 10/25/18 10/25/18 10/25/18 Range/Units 06:52 11:01 11:01 Chloride 112 H (98-107) mmol/L Creatinine 0.60 L (0.66-1.25) mg/dL Glucose 211 H (74-99) mg/dL POC Glucose (mg/dL) 214 H 269 H (75-99) mg/dL Hemoglobin A1c (4.0-6.0) % Total Protein 6.1 L (6.3-8.2) g/dL Assessment and Plan Plan: 1 Primary Mediastinal high-grade large B-cell lymphoma on R-EPOCH therapy Cycle [address]-guided biopsy at [facility] on 07/23/2018 positive for primary mediastinal B-cell lymphoma Monitor for pancytopenia, cystitis, worsening shortness of breath, blurry vision, hyperglycemia. Oncology managing the chemotherapy. Chemotherapy precautions to be followed #2 dysphagia secondary to compression of the esophagus by these mediastinal mass - resolved. monitor blood sugars #3 left upper extremity DVT continue I Emiliano 5 mg twice a day #4 type 2 diabetes with labile blood sugars secondary to chemo sideeffects in the next few days. Continue metformin hold glimepiride . A1c 6.2 on 10/24 Watch for hypoglycemia glucose checked before meals and at bedtime, home blood sugar monitor Lantus initiated at 10 units subcu at at bedtime we'll increased to Lantus 10 units twice a day #5 hyperlipidemia continue atorvastatin 20 mg by mouth at bedtime #6 hypertension continue amlodipine 10 mg by mouth daily #7 bipolar disorder continue Abilify 5 mg daily at bedtime #8 diabetes neuropathy continue gabapentin 300 mg 3 times a day #9 GI prophylaxis with Protonix 40 twice a day Thank you for the consult. I'll be happy to assist in patient's medical needed while the patient is in the hospital
[2018-10-25 17:14] LABS: Glucose,Whole Blood 211 mg/dL (75-99)
[2018-10-25] MEDS: PANTOPRAZOLE 40 MG TABLET PO SCH (18:07)
[2018-10-25 20:08] LABS: Glucose,Whole Blood 199 mg/dL (75-99)
[2018-10-25] MEDS: vinCRIStine SULFATE 1 MG in SODIUM CHLORIDE 0.9% 50 ML IV SCH (20:40)
[2018-10-25] MEDS: DOXORUBICIN HCL IV SCH (20:40)
[2018-10-25] MEDS: SODIUM CHLORIDE 0.9% IV SCH ×2 (20:40→20:41)
[2018-10-25] MEDS: ETOPOSIDE IV SCH (20:41)
--- NOTE | 2018-10-25 20:59 | P.PN ---
Subjective Progress Note Date: 10/25/18 Principal diagnosis: Non Hodgkins Lymphoma, Large B Cell On Chemotherapy Day 2 of R-EPOCH and Tolerating well. He denies, fevers, chills, nausea, vomting , diarrhea, constipation or pain Objective - Vital Signs Vital signs: Vital Signs Temp 97.9 F 10/25/18 16:00 Pulse 101 H 10/25/18 16:00 Resp 16 10/25/18 16:00 BP 142/82 10/25/18 16:00 Pulse Ox 94 L 10/25/18 16:00 Intake & Output 10/25/18 10/25/18 10/26/18 06:59 18:59 06:59 Intake Total 1650 1800 Balance 1650 1800 Intake: Intake, IV Titration 1650 1200 Amount Sodium Chloride 0.9% 1, 1650 1200 000 ml @ 150 mls/hr IV . Q6H40M [facility] Rx#:[id number] Oral 600 Other: Voiding Method Toilet # Voids 1 4 - Exam Constitutional General appearance: cooperative, no acute distress, obese - EENT Eyes: anicteric sclerae, EOMI, normal appearance ENT: hearing grossly normal, normal oropharynx - Neck Neck: no lymphadenopathy - Respiratory Respiratory: bilateral: CTA - Cardiovascular Rhythm: regular Heart sounds: normal: S1, S2 Abnormal Heart Sounds: no systolic murmur, no diastolic murmur, no rub, no S3 Gallop, no S4 Gallop, no click, no other leg Peripheral Edema: bilateral: None - Gastrointestinal General gastrointestinal: no absent bowel sounds, no decreased bowel sounds, no distended, no hepatomegaly, no hyperactive bowel sounds, normal bowel sounds, no organomegaly, no rigid, no scaphoid, soft, no splenomegaly, no tenderness, no umbilical hernia, no ventral hernia - Integumentary Integumentary: normal - Neurologic Neurologic: CNII-XII intact - Musculoskeletal Musculoskeletal: strength equal bilaterally - Psychiatric Psychiatric: A&O x's 3, appropriate affect, intact judgment & insight - Labs CBC & Chem 7: 10/25/18 06:00 10/25/18 11:01 Labs: Abnormal Lab Results - Last 24 Hours (Table) 10/25/18 10/25/18 10/25/18 Range/Units 06:00 06:52 11:01 WBC 16.6 H (3.8-10.6) k/uL Hgb 12.7 L (13.0-17.5) gm/dL RDW 17.3 H (11.5-15.5) % Neutrophils # 15.5 H (1.3-7.7) k/uL Lymphocytes # 0.4 L (1.0-4.8) k/uL Chloride 112 H (98-107) mmol/L Creatinine 0.60 L (0.66-1.25) mg/dL Glucose 211 H (74-99) mg/dL POC Glucose (mg/dL) 214 H (75-99) mg/dL Total Protein 6.1 L (6.3-8.2) g/dL 10/25/18 10/25/18 10/25/18 Range/Units 11:01 17:13 20:06 WBC (3.8-10.6) k/uL Hgb (13.0-17.5) gm/dL RDW (11.5-15.5) % Neutrophils # (1.3-7.7) k/uL Lymphocytes # (1.0-4.8) k/uL Chloride (98-107) mmol/L Creatinine (0.66-1.25) mg/dL Glucose (74-99) mg/dL POC Glucose (mg/dL) 269 H 211 H 199 H (75-99) mg/dL Total Protein (6.3-8.2) g/dL Assessment and Plan Plan: (1) 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 - Supportive meds ordered - Labs daily, awaiting todays CBC - Daily follow up Current Visit: Yes Status: Acute Priority: High Code(s): C85.22 - MEDIASTNL (THYMIC) LARGE B-CELL LYMPHOMA, INTRATHORAC NODES SNOMED Code(s): 457127061 (2) HTN (hypertension) Current Visit: No Status: Chronic Priority: Low Code(s): I10 - ESSENTIAL ( PRIMARY) HYPERTENSION SNOMED Code(s): 32575642 (3) Hyperlipidemia Current Visit: No Status: Chronic Priority: Low Code(s): E78.5 - HYPERLIPIDEMIA, UNSPECIFIED SNOMED Code(s): 06097720 (4) Diabetes mellitus Narrative/Plan: - Accuchecks ACHS and SSI as pt is on steroids - Medical Management following with high dose steroids induced Hyperglycemia Current Visit: Yes Status: Chronic Priority: Medium Code(s): E11.9 - TYPE 2 DIABETES MELLITUS WITHOUT COMPLICATIONS SNOMED Code(s): 73209122 (5) DVT (deep venous thrombosis) Narrative/Plan: - MELISSA, diagnosed in Jun. Pt states he takes eliquis when he remembers. - He was previously on Lovenox per outside hospital, he was converted to eliquis per Dr. Cervantes prior to Cycle 3, Clarified with Dr. Cervantes at last visit and patient at high risk for recurrent thromboembolism therefore to continue on full dose anticoagulation until after chemotherapy cycle 6 and repeat doppler obtained. Repeat doppler after cycle two noted evidence of remaining thrombus, therefore reinforced and re-educated on importance of compliance. Current Visit: Yes Status: Acute Priority: Medium Code(s): I82.409 - ACUTE EMBOLISM AND THOMBOS UNSP DEEP VN UNSP LOWER EXTREMITY SNOMED Code(s): 372668457 Plan: - Continue cycle 4, ok to discharge after completion of chemo and will follow- up in office for neulasta injection post discharge.
[2018-10-25] MEDS: ATORVASTATIN 20 MG TAB PO SCH (21:13)
[2018-10-25] MEDS: ARIPiprazole 5 MG TAB PO SCH (21:13)
[2018-10-25] MEDS: INSULIN DETEMIR 100 UNIT/ML 10 ML VIAL SQ SCH (21:13)
[2018-10-25] MEDS: amLODIPine 10 MG TAB PO SCH (21:59)
[2018-10-26] MEDS: SALT AND SODA MOUTHWASH 1,000 ML PO SCH ×5 (01:11→22:41)
[2018-10-26] MEDS: SODIUM CHLORIDE 0.9% 1,000 ML IV SCH ×3 (03:25→17:22)
[2018-10-26 07:08] LABS: Glucose,Whole Blood 203 mg/dL (75-99)
[2018-10-26 08:19] LABS: Anisocytosis Slight; Basophils % (A) 0 %; Eosinophils # (A) 0.1 k/uL (0-0.7); Eosinophils % (A) 1 %; HCT 37.2 % (39.0-53.0); HGB 11.9 gm/dL (13.0-17.5); Lymphocytes # (A) 0.2 k/uL (1.0-4.8); Lymphocytes % (A) 1 %; MCH 29.2 pg (25.0-35.0); MCV 91.1 fL (80.0-100.0); Mean Platelet Volume 7.4; Monocytes # (A) 0.4 k/uL (0-1.0); Monocytes % (A) 2 %; Neutrophils # (A) 16.9 k/uL (1.3-7.7); Neutrophils % (A) 96 %; Platelet Count 130 k/uL (150-450); RBC 4.08 m/uL (4.30-5.90); RDW 17.4 % (11.5-15.5); WBC 17.6 k/uL (3.8-10.6)
[2018-10-26] MEDS: INSULIN ASPART 100 UNIT/ML 1 ML 10 ML VIAL SQ SCH ×4 (08:26→22:43)
[2018-10-26] MEDS: INSULIN DETEMIR 100 UNIT/ML 10 ML VIAL SQ SCH ×2 (08:27→22:43)
[2018-10-26] MEDS: predniSONE 20 MG TAB PO SCH ×2 (08:27→22:43)
[2018-10-26] MEDS: APIXABAN 5 MG TAB PO SCH ×2 (08:27→22:43)
[2018-10-26] MEDS: PANTOPRAZOLE 40 MG TABLET PO SCH ×2 (08:27→17:23)
[2018-10-26] MEDS: GABAPENTIN 300 MG CAP PO SCH ×3 (08:27→22:42)
[2018-10-26] MEDS: predniSONE 50 MG TAB PO SCH ×2 (08:27→22:42)
[2018-10-26] MEDS: metFORMIN 500 MG TAB PO SCH ×2 (08:27→17:23)
[2018-10-26 08:47] LABS: ALT 26 U/L (21-72); AST 14 U/L (17-59); Albumin 3.1 g/dL (3.5-5.0); Alkaline Phosphatase 54 U/L (38-126); Anion Gap 7 mmol/L; Blood Urea Nitrogen 14 mg/dL (9-20); Calcium 8.8 mg/dL (8.4-10.2); Carbon Dioxide 25 mmol/L (22-30); Chloride 110 mmol/L (98-107); Glucose 177 mg/dL (74-99); Potassium 3.9 mmol/L (3.5-5.1); Sodium 142 mmol/L (137-145); Total Protein 5.6 g/dL (6.3-8.2)
--- NOTE | 2018-10-26 11:04 | P.PN ---
Subjective Progress Note Date: 10/26/18 Principal diagnosis: Non Hodgkins Lymphoma, Large B Cell On Chemotherapy Day 3 of R-EPOCH and Tolerating well. He denies, fevers, chills, nausea, vomting , diarrhea, constipation or pain Objective - Vital Signs Vital signs: Vital Signs Temp 97.6 F 10/26/18 08:00 Pulse 90 10/26/18 08:00 Resp 16 10/26/18 08:00 BP 129/80 10/26/18 08:00 Pulse Ox 93 L 10/26/18 08:00 Intake & Output 10/25/18 10/26/18 10/26/18 18:59 06:59 18:59 Intake Total 1800 2029 Balance 1800 2029 Weight 143.5 kg Intake: Intake, IV Titration 1200 1200 Amount Sodium Chloride 0.9% 1, 1200 1200 000 ml @ 150 mls/hr IV . Q6H40M [facility] Rx#:[id number] Oral 600 830 Other: Voiding Method Toilet # Voids 4 2 - Exam Constitutional General appearance: cooperative, no acute distress, obese - EENT Eyes: anicteric sclerae, EOMI, normal appearance ENT: hearing grossly normal, normal oropharynx - Neck Neck: no lymphadenopathy - Respiratory Respiratory: bilateral: CTA - Cardiovascular Rhythm: regular Heart sounds: normal: S1, S2 Abnormal Heart Sounds: no systolic murmur, no diastolic murmur, no rub, no S3 Gallop, no S4 Gallop, no click, no other leg Peripheral Edema: bilateral: None - Gastrointestinal General gastrointestinal: no absent bowel sounds, no decreased bowel sounds, no distended, no hepatomegaly, no hyperactive bowel sounds, normal bowel sounds, no organomegaly, no rigid, no scaphoid, soft, no splenomegaly, no tenderness, no umbilical hernia, no ventral hernia - Integumentary Integumentary: normal - Neurologic Neurologic: CNII-XII intact - Musculoskeletal Musculoskeletal: strength equal bilaterally - Psychiatric Psychiatric: A&O x's 3, appropriate affect, intact judgment & insight - Labs CBC & Chem 7: 10/26/18 07:50 10/26/18 07:50 Labs: Abnormal Lab Results - Last 24 Hours (Table) 10/25/18 10/25/18 10/25/18 Range/Units 06:00 11:01 11:01 WBC 16.6 H (3.8-10.6) k/uL RBC (4.30-5.90) m/uL Hgb 12.7 L (13.0-17.5) gm/dL Hct (39.0-53.0) % RDW 17.3 H (11.5-15.5) % Plt Count (150-450) k/uL Neutrophils # 15.5 H (1.3-7.7) k/uL Lymphocytes # 0.4 L (1.0-4.8) k/uL Chloride 112 H (98-107) mmol/L Creatinine 0.60 L (0.66-1.25) mg/dL Glucose 211 H (74-99) mg/dL POC Glucose (mg/dL) 269 H (75-99) mg/dL AST (17-59) U/L Total Protein 6.1 L (6.3-8.2) g/dL Albumin (3.5-5.0) g/dL 10/25/18 10/25/18 10/26/18 Range/Units 17:13 20:06 07:04 WBC (3.8-10.6) k/uL RBC (4.30-5.90) m/uL Hgb (13.0-17.5) gm/dL Hct (39.0-53.0) % RDW (11.5-15.5) % Plt Count (150-450) k/uL Neutrophils # (1.3-7.7) k/uL Lymphocytes # (1.0-4.8) k/uL Chloride (98-107) mmol/L Creatinine (0.66-1.25) mg/dL Glucose (74-99) mg/dL POC Glucose (mg/dL) 211 H 199 H 203 H (75-99) mg/dL AST (17-59) U/L Total Protein (6.3-8.2) g/dL Albumin (3.5-5.0) g/dL 10/26/18 10/26/18 Range/Units 07:50 07:50 WBC 17.6 H (3.8-10.6) k/uL RBC 4.08 L (4.30-5.90) m/uL Hgb 11.9 L (13.0-17.5) gm/dL Hct 37.2 L (39.0-53.0) % RDW 17.4 H (11.5-15.5) % Plt Count 130 L (150-450) k/uL Neutrophils # 16.9 H (1.3-7.7) k/uL Lymphocytes # 0.2 L (1.0-4.8) k/uL Chloride 110 H (98-107) mmol/L Creatinine 0.65 L (0.66-1.25) mg/dL Glucose 177 H (74-99) mg/dL POC Glucose (mg/dL) (75-99) mg/dL AST 14 L (17-59) U/L Total Protein 5.6 L (6.3-8.2) g/dL Albumin 3.1 L (3.5-5.0) g/dL Assessment and Plan Plan: (1) 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 - Supportive meds ordered - Labs daily, awaiting todays CBC - Daily follow up Current Visit: Yes Status: Acute Priority: High Code(s): C85.22 - MEDIASTNL (THYMIC) LARGE B-CELL LYMPHOMA, INTRATHORAC NODES SNOMED Code(s): 257754363 (2) HTN (hypertension) Current Visit: No Status: Chronic Priority: Low Code(s): I10 - ESSENTIAL ( PRIMARY) HYPERTENSION SNOMED Code(s): 39869354 (3) Hyperlipidemia Current Visit: No Status: Chronic Priority: Low Code(s): E78.5 - HYPERLIPIDEMIA, UNSPECIFIED SNOMED Code(s): 84859209 (4) Diabetes mellitus Narrative/Plan: - Accuchecks ACHS and SSI as pt is on steroids - Medical Management following with high dose steroids induced Hyperglycemia Current Visit: Yes Status: Chronic Priority: Medium Code(s): E11.9 - TYPE 2 DIABETES MELLITUS WITHOUT COMPLICATIONS SNOMED Code(s): 94461777 (5) DVT (deep venous thrombosis) Narrative/Plan: - MELISSA, diagnosed in Jun. Pt states he takes eliquis when he remembers. - He was previously on Lovenox per outside hospital, he was converted to eliquis per Dr. Cervantes prior to Cycle 3, Clarified with Dr. Cervantes at last visit and patient at high risk for recurrent thromboembolism therefore to continue on full dose anticoagulation until after chemotherapy cycle 6 and repeat doppler obtained. Repeat doppler after cycle two noted evidence of remaining thrombus, therefore reinforced and re-educated on importance of compliance. Current Visit: Yes Status: Acute Priority: Medium Code(s): I82.409 - ACUTE EMBOLISM AND THOMBOS UNSP DEEP VN UNSP LOWER EXTREMITY SNOMED Code(s): 461117074 Plan: - Continue cycle 4, ok to discharge after completion of chemo and will follow- up in office for neulasta injection post discharge.
[2018-10-26 11:31] LABS: Glucose,Whole Blood 229 mg/dL (75-99)
--- NOTE | 2018-10-26 13:00 | P.PN ---
Subjective Progress Note Date: 10/26/18 This is a 42-year-old gentleman patient of Dr. Gibson. He has underlying history of diabetes mellitus type 2, recently diagnosed high-grade B-cell lymphoma on 07/20/2018, hyperlipidemia DVT oneliquis workup up at [facility] with a large anterior mediastinal mass 8.6 cm x 5.6 cm causing severe dysphagia, was started on 08/01/18, last treatment on with chemotherapy using etoposide ,doxorubicin cyclophosphamideand vincristine. He is admitted this time for this fourth cycle on R- EPOCH. Internal medicine team is consulted for medical management patient assessed bedside denies any headache or chest pain or breathing difficulty. He does document improvement in dysphagia since the chemotherapy has been initiated. Diabetes is managed at home with a metformin and glimepiride. Vitals assess suggest a temp of 97.5 saturating well on room air and blood pressure 124/78. Labs suggestive leukocytosis of 16.6 secondary to prednisone, creatinine 0.6 glucose ranging from 184-269. 10/26 patient examined bedside denies any shortness breath or chest pain or abdominal pain or change in bowel habits no lower extremity edema. Vital assessed temp 97.5 pulse 70 blood pressure 151/89 well controlled on Lantus and sliding scale ranging from 199-220. We'll increase Lantus to 15 twice a day continue sliding scale. Plan to complete cycle 4 and follow up with Dr. Mar as outpatient ROS Constitutional: Denies chills, Denies fever, Denies lethargy, Denies malaise, Denies poor appetite, Denies weakness, Denies weight loss Eyes: denies decreased vision, denies diplopia, denies discharge, denies pain Cardiovascular: Denies chest pain, Denies decreased exercise tolerance, Denies edema, Denies high blood pressure, Denies irregular heart beat, Denies palpitations, Denies paroxysmal nocturnal dyspnea, Denies rapid heart beat, Denies shortness of breath Respiratory: Denies congestion, Denies cough, Denies cough with sputum, Denies dyspnea, Denies home oxygen, Denies wheezing Gastrointestinal: Denies abdominal pain, Denies change in bowel habits, Denies coffee ground emesis, Denies early satiety, Denies excessive gas, Denies heartburn, Denies hematemesis, Denies hematochezia, Denies loss of appetite, Denies nausea, Denies vomiting Musculoskeletal: Denies gait dysfunction, Denies limitation of motion, Denies morning stiffness, Denies muscle cramps Endocrine: Denies excessive sweating, Denies excessive thirst, Denies high blood sugars, Denies palpitations Hematologic/Lymphatic: Denies easy bruising, Denies lymphadenopathy Objective - Vital Signs Vital signs: Vital Signs Temp 97.5 F L 10/26/18 12:00 Pulse 70 10/26/18 12:00 Resp 20 10/26/18 12:00 BP 151/89 10/26/18 12:00 Pulse Ox 96 10/26/18 12:00 Intake & Output 10/25/18 10/26/18 10/26/18 18:59 06:59 18:59 Intake Total 1800 2029 Balance 1800 2029 Weight 143.5 kg Intake: Intake, IV Titration 1200 1200 Amount Sodium Chloride 0.9% 1, 1200 1200 000 ml @ 150 mls/hr IV . Q6H40M [facility] Rx#:[id number] Oral 600 830 Other: Voiding Method Toilet # Voids 4 2 - Exam - Constitutional General appearance: cooperative, no acute distress, obese - EENT Eyes: anicteric sclerae, PERRLA, normal appearance ENT: hearing grossly normal - Respiratory Respiratory: bilateral: CTA, negative: diminished, dullness, rales, rhonchi - Cardiovascular Rhythm: regular Heart sounds: normal: S1, S2 Abnormal Heart Sounds: no systolic murmur, no diastolic murmur, no rub, no S3 Gallop, no S4 Gallop, no click, no other - Gastrointestinal General gastrointestinal: normal bowel sounds, soft - Musculoskeletal Musculoskeletal: gait normal, strength equal bilaterally - Psychiatric Psychiatric: A&O x's 3, appropriate affect - Labs CBC & Chem 7: 10/26/18 07:50 10/26/18 07:50 Labs: Abnormal Lab Results - Last 24 Hours (Table) 10/25/18 10/25/18 10/25/18 Range/Units 06:00 17:13 20:06 WBC 16.6 H (3.8-10.6) k/uL RBC (4.30-5.90) m/uL Hgb 12.7 L (13.0-17.5) gm/dL Hct (39.0-53.0) % RDW 17.3 H (11.5-15.5) % Plt Count (150-450) k/uL Neutrophils # 15.5 H (1.3-7.7) k/uL Lymphocytes # 0.4 L (1.0-4.8) k/uL Chloride (98-107) mmol/L Creatinine (0.66-1.25) mg/dL Glucose (74-99) mg/dL POC Glucose (mg/dL) 211 H 199 H (75-99) mg/dL AST (17-59) U/L Total Protein (6.3-8.2) g/dL Albumin (3.5-5.0) g/dL 10/26/18 10/26/18 10/26/18 Range/Units 07:04 07:50 07:50 WBC 17.6 H (3.8-10.6) k/uL RBC 4.08 L (4.30-5.90) m/uL Hgb 11.9 L (13.0-17.5) gm/dL Hct 37.2 L (39.0-53.0) % RDW 17.4 H (11.5-15.5) % Plt Count 130 L (150-450) k/uL Neutrophils # 16.9 H (1.3-7.7) k/uL Lymphocytes # 0.2 L (1.0-4.8) k/uL Chloride 110 H (98-107) mmol/L Creatinine 0.65 L (0.66-1.25) mg/dL Glucose 177 H (74-99) mg/dL POC Glucose (mg/dL) 203 H (75-99) mg/dL AST 14 L (17-59) U/L Total Protein 5.6 L (6.3-8.2) g/dL Albumin 3.1 L (3.5-5.0) g/dL 10/26/18 Range/Units 11:07 WBC (3.8-10.6) k/uL RBC (4.30-5.90) m/uL Hgb (13.0-17.5) gm/dL Hct (39.0-53.0) % RDW (11.5-15.5) % Plt Count (150-450) k/uL Neutrophils # (1.3-7.7) k/uL Lymphocytes # (1.0-4.8) k/uL Chloride (98-107) mmol/L Creatinine (0.66-1.25) mg/dL Glucose (74-99) mg/dL POC Glucose (mg/dL) 229 H (75-99) mg/dL AST (17-59) U/L Total Protein (6.3-8.2) g/dL Albumin (3.5-5.0) g/dL Assessment and Plan Plan: 1 Primary Mediastinal high-grade large B-cell lymphoma on R-EPOCH therapy Cycle 4 of cycle 6. D3 CT-guided biopsy at [facility] on 07/23/2018 positive for primary mediastinal B-cell lymphoma Monitor for pancytopenia, cystitis, worsening shortness of breath, blurry vision, hyperglycemia. Oncology managing the chemotherapy. Chemotherapy precautions to be followed #2 dysphagia secondary to compression of the esophagus by these mediastinal mass - resolved. monitor blood sugars #3 left upper extremity DVT continue I Emiliano 5 mg twice a day #4 type 2 diabetes with labile blood sugars secondary to chemo sideeffects in the next few days. Continue metformin hold glimepiride . A1c 6.2 on 10/24 Watch for hypoglycemia glucose checked before meals and at bedtime, home blood sugar monitor Lantus increased to 15 units. #5 hyperlipidemia continue atorvastatin 20 mg by mouth at bedtime #6 hypertension continue amlodipine 10 mg by mouth daily #7 bipolar disorder continue Abilify 5 mg daily at bedtime #8 diabetes neuropathy continue gabapentin 300 mg 3 times a day #9 GI prophylaxis with Protonix 40 twice a day
[2018-10-26 17:24] LABS: Glucose,Whole Blood 168 mg/dL (75-99)
[2018-10-26] MEDS: FAMOTIDINE 20 MG/2 ML VIAL IV SCH (19:24)
[2018-10-26] MEDS: ONDANSETRON 16 MG in SODIUM CHLORIDE 0.9% 50 ML IVPB SCH (19:24)
[2018-10-26 20:20] LABS: Glucose,Whole Blood 164 mg/dL (75-99)
[2018-10-26] MEDS: SODIUM CHLORIDE 0.9% IV SCH ×2 (20:52→20:55)
[2018-10-26] MEDS: DOXORUBICIN HCL IV SCH (20:52)
[2018-10-26] MEDS: vinCRIStine SULFATE 1 MG in SODIUM CHLORIDE 0.9% 50 ML IV SCH (20:54)
[2018-10-26] MEDS: ETOPOSIDE IV SCH (20:55)
[2018-10-26] MEDS: ATORVASTATIN 20 MG TAB PO SCH (22:42)
[2018-10-26] MEDS: amLODIPine 10 MG TAB PO SCH (22:42)
[2018-10-26] MEDS: ARIPiprazole 5 MG TAB PO SCH (22:43)
[2018-10-27] MEDS: SALT AND SODA MOUTHWASH 1,000 ML PO SCH ×5 (04:32→22:21)
[2018-10-27] MEDS: SODIUM CHLORIDE 0.9% 1,000 ML IV SCH ×3 (05:45→16:54)
[2018-10-27 07:26] LABS: Glucose,Whole Blood 174 mg/dL (75-99)
[2018-10-27 07:54] LABS: Anisocytosis Slight; Basophils % (A) 0 %; Eosinophils % (A) 0 %; HCT 34.5 % (39.0-53.0); HGB 11.6 gm/dL (13.0-17.5); Lymphocytes # (A) 0.2 k/uL (1.0-4.8); Lymphocytes % (A) 2 %; MCH 30.1 pg (25.0-35.0); MCHC 33.7 g/dL (31.0-37.0); MCV 89.1 fL (80.0-100.0); Mean Platelet Volume 8.1; Monocytes # (A) 0.2 k/uL (0-1.0); Monocytes % (A) 3 %; Neutrophils % (A) 95 %; Platelet Count 127 k/uL (150-450); RBC 3.87 m/uL (4.30-5.90); RDW 16.9 % (11.5-15.5); WBC 8.5 k/uL (3.8-10.6)
[2018-10-27 08:04] LABS: ALT 34 U/L (21-72); AST 15 U/L (17-59); Albumin 2.9 g/dL (3.5-5.0); Alkaline Phosphatase 50 U/L (38-126); Anion Gap 5 mmol/L; Blood Urea Nitrogen 15 mg/dL (9-20); Calcium 8.6 mg/dL (8.4-10.2); Carbon Dioxide 27 mmol/L (22-30); Chloride 108 mmol/L (98-107); Glucose 162 mg/dL (74-99); Potassium 3.8 mmol/L (3.5-5.1); Sodium 140 mmol/L (137-145); Total Bilirubin 1.1 mg/dL (0.2-1.3); Total Protein 5.5 g/dL (6.3-8.2)
[2018-10-27] MEDS: metFORMIN 500 MG TAB PO SCH ×2 (08:13→16:53)
[2018-10-27] MEDS: GABAPENTIN 300 MG CAP PO SCH ×3 (08:13→22:20)
[2018-10-27] MEDS: predniSONE 50 MG TAB PO SCH ×2 (08:13→22:19)
[2018-10-27] MEDS: predniSONE 20 MG TAB PO SCH ×2 (08:13→22:18)
[2018-10-27] MEDS: INSULIN ASPART 100 UNIT/ML 1 ML 10 ML VIAL SQ SCH ×4 (08:13→22:20)
[2018-10-27] MEDS: PANTOPRAZOLE 40 MG TABLET PO SCH ×2 (08:13→16:53)
[2018-10-27] MEDS: APIXABAN 5 MG TAB PO SCH ×2 (08:13→22:20)
--- NOTE | 2018-10-27 08:46 | P.PN ---
Subjective Progress Note Date: 10/27/18 This is a 42-year-old gentleman patient of Dr. Gibson. He has underlying history of diabetes mellitus type 2, recently diagnosed high-grade B-cell lymphoma on 07/20/2018, hyperlipidemia DVT oneliquis workup up at [facility] with a large anterior mediastinal mass 8.6 cm x 5.6 cm causing severe dysphagia, was started on 08/01/18, last treatment on with chemotherapy using etoposide ,doxorubicin cyclophosphamideand vincristine. He is admitted this time for this fourth cycle on R- EPOCH. Internal medicine team is consulted for medical management patient assessed bedside denies any headache or chest pain or breathing difficulty. He does document improvement in dysphagia since the chemotherapy has been initiated. Diabetes is managed at home with a metformin and glimepiride. Vitals assess suggest a temp of 97.5 saturating well on room air and blood pressure 124/78. Labs suggestive leukocytosis of 16.6 secondary to prednisone, creatinine 0.6 glucose ranging from 184-269. 10/26 patient examined bedside denies any shortness breath or chest pain or abdominal pain or change in bowel habits no lower extremity edema. Vital assessed temp 97.5 pulse 70 blood pressure 151/89 well controlled on Lantus and sliding scale ranging from 199-220. We'll increase Lantus to 15 twice a day continue sliding scale. Plan to complete cycle 4 and follow up with Dr. Mar as outpatient 10/27: She is resting comfortably in bed. He denies any shortness of breath, chest pain, abdominal pain, or change in bowel habits. Denies any lower extremity edema. Vital signs assessed temperature 97.7 orally, pulse rate 51, respiration 18, blood pressure 138/85, 95% saturation on room air. Lantus was increased to 15 units twice a day including a sliding scale blood sugar this morning was 174. Plan is to complete cycle for a follow up with Dr. Cervantes as an outpatient. The cycle should be completed on Monday. ROS Constitutional: Denies chills, Denies fever, Denies lethargy, Denies malaise, Denies poor appetite, Denies weakness, Denies weight loss Eyes: denies decreased vision, denies diplopia, denies discharge, denies pain Cardiovascular: Denies chest pain, Denies decreased exercise tolerance, Denies edema, Denies high blood pressure, Denies irregular heart beat, Denies palpitations, Denies paroxysmal nocturnal dyspnea, Denies rapid heart beat, Denies shortness of breath Respiratory: Denies congestion, Denies cough, Denies cough with sputum, Denies dyspnea, Denies home oxygen, Denies wheezing Gastrointestinal: Denies abdominal pain, Denies change in bowel habits, Denies coffee ground emesis, Denies early satiety, Denies excessive gas, Denies heartburn, Denies hematemesis, Denies hematochezia, Denies loss of appetite, Denies nausea, Denies vomiting Musculoskeletal: Denies gait dysfunction, Denies limitation of motion, Denies morning stiffness, Denies muscle cramps Endocrine: Denies excessive sweating, Denies excessive thirst, Denies high blood sugars, Denies palpitations Hematologic/Lymphatic: Denies easy bruising, Denies lymphadenopathy Objective - Vital Signs Vital signs: Vital Signs Temp 97.7 F 10/27/18 07:41 Pulse 51 L 10/27/18 07:41 Resp 18 10/27/18 07:41 BP 138/85 10/27/18 07:41 Pulse Ox 95 10/27/18 07:41 Intake & Output 10/26/18 10/27/18 10/27/18 18:59 06:59 18:59 Intake Total 1712 2380 Balance 1712 2380 Intake: Intake, IV Titration 1472 1200 Amount DOXOrubicin HCL 26 mg In 88 Sodium Chloride 0.9% 250 ml @ 10.958 mls/hr IV Q24H [facility] Rx#:[id number] Etoposide 130 mg In 168 Sodium Chloride 0.9% 500 ml 500 ml @ 21.104 mls/hr IV Q24H [facility] Rx#: [id number] Sodium Chloride 0.9% 1, 1200 1200 000 ml @ 150 mls/hr IV . Q6H40M [facility] Rx#:[id number] vinCRIStine SULFATE 1 mg 16 In Sodium Chloride 0.9% 50 ml @ 2.125 mls/hr IV Q24H [facility] Rx#:[id number] Oral 240 1180 Other: Voiding Method Toilet # Voids 4 2 - Exam Gen: This is a 43-year-old male HEENT: Head is atraumatic, normocephalic. Pupils equal, round. Sclerae is anicteric. NECK: Supple. No JVD. No lymphadenopathy. No thyromegaly. LUNGS: Clear to auscultation. No wheezes or rhonchi. No intercostal retractions. HEART: Regular rate and rhythm. No murmur. ABDOMEN: Soft. Bowel sounds are present. No masses. No tenderness. EXTREMITIES: No pedal edema. No calf tenderness. NEUROLOGICAL: Patient is awake, alert and oriented x3. Cranial nerves 2 through 12 are grossly intact. - Constitutional General appearance: Present: no acute distress, obese - EENT Eyes: Present: anicteric sclerae, EOMI, PERRLA ENT: Present: hearing grossly normal, NA/AT - Neck Neck: Present: normal ROM. Absent: lymphadenopathy, rigidity, stridor - Respiratory Respiratory: bilateral: CTA, negative: diminished, dullness, rales, rhonchi, wheezing, prolonged expiration, prolonged inspiration, other - Cardiovascular Rhythm: regular Heart sounds: normal: S1, S2 Abnormal Heart Sounds: Absent: systolic murmur, diastolic murmur, rub, S3 Gallop , S4 Gallop, click, other - Gastrointestinal General gastrointestinal: Present: normal bowel sounds, soft. Absent: organomegaly, tenderness - Integumentary Integumentary: Present: normal turgor - Neurologic Neurologic: Present: CNII-XII intact - Musculoskeletal Musculoskeletal: Present: gait normal, strength equal bilaterally - Psychiatric Psychiatric: Present: A&O x's 3, appropriate affect, intact judgment & insight - Labs CBC & Chem 7: 10/27/18 07:30 10/27/18 07:30 Labs: Abnormal Lab Results - Last 24 Hours (Table) 10/26/18 10/26/18 10/26/18 Range/Units 07:50 11:07 17:22 RBC (4.30-5.90) m/uL Hgb (13.0-17.5) gm/dL Hct (39.0-53.0) % RDW (11.5-15.5) % Plt Count (150-450) k/uL Neutrophils # (1.3-7.7) k/uL Lymphocytes # (1.0-4.8) k/uL Chloride 110 H (98-107) mmol/L Creatinine 0.65 L (0.66-1.25) mg/dL Glucose 177 H (74-99) mg/dL POC Glucose (mg/dL) 229 H 168 H (75-99) mg/dL AST 14 L (17-59) U/L Total Protein 5.6 L (6.3-8.2) g/dL Albumin 3.1 L (3.5-5.0) g/dL 10/26/18 10/27/18 10/27/18 Range/Units 20:11 07:21 07:30 RBC (4.30-5.90) m/uL Hgb (13.0-17.5) gm/dL Hct (39.0-53.0) % RDW (11.5-15.5) % Plt Count (150-450) k/uL Neutrophils # (1.3-7.7) k/uL Lymphocytes # (1.0-4.8) k/uL Chloride 108 H (98-107) mmol/L Creatinine 0.64 L (0.66-1.25) mg/dL Glucose 162 H (74-99) mg/dL POC Glucose (mg/dL) 164 H 174 H (75-99) mg/dL AST 15 L (17-59) U/L Total Protein 5.5 L (6.3-8.2) g/dL Albumin 2.9 L (3.5-5.0) g/dL 10/27/18 Range/Units 07:30 RBC 3.87 L (4.30-5.90) m/uL Hgb 11.6 L (13.0-17.5) gm/dL Hct 34.5 L (39.0-53.0) % RDW 16.9 H (11.5-15.5) % Plt Count 127 L (150-450) k/uL Neutrophils # 8.0 H (1.3-7.7) k/uL Lymphocytes # 0.2 L (1.0-4.8) k/uL Chloride (98-107) mmol/L Creatinine (0.66-1.25) mg/dL Glucose (74-99) mg/dL POC Glucose (mg/dL) (75-99) mg/dL AST (17-59) U/L Total Protein (6.3-8.2) g/dL Albumin (3.5-5.0) g/dL Assessment and Plan Plan: 1 Primary Mediastinal high-grade large B-cell lymphoma on R-EPOCH therapy Cycle 4 of cycle 6. D3 CT-guided biopsy at [facility] on 07/23/2018 positive for primary mediastinal B-cell lymphoma Monitor for pancytopenia, cystitis, worsening shortness of breath, blurry vision, hyperglycemia. Oncology managing the chemotherapy. Chemotherapy precautions to be followed #2 dysphagia secondary to compression of the esophagus by these mediastinal mass - resolved. monitor blood sugars. #3 left upper extremity DVT continue eliquis 5 mg twice a day #4 type 2 diabetes with labile blood sugars secondary to chemo sideeffects in the next few days. Continue metformin hold glimepiride . A1c 6.2 on 10/24 Watch for hypoglycemia glucose checked before meals and at bedtime, home blood sugar monitor Lantus increased to 15 units twice a day continue with sliding scale. #5 hyperlipidemia continue atorvastatin 20 mg by mouth at bedtime #6 hypertension continue amlodipine 10 mg by mouth daily #7 bipolar disorder continue Abilify 5 mg daily at bedtime #8 diabetes neuropathy continue gabapentin 300 mg 3 times a day #9 GI prophylaxis with Protonix 40 twice a day Discharge plan: Home possibly Monday Impression and plan of care have been directed as dictated by the signing physician. Rossy Quintanilla nurse practitioner acting as scribe for signing physician.
[2018-10-27] MEDS: INSULIN DETEMIR 100 UNIT/ML 10 ML VIAL SQ SCH ×2 (09:38→22:21)
[2018-10-27 11:17] LABS: Glucose,Whole Blood 232 mg/dL (75-99)
--- NOTE | 2018-10-27 14:31 | P.PN ---
Subjective Progress Note Date: 10/27/18 Principal diagnosis: Non Hodgkins Lymphoma, Large B Cell On Chemotherapy Day 4 of R-EPOCH and Tolerating well. He denies, fevers, chills, nausea, vomiting, diarrhea, constipation or pain. He is eating well Objective - Vital Signs Vital signs: Vital Signs Temp 97.5 F L 10/27/18 12:13 Pulse 51 L 10/27/18 12:13 Resp 18 10/27/18 12:13 BP 139/88 10/27/18 12:13 Pulse Ox 95 10/27/18 12:13 Intake & Output 10/26/18 10/27/18 10/27/18 18:59 06:59 18:59 Intake Total 1712 2380 1474 Balance 1712 2380 1474 Intake: Intake, IV Titration 1472 1200 1474 Amount DOXOrubicin HCL 26 mg In 88 90 Sodium Chloride 0.9% 250 ml @ 10.958 mls/hr IV Q24H JULIO Rx#:[id number] Etoposide 130 mg In 168 168 Sodium Chloride 0.9% 500 ml 500 ml @ 21.104 mls/hr IV Q24H JULIO Rx#: [id number] Sodium Chloride 0.9% 1, 1200 1200 1200 000 ml @ 150 mls/hr IV . Q6H40M JULIO Rx#:[id number] vinCRIStine SULFATE 1 mg 16 16 In Sodium Chloride 0.9% 50 ml @ 2.125 mls/hr IV Q24H JULIO Rx#:[id number] Oral 240 1180 Other: Voiding Method Toilet Toilet # Voids 4 2 - Exam Constitutional General appearance: cooperative, no acute distress, obese - EENT Eyes: anicteric sclerae, EOMI, normal appearance ENT: hearing grossly normal, normal oropharynx - Neck Neck: no lymphadenopathy - Respiratory Respiratory: bilateral: CTA - Cardiovascular Rhythm: regular Heart sounds: normal: S1, S2 Abnormal Heart Sounds: no systolic murmur, no diastolic murmur, no rub, no S3 Gallop, no S4 Gallop, no click, no other leg Peripheral Edema: bilateral: None - Gastrointestinal General gastrointestinal: no absent bowel sounds, no decreased bowel sounds, no distended, no hepatomegaly, no hyperactive bowel sounds, normal bowel sounds, no organomegaly, no rigid, no scaphoid, soft, no splenomegaly, no tenderness, no umbilical hernia, no ventral hernia - Integumentary Integumentary: normal - Neurologic Neurologic: CNII-XII intact - Musculoskeletal Musculoskeletal: strength equal bilaterally - Psychiatric Psychiatric: A&O x's 3, appropriate affect, intact judgment & insight - Labs CBC & Chem 7: 10/27/18 07:30 10/27/18 07:30 Labs: Abnormal Lab Results - Last 24 Hours (Table) 10/26/18 10/26/18 10/27/18 Range/Units 17:22 20:11 07:21 RBC (4.30-5.90) m/uL Hgb (13.0-17.5) gm/dL Hct (39.0-53.0) % RDW (11.5-15.5) % Plt Count (150-450) k/uL Neutrophils # (1.3-7.7) k/uL Lymphocytes # (1.0-4.8) k/uL Chloride (98-107) mmol/L Creatinine (0.66-1.25) mg/dL Glucose (74-99) mg/dL POC Glucose (mg/dL) 168 H 164 H 174 H (75-99) mg/dL AST (17-59) U/L Total Protein (6.3-8.2) g/dL Albumin (3.5-5.0) g/dL 10/27/18 10/27/18 10/27/18 Range/Units 07:30 07:30 11:15 RBC 3.87 L (4.30-5.90) m/uL Hgb 11.6 L (13.0-17.5) gm/dL Hct 34.5 L (39.0-53.0) % RDW 16.9 H (11.5-15.5) % Plt Count 127 L (150-450) k/uL Neutrophils # 8.0 H (1.3-7.7) k/uL Lymphocytes # 0.2 L (1.0-4.8) k/uL Chloride 108 H (98-107) mmol/L Creatinine 0.64 L (0.66-1.25) mg/dL Glucose 162 H (74-99) mg/dL POC Glucose (mg/dL) 232 H (75-99) mg/dL AST 15 L (17-59) U/L Total Protein 5.5 L (6.3-8.2) g/dL Albumin 2.9 L (3.5-5.0) g/dL Assessment and Plan Plan: (1) 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 - Supportive meds ordered - Daily labs, CBC stable - Daily follow up Current Visit: Yes Status: Acute Priority: High Code(s): C85.22 - MEDIASTNL (THYMIC) LARGE B-CELL LYMPHOMA, INTRATHORAC NODES SNOMED Code(s): 800034693 (2) HTN (hypertension) Current Visit: No Status: Chronic Priority: Low Code(s): I10 - ESSENTIAL ( PRIMARY) HYPERTENSION SNOMED Code(s): 32369443 (3) Hyperlipidemia Current Visit: No Status: Chronic Priority: Low Code(s): E78.5 - HYPERLIPIDEMIA, UNSPECIFIED SNOMED Code(s): 27812090 (4) Diabetes mellitus Narrative/Plan: - Accuchecks ACHS and SSI as pt is on steroids - Medical Management following with high dose steroids induced Hyperglycemia Current Visit: Yes Status: Chronic Priority: Medium Code(s): E11.9 - TYPE 2 DIABETES MELLITUS WITHOUT COMPLICATIONS SNOMED Code(s): 56123297 (5) DVT (deep venous thrombosis) Narrative/Plan: - MELISSA, diagnosed in Jun. Pt states he takes eliquis when he remembers. - He was previously on Lovenox per outside hospital, he was converted to eliquis per Dr. Cervantes prior to Cycle 3, Clarified with Dr. Cervantes at last visit and patient at high risk for recurrent thromboembolism therefore to continue on full dose anticoagulation until after chemotherapy cycle 6 and repeat doppler obtained. Repeat doppler after cycle two noted evidence of remaining thrombus, therefore reinforced and re-educated on importance of compliance. Current Visit: Yes Status: Acute Priority: Medium Code(s): I82.409 - ACUTE EMBOLISM AND THOMBOS UNSP DEEP VN UNSP LOWER EXTREMITY SNOMED Code(s): 195401063 Plan: - Continue cycle 4, Day 4, ok to discharge after completion of chemo and will follow-up in office for neulasta injection post discharge 10/31/17 in Infusion [facility] of office at 9AM. - Re-education on ways to increase energy, prevent fatigue and body aches post treatment cycles Physician Attestation: I have completed the full history and physical of this patient and agree with above dictation by Natalia Batista, Dictated as a scribe.
[2018-10-27 17:04] LABS: Glucose,Whole Blood 164 mg/dL (75-99)
[2018-10-27 20:34] LABS: Glucose,Whole Blood 165 mg/dL (75-99)
[2018-10-27] MEDS: amLODIPine 10 MG TAB PO SCH (22:19)
[2018-10-27] MEDS: ATORVASTATIN 20 MG TAB PO SCH (22:20)
[2018-10-27] MEDS: ARIPiprazole 5 MG TAB PO SCH (22:21)
[2018-10-27] MEDS: ONDANSETRON 16 MG in SODIUM CHLORIDE 0.9% 50 ML IVPB SCH (23:11)
[2018-10-28] MEDS: DOXORUBICIN HCL IV SCH (00:05)
[2018-10-28] MEDS: SODIUM CHLORIDE 0.9% IV SCH ×2 (00:05→00:06)
[2018-10-28] MEDS: ETOPOSIDE IV SCH (00:06)
[2018-10-28] MEDS: vinCRIStine SULFATE 1 MG in SODIUM CHLORIDE 0.9% 50 ML IV SCH (00:06)
[2018-10-28] MEDS: SODIUM CHLORIDE 0.9% 1,000 ML IV SCH ×4 (00:18→19:17)
[2018-10-28] MEDS: SALT AND SODA MOUTHWASH 1,000 ML PO SCH ×5 (00:20→21:20)
[2018-10-28] MEDS: FAMOTIDINE 20 MG/2 ML VIAL IV SCH ×2 (00:22→23:56)
[2018-10-28 07:10] LABS: Glucose,Whole Blood 147 mg/dL (75-99)
[2018-10-28] MEDS: PANTOPRAZOLE 40 MG TABLET PO SCH ×2 (07:53→16:56)
[2018-10-28] MEDS: APIXABAN 5 MG TAB PO SCH ×2 (07:53→21:19)
[2018-10-28] MEDS: predniSONE 50 MG TAB PO SCH ×2 (07:53→21:23)
[2018-10-28] MEDS: metFORMIN 500 MG TAB PO SCH ×2 (07:53→16:56)
[2018-10-28] MEDS: predniSONE 20 MG TAB PO SCH ×2 (07:53→21:22)
[2018-10-28] MEDS: INSULIN ASPART 100 UNIT/ML 1 ML 10 ML VIAL SQ SCH ×4 (07:53→21:19)
[2018-10-28] MEDS: GABAPENTIN 300 MG CAP PO SCH ×3 (07:54→21:23)
[2018-10-28 08:26] LABS: ALT 26 U/L (21-72); AST 15 U/L (17-59); Alkaline Phosphatase 49 U/L (38-126); Anion Gap 5 mmol/L; Blood Urea Nitrogen 16 mg/dL (9-20); Calcium 8.5 mg/dL (8.4-10.2); Carbon Dioxide 28 mmol/L (22-30); Chloride 107 mmol/L (98-107); Glucose 134 mg/dL (74-99); Potassium 3.6 mmol/L (3.5-5.1); Sodium 140 mmol/L (137-145); Total Bilirubin 1.7 mg/dL (0.2-1.3); Total Protein 5.4 g/dL (6.3-8.2)
[2018-10-28 08:30] LABS: Anisocytosis Slight; Basophils % (A) 0 %; Eosinophils % (A) 0 %; HCT 34.4 % (39.0-53.0); HGB 11.9 gm/dL (13.0-17.5); Lymphocytes # (A) 0.2 k/uL (1.0-4.8); Lymphocytes % (A) 3 %; MCH 30.5 pg (25.0-35.0); MCHC 34.5 g/dL (31.0-37.0); MCV 88.4 fL (80.0-100.0); Mean Platelet Volume 7.9; Monocytes # (A) 0.1 k/uL (0-1.0); Monocytes % (A) 2 %; Neutrophils # (A) 6.8 k/uL (1.3-7.7); Neutrophils % (A) 95 %; Platelet Count 129 k/uL (150-450); RBC 3.89 m/uL (4.30-5.90); RDW 16.6 % (11.5-15.5); WBC 7.2 k/uL (3.8-10.6)
[2018-10-28] MEDS: INSULIN DETEMIR 100 UNIT/ML 10 ML VIAL SQ SCH ×2 (10:35→21:20)
[2018-10-28 11:16] LABS: Glucose,Whole Blood 179 mg/dL (75-99)
--- NOTE | 2018-10-28 12:22 | P.PN ---
Subjective Progress Note Date: 10/28/18 This is a 42-year-old gentleman patient of Dr. Gibson. He has underlying history of diabetes mellitus type 2, recently diagnosed high-grade B-cell lymphoma on 07/20/2018, hyperlipidemia DVT oneliquis workup up at [facility] with a large anterior mediastinal mass 8.6 cm x 5.6 cm causing severe dysphagia, was started on 08/01/18, last treatment on with chemotherapy using etoposide ,doxorubicin cyclophosphamideand vincristine. He is admitted this time for this fourth cycle on R- EPOCH. Internal medicine team is consulted for medical management patient assessed bedside denies any headache or chest pain or breathing difficulty. He does document improvement in dysphagia since the chemotherapy has been initiated. Diabetes is managed at home with a metformin and glimepiride. Vitals assess suggest a temp of 97.5 saturating well on room air and blood pressure 124/78. Labs suggestive leukocytosis of 16.6 secondary to prednisone, creatinine 0.6 glucose ranging from 184-269. 10/26 patient examined bedside denies any shortness breath or chest pain or abdominal pain or change in bowel habits no lower extremity edema. Vital assessed temp 97.5 pulse 70 blood pressure 151/89 well controlled on Lantus and sliding scale ranging from 199-220. We'll increase Lantus to 15 twice a day continue sliding scale. Plan to complete cycle 4 and follow up with Dr. Mar as outpatient 10/27: She is resting comfortably in bed. He denies any shortness of breath, chest pain, abdominal pain, or change in bowel habits. Denies any lower extremity edema. Vital signs assessed temperature 97.7 orally, pulse rate 51, respiration 18, blood pressure 138/85, 95% saturation on room air. Lantus was increased to 15 units twice a day including a sliding scale blood sugar this morning was 174. Plan is to complete cycle for a follow up with Dr. Cervantes as an outpatient. The cycle should be completed on Monday. 10/28: Patient is resting complained bed. He denies any shortness of breath, chest pain, abdominal pain, or change in bowel movements. Patient denies any lower extremity edema he also denies any upper extremity edema because of his past history of a DVT in the upper extremity. We did increase his Lantus to 20 units his blood sugar today was 147. He is on day 5 of his cycle. He will be finished by tomorrow where he'll have an echo prior to discharge. ROS Constitutional: Denies chills, Denies fever, Denies lethargy, Denies malaise, Denies poor appetite, Denies weakness, Denies weight loss Eyes: denies decreased vision, denies diplopia, denies discharge, denies pain Cardiovascular: Denies chest pain, Denies decreased exercise tolerance, Denies edema, Denies high blood pressure, Denies irregular heart beat, Denies palpitations, Denies paroxysmal nocturnal dyspnea, Denies rapid heart beat, Denies shortness of breath Respiratory: Denies congestion, Denies cough, Denies cough with sputum, Denies dyspnea, Denies home oxygen, Denies wheezing Gastrointestinal: Denies abdominal pain, Denies change in bowel habits, Denies coffee ground emesis, Denies early satiety, Denies excessive gas, Denies heartburn, Denies hematemesis, Denies hematochezia, Denies loss of appetite, Denies nausea, Denies vomiting Musculoskeletal: Denies gait dysfunction, Denies limitation of motion, Denies morning stiffness, Denies muscle cramps Endocrine: Denies excessive sweating, Denies excessive thirst, Denies high blood sugars, Denies palpitations Hematologic/Lymphatic: Denies easy bruising, Denies lymphadenopathy Objective - Vital Signs Vital signs: Vital Signs Temp 97.3 F L 10/28/18 12:14 Pulse 64 10/28/18 12:14 Resp 16 10/28/18 12:14 BP 140/87 10/28/18 12:14 Pulse Ox 94 L 10/28/18 12:14 Intake & Output 10/27/18 10/28/18 10/28/18 18:59 06:59 18:59 Intake Total 1474 Balance 1474 Weight 143.5 kg Intake: Intake, IV Titration 1474 Amount DOXOrubicin HCL 26 mg In 90 Sodium Chloride 0.9% 250 ml @ 10.958 mls/hr IV Q24H JULIO Rx#:[id number] Etoposide 130 mg In 168 Sodium Chloride 0.9% 500 ml 500 ml @ 21.104 mls/hr IV Q24H JULIO Rx#: [id number] Sodium Chloride 0.9% 1, 1200 000 ml @ 150 mls/hr IV . Q6H40M JULIO Rx#:[id number] vinCRIStine SULFATE 1 mg 16 In Sodium Chloride 0.9% 50 ml @ 2.125 mls/hr IV Q24H JULIO Rx#:[id number] Other: Voiding Method Toilet Toilet Toilet # Voids 2 - Exam Gen: This is a 43-year-old male HEENT: Head is atraumatic, normocephalic. Pupils equal, round. Sclerae is anicteric. NECK: Supple. No JVD. No lymphadenopathy. No thyromegaly. LUNGS: Clear to auscultation. No wheezes or rhonchi. No intercostal retractions. HEART: Regular rate and rhythm. No murmur. ABDOMEN: Soft. Bowel sounds are present. No masses. No tenderness. EXTREMITIES: No pedal edema. No calf tenderness. NEUROLOGICAL: Patient is awake, alert and oriented x3. Cranial nerves 2 through 12 are grossly intact. - Labs CBC & Chem 7: 10/28/18 07:04 10/28/18 07:04 Labs: Abnormal Lab Results - Last 24 Hours (Table) 10/27/18 10/27/18 10/28/18 Range/Units 16:56 20:32 07:04 RBC (4.30-5.90) m/uL Hgb (13.0-17.5) gm/dL Hct (39.0-53.0) % RDW (11.5-15.5) % Plt Count (150-450) k/uL Lymphocytes # (1.0-4.8) k/uL Creatinine 0.63 L (0.66-1.25) mg/dL Glucose 134 H (74-99) mg/dL POC Glucose (mg/dL) 164 H 165 H (75-99) mg/dL Total Bilirubin 1.7 H (0.2-1.3) mg/dL AST 15 L (17-59) U/L Total Protein 5.4 L (6.3-8.2) g/dL Albumin 3.0 L (3.5-5.0) g/dL 10/28/18 10/28/18 10/28/18 Range/Units 07:04 07:08 11:14 RBC 3.89 L (4.30-5.90) m/uL Hgb 11.9 L (13.0-17.5) gm/dL Hct 34.4 L (39.0-53.0) % RDW 16.6 H (11.5-15.5) % Plt Count 129 L (150-450) k/uL Lymphocytes # 0.2 L (1.0-4.8) k/uL Creatinine (0.66-1.25) mg/dL Glucose (74-99) mg/dL POC Glucose (mg/dL) 147 H 179 H (75-99) mg/dL Total Bilirubin (0.2-1.3) mg/dL AST (17-59) U/L Total Protein (6.3-8.2) g/dL Albumin (3.5-5.0) g/dL Assessment and Plan Plan: 1 Primary Mediastinal high-grade large B-cell lymphoma on R-EPOCH therapy Cycle 4 of cycle 6. D3 CT-guided biopsy at [facility] on 07/23/2018 positive for primary mediastinal B-cell lymphoma Monitor for pancytopenia, cystitis, worsening shortness of breath, blurry vision, hyperglycemia. Oncology managing the chemotherapy. Chemotherapy precautions to be followed. Echocardiogram was completed with cycle. #2 dysphagia secondary to compression of the esophagus by these mediastinal mass - resolved. monitor blood sugars. #3 left upper extremity DVT continue eliquis 5 mg twice a day #4 type 2 diabetes with labile blood sugars secondary to chemo sideeffects in the next few days. Continue metformin hold glimepiride . A1c 6.2 on 10/24 Watch for hypoglycemia glucose checked before meals and at bedtime, home blood sugar monitor Lantus increased to 20 units twice a day continue with sliding scale. #5 hyperlipidemia continue atorvastatin 20 mg by mouth at bedtime #6 hypertension continue amlodipine 10 mg by mouth daily #7 bipolar disorder continue Abilify 5 mg daily at bedtime #8 diabetes neuropathy continue gabapentin 300 mg 3 times a day #9 GI prophylaxis with Protonix 40 twice a day Discharge plan: Home possibly Monday Impression and plan of care have been directed as dictated by the signing physician. Rossy Quintanilla nurse practitioner acting as scribe for signing physician.
--- NOTE | 2018-10-28 14:20 | P.PN ---
Subjective Progress Note Date: 10/28/18 Principal diagnosis: Non Hodgkins Lymphoma, Large B Cell On Chemotherapy Day 5 of R-EPOCH and Tolerating well. He denies, fevers, chills, nausea, vomiting, diarrhea, constipation or pain. He is eating well Will complete this evening, maybe discharged after completion of chemo Objective - Vital Signs Vital signs: Vital Signs Temp 97.3 F L 10/28/18 12:14 Pulse 64 10/28/18 12:14 Resp 16 10/28/18 12:14 BP 140/87 10/28/18 12:14 Pulse Ox 94 L 10/28/18 12:14 Intake & Output 10/27/18 10/28/18 10/28/18 18:59 06:59 18:59 Intake Total 1474 1472.8 Balance 1474 1472.8 Weight 143.5 kg Intake: Intake, IV Titration 1474 1472.8 Amount DOXOrubicin HCL 26 mg In 90 87.2 Sodium Chloride 0.9% 250 ml @ 10.958 mls/hr IV Q24H JULIO Rx#:[id number] Etoposide 130 mg In 168 168.8 Sodium Chloride 0.9% 500 ml 500 ml @ 21.104 mls/hr IV Q24H JULIO Rx#: [id number] Sodium Chloride 0.9% 1, 1200 1200 000 ml @ 150 mls/hr IV . Q6H40M JULIO Rx#:[id number] vinCRIStine SULFATE 1 mg 16 16.8 In Sodium Chloride 0.9% 50 ml @ 2.125 mls/hr IV Q24H JULIO Rx#:[id number] Other: Voiding Method Toilet Toilet Toilet # Voids 2 - Exam Constitutional General appearance: cooperative, no acute distress, obese - EENT Eyes: anicteric sclerae, EOMI, normal appearance ENT: hearing grossly normal, normal oropharynx - Neck Neck: no lymphadenopathy - Respiratory Respiratory: bilateral: CTA - Cardiovascular Rhythm: regular Heart sounds: normal: S1, S2 Abnormal Heart Sounds: no systolic murmur, no diastolic murmur, no rub, no S3 Gallop, no S4 Gallop, no click, no other leg Peripheral Edema: bilateral: None - Gastrointestinal General gastrointestinal: no absent bowel sounds, no decreased bowel sounds, no distended, no hepatomegaly, no hyperactive bowel sounds, normal bowel sounds, no organomegaly, no rigid, no scaphoid, soft, no splenomegaly, no tenderness, no umbilical hernia, no ventral hernia - Integumentary Integumentary: normal - Neurologic Neurologic: CNII-XII intact - Musculoskeletal Musculoskeletal: strength equal bilaterally - Psychiatric Psychiatric: A&O x's 3, appropriate affect, intact judgment & insight - Labs CBC & Chem 7: 10/28/18 07:04 10/28/18 07:04 Labs: Abnormal Lab Results - Last 24 Hours (Table) 10/27/18 10/27/18 10/28/18 Range/Units 16:56 20:32 07:04 RBC (4.30-5.90) m/uL Hgb (13.0-17.5) gm/dL Hct (39.0-53.0) % RDW (11.5-15.5) % Plt Count (150-450) k/uL Lymphocytes # (1.0-4.8) k/uL Creatinine 0.63 L (0.66-1.25) mg/dL Glucose 134 H (74-99) mg/dL POC Glucose (mg/dL) 164 H 165 H (75-99) mg/dL Total Bilirubin 1.7 H (0.2-1.3) mg/dL AST 15 L (17-59) U/L Total Protein 5.4 L (6.3-8.2) g/dL Albumin 3.0 L (3.5-5.0) g/dL 10/28/18 10/28/18 10/28/18 Range/Units 07:04 07:08 11:14 RBC 3.89 L (4.30-5.90) m/uL Hgb 11.9 L (13.0-17.5) gm/dL Hct 34.4 L (39.0-53.0) % RDW 16.6 H (11.5-15.5) % Plt Count 129 L (150-450) k/uL Lymphocytes # 0.2 L (1.0-4.8) k/uL Creatinine (0.66-1.25) mg/dL Glucose (74-99) mg/dL POC Glucose (mg/dL) 147 H 179 H (75-99) mg/dL Total Bilirubin (0.2-1.3) mg/dL AST (17-59) U/L Total Protein (6.3-8.2) g/dL Albumin (3.5-5.0) g/dL Assessment and Plan Plan: (1) 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 - Supportive meds ordered - Daily labs, CBC stable - Daily follow up Current Visit: Yes Status: Acute Priority: High Code(s): C85.22 - MEDIASTNL (THYMIC) LARGE B-CELL LYMPHOMA, INTRATHORAC NODES SNOMED Code(s): 394631236 (2) HTN (hypertension) Current Visit: No Status: Chronic Priority: Low Code(s): I10 - ESSENTIAL ( PRIMARY) HYPERTENSION SNOMED Code(s): 42682840 (3) Hyperlipidemia Current Visit: No Status: Chronic Priority: Low Code(s): E78.5 - HYPERLIPIDEMIA, UNSPECIFIED SNOMED Code(s): 12838996 (4) Diabetes mellitus Narrative/Plan: - Accuchecks ACHS and SSI as pt is on steroids - Medical Management following with high dose steroids induced Hyperglycemia Current Visit: Yes Status: Chronic Priority: Medium Code(s): E11.9 - TYPE 2 DIABETES MELLITUS WITHOUT COMPLICATIONS SNOMED Code(s): 95805814 (5) DVT (deep venous thrombosis) Narrative/Plan: - MELISSA, diagnosed in Jun. Pt states he takes eliquis when he remembers. - He was previously on Lovenox per outside hospital, he was converted to eliquis per Dr. Cervantes prior to Cycle 3, Clarified with Dr. Cervantes at last visit and patient at high risk for recurrent thromboembolism therefore to continue on full dose anticoagulation until after chemotherapy cycle 6 and repeat doppler obtained. Repeat doppler after cycle two noted evidence of remaining thrombus, therefore reinforced and re-educated on importance of compliance. Current Visit: Yes Status: Acute Priority: Medium Code(s): I82.409 - ACUTE EMBOLISM AND THOMBOS UNSP DEEP VN UNSP LOWER EXTREMITY SNOMED Code(s): 809133688 Plan: - Continue cycle 4, Day 5 ok to discharge after completion of chemo and will follow-up in office for neulasta injection post discharge 10/31/17 in Infusion Center of office at 9AM. - Re-education on ways to increase energy, prevent fatigue and body aches post treatment cycles - Plan for Echocardiogram as outpatient if unable to receive prior to discharge , do not hold discharge for echo Physician Attestation: I have completed the full history and physical of this patient and agree with above dictation by Natalia Batista, Dictated as a scribe.
[2018-10-28 16:58] LABS: Glucose,Whole Blood 145 mg/dL (75-99)
[2018-10-28 16:59] VITALS: RESP 18
[2018-10-28 20:14] LABS: Glucose,Whole Blood 152 mg/dL (75-99)
[2018-10-28] MEDS ORDERED: CYCLOPHOSPHAMIDE IV ONE (21:00)
[2018-10-28] MEDS ORDERED: SODIUM CHLORIDE 0.9% IV ONE (21:00)
[2018-10-28 21:09] VITALS: TEMP 97.5
[2018-10-28] MEDS: ATORVASTATIN 20 MG TAB PO SCH (21:19)
[2018-10-28] MEDS: amLODIPine 10 MG TAB PO SCH (21:19)
[2018-10-28] MEDS: ARIPiprazole 5 MG TAB PO SCH (21:19)
[2018-10-28] MEDS: ONDANSETRON 16 MG in SODIUM CHLORIDE 0.9% 50 ML IVPB SCH (23:56)
[2018-10-29] MEDS: SODIUM CHLORIDE 0.9% 1,000 ML IV SCH ×2 (00:29→08:09)
[2018-10-29] MEDS: SALT AND SODA MOUTHWASH 1,000 ML PO SCH ×2 (00:43→05:29)
[2018-10-29 05:10] VITALS: BP 124/74; PULSE 78
[2018-10-29 07:07] LABS: Glucose,Whole Blood 117 mg/dL (75-99)
[2018-10-29 07:53] LABS: Anisocytosis Slight; Basophils % (A) 0 %; Eosinophils % (A) 0 %; HCT 36.3 % (39.0-53.0); HGB 12.5 gm/dL (13.0-17.5); Lymphocytes # (A) 0.2 k/uL (1.0-4.8); Lymphocytes % (A) 2 %; MCH 29.9 pg (25.0-35.0); MCHC 34.4 g/dL (31.0-37.0); MCV 87.1 fL (80.0-100.0); Mean Platelet Volume 7.5; Monocytes # (A) 0.1 k/uL (0-1.0); Monocytes % (A) 2 %; Neutrophils # (A) 6.6 k/uL (1.3-7.7); Neutrophils % (A) 96 %; Platelet Count 145 k/uL (150-450); RBC 4.17 m/uL (4.30-5.90); RDW 16.3 % (11.5-15.5); WBC 6.9 k/uL (3.8-10.6)
[2018-10-29] MEDS: INSULIN ASPART 100 UNIT/ML 1 ML 10 ML VIAL SQ SCH (08:09)
[2018-10-29] MEDS: metFORMIN 500 MG TAB PO SCH (08:14)
[2018-10-29] MEDS: PANTOPRAZOLE 40 MG TABLET PO SCH (08:14)
[2018-10-29] MEDS: GABAPENTIN 300 MG CAP PO SCH (08:14)
[2018-10-29] MEDS: APIXABAN 5 MG TAB PO SCH (08:14)
[2018-10-29] MEDS: INSULIN DETEMIR 100 UNIT/ML 10 ML VIAL SQ SCH (08:15)
[2018-10-29 08:23] LABS: ALT 33 U/L (21-72); AST 23 U/L (17-59); Albumin 3.2 g/dL (3.5-5.0); Alkaline Phosphatase 48 U/L (38-126); Anion Gap 7 mmol/L; Blood Urea Nitrogen 16 mg/dL (9-20); Calcium 8.4 mg/dL (8.4-10.2); Carbon Dioxide 29 mmol/L (22-30); Chloride 103 mmol/L (98-107); Glucose 107 mg/dL (74-99); Potassium 3.5 mmol/L (3.5-5.1); Sodium 139 mmol/L (137-145); Total Bilirubin 2.4 mg/dL (0.2-1.3); Total Protein 5.7 g/dL (6.3-8.2)
--- NOTE | 2018-10-29 11:19 | P.PN ---
Subjective Progress Note Date: 10/29/18 This is a 42-year-old gentleman patient of Dr. Gibson. 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 He is admitted this time for this fourth cycle on R- EPOCH. Internal medicine team is consulted for medical management patient assessed bedside denies any headache or chest pain or breathing difficulty. He does document improvement in dysphagia since the chemotherapy has been initiated. Diabetes is managed at home with a metformin and glimepiride. Vitals assess suggest a temp of 97.5 saturating well on room air and blood pressure 124/78. Labs suggestive leukocytosis of 16.6 secondary to prednisone, creatinine 0.6 glucose ranging from 184-269. 10/26 patient examined bedside denies any shortness breath or chest pain or abdominal pain or change in bowel habits no lower extremity edema. Vital assessed temp 97.5 pulse 70 blood pressure 151/89 well controlled on Lantus and sliding scale ranging from 199-220. We'll increase Lantus to 15 twice a day continue sliding scale. Plan to complete cycle 4 and follow up with Dr. Mar as outpatient 10/27: She is resting comfortably in bed. He denies any shortness of breath, chest pain, abdominal pain, or change in bowel habits. Denies any lower extremity edema. Vital signs assessed temperature 97.7 orally, pulse rate 51, respiration 18, blood pressure 138/85, 95% saturation on room air. Lantus was increased to 15 units twice a day including a sliding scale blood sugar this morning was 174. Plan is to complete cycle for a follow up with Dr. Cervantes as an outpatient. The cycle should be completed on Monday. 10/28: Patient is resting complained bed. He denies any shortness of breath, chest pain, abdominal pain, or change in bowel movements. Patient denies any lower extremity edema he also denies any upper extremity edema because of his past history of a DVT in the upper extremity. We did increase his Lantus to 20 units his blood sugar today was 147. He is on day 5 of his cycle. He will be finished by tomorrow where he'll have an echo prior to discharge. 10/29: Patient is anxious to go home. He is already dressed and about to leave. Patient denies any pain or discomfort. Patient denies fever. Blood sugars continue to be under control. Echo was completed. He will follow up with Dr. Cervantes an outpatient basis. ROS Constitutional: Denies chills, Denies fever, Denies lethargy, Denies malaise, Denies poor appetite, Denies weakness, Denies weight loss Eyes: denies decreased vision, denies diplopia, denies discharge, denies pain Cardiovascular: Denies chest pain, Denies decreased exercise tolerance, Denies edema, Denies high blood pressure, Denies irregular heart beat, Denies palpitations, Denies paroxysmal nocturnal dyspnea, Denies rapid heart beat, Denies shortness of breath Respiratory: Denies congestion, Denies cough, Denies cough with sputum, Denies dyspnea, Denies home oxygen, Denies wheezing Gastrointestinal: Denies abdominal pain, Denies change in bowel habits, Denies coffee ground emesis, Denies early satiety, Denies excessive gas, Denies heartburn, Denies hematemesis, Denies hematochezia, Denies loss of appetite, Denies nausea, Denies vomiting Musculoskeletal: Denies gait dysfunction, Denies limitation of motion, Denies morning stiffness, Denies muscle cramps Endocrine: Denies excessive sweating, Denies excessive thirst, Denies high blood sugars, Denies palpitations Hematologic/Lymphatic: Denies easy bruising, Denies lymphadenopathy Objective - Vital Signs Vital signs: Vital Signs Temp 97.5 F L 10/29/18 05:09 Pulse 78 10/29/18 05:09 Resp 18 10/29/18 05:09 BP 124/74 10/29/18 05:09 Pulse Ox 93 L 10/29/18 05:09 Intake & Output 10/28/18 10/29/18 10/29/18 18:59 06:59 18:59 Intake Total 1472.8 2220.125 Balance 1472.8 2220.125 Intake: Intake, IV Titration 1472.8 1820.125 Amount Cyclophosphamide 2,000 mg 250 In Sodium Chloride 0.9% 250 ml @ 700 mls/hr IV ONCE ONE Rx#:[id number] DOXOrubicin HCL 26 mg In 87.2 54.5 Sodium Chloride 0.9% 250 ml @ 10.958 mls/hr IV Q24H [facility] Rx#:[id number] Etoposide 130 mg In 168.8 105 Sodium Chloride 0.9% 500 ml 500 ml @ 21.104 mls/hr IV Q24H [facility] Rx#: [id number] Ondansetron 16 mg In 50 Sodium Chloride 0.9% 50 ml @ 100 mls/hr IVPB DAILY@1800 [facility] Rx#: [id number] Sodium Chloride 0.9% 1, 1200 1350 000 ml @ 150 mls/hr IV . Q6H40M [facility] Rx#:[id number] vinCRIStine SULFATE 1 mg 16.8 10.625 In Sodium Chloride 0.9% 50 ml @ 2.125 mls/hr IV Q24H [facility] Rx#:[id number] Oral 400 Other: Voiding Method Toilet Toilet Toilet # Voids 1 - Exam Gen: This is a 43-year-old male HEENT: Head is atraumatic, normocephalic. Pupils equal, round. Sclerae is anicteric. NECK: Supple. No JVD. No lymphadenopathy. No thyromegaly. LUNGS: Clear to auscultation. No wheezes or rhonchi. No intercostal retractions. HEART: Regular rate and rhythm. No murmur. ABDOMEN: Soft. Bowel sounds are present. No masses. No tenderness. EXTREMITIES: No pedal edema. No calf tenderness. NEUROLOGICAL: Patient is awake, alert and oriented x3. Cranial nerves 2 through 12 are grossly intact. - Labs CBC & Chem 7: 10/29/18 07:11 10/29/18 07:11 Labs: Abnormal Lab Results - Last 24 Hours (Table) 10/28/18 10/28/18 10/29/18 Range/Units 16:57 20:12 07:05 RBC (4.30-5.90) m/uL Hgb (13.0-17.5) gm/dL Hct (39.0-53.0) % RDW (11.5-15.5) % Plt Count (150-450) k/uL Lymphocytes # (1.0-4.8) k/uL Creatinine (0.66-1.25) mg/dL Glucose (74-99) mg/dL POC Glucose (mg/dL) 145 H 152 H 117 H (75-99) mg/dL Total Bilirubin (0.2-1.3) mg/dL Total Protein (6.3-8.2) g/dL Albumin (3.5-5.0) g/dL 10/29/18 10/29/18 Range/Units 07:11 07:11 RBC 4.17 L (4.30-5.90) m/uL Hgb 12.5 L (13.0-17.5) gm/dL Hct 36.3 L (39.0-53.0) % RDW 16.3 H (11.5-15.5) % Plt Count 145 L (150-450) k/uL Lymphocytes # 0.2 L (1.0-4.8) k/uL Creatinine 0.56 L (0.66-1.25) mg/dL Glucose 107 H (74-99) mg/dL POC Glucose (mg/dL) (75-99) mg/dL Total Bilirubin 2.4 H (0.2-1.3) mg/dL Total Protein 5.7 L (6.3-8.2) g/dL Albumin 3.2 L (3.5-5.0) g/dL Assessment and Plan Plan: 1 Primary Mediastinal high-grade large B-cell lymphoma on R-EPOCH therapy Cycle 4 of cycle [address]-guided biopsy at [facility] on 07/23/2018 positive for primary mediastinal B-cell lymphoma Monitor for pancytopenia, cystitis, worsening shortness of breath, blurry vision, hyperglycemia. Oncology managing the chemotherapy. Chemotherapy precautions to be followed. Echocardiogram was completed with cycle. #2 dysphagia secondary to compression of the esophagus by these mediastinal mass - resolved. monitor blood sugars. #3 left upper extremity DVT continue eliquis 5 mg twice a day #4 type 2 diabetes with labile blood sugars secondary to chemo sideeffects in the next few days. Continue metformin hold glimepiride . A1c 6.2 on 10/24 Watch for hypoglycemia glucose checked before meals and at bedtime, home blood sugar monitor Lantus increased to 20 units twice a day continue with sliding scale. #5 hyperlipidemia continue atorvastatin 20 mg by mouth at bedtime #6 hypertension continue amlodipine 10 mg by mouth daily #7 bipolar disorder continue Abilify 5 mg daily at bedtime #8 diabetes neuropathy continue gabapentin 300 mg 3 times a day #9 GI prophylaxis with Protonix 40 twice a day Discharge plan: Home today. Impression and plan of care have been directed as dictated by the signing physician. Rossy Quintanilla nurse practitioner acting as scribe for signing physician.
--- NOTE | 2018-10-29 14:38 | P.DS ---
Providers Date of admission: 10/24/18 08:07 Expected date of discharge: 10/29/18 Attending physician: Anand Cervantes Consults: 10/24/18 18:06 Consult Physician Routine Consulting Provider: Jinny Boyer Consult Reason/Comments: medical management Do you want consulting provider notified?: Yes, Notify in am Primary care physician: Anand [facility] Course: Timed chemotherapy cucle 4 DA REPOCH Pertinent Studies: Echocardiogram to evaluate EF on chemo Procedures: Echo Patient Condition at Discharge: Good Plan - Discharge Summary New Discharge Prescriptions: New Apixaban [Eliquis] 5 mg PO BID tab [id number] [id number] [Excedrin] 2 each PO Q6HR PRN tab PRN Reason: Headache Insulin Aspart [NovoLOG (formulary)] 0 unit SQ ACHS vial Insulin Detemir [Levemir] 20 unit SQ BID syr Pantoprazole [Protonix] 40 mg PO AC-BID tablet.dr Elizabeth metFORMIN HCL [Glucophage] 1,000 mg PO BID Gabapentin [Neurontin] 300 mg PO TID amLODIPine [Norvasc] 10 mg PO HS Glimepiride [Amaryl] 2 mg PO DAILY Atorvastatin [Lipitor] 20 mg PO HS ARIPiprazole [Abilify] 5 mg PO HS Prochlorperazine [Compazine] 10 mg PO Q6HR PRN #45 tab PRN Reason: Nausea And Vomiting Discharge Medication List ARIPiprazole [Abilify] 5 mg PO HS 08/01/18 [History] Atorvastatin [Lipitor] 20 mg PO HS 08/01/18 [History] Gabapentin [Neurontin] 300 mg PO TID 08/01/18 [History] Glimepiride [Amaryl] 2 mg PO DAILY 08/01/18 [History] amLODIPine [Norvasc] 10 mg PO HS 08/01/18 [History] metFORMIN HCL [Glucophage] 1,000 mg PO BID 08/01/18 [History] Prochlorperazine [Compazine] 10 mg PO Q6HR PRN #45 tab 08/27/18 [Rx] Apixaban [Eliquis] 5 mg PO BID tab 10/28/18 [Rx] Tzpyfve-Erox-Wuol [id number] [Excedrin] 2 each PO Q6HR PRN tab 10/28/18 [Rx] Insulin Aspart [NovoLOG (formulary)] 0 unit SQ ACHS vial 10/28/18 [Rx] Insulin Detemir [Levemir] 20 unit SQ BID syr 10/28/18 [Rx] Pantoprazole [Protonix] 40 mg PO AC-BID tablet. 10/28/18 [Rx] Follow up Appointment(s)/Referral(s): Anand Cervantes MD [Primary Care Provider] - 10/31/18 9:00 am Patient Instructions/Handouts: Non-Hodgkin Lymphoma (DC), Intravenous Chemotherapy (DC) Activity/Diet/Wound Care/Special Instructions: Normal Diet Discharge Disposition: HOME SELF-CARE
--- NOTE | 2018-10-29 15:31 | ECHOF ---
Referral Reason:Evaluation Of EF on Chemotherapy MEASUREMENTS -------- HEIGHT: 188.0 cm WEIGHT: 143.3 kg BP: 124/74 IVSd: 1.3 cm (0.6 - 1.1) LVIDd: 5.5 cm (3.9 - 5.3) LVPWd: 1.6 cm (0.6 - 1.1) IVSs: 1.7 cm LVIDs: 3.5 cm LVPWs: 1.6 cm LA Diam: 4.1 cm (2.7 - 3.8) RVIDd: 3.5 cm (< 3.3) LAESV Index (A-L): 28.95 ml/m EPSS: 0.2 cm MV E Anam: 0.89 m/s MV DecT: 300 ms MV A Anam: 0.92 m/s MV E/A Ratio: 0.97 AV maxP.52 mmHg AV meanP.93 mmHg RAP: 5.00 mmHg RVSP: 26.32 mmHg MV EF SLOPE: 107.94 mm/s (70 - 150) MV EXCURSION: 23.90 mm (> 18.000) FINDINGS -------- Sinus rhythm. This was a technically adequate study. The left ventricular size is normal. There is mild concentric left ventricular hypertrophy. Overa ll left ventricular systolic function is normal with, an EF between 55 - 60 %. The right ventricle is normal in size. The left atrium is mildly dilated. LA is midly dilated 29-33ml/m2. The right atrial size is normal. The aortic valve was not well visualized. There is mild aortic stenosis present. Peak/mean gradie nt across the Aortic Valve is 24.52mmHg / 12.93mmHg. AOV is possible Bicuspid. Mild mitral annular calcification present. Mild mitral regurgitation is present. Mild tricuspid regurgitation present. There is no evidence of pulmonary hypertension. The right v entricular systolic pressure, as measured by Doppler, is 26.32mmHg. The pulmonic valve was not well visualized. The aortic root size is normal. There is a trivial pericardial effusion present. CONCLUSIONS -------- 1. The left ventricular size is normal. 2. There is mild concentric left ventricular hypertrophy. 3. Overall left ventricular systolic function is normal with, an EF between 55 - 60 %. 4. The right ventricle is normal in size. 5. The left atrium is mildly dilated. 6. LA is midly dilated 29-33ml/m2. 7. The right atrial size is normal. 8. The aortic valve was not well visualized. 9. There is mild aortic stenosis present. 10. Peak/mean gradient across the Aortic Valve is 24.52mmHg / 12.93mmHg. 11. AOV is possible Bicuspid. 12. Mild mitral annular calcification present. 13. Mild mitral regurgitation is present. 14. Mild tricuspid regurgitation present. 15. There is no evidence of pulmonary hypertension. 16. The right ventricular systolic pressure, as measured by Doppler, is 26.32mmHg. 17. The pulmonic valve was not well visualized. 18. The aortic root size is normal. 19. There is a trivial pericardial effusion present. INFRASTRUCTURE DESIGN ENGINEER: Julisa Smith RDCS
== END 2018-10-29 09:45 | disposition home or self-care (01) | DRG 847 ==
LOC: 3NMEDONC 08:07
PROVIDERS: ADMIT Internal Medicine Hematology & Oncology; ATTEND Internal Medicine Hematology & Oncology
DX: Z51.11 Encounter for antineoplastic chemotherapy (principal); C85.22 Mediastinal (thymic) large B-cell lymphoma, intrathoracic lymph nodes; I82.622 Acute embolism and thrombosis of deep veins of left upper extremity; E11.40 Type 2 diabetes mellitus with diabetic neuropathy, unspecified; K22.2 Esophageal obstruction; R13.10 Dysphagia, unspecified; I10 Essential (primary) hypertension; E78.5 Hyperlipidemia, unspecified; F31.9 Bipolar disorder, unspecified; M19.90 Unspecified osteoarthritis, unspecified site; G89.29 Other chronic pain; M54.5 Low back pain; Z79.84 Long term (current) use of oral hypoglycemic drugs; Z79.899 Other long term (current) drug therapy; Z86.14 Personal history of Methicillin resistant Staphylococcus aureus infection; Z87.81 Personal history of (healed) traumatic fracture; Z87.891 Personal history of nicotine dependence; Z86.718 Personal history of other venous thrombosis and embolism; Z87.01 Personal history of pneumonia (recurrent); Z83.3 Family history of diabetes mellitus; Z82.49 Family history of ischemic heart disease and other diseases of the circulatory system; Z82.3 Family history of stroke; Z83.49 Family history of other endocrine, nutritional and metabolic diseases
CPT/HCPCS: 80053; 83036; 84550; 85025; 93306

== ENCOUNTER 2018-11-20 08:19 | Inpatient (IN) | payer OTHER ==
[2018-11-20 08:43] VITALS: RESP 16
[2018-11-20] MEDS ORDERED: ONDANSETRON 4 MG/2 ML VIAL IVP PRN (09:00)
[2018-11-20] MEDS ORDERED: SODIUM CHLORIDE 0.9% 1,000 ML IV SCH (09:00)
[2018-11-20] MEDS ORDERED: predniSONE 10 MG TAB PO SCH (09:00)
[2018-11-20] MEDS ORDERED: predniSONE 50 MG TAB PO SCH (09:00)
[2018-11-20 09:31] LABS: Anisocytosis Slight; HCT 37.2 % (39.0-53.0); HGB 12.7 gm/dL (13.0-17.5); MCH 30.6 pg (25.0-35.0); MCHC 34.2 g/dL (31.0-37.0); MCV 89.5 fL (80.0-100.0); Mean Platelet Volume 7.3; Platelet Count 220 k/uL (150-450); RBC 4.15 m/uL (4.30-5.90); RDW 16.5 % (11.5-15.5); WBC 3.3 k/uL (3.8-10.6)
[2018-11-20 09:38] LABS: ALT 41 U/L (21-72); AST 22 U/L (17-59); Alkaline Phosphatase 66 U/L (38-126); Anion Gap 5 mmol/L; Blood Urea Nitrogen 9 mg/dL (9-20); Calcium 9.3 mg/dL (8.4-10.2); Carbon Dioxide 27 mmol/L (22-30); Chloride 108 mmol/L (98-107); Glucose 83 mg/dL (74-99); Potassium 4.1 mmol/L (3.5-5.1); Sodium 140 mmol/L (137-145); Total Bilirubin 0.8 mg/dL (0.2-1.3); Total Protein 6.4 g/dL (6.3-8.2); Uric Acid 6.1 mg/dL (3.5-8.5)
[2018-11-20 10:15] LABS: Basophils # (M) 0.07 k/uL (0-0.2); Eosinophils # (M) 0.03 k/uL (0-0.7); Monocytes # (M) 0.83 k/uL (0-1.0); Neutrophils # (M) 1.88 k/uL (1.3-7.7); Neutrophils % (M) 57 %; Nucleated Red Blood Cells 0 /100 WBC (0-0); Total Cells Counted 100
[2018-11-20 11:05] LABS: Glucose,Whole Blood 90 mg/dL (75-99)
[2018-11-20] MEDS ORDERED: PROCHLORPERAZINE 10 MG TAB PO PRN (11:20)
[2018-11-20] MEDS ORDERED: HYDROcodone/APAP 7.5-325MG 1 EACH TAB PO PRN (11:20)
--- NOTE | 2018-11-20 11:49 | P.HPIM ---
History of Present Illness H&P Date: 11/20/18 Chief Complaint: timed chemotherapy DLBCL This is a very nice patient who presented to [facility],on 07/20/2018 with chest pain,had a CXR which revealed mediastinal mass,CT scan of chest on 07/20/2018 revealed large anterior mediastinal mass,8.6x5.6 cm,abuts and partially displaced ascenting aorta,,right paratracheal nodes up to 2.5cm. He was transferred to [facility],on 07/22/2018,his CBC and CMP were unremarkable,serum AFP,HCG were normal,uric acid was 7.2,LDH was 705 (upper limit of normal was 250).Testicular ultrasound on 07/23/[address] scan of neck on 07/23/2018 revealed bilateral supraclavicular nodes that are visible but not enlarged,CT scan of abdomen/pelvis was negative. He had an echocardiogram at [facility] on 07/23/2018 which revealed normal EF of 69%. 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 He developed swelling in LUE at [facility],doppler confirmed DVT and was started on Lovenox. Attempted staging PET scan,however,he could not have it due to significant dyspnea. On 07/31/2018,he was admitted for cycle#1 of DA-R-EPOCH regimen, He tolerated the first cycle well,the swelling in LUE resolved,no more dysphagea,no more dyspnea. He has tolerated chemotherapy great this far with the exception of adding Neulasta after cycle 1 for neutropenia. He now presents for inpatient chemotherapy cycle number 5 of R-EPOCH. No complaint He had echo midway which was no change in ef Review of Systems a 14 point review of systems assessed and completed and all negative except HPI. Past Medical History Past Medical History: Cancer, Diabetes Mellitus, Deep Vein Thrombosis (DVT), Hyperlipidemia, Hypertension, Osteoarthritis (OA), Pneumonia Additional Past Medical History / Comment(s): Pt states he started noticing difficulty with swallowing June,, went to [facility] on 07/20/18 d/t cough and chest pain, had chest xray and cat scan that showed mediastinal mass and was sent on 07/21/18 to [facility] where he had mediastinal mass biopsy. He states he has also had a L arm DVT. Other hx: Chronic low back pain, NIDDM type II, pt states dysphagia has resolved, "walking" pneumonia as a teen. History of Any Multi-Drug Resistant Organisms: MRSA Date of last positivie culture/infection: 2013 per pt MDRO Source:: L leg Past Surgical History: Adenoidectomy, Orthopedic Surgery, Tonsillectomy Additional Past Surgical History / Comment(s): PICC lines with current one placed 08/23/18, 07/22/18 mediastinal mass biopsy at [facility], R hand fracure with surgery/pins since removed. 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, Medications and Allergies Home Medications Medication Instructions Recorded Confirmed Type Atorvastatin [Lipitor] 20 mg PO HS 08/01/18 11/20/18 History Gabapentin [Neurontin] 300 mg PO TID 08/01/18 11/20/18 History Glimepiride [Amaryl] 2 mg PO DAILY 08/01/18 11/20/18 History amLODIPine [Norvasc] 10 mg PO HS 08/01/18 11/20/18 History metFORMIN HCL [Glucophage] 1,000 mg PO BID 08/01/18 11/20/18 History Prochlorperazine [Compazine] 10 mg PO Q6HR PRN #45 tab 08/27/18 11/20/18 Rx Allopurinol [Zyloprim] 300 mg PO DAILY 11/20/18 11/20/18 History HYDROcodone/APAP 7.5-325MG [[place] 1 tab PO BID PRN 11/20/18 11/20/18 History 7.5-325] Allergies Allergy/AdvReac Type Severity Reaction Status Date / Time No Known Allergies Allergy Verified 11/20/18 09:49 Physical Exam Vitals: Vital Signs Temp Pulse Resp BP Pulse Ox 11/20/18 08:43 97.4 F L 97 16 124/92 95 Intake and Output 11/19/18 11/20/18 11/20/18 22:59 06:59 14:59 Other: Weight 141 kg Constitutional General appearance: cooperative, no acute distress, obese - EENT Eyes: anicteric sclerae, EOMI, normal appearance ENT: hearing grossly normal, normal oropharynx - Neck Neck: no lymphadenopathy - Respiratory Respiratory: bilateral: CTA - Cardiovascular Rhythm: regular Heart sounds: normal: S1, S2 Abnormal Heart Sounds: no systolic murmur, no diastolic murmur, no rub, no S3 Gallop, no S4 Gallop, no click, no other leg Peripheral Edema: bilateral: None - Gastrointestinal General gastrointestinal: no absent bowel sounds, no decreased bowel sounds, no distended, no hepatomegaly, no hyperactive bowel sounds, normal bowel sounds, no organomegaly, no rigid, no scaphoid, soft, no splenomegaly, no tenderness, no umbilical hernia, no ventral hernia - Integumentary Integumentary: normal - Neurologic Neurologic: CNII-XII intact - Musculoskeletal Musculoskeletal: strength equal bilaterally - Psychiatric Psychiatric: A&O x's 3, appropriate affect, intact judgment & insight Results CBC & Chem 7: 11/20/18 09:10 11/20/18 09:10 Labs: Abnormal Lab Results - Last 24 Hours (Table) 11/20/18 11/20/18 Range/Units 09:10 09:10 WBC 3.3 L (3.8-10.6) k/uL RBC 4.15 L (4.30-5.90) m/uL Hgb 12.7 L (13.0-17.5) gm/dL Hct 37.2 L (39.0-53.0) % RDW 16.5 H (11.5-15.5) % Lymphocytes # (Manual) 0.50 L (1.0-4.8) k/uL Chloride 108 H (98-107) mmol/L Creatinine 0.56 L (0.66-1.25) mg/dL Thrombosis Risk Factor Assmnt - DVT/VTE Prophylaxis DVT/VTE Prophylaxis: Pharmacologic Prophylaxis ordered - Choose All That Apply Any of the Below Risk Factors Present?: Yes Each Factor Represents 1 point: Age 41-60 years, Obesity (BMI >25) Other Risk Factors: Yes Each Risk Factor Represents 2 Points: Malignancy Each Risk Factor Represents 3 Points: History of DVT/PE Other congenital or acquired thrombophilia - If yes, enter type in comment: No Thrombosis Risk Factor Assessment Total Risk Factor Score: 7 Thrombosis Risk Factor Assessment Level: High Risk Assessment and Plan Plan: Thrombosis Risk Factor Assmnt - DVT/VTE Prophylaxis DVT/VTE Prophylaxis: Pharmacologic Prophylaxis ordered - Choose All That Apply Any of the Below Risk Factors Present?: Yes Each Factor Represents 1 point: Age 41-60 years, Obesity (BMI >25) Other Risk Factors: Yes Each Risk Factor Represents 2 Points: Malignancy Other congenital or acquired thrombophilia - If yes, enter type in comment: No Thrombosis Risk Factor Assessment Total Risk Factor Score: 4 Thrombosis Risk Factor Assessment Level: Moderate Risk Assessment and Plan Plan: Assessment and Recommendations: 1. High Grade Large B Cell Lymphoma - 8.6X5.7CM Anterior mediastinal mass with bulky above diaphragm disease. - Cycle Five of Chemotherapy to begin today DOse [id number] - He will follow-up in office after chemotherapy for neulasta. - He did become neutropenic after cycle one neulasta has been placed and appointment in office 24 hours after chemotherapy (likely next week Monday) will be made for him. - CBC, CMP, Daily 2. LUE DVT: - Continue Eliquis BID through remainder of treatment per Dr. Cervantes 3. Diabetes Mellitus: - Will ask MM to assist in managing medically during hospitalization for known Diabetes and high dose steroids. PPI Prophylaxis and VTE
[2018-11-20] MEDS ORDERED: FAMOTIDINE 20 MG/2 ML VIAL IVP SCH (12:00)
[2018-11-20] MEDS ORDERED: methylPREDNISolone SOD SUCCI 125 MG/2 ML VIAL IVP ONE (12:00)
[2018-11-20] MEDS ORDERED: diphenhydrAMINE 50 MG/ML 1 ML VIAL IVP ONE (12:00)
[2018-11-20] MEDS ORDERED: ONDANSETRON 16 MG in SODIUM CHLORIDE 0.9% 50 ML IVPB SCH (12:00)
[2018-11-20] MEDS ORDERED: ACETAMINOPHEN TAB 325 MG TAB PO ONE (12:00)
[2018-11-20 12:01] VITALS: BP 132/77; PULSE 84; TEMP 97.8
[2018-11-20] MEDS ORDERED: INSULIN ASPART 100 UNIT/ML 1 ML 10 ML VIAL SQ SCH (12:30)
--- NOTE | 2018-11-20 12:56 | P.CONS ---
History of Present Illness - Reason for Consult Consult date: 11/20/18 Medical management - History of Present Illness This is a 43-year-old gentleman patient of Dr. Gibson. 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 He is admitted this time for this fifth of 6 cycle on R- EPOCH. Internal medicine team is consulted for medical management. Patient denies having any chest pain, shortness of breath. No abdominal pain, no diarrhea, no blood in his stools. He denies any lightheadedness or dizziness, no dysuria. He states his blood sugars at home have been running between 101 20 daily checks of 1 or 2 times per week. He continues to smoke one and half packs per day but does not wish for nicotine patch. Review of Systems All systems: negative Constitutional: Denies anorexia, Denies chills, Denies fatigue, Denies fever, Denies lethargy, Denies malaise, Denies poor appetite, Denies weakness, Denies weight loss Eyes: denies blurred vision, denies pain Ears, nose, mouth and throat: Denies dental pain, Denies dysphagia, Denies headache, Denies mouth pain, Denies sore throat, Denies vertigo Cardiovascular: Denies chest pain, Denies decreased exercise tolerance, Denies dyspnea on exertion, Denies edema, Denies leg edema, Denies lightheadedness, Denies shortness of breath, Denies syncope Respiratory: Denies cough, Denies cough with sputum, Denies dyspnea, Denies excessive sputum, Denies hemoptysis, Denies home oxygen, Denies wheezing Gastrointestinal: Denies abdominal pain, Denies diarrhea, Denies loss of appetite, Denies melena, Denies nausea, Denies vomiting Genitourinary: Denies dysuria Musculoskeletal: Denies frequent falls, Denies gait dysfunction, Denies muscle weakness, Denies myalgias Integumentary: Denies pruritus, Denies rash, Denies wounds Neurological: Denies aphasia, Denies change in mentation, Denies confusion, Denies gait dysfunction, Denies headaches, Denies numbness, Denies seizures, Denies weakness Psychiatric: Denies anxiety, Denies depression Endocrine: Denies fatigue, Denies weight change Past Medical History Past Medical History: Cancer, Diabetes Mellitus, Deep Vein Thrombosis (DVT), Hyperlipidemia, Hypertension, Osteoarthritis (OA), Pneumonia Additional Past Medical History / Comment(s): Pt states he started noticing difficulty with swallowing June,, went to [facility] on 07/20/18 d/t cough and chest pain, had chest xray and cat scan that showed mediastinal mass and was sent on 07/21/18 to [facility] where he had mediastinal mass biopsy. He states he has also had a L arm DVT. Other hx: Chronic low back pain, NIDDM type II, pt states dysphagia has resolved, "walking" pneumonia as a teen. History of Any Multi-Drug Resistant Organisms: MRSA Year Discovered:: 2013 per pt MDRO Source:: L leg Past Surgical History: Adenoidectomy, Orthopedic Surgery, Tonsillectomy Additional Past Surgical History / Comment(s): PICC lines with current one placed 08/23/18, 07/22/18 mediastinal mass biopsy at [facility], R hand fracure with surgery/pins since removed. Past Anesthesia/Blood Transfusion Reactions: No Reported Reaction Smoking Status: Current every day smoker Additional Past Alcohol Use History / Comment(s): Patient is an active smoker at one and half packs per day for more than 30 years. - Past Family History Mother Family Medical History: CVA/TIA, Diabetes Mellitus, Hyperlipidemia, Hypertension Father Family Medical History: Diabetes Mellitus Additional Family Medical History / Comment(s): Unmarried, caregiver for his mother, Medications and Allergies Home Medications Medication Instructions Recorded Confirmed Type Atorvastatin [Lipitor] 20 mg PO HS 08/01/18 11/20/18 History Gabapentin [Neurontin] 300 mg PO TID 08/01/18 11/20/18 History Glimepiride [Amaryl] 2 mg PO DAILY 08/01/18 11/20/18 History amLODIPine [Norvasc] 10 mg PO HS 08/01/18 11/20/18 History metFORMIN HCL [Glucophage] 1,000 mg PO BID 08/01/18 11/20/18 History Prochlorperazine [Compazine] 10 mg PO Q6HR PRN #45 tab 08/27/18 11/20/18 Rx Allopurinol [Zyloprim] 300 mg PO DAILY 11/20/18 11/20/18 History HYDROcodone/APAP 7.5-325MG [Peak 1 tab PO BID PRN 11/20/18 11/20/18 History 7.5-325] Allergies Allergy/AdvReac Type Severity Reaction Status Date / Time No Known Allergies Allergy Verified 11/20/18 09:49 Physical Exam Vitals: Vital Signs Temp Pulse Resp BP Pulse Ox 11/20/18 08:43 97.4 F L 97 16 124/92 95 Intake and Output 11/19/18 11/20/18 11/20/18 22:59 06:59 14:59 Other: Weight 141 kg General appearance: cooperative, no acute distress, obese - EENT Eyes: anicteric sclerae, PERRLA, normal appearance ENT: hearing grossly normal - Neck Neck: no lymphadenopathy, normal ROM, no other, no rigidity, no stridor, no thyromegaly - Respiratory Respiratory: bilateral: CTA, negative: diminished, dullness, rales, rhonchi - Cardiovascular Rhythm: regular Heart sounds: normal: S1, S2 Abnormal Heart Sounds: no systolic murmur, no diastolic murmur, no rub, no S3 Gallop, no S4 Gallop, no click, no other - Gastrointestinal General gastrointestinal: normal bowel sounds, soft - Integumentary Integumentary: no rash - Neurologic Neurologic: CNII-XII intact - Musculoskeletal Musculoskeletal: gait normal, strength equal bilaterally - Psychiatric Psychiatric: A&O x's 3, appropriate affect Results CBC & Chem 7: 11/20/18 09:10 11/20/18 09:10 Labs: Abnormal Lab Results - Last 24 Hours (Table) 11/20/18 11/20/18 Range/Units 09:10 09:10 WBC 3.3 L (3.8-10.6) k/uL RBC 4.15 L (4.30-5.90) m/uL Hgb 12.7 L (13.0-17.5) gm/dL Hct 37.2 L (39.0-53.0) % RDW 16.5 H (11.5-15.5) % Lymphocytes # (Manual) 0.50 L (1.0-4.8) k/uL Chloride 108 H (98-107) mmol/L Creatinine 0.56 L (0.66-1.25) mg/dL Assessment and Plan Plan: 1. Primary mediastinal high-grade large B-cell lymphoma on R-EPOCH therapy, Cycle [address]-guided biopsy at [facility] on 07/23/2018 positive for primary mediastinal B-cell lymphoma. Monitor for pancytopenia, cystitis, worsening shortness of breath, blurry vision, hyperglycemia. Oncology managing the chemotherapy. Chemotherapy precautions to be followed. 2. Dysphagia secondary to compression of the esophagus by these mediastinal mass - resolved. 3. Left upper extremity DVT. Continue eliquis 5 mg twice a day 4. Type 2 diabetes. Patient will be resumed on glimepiride 2 mg daily, metformin 1000 mg twice daily and placed on NovoLog scale before meals and at bedtime. A1c 6.2 on 10/24. Monitor for hyperglycemia as patient is started on steroids with chemotherapy. Patient may require long-acting insulin. 5. Hyperlipidemia. Continue atorvastatin 20 mg by mouth at bedtime. 6. Hypertension. Continue amlodipine 10 mg by mouth daily 7. Bipolar disorder. Continue Abilify 5 mg daily at bedtime 8. 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 Continue gabapentin 300 mg 3 times a day. 9. GI prophylaxis with Protonix 40 twice a day Discharge plan: Return home Thank you for the consult. We will be happy to assist in patient's medical needed while the patient is in the hospital. Impression and plan of care have been directed as dictated by the signing physician. Ashley Hernandez nurse practitioner acting as scribe for signing physician.
[2018-11-20] MEDS ORDERED: SALT AND SODA MOUTHWASH 1,000 ML PO SCH (13:00)
[2018-11-20] MEDS ORDERED: riTUXimab 1,000 MG in SODIUM CHLORIDE 0.9% 500 ML 500 ML IV NR (13:00)
[2018-11-20] MEDS ORDERED: GABAPENTIN 300 MG CAP PO SCH (16:00)
[2018-11-20] MEDS ORDERED: metFORMIN 500 MG TAB PO SCH (17:30)
[2018-11-20] MEDS ORDERED: DOXORUBICIN HCL IV SCH (21:00)
[2018-11-20] MEDS ORDERED: ATORVASTATIN 20 MG TAB PO SCH (21:00)
[2018-11-20] MEDS ORDERED: ETOPOSIDE IV SCH (21:00)
[2018-11-20] MEDS ORDERED: APIXABAN 5 MG TAB PO SCH (21:00)
[2018-11-20] MEDS ORDERED: SODIUM CHLORIDE 0.9% IV SCH ×2 (21:00)
[2018-11-20] MEDS ORDERED: amLODIPine 10 MG TAB PO SCH (21:00)
[2018-11-20] MEDS ORDERED: vinCRIStine SULFATE 1 MG in SODIUM CHLORIDE 0.9% 50 ML IV SCH (21:00)
[2018-11-21] MEDS ORDERED: PANTOPRAZOLE 40 MG TABLET PO SCH (07:30)
[2018-11-21] MEDS ORDERED: GLIMEPIRIDE 2 MG TAB PO SCH (09:00)
[2018-11-21] MEDS ORDERED: ALLOPURINOL 300 MG TAB PO SCH (09:00)
[2018-11-24] MEDS ORDERED: SODIUM CHLORIDE 0.9% IV ONE (21:00)
[2018-11-24] MEDS ORDERED: CYCLOPHOSPHAMIDE IV ONE (21:00)
== END 2018-11-20 15:45 | disposition left against medical advice (07) | DRG 847 ==
LOC: 3NMEDONC 08:19
PROVIDERS: ADMIT Internal Medicine Hematology & Oncology; ATTEND Internal Medicine Hematology & Oncology
DX: Z51.11 Encounter for antineoplastic chemotherapy (principal); C83.32 Diffuse large B-cell lymphoma, intrathoracic lymph nodes; E78.5 Hyperlipidemia, unspecified; F17.210 Nicotine dependence, cigarettes, uncomplicated; I10 Essential (primary) hypertension; E66.9 Obesity, unspecified; G89.29 Other chronic pain; M19.90 Unspecified osteoarthritis, unspecified site; M54.5 Low back pain; E11.40 Type 2 diabetes mellitus with diabetic neuropathy, unspecified; F31.9 Bipolar disorder, unspecified; Z68.39 Body mass index [BMI] 39.0-39.9, adult; Z86.718 Personal history of other venous thrombosis and embolism; Z87.01 Personal history of pneumonia (recurrent); Z79.01 Long term (current) use of anticoagulants; Z79.84 Long term (current) use of oral hypoglycemic drugs; Z79.899 Other long term (current) drug therapy; Z82.49 Family history of ischemic heart disease and other diseases of the circulatory system; Z83.3 Family history of diabetes mellitus; Z82.3 Family history of stroke
CPT/HCPCS: 80053; 84550; 85025

== ENCOUNTER → 2019-03-16 | Outpatient (CLI) | payer OTHER ==
--- NOTE | 2019-03-18 14:35 | PE ---
Nuclear medicine PET/CT HISTORY: Lymphoma, subsequent Patient received 11.3 mCi F-18 FDG intravenously in delayed scanning was performed from the skull bas e to the mid thighs. Localization and attenuation correction CT scan was performed. Correlation to prior nuclear medicine PET/CT 09/29/2018 Neck and chest: There is no cervical, supraclavicular, mediastinal, axillary, or hilar adenopathy shelby dent. No suspicious hypermetabolic uptake. Ascending aorta is 4.8 cm. There are calcifications near t he aortic root. The heart is enlarged. There is no pleural or pericardial effusion. Abdomen: no retroperitoneal adenopathy. No ascites. No suspicious hypermetabolic uptake. Spleen is sanaz rderline enlarged. There is a left inguinal hernia containing fat. Urinary bladder is nondistended. N o pelvic adenopathy. Osseous structures: There is facet arthropathy change in the lower lumbar spine. The marrow signal is normal lies in the interval within the skeleton. IMPRESSION: No suspicious hypermetabolic uptake. Cardiomegaly and aortic aneurysm. Splenomegaly is sanaz rderline.
== END | disposition home or self-care (01) ==
LOC: RADPETMAIN 10:23
PROVIDERS: ATTEND Internal Medicine Hematology & Oncology
DX: I71.2 Thoracic aortic aneurysm, without rupture (principal); I51.7 Cardiomegaly; C85.22 Mediastinal (thymic) large B-cell lymphoma, intrathoracic lymph nodes
CPT/HCPCS: 78815; A9552

== ENCOUNTER 2022-07-16 09:38 | Inpatient (IN) | payer MEDICAID, OTHER ==
[2022-07-16 10:33] LABS: Glucose,Whole Blood 113 mg/dL (70-110)
[2022-07-16 10:59] LABS: Cocaine Screen,Urine Not Detected (NotDetected); Opiate Screen,Urine Not Detected (NotDetected); Phencyclidine Screen,Urine Not Detected (NotDetected); Urn Cannabinoid Scrn Detected (NotDetected)
[2022-07-16 11:00] LABS: Amphetamine Screen,Urine Not Detected (NotDetected); Barbiturate Screen,Urine Not Detected (NotDetected); Benzodiazepines Screen,Urine Not Detected (NotDetected); Methadone Screen, Urine Not Detected (NotDetected); Oxycodone Screen, Urine Not Detected (NotDetected); Tricyclic Antidepressant,Urine Not Detected (NotDetected)
--- NOTE | 2022-07-16 12:57 | ED ---
General Adult HPI - General Chief complaint: Psychiatric Symptoms Stated complaint: mental health Time Seen by Provider: 07/16/22 09:47 Source: patient, RN notes reviewed, old records reviewed Mode of arrival: ambulatory Limitations: no limitations - History of Present Illness Initial comments: Patient is a 46-year-old male with past medical history remarkable for depression, cancer, hypertension who presents emergency Department complaining of worsening depression as well as worsening suicidal ideations with the last week. States that every time he sees a big truck, was to jump in front of it. Willingly brought himself in. Does have a history of suicide attempts including overdose as well as cutting himself a glass when he was younger. Denies any recent attempts. States he has been not quite with his medications. Denies any homicidal ideations, attempts, plans. Denies any suicidal attempts this time. Denies any visual or auditory hallucinations. Presents for evaluation by psychiatry. Has no chest pain, shortness breath, abdominal pain, nausea, vomiting. Denies any fevers, chills, cough. - Related Data Home Medications Medication Instructions Recorded Confirmed No Known Home Medications 07/16/22 07/16/22 Allergies Allergy/AdvReac Type Severity Reaction Status Date / Time No Known Allergies Allergy Verified 07/16/22 22:48 Review of Systems ROS Statement: Those systems with pertinent positive or pertinent negative responses have been documented in the HPI. Review of Systems: CONST: Denies fever EYES: Denies blurry vision ENT: Denies nasal congestion C/V: Denies Chest pain RESP: Denies shortness of breath GI: Denies abdominal pain : Denies dysuria SKIN: Denies rash. MSK: Denies joint pain. NEURO: Denies headache PSYCH: Denies homicidal ideations/plans/attempts. Denies visual or auditory hallucinations. He endorses suicidal ideations, plans. Denies attempts. ROS Other: All systems not noted in ROS Statement are negative. Past Medical History Past Medical History: Cancer, Diabetes Mellitus, Deep Vein Thrombosis (DVT), Hyperlipidemia, Hypertension, Osteoarthritis (OA), Pneumonia Additional Past Medical History / Comment(s): Pt states he started noticing difficulty with swallowing June,, went to [facility] on 07/20/18 d/t cough and chest pain, had chest xray and cat scan that showed mediastinal mass and was sent on 07/21/18 to [facility] where he had mediastinal mass biopsy. He states he has also had a L arm DVT. Other hx: Chronic low back pain, NIDDM type II, pt states dysphagia has resolved, "walking" pneumonia as a teen. History of Any Multi-Drug Resistant Organisms: MRSA Date of last positivie culture/infection: 2013 per pt MDRO Source:: L leg Past Surgical History: Adenoidectomy, Orthopedic Surgery, Tonsillectomy Additional Past Surgical History / Comment(s): PICC lines with current one placed 08/23/18, 07/22/18 mediastinal mass biopsy at [facility], R hand fracure with surgery/pins since removed. Past Anesthesia/Blood Transfusion Reactions: No Reported Reaction Past Psychological History: Depression Smoking Status: Current some day smoker Past Alcohol Use History: None Reported Past Drug Use History: Marijuana - Past Family History Mother Family Medical History: CVA/TIA, Diabetes Mellitus, Hyperlipidemia, Hypertension Father Family Medical History: Diabetes Mellitus Additional Family Medical History / Comment(s): Unmarried, caregiver for his mother, General Exam - General Exam Comments Initial Comments: General: Appears in no acute distress. HEAD: Normal with no signs of head trauma. EYES: PERRLA, EOMI, conjunctiva normal, no discharge. ENT: Hearing grossly intact, normal oropharynx. RESPIRATORY: Clear breath sounds bilaterally. No wheezes, rales, or rhonchi. C/V: Regular rate and rhythm. S1 and S2 auscultated, no edema, peripheral pulses 2+ and intact throughout ABD: Abd is soft, nontender, nondistended EXT: Normal range of motion, no obvious deformity SKIN: No rashes or lesions observed on exposed skin. NEURO: Alert and oriented x 4. Cranial nerves II-XII intact. No focal sensory or strength deficits. Limitations: no limitations Course Vital Signs 07/16/22 07/16/22 07/17/22 09:42 17:32 03:15 Temperature 97.7 F 97.8 F 97.1 F L Pulse Rate 95 Pulse Rate [ 74 85 Right] Respiratory 18 20 14 Rate Blood Pressure 142/96 Blood Pressure 124/76 116/73 [Right Arm] O2 Sat by Pulse 99 98 Oximetry Medical Decision Making - Medical Decision Making Based on the patient's presentation and physical exam, do believe he requires psychiatric evaluation. BAT is 0. POC blood sugar was obtained and was within normal limits. Patient was placed in green scrubs. Sitter and suicide precautions were ordered. UDS is remarkable for positive marijuana. Vital signs are within normal limits. At this time patient is medically cleared for evaluation by psychiatry. Disposition is pending psychiatric evaluation. EPS was notified. Patient signed out to Dr. Patel pending psychiatric evaluation. Miken was admitted to in psych on further review of the chart. - Lab Data Result diagrams: 07/16/22 16:28 07/16/22 16:28 Lab Results 07/16/22 07/16/22 07/16/22 Range/Units 10:26 10:31 16:04 WBC (3.8-10.6) k/uL RBC (4.30-5.90) m/uL Hgb (13.0-17.5) gm/dL Hct (39.0-53.0) % MCV (80.0-100.0) fL MCH (25.0-35.0) pg MCHC (31.0-37.0) g/dL RDW (11.5-15.5) % Plt Count (150-450) k/uL MPV Neutrophils % % Lymphocytes % % Monocytes % % Eosinophils % % Basophils % % Neutrophils # (1.3-7.7) k/uL Lymphocytes # (1.0-4.8) k/uL Monocytes # (0-1.0) k/uL Eosinophils # (0-0.7) k/uL Basophils # (0-0.2) k/uL Sodium (137-145) mmol/L Potassium (3.5-5.1) mmol/L Chloride (98-107) mmol/L Carbon Dioxide (22-30) mmol/L Anion Gap mmol/L BUN (9-20) mg/dL Creatinine (0.66-1.25) mg/dL Est GFR (CKD-EPI)AfAm (>60 ml/min/1.73 sqM) Est GFR (CKD-EPI)NonAf (>60 ml/min/1.73 sqM) Glucose (74-99) mg/dL POC Glucose (mg/dL) 113 H (70-110) mg/dL POC Glu Dust Handler ID Iliana Hammer Estimated Ave Glu mg/dL Hemoglobin A1c (0.0-6.0) % Calcium (8.4-10.2) mg/dL Total Bilirubin (0.2-1.3) mg/dL AST (17-59) U/L ALT (4-49) U/L Alkaline Phosphatase (38-126) U/L Total Protein (6.3-8.2) g/dL Albumin (3.5-5.0) g/dL Triglycerides (0.00-149.00) mg/dL Cholesterol (0.00-200.00) mg/dL LDL Cholesterol, Calc (0.0-131.0) mg/dL VLDL Cholesterol, Calc (5.00-40.00) mg/dL HDL Cholesterol (40.00-60.00) mg/dL Cholesterol/HDL Ratio Ratio TSH (0.465-4.680) mIU/L Urine Color Urine Appearance (Clear) Urine pH (5.0-8.0) Ur Specific [place] (1.001-1.035) Urine Protein (Negative) Urine Glucose (UA) (Negative) Urine Ketones (Negative) Urine Blood (Negative) Urine Nitrite (Negative) Urine Bilirubin (Negative) Urine Urobilinogen (<2.0) mg/dL Ur Leukocyte Esterase (Negative) Urine RBC (0-5) /hpf Amorphous Sediment (None) /hpf Urine Mucus (None) /hpf Urine Opiates Screen Not Detected (NotDetected) Ur Oxycodone Screen Not Detected (NotDetected) Urine Methadone Screen Not Detected (NotDetected) Ur Propoxyphene Screen Not Detected (NotDetected) Ur Barbiturates Screen Not Detected (NotDetected) U Tricyclic Antidepress Not Detected (NotDetected) Ur Phencyclidine Scrn Not Detected (NotDetected) Ur Amphetamines Screen Not Detected (NotDetected) U Methamphetamines Scrn Not Detected (NotDetected) U Benzodiazepines Scrn Not Detected (NotDetected) Urine Cocaine Screen Not Detected (NotDetected) U Marijuana (THC) Screen Detected H (NotDetected) Coronavirus (PCR) Not Detected (Not Detectd) 07/16/22 07/16/22 07/16/22 Range/Units 16:24 16:28 16:28 WBC 5.8 (3.8-10.6) k/uL RBC 4.59 (4.30-5.90) m/uL Hgb 14.8 (13.0-17.5) gm/dL Hct 43.6 (39.0-53.0) % MCV 95.0 (80.0-100.0) fL MCH 32.2 (25.0-35.0) pg MCHC 33.9 (31.0-37.0) g/dL RDW 12.1 (11.5-15.5) % Plt Count 136 L (150-450) k/uL MPV 9.9 Neutrophils % 54 % Lymphocytes % 33 % Monocytes % 8 % Eosinophils % 3 % Basophils % 1 % Neutrophils # 3.1 (1.3-7.7) k/uL Lymphocytes # 1.9 (1.0-4.8) k/uL Monocytes # 0.5 (0-1.0) k/uL Eosinophils # 0.2 (0-0.7) k/uL Basophils # 0.0 (0-0.2) k/uL Sodium 139 (137-145) mmol/L Potassium 4.0 (3.5-5.1) mmol/L Chloride 103 (98-107) mmol/L Carbon Dioxide 27 (22-30) mmol/L Anion Gap 9 mmol/L BUN 13 (9-20) mg/dL Creatinine 0.72 (0.66-1.25) mg/dL Est GFR (CKD-EPI)AfAm >90 (>60 ml/min/1.73 sqM) Est GFR (CKD-EPI)NonAf >90 (>60 ml/min/1.73 sqM) Glucose 100 H (74-99) mg/dL POC Glucose (mg/dL) (70-110) mg/dL POC Glu Dust Handler ID Estimated Ave Glu mg/dL Hemoglobin A1c (0.0-6.0) % Calcium 8.9 (8.4-10.2) mg/dL Total Bilirubin 1.4 H (0.2-1.3) mg/dL AST 64 H (17-59) U/L ALT 36 (4-49) U/L Alkaline Phosphatase 89 (38-126) U/L Total Protein 6.6 (6.3-8.2) g/dL Albumin 4.1 (3.5-5.0) g/dL Triglycerides (0.00-149.00) mg/dL Cholesterol (0.00-200.00) mg/dL LDL Cholesterol, Calc (0.0-131.0) mg/dL VLDL Cholesterol, Calc (5.00-40.00) mg/dL HDL Cholesterol (40.00-60.00) mg/dL Cholesterol/HDL Ratio Ratio TSH (0.465-4.680) mIU/L Urine Color Light Brown Urine Appearance Turbid (Clear) Urine pH 6.0 (5.0-8.0) Ur Specific [place] 1.034 (1.001-1.035) Urine Protein 1+ H (Negative) Urine Glucose (UA) Negative (Negative) Urine Ketones 1+ H (Negative) Urine Blood Negative (Negative) Urine Nitrite Negative (Negative) Urine Bilirubin Negative (Negative) Urine Urobilinogen 2.0 (<2.0) mg/dL Ur Leukocyte Esterase Negative (Negative) Urine RBC 3 (0-5) /hpf Amorphous Sediment Many H (None) /hpf Urine Mucus Many H (None) /hpf Urine Opiates Screen (NotDetected) Ur Oxycodone Screen (NotDetected) Urine Methadone Screen (NotDetected) Ur Propoxyphene Screen (NotDetected) Ur Barbiturates Screen (NotDetected) U Tricyclic Antidepress (NotDetected) Ur Phencyclidine Scrn (NotDetected) Ur Amphetamines Screen (NotDetected) U Methamphetamines Scrn (NotDetected) U Benzodiazepines Scrn (NotDetected) Urine Cocaine Screen (NotDetected) U Marijuana (THC) Screen (NotDetected) Coronavirus (PCR) (Not Detectd) 07/16/22 07/16/22 Range/Units 16:28 16:28 WBC (3.8-10.6) k/uL RBC (4.30-5.90) m/uL Hgb (13.0-17.5) gm/dL Hct (39.0-53.0) % MCV (80.0-100.0) fL MCH (25.0-35.0) pg MCHC (31.0-37.0) g/dL RDW (11.5-15.5) % Plt Count (150-450) k/uL MPV Neutrophils % % Lymphocytes % % Monocytes % % Eosinophils % % Basophils % % Neutrophils # (1.3-7.7) k/uL Lymphocytes # (1.0-4.8) k/uL Monocytes # (0-1.0) k/uL Eosinophils # (0-0.7) k/uL Basophils # (0-0.2) k/uL Sodium (137-145) mmol/L Potassium (3.5-5.1) mmol/L Chloride (98-107) mmol/L Carbon Dioxide (22-30) mmol/L Anion Gap mmol/L BUN (9-20) mg/dL Creatinine (0.66-1.25) mg/dL Est GFR (CKD-EPI)AfAm (>60 ml/min/1.73 sqM) Est GFR (CKD-EPI)NonAf (>60 ml/min/1.73 sqM) Glucose (74-99) mg/dL POC Glucose (mg/dL) (70-110) mg/dL POC Glu Dust Handler ID Estimated Ave Glu mg/dL 111 Hemoglobin A1c 5.5 (0.0-6.0) % Calcium (8.4-10.2) mg/dL Total Bilirubin (0.2-1.3) mg/dL AST (17-59) U/L ALT (4-49) U/L Alkaline Phosphatase (38-126) U/L Total Protein (6.3-8.2) g/dL Albumin (3.5-5.0) g/dL Triglycerides 98.50 (0.00-149.00) mg/dL Cholesterol 147.00 (0.00-200.00) mg/dL LDL Cholesterol, Calc 92.6 (0.0-131.0) mg/dL VLDL Cholesterol, Calc 19.70 (5.00-40.00) mg/dL HDL Cholesterol 34.70 L (40.00-60.00) mg/dL Cholesterol/HDL Ratio 4.24 Ratio TSH 1.570 (0.465-4.680) mIU/L Urine Color Urine Appearance (Clear) Urine pH (5.0-8.0) Ur Specific [place] (1.001-1.035) Urine Protein (Negative) Urine Glucose (UA) (Negative) Urine Ketones (Negative) Urine Blood (Negative) Urine Nitrite (Negative) Urine Bilirubin (Negative) Urine Urobilinogen (<2.0) mg/dL Ur Leukocyte Esterase (Negative) Urine RBC (0-5) /hpf Amorphous Sediment (None) /hpf Urine Mucus (None) /hpf Urine Opiates Screen (NotDetected) Ur Oxycodone Screen (NotDetected) Urine Methadone Screen (NotDetected) Ur Propoxyphene Screen (NotDetected) Ur Barbiturates Screen (NotDetected) U Tricyclic Antidepress (NotDetected) Ur Phencyclidine Scrn (NotDetected) Ur Amphetamines Screen (NotDetected) U Methamphetamines Scrn (NotDetected) U Benzodiazepines Scrn (NotDetected) Urine Cocaine Screen (NotDetected) U Marijuana (THC) Screen (NotDetected) Coronavirus (PCR) (Not Detectd) Disposition Clinical Impression: Encounter for psychiatric assessment Disposition: ADMITTED IP TO THIS [facility] Condition: Stable
[2022-07-16 16:39] LABS: Basophils % (A) 1 %; Eosinophils # (A) 0.2 k/uL (0-0.7); Eosinophils % (A) 3 %; HCT 43.6 % (39.0-53.0); HGB 14.8 gm/dL (13.0-17.5); Lymphocytes # (A) 1.9 k/uL (1.0-4.8); Lymphocytes % (A) 33 %; MCH 32.2 pg (25.0-35.0); MCHC 33.9 g/dL (31.0-37.0); Mean Platelet Volume 9.9; Monocytes # (A) 0.5 k/uL (0-1.0); Monocytes % (A) 8 %; Neutrophils # (A) 3.1 k/uL (1.3-7.7); Neutrophils % (A) 54 %; Platelet Count 136 k/uL (150-450); RBC 4.59 m/uL (4.30-5.90); RDW 12.1 % (11.5-15.5); WBC 5.8 k/uL (3.8-10.6)
[2022-07-16 16:48] LABS: ALT 36 U/L (4-49); AST 64 U/L (17-59); African American GFR (CKD) >90 (>60 ml/min/1.73 sqM); Albumin 4.1 g/dL (3.5-5.0); Alkaline Phosphatase 89 U/L (38-126); Anion Gap 9 mmol/L; Blood Urea Nitrogen 13 mg/dL (9-20); Calcium 8.9 mg/dL (8.4-10.2); Carbon Dioxide 27 mmol/L (22-30); Chloride 103 mmol/L (98-107); Glucose 100 mg/dL (74-99); Non-African American GFR(CKD) >90 (>60 ml/min/1.73 sqM); Sodium 139 mmol/L (137-145); Total Bilirubin 1.4 mg/dL (0.2-1.3); Total Protein 6.6 g/dL (6.3-8.2)
[2022-07-16 17:13] LABS: Amorphous Sediment,Urine Many /hpf; Appearance,Urine Turbid (Clear); Bilirubin,Urine Negative (Negative); Blood,Urine Negative (Negative); Color,Urine Light Brown; Glucose,Urine (UA) Negative (Negative); Ketones,Urine 1+ (Negative); Leukocyte Esterase,Urine Negative (Negative); Mucus,Urine Many /hpf; Nitrite,Urine Negative (Negative); Protein,Urine 1+ (Negative); RBC,Urine 3 /hpf (0-5); Specific Gravity,Urine 1.034 (1.001-1.035)
[2022-07-16] MEDS ORDERED: MAGNESIUM HYDROXIDE 2,400 MG/10 ML CUP PO PRN (17:33)
[2022-07-16] MEDS ORDERED: HALOPERIDOL LACTATE 5 MG/ML 1 ML VIAL IM PRN (17:33)
[2022-07-16] MEDS ORDERED: MAG HYDROX/AL HYDROX/SIMETH 30 ML CUP PO PRN (17:33)
[2022-07-16] MEDS ORDERED: LORazepam 1 MG TAB PO PRN ×2 (17:33)
[2022-07-16] MEDS ORDERED: ACETAMINOPHEN TAB 325 MG TAB PO PRN (17:33)
[2022-07-16] MEDS ORDERED: haloperidoL 5 MG TAB PO PRN (17:39)
[2022-07-16] MEDS ORDERED: LORazepam 2 MG/ML INJ IM PRN (17:39)
[2022-07-16 19:02] LABS: Glucose,Whole Blood 137 mg/dL (70-110)
[2022-07-16 20:08] LABS: Glucose,Whole Blood 121 mg/dL (70-110)
[2022-07-16] MEDS ORDERED: chlordiazePOXIDE 25 MG CAP PO SCH (22:00)
[2022-07-16] MEDS ORDERED: diazePAM 5 MG TAB PO SCH (22:00)
--- NOTE | 2022-07-17 03:36 | P.MDCNMH ---
History of Present Illness H&P Date: 07/17/22 Chief Complaint: Depression and suicidal ideation 46-year-old male with depression, hypertension, diabetes mellitus, mediastinal B-cell lymphoma in remission Patient comes in due to depressed emotions and suicidal thoughts he's been planning on jumping in front of trucks. He became homeless few days ago has been walking a lot and every time he sees a truck he mentions jumping in front of it. He voluntarily brought himself to the hospital for evaluation seeking help. He denies any upper respiratory infection symptoms fevers chills coughing chest pain trouble breathing denies any abdominal pain nausea vomiting changes in bowel or urinary habits he denies any medical concerns at this time. Patient does have history of mediastinal B-cell lymphoma currently in remission. He admits to tobacco smoking denies any illicit drugs or heavy alcohol Review of Systems Pertinent positives as noted in HPI. All other systems were reviewed and are negative Past Medical History Past Medical History: Cancer, Diabetes Mellitus, Deep Vein Thrombosis (DVT), Hyperlipidemia, Hypertension, Osteoarthritis (OA), Pneumonia Additional Past Medical History / Comment(s): He states he has also had a L arm DVT. Other hx: Chronic low back pain, NIDDM type II, pt states dysphagia has resolved, "walking" pneumonia as a teen. Mediastinal B-cell lymphoma History of Any Multi-Drug Resistant Organisms: None Reported, MRSA Date of last positivie culture/infection: 2013 per pt MDRO Source:: L leg Past Surgical History: Adenoidectomy, Orthopedic Surgery, Tonsillectomy Additional Past Surgical History / Comment(s): PICC lines with current one placed 08/23/18, 07/22/18 mediastinal mass biopsy at [facility], R hand fracure with surgery/pins since removed. Past Anesthesia/Blood Transfusion Reactions: No Reported Reaction Past Psychological History: No Psychological Hx Reported, Depression Smoking Status: Current some day smoker Past Alcohol Use History: None Reported Additional Past Alcohol Use History / Comment(s): Patient is an active smoker at one and half packs per day for more than 30 years. Past Drug Use History: Marijuana Additional Drug Use History / Comment(s): Pt states he smoked marijuana heavily in the past during his 20s but quit when he was 28 or 29 yrs old. - Past Family History Mother Family Medical History: CVA/TIA, Diabetes Mellitus, Hyperlipidemia, Hypertension Father Family Medical History: Diabetes Mellitus Additional Family Medical History / Comment(s): Unmarried, caregiver for his mother, Medications and Allergies Home Medications Medication Instructions Recorded Confirmed Type No Known Home Medications 07/16/22 07/16/22 History Allergies Allergy/AdvReac Type Severity Reaction Status Date / Time No Known Allergies Allergy Verified 07/16/22 22:48 Physical Exam Vitals: Vital Signs Temp Pulse Pulse Resp BP BP Pulse Ox 07/17/22 03:15 97.1 F L 85 14 116/73 07/16/22 17:32 97.8 F 74 20 124/76 98 07/16/22 09:42 97.7 F 95 18 142/96 99 Intake and Output 07/16/22 07/16/22 07/17/22 14:59 22:59 06:59 Other: Weight 95.254 kg 95.254 kg Constitutional: No acute distress, conversant, pleasant Eyes: Anicteric sclerae, moist conjunctiva, Pupils equal round reactive to light ENMT: NC/AT Oropharynx clear, no erythema, or exudates Neck: Supple, no masses, or JVD No carotid bruits No thyromegaly Lungs: Clear to auscultation Clear to percussion Normal respiratory effort, no accessory muscle use Cardiovascular: Heart regular in rate and rhythm, No murmurs, gallops, or rubs No peripheral edema Abdominal: Soft Nontender, no guarding, rebound or rigidity Abdomen moving with respiration Normoactive bowel sounds No hepatomegaly, No splenomegaly No palpable mass No abdominal wall hernia noted Skin: Normal temperature, tone, texture, turgor No induration No subcutaneous nodules No rash, lesions No ulcers Extremities: No digital cyanosis No clubbing Pedal pulses intact and symmetrical Radial pulses intact and symmetrical No calf tenderness Psychiatric: Alert and oriented to person, place and time Neuro Muscles Strength 5/5 in all 4 extremities Sensation to light touch grossly present throughout Cranial nerves II-XII grossly intact No focal sensory deficits Lymphatics: no palpable cervical or supraclavicular , or inguinal lymph nodes Cranial Nerve Examination - Cranial Nerves Cranial Nerve II- Optic: Intact Cranial Nerve III- Oculomotor: Intact Cranial Nerve IV- Trochlear: Intact Cranial Nerve V- Trigeminal: Intact Cranial Nerve - Abducens: Intact Cranial Nerve VII- Facial: Intact Cranial Nerve VIII- Auditory: Intact Cranial Nerve IX- Glossopharyngeal: Intact Cranial Nerve X- Vagus: Intact Cranial Nerve XI- Accessory: Intact Cranial Nerve XII- Hypoglossal: Intact Results CBC & Chem 7: 07/16/22 16:28 07/16/22 16:28 Labs: Abnormal Lab Results - Last 24 Hours (Table) 07/16/22 07/16/22 07/16/22 Range/Units 10:26 10:31 16:24 Plt Count (150-450) k/uL Glucose (74-99) mg/dL POC Glucose (mg/dL) 113 H (70-110) mg/dL Total Bilirubin (0.2-1.3) mg/dL AST (17-59) U/L Urine Protein 1+ H (Negative) Urine Ketones 1+ H (Negative) Amorphous Sediment Many H (None) /hpf Urine Mucus Many H (None) /hpf U Marijuana (THC) Screen Detected H (NotDetected) 07/16/22 07/16/22 07/16/22 Range/Units 16:28 16:28 18:59 Plt Count 136 L (150-450) k/uL Glucose 100 H (74-99) mg/dL POC Glucose (mg/dL) 137 H (70-110) mg/dL Total Bilirubin 1.4 H (0.2-1.3) mg/dL AST 64 H (17-59) U/L Urine Protein (Negative) Urine Ketones (Negative) Amorphous Sediment (None) /hpf Urine Mucus (None) /hpf U Marijuana (THC) Screen (NotDetected) 07/16/22 Range/Units 20:06 Plt Count (150-450) k/uL Glucose (74-99) mg/dL POC Glucose (mg/dL) 121 H (70-110) mg/dL Total Bilirubin (0.2-1.3) mg/dL AST (17-59) U/L Urine Protein (Negative) Urine Ketones (Negative) Amorphous Sediment (None) /hpf Urine Mucus (None) /hpf U Marijuana (THC) Screen (NotDetected) Assessment and Plan Assessment: Depression and suicidal ideation Management per psych Diabetes mellitus, insulin sliding scale History of hypertension not currently on medications Blood pressure controlled Continue to monitor Labs reviewed Mild thrombocytopenia patient denies any bleeding continue to monitor Thank you for allowing us to participate in the care of this patient. We will follow peripherally. Do not hesitate to contact us with questions. Someone can be reached from the [facility] hospitalist group at all hours of the day at [phone].
[2022-07-17 07:52] LABS: Glucose,Whole Blood 116 mg/dL (70-110)
[2022-07-17] MEDS: INSULIN ASPART (NovoLOG) 100 UNIT/ML VIAL SQ SCH ×4 (07:58→20:28)
[2022-07-17] MEDS: NICOTINE 14MG/24HR PATCH TRANSDERM SCH (08:49)
[2022-07-17] MEDS: MULTIVITAMINS, THERA 1 EACH TAB PO SCH (08:49)
[2022-07-17] MEDS ORDERED: FOLIC ACID 1 MG TAB PO SCH (09:00)
[2022-07-17] MEDS ORDERED: THIAMINE 100 MG TAB PO SCH (09:00)
[2022-07-17 10:32] LABS: Chol/HDL Ratio 4.24 Ratio; LDL Cholesterol,Calculated 92.6 mg/dL (0.0-131.0)
[2022-07-17] MEDS: SERTRALINE 25 MG TAB PO SCH (10:32)
[2022-07-17] MEDS: ARIPiprazole 5 MG TAB PO SCH (10:32)
[2022-07-17 12:44] LABS: Glucose,Whole Blood 119 mg/dL (70-110)
[2022-07-17 17:36] LABS: Glucose,Whole Blood 96 mg/dL (70-110)
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
[2022-07-17 20:00] LABS: Glucose,Whole Blood 144 mg/dL (70-110)
[2022-07-17] MEDS: traZODone HCL 50 MG TAB PO SCH (21:28)
[2022-07-18 07:51] LABS: Glucose,Whole Blood 111 mg/dL (70-110)
[2022-07-18] MEDS: INSULIN ASPART (NovoLOG) 100 UNIT/ML VIAL SQ SCH ×4 (07:55→20:51)
[2022-07-18] MEDS: SERTRALINE 25 MG TAB PO SCH (09:23)
[2022-07-18] MEDS: ARIPiprazole 5 MG TAB PO SCH (09:23)
[2022-07-18] MEDS: MULTIVITAMINS, THERA 1 EACH TAB PO SCH (09:23)
[2022-07-18] MEDS: NICOTINE 14MG/24HR PATCH TRANSDERM SCH (09:23)
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
[2022-07-18 12:54] LABS: Glucose,Whole Blood 97 mg/dL (70-110)
[2022-07-18 17:40] LABS: Glucose,Whole Blood 104 mg/dL (70-110)
[2022-07-18] MEDS: traZODone HCL 50 MG TAB PO SCH (20:45)
[2022-07-18 20:48] LABS: Glucose,Whole Blood 135 mg/dL (70-110)
[2022-07-19 07:35] LABS: Glucose,Whole Blood 95 mg/dL (70-110)
[2022-07-19] MEDS: INSULIN ASPART (NovoLOG) 100 UNIT/ML VIAL SQ SCH ×3 (07:57→17:50)
[2022-07-19] MEDS: NICOTINE 14MG/24HR PATCH TRANSDERM SCH (09:01)
[2022-07-19] MEDS: SERTRALINE 100 MG TAB PO SCH (09:02)
[2022-07-19] MEDS: MULTIVITAMINS, THERA 1 EACH TAB PO SCH (09:02)
[2022-07-19] MEDS: ARIPiprazole 5 MG TAB PO SCH (09:02)
--- NOTE | 2022-07-19 11:07 | P.PN ---
Progress Note - Text Progress Note Date: 07/19/22 Interval History: Patient was seen in group and was directable and agreeable to speak with auto service writer in the office. The patient is reporting that he is feeling better. He is currently not reporting any suicidal or homicidal ideation, intention, and/or is not reporting any auditory or visual hallucinations. He denies any paranoia or other delusions. Patient has been adherent with his medications and is not reporting any significant side effects at this time. The patient does report that he had some difficulty with sleep last night with multiple nighttime awakenings. He is otherwise not reporting any other significant symptoms of depression. He is anticipated for discharge tomorrow. Mental Status Exam: General Appearance: Patient appears to be stated age is alert, directable, and cooperative. Behavior: Patient is calmly seated without any agitated behavior. Speech: Patient's speech is fluent and nonpressured. Mood/Affect: Mood is improving mildly, affect is congruent and with more range today. Suicidality/Homicidality: Patient denies having any suicidal or homicidal ideation intent or plan. Perceptions: Patient denies any visual hallucinations and denies any auditory hallucinations Though content/process: There is no evidence of any delusional thought content and thought process is linear and goal-directed. Memory and concentration: AOX3, grossly intact for the purposes of this session Judgment and insight: Improving mildly Vital Signs Temp 97.4 F L 07/19/22 05:49 Pulse 83 07/19/22 05:49 Resp 16 07/19/22 05:49 BP 133/87 07/19/22 05:49 Pulse Ox 96 07/19/22 05:49 FiO2 Assessment Bipolar 2 disorder, depressive episode Dysthymia Generalized anxiety disorder Tobacco use disorder Cannabis use disorder Borderline personality disorder Plan: -Patient continues to meet criteria for inpatient psychiatric admission for symptom stabilization and safety. Patient has signed adult voluntary form and medication consent and was placed in patient's chart. -Medications: Abilify 5 mg by mouth daily for mood augmentation Zoloft 100 mg daily for depression/anxiety Increase Trazodone to 100 mg daily at bedtime for insomnia -When necessary Ativan and Haldol for agitation/aggression. -NRT - nicotine patch -SW on board for discharge planning. Encouraged the patient to participate in milieu.
[2022-07-19 12:44] LABS: Glucose,Whole Blood 97 mg/dL (70-110)
[2022-07-19 17:49] LABS: Glucose,Whole Blood 86 mg/dL (70-110)
[2022-07-19] MEDS ORDERED: traZODone HCL 100 MG TAB PO SCH (21:00)
[2022-07-20 05:55] VITALS: BP 126/93; PULSE 91; RESP 18; TEMP 97
[2022-07-20] MEDS: SERTRALINE 100 MG TAB PO SCH (09:04)
[2022-07-20] MEDS: MULTIVITAMINS, THERA 1 EACH TAB PO SCH (09:04)
[2022-07-20] MEDS: ARIPiprazole 5 MG TAB PO SCH (09:04)
[2022-07-20] MEDS: NICOTINE 14MG/24HR PATCH TRANSDERM SCH (09:05)
--- NOTE | 2022-07-20 12:28 | P.DS ---
Providers Date of admission: 07/16/22 17:30 Expected date of discharge: 07/20/22 Attending physician: Juan Lucero MD Consults: 07/16/22 17:33 Consult Physician Routine Consulting Provider: Brianna Gomez Consult Reason/Comments: medical management Do you want consulting provider notified?: Yes Primary care physician: Stated None - Discharge Diagnosis(es) (1) Bipolar 2 disorder, major depressive episode Current Visit: Yes Status: Acute Priority: High (2) RENETTA (generalized anxiety disorder) Current Visit: Yes Status: Chronic Priority: Medium (3) Tobacco use disorder Current Visit: Yes Status: Chronic Priority: Medium (4) Cannabis use disorder Current Visit: Yes Status: Chronic Priority: Medium (5) Borderline personality disorder Current Visit: Yes Status: Chronic Priority: Medium Hospital Course: Admission HPI: Initial psychiatric evaluation was completed by Dr. Feliz on 07/17/2022 who wrote: Patient is a single, unemployed, 46-year-old [place] male who is presenting with suicidal ideation and substance use. HPI: Patient reports that he has been feeling depressed for as long as he could remember. Depression worsened upon his mother's in 2019 and again over the past few months. He reports limited social connections and therefore when his close female friend said she no longer wanted to speak with him, he found himself more depressed. In the past 2 days, he has been contemplating running in front of a vehicle in front of [place] [facility]. He endorses symptoms of depression including anhedonia, poor sleep (sleeps 4 hours with trouble staying asleep), poor concentration, feelings of worthlessness, and low energy. He denies trouble with appetite. Patient also endorses being a chronically anxious person. He reports worrying about himself and others. He endorses feelings of restlessness, feeling on edge, and difficulty relaxing. Patient endorses a history of a period one week where he was unable to sleep and had good energy and good mood (while sober of substances). He reports committing larceny during this time. He denies increased talkativeness, distractibility, and flight of ideas. He denies ever having been hospitalized for such an episode. He denies experiencing such an episode since then. He continues to endorse suicidal ideation today. He denies homicidal ideation as asked and assessed. He denies symptoms of psychosis including auditory and visual hallucinations. Hospital course: Upon admission to the unit patient was initially noted to be depressed and suicidal. Patient was however directable and agreeable to commence treatment. Patient got along well with other patients on the unit and followed unit protocol. Patient was compliant with the medications and denied any side effects throughout hospital course. Patient was started on regimen of Zoloft, Abilify, and trazodone for mood stabilization, bipolar depression, and insomnia. Patient spoke of his stressors and engaged in therapy both group and individual. Patient was also seen by medical team for history and physical exam. Throughout the course of the hospitalization patient gradually improved with regards to his depression, sleep, and became future oriented with improved insight and judgment. On the day of discharge, the patient is denying any suicidal or homicidal ideation, intention, and/or plan. He is denying any auditory or visual hallucinations. Patient endorsed wanting to live for his health and family. The patient denied any access to guns or weapons. Patient denied any paranoia and did not endorse any delusions. Patient does have a significant history of substance abuse however was counseled on abstaining from all substances including alcohol and marijuana. Patient was also counseled on the medications and need for regular compliance and was encouraged to follow-up with their outpatient appointment for mental health and also for primary care. Prior to discharge a family meeting will be arranged by social research assistant to answer any questions and ensure safety upon discharge. During this hospitalization were discussed at length dialectical behavioral therapy and the likely diagnosis of a borderline personality disorder with the patient. Patient is future and goal oriented and wishes to attend more therapy sessions. Mental status exam: General Appearance: Patient appears to be stated age is alert, pleasant, and cooperative. Patient is in no acute distress and has fair hygiene and grooming Behavior: Patient is calmly seated without any agitated behavior. Speech: Patient's speech is fluent and nonpressured. Mood/Affect: Patient reports their mood is "much better", affect is congruent and euthymic to bright. Suicidality/Homicidality: Patient denies having any suicidal or homicidal ideation intent or plan. Perceptions: Patient denies any auditory or visual hallucinations. Though content/process: There is no evidence of any delusional thought content and thought process is linear and goal-directed. Patient is future and goal oriented. Memory and concentration: AOX3, grossly intact for the purposes of this session. Can spell "WORLD" backwards correctly. Judgment and insight: Improved with guarded prognosis Impression: Bipolar 2 disorder, depressive episode Generalized anxiety disorder Tobacco use disorder Cannabis use disorder Borderline personality disorder Plan: -Continue with discharge today as patient has improved and stabilized psychiatrically and is not currently an imminent threat to himself and/or others. Patient will remain at chronically elevated risk for harm to self and/or others due to his personality disorder and impulsivity -Continue medications: Zoloft 1 mg by mouth daily for depression/anxiety Abilify 5 mg for bipolar disorder Trazodone 100 mg by mouth at bedtime for insomnia Habitrol patches for nicotine cessation -Patient was counseled on the need for medication compliance and appropriate follow-up at mental health and also primary care for medical issues. Patient verbalized understanding and agreed. -Social work to arrange for and conduct family meeting to ensure safety upon discharge and answer any questions/concerns. Social work also to arrange for patients follow up appointments with [facility] for psychiatric care along with follow up with primary care provider. -Patient counseled on abstaining from recreational drugs and marijuana and alcohol. Was informed/educated on the adverse effects on their physical and mental health. Patient verbally agreed and understood. -Patient was instructed to return to the hospital or seek immediate medical care if their psychiatric or medical symptoms do worsen or reoccur. -Psychoeducation and supportive therapy provided to patient. Risks and benefits of pharmacological treatment versus the risks and benefits of nontreatment weight and discussed. Informed consent discussion held. Common side effects of psychotropics discussed such as, but not limited to headache, GI disturbance, sexual dysfunction, movement disorders, sedation, and orthostatic hypotension. Life threatening and blackbox warnings of prescribed medications also discussed. Potential risks of operating a vehicle or heavy machinery discussed with patient at length. Advised on importance of compliance and a reliable and responsible manner. Patient advised to review FDA consumer labeling of all medications prior to taking. Patient verbalized understanding of potential risks, and agrees with current treatment plan. Patient advised to medically contact physician/emergency personnel if any acute changes in condition occur. Vital Signs Temp 97.0 F L 07/20/22 05:54 Pulse 91 07/20/22 05:54 Resp 18 07/20/22 05:54 BP 126/93 07/20/22 05:54 Pulse Ox 98 07/20/22 05:54 FiO2 Laboratory Results WBC 5.8 k/uL (3.8-10.6) 07/16/22 16: RBC 4.59 m/uL (4.30-5.90) 07/16/22 16:28 Hgb 14.8 gm/dL (13.0-17.5) 07/16/22 16:28 Hct 43.6 % (39.0-53.0) 07/16/22 16:28 MCV 95.0 fL (80.0-100.0) 07/16/22 16:28 MCH 32.2 pg (25.0-35.0) 07/16/22 16: MCHC 33.9 g/dL (31.0-37.0) 07/16/22 16: RDW 12.1 % (11.5-15.5) 07/16/22 16:28 Plt Count 136 k/uL (150-450) L 07/16/22 16: MPV 9.9 07/16/22 16:28 Neutrophils % 54 % 07/16/22 16:28 Lymphocytes % 33 % 07/16/22 16:28 Monocytes % 8 % 07/16/22 16:28 Eosinophils % 3 % 07/16/22 16: Basophils % 1 % 07/16/22 16:28 Neutrophils # 3.1 k/uL (1.3-7.7) 07/16/22 16:28 Lymphocytes # 1.9 k/uL (1.0-4.8) 07/16/22 16:28 Monocytes # 0.5 k/uL (0-1.0) 07/16/22 16:28 Eosinophils # 0.2 k/uL (0-0.7) 07/16/22 16:28 Basophils # 0.0 k/uL (0-0.2) 07/16/22 16:28 Sodium 139 mmol/L (137-145) 07/16/22 16:28 Potassium 4.0 mmol/L (3.5-5.1) 07/16/22 16:28 Chloride 103 mmol/L (98-107) 07/16/22 16:28 Carbon Dioxide 27 mmol/L (22-30) 07/16/22 16:28 Anion Gap 9 mmol/L 07/16/22 16:28 BUN 13 mg/dL (9-20) 07/16/22 16:28 Creatinine 0.72 mg/dL (0.66-1.25) 07/16/22 16:28 Est GFR (CKD-EPI)AfAm >90 (>60 ml/min/1.73 sqM) 07/16/22 16:28 Est GFR (CKD-EPI)NonAf >90 (>60 ml/min/1.73 sqM) 07/16/22 16:28 Glucose 100 mg/dL (74-99) H 07/16/22 16:28 POC Glucose (mg/dL) 86 mg/dL (70-110) 07/19/22 17:47 POC Glu Evaluator Transfer Students ID Homero Campoverde 07/19/22 17:[address] Glu mg/dL 111 07/16/22 16:28 Hemoglobin A1c 5.5 % (0.0-6.0) 07/16/22 16:28 Calcium 8.9 mg/dL (8.4-10.2) 07/16/22 16:28 Total Bilirubin 1.4 mg/dL (0.2-1.3) H 07/16/22 16:28 AST 64 U/L (17-59) H 07/16/22 16:28 ALT 36 U/L (4-49) 07/16/22 16:28 Alkaline Phosphatase 89 U/L (38-126) 07/16/22 16:28 Total Protein 6.6 g/dL (6.3-8.2) 07/16/22 16:28 Albumin 4.1 g/dL (3.5-5.0) 07/16/22 16:28 Triglycerides 98.50 mg/dL (0.00-149.00) 07/16/22 16:28 Cholesterol 147.00 mg/dL (0.00-200.00) 07/16/22 16:28 LDL Cholesterol, Calc 92.6 mg/dL (0.0-131.0) 07/16/22 16:28 VLDL Cholesterol, Calc 19.70 mg/dL (5.00-40.00) 07/16/22 16:28 HDL Cholesterol 34.70 mg/dL (40.00-60.00) L 07/16/22 16:28 Cholesterol/HDL Ratio 4.24 Ratio 07/16/22 16:28 TSH 1.570 mIU/L (0.465-4.680) 07/16/22 16:28 Urine Color Light Brown 07/16/22 16:24 Urine Appearance Turbid (Clear) 07/16/22 16:24 Urine pH 6.0 (5.0-8.0) 07/16/22 16:24 Ur Specific [place] 1.034 (1.001-1.035) 07/16/22 16:24 Urine Protein 1+ (Negative) H 07/16/22 16:24 Urine Glucose (UA) Negative (Negative) 07/16/22 16:24 Urine Ketones 1+ (Negative) H 07/16/22 16:24 Urine Blood Negative (Negative) 07/16/22 16:24 Urine Nitrite Negative (Negative) 07/16/22 16:24 Urine Bilirubin Negative (Negative) 07/16/22 16:24 Urine Urobilinogen 2.0 mg/dL (<2.0) 07/16/22 16:24 Ur Leukocyte Esterase Negative (Negative) 07/16/22 16:24 Urine RBC 3 /hpf (0-5) 07/16/22 16:24 Amorphous Sediment Many /hpf (None) H 07/16/22 16:24 Urine Mucus Many /hpf (None) H 07/16/22 16:24 Urine Opiates Screen Not Detected (NotDetected) 07/16/22 10:26 Ur Oxycodone Screen Not Detected (NotDetected) 07/16/22 10:26 Urine Methadone Screen Not Detected (NotDetected) 07/16/22 10:26 Ur Propoxyphene Screen Not Detected (NotDetected) 07/16/22 10:26 Ur Barbiturates Screen Not Detected (NotDetected) 07/16/22 10:26 U Tricyclic Antidepress Not Detected (NotDetected) 07/16/22 10:26 Ur Phencyclidine Scrn Not Detected (NotDetected) 07/16/22 10:26 Ur Amphetamines Screen Not Detected (NotDetected) 07/16/22 10:26 U Methamphetamines Scrn Not Detected (NotDetected) 07/16/22 10:26 U Benzodiazepines Scrn Not Detected (NotDetected) 07/16/22 10:26 Urine Cocaine Screen Not Detected (NotDetected) 07/16/22 10:26 U Marijuana (THC) Screen Detected (NotDetected) H 07/16/22 10:26 Coronavirus (PCR) Not Detected (Not Detectd) 07/16/22 16:04 Allergies Allergy/AdvReac Type Severity Reaction Status Date / Time No Known Allergies Allergy Verified 07/16/22 22:48 Patient Condition at Discharge: Stable Plan - Discharge Summary Discharge Rx Participant: No New Discharge Prescriptions: New Sertraline [Zoloft] 100 mg PO DAILY 30 Days tab ARIPiprazole [Abilify] 5 mg PO DAILY 30 Days tab traZODone HCL [Desyrel] 100 mg PO HS 30 Days tab Nicotine 14Mg/24Hr Patch [Habitrol] 1 patch TRANSDERM DAILY 30 Days patch Discharge Medication List ARIPiprazole [Abilify] 5 mg PO DAILY 30 Days tab 07/20/22 [Rx] Nicotine 14Mg/24Hr Patch [Habitrol] 1 patch TRANSDERM DAILY 30 Days patch 07/20/22 [Rx] Sertraline [Zoloft] 100 mg PO DAILY 30 Days tab 07/20/22 [Rx] traZODone HCL [Desyrel] 100 mg PO HS 30 Days tab 07/20/22 [Rx] Follow up Appointment(s)/Referral(s): [facility] [Outside] - 07/25/22 11:30 am (with harness worker ) None,Stated [Primary Care Provider] - 1-2 days [facility] [NON-STAFF] - 1 Week Patient Instructions/Handouts: How to Stop Smoking (DC), Bipolar Disorder (DC) Activity/Diet/Wound Care/Special Instructions: Avoid the use of street drugs and alcohol. Take all prescriptions as prescribed. When you are in need of refills on your medications, please contact your medical provider and/or outpatient psychiatrist to have this done. Please go to scheduled outpatient appointment for aftercare treatment. If symptoms return or become worse, call the crisis line at and/or go to the nearest emergency room for evaluation. Discharge Disposition: HOME SELF-CARE
== END 2022-07-20 14:25 | disposition home or self-care (01) | DRG 885 ==
LOC: EC 09:38 → 3MHU 17:30
PROVIDERS: ADMIT Psychiatry & Neurology Psychiatry; ATTEND Psychiatry & Neurology Psychiatry
DX: F31.81 Bipolar II disorder (principal); R45.851 Suicidal ideations; F17.210 Nicotine dependence, cigarettes, uncomplicated; F12.10 Cannabis abuse, uncomplicated; E78.5 Hyperlipidemia, unspecified; Z20.822 Contact with and (suspected) exposure to COVID-19; E11.9 Type 2 diabetes mellitus without complications; G89.29 Other chronic pain; M54.50 Low back pain, unspecified; F34.1 Dysthymic disorder; F41.1 Generalized anxiety disorder; F60.3 Borderline personality disorder; G47.00 Insomnia, unspecified; I10 Essential (primary) hypertension; Z62.810 Personal history of physical and sexual abuse in childhood; Z79.899 Other long term (current) drug therapy; Z91.410 Personal history of adult physical and sexual abuse; Z85.72 Personal history of non-Hodgkin lymphomas; Z86.718 Personal history of other venous thrombosis and embolism; Z83.3 Family history of diabetes mellitus; Z91.51 Personal history of suicidal behavior; Z92.21 Personal history of antineoplastic chemotherapy; Z87.01 Personal history of pneumonia (recurrent); Z87.81 Personal history of (healed) traumatic fracture; Z79.84 Long term (current) use of oral hypoglycemic drugs; Z86.14 Personal history of Methicillin resistant Staphylococcus aureus infection
CPT/HCPCS: 36415; 80053; 80061; 80306; 81001; 82075; 83036; 84443; 85025; 87635; 99285

== ENCOUNTER → 2024-08-16 | Outpatient (CLI) | payer OTHER ==
--- NOTE | 2024-08-16 11:23 | XR ---
EXAMINATION TYPE: XR chest 2V DATE OF EXAM: 08/16/2024 COMPARISON: NONE HISTORY: No complaints per patient. Nicotine dependence TECHNIQUE: Frontal and lateral views of the chest are obtained. FINDINGS: There is no focal air space opacity, pleural effusion, or pneumothorax seen. The cardiac silhouette size is within normal limits. The osseous structures are intact. IMPRESSION: No acute cardiopulmonary process. [facility], , 08/16/2024 11:20 AM
[2024-08-16 15:24] LABS: Basophils # (A) 0.05 X 10*3/uL (0.00-0.10); Basophils % (A) 0.8 %; Eosinophils # (A) 0.14 X 10*3/uL (0.04-0.35); Eosinophils % (A) 2.1 %; HCT 45.8 % (39.6-50.0); HGB 15.4 g/dL (13.0-17.0); Lymphocytes # (A) 1.58 X 10*3/uL (0.90-5.00); Lymphocytes % (A) 24.2 %; MCH 31.9 pg (27.0-32.0); MCHC 33.6 g/dL (32.0-37.0); MCV 94.8 FL (80.0-97.0); Mean Platelet Volume 11.6 FL (9.5-12.2); Monocytes # (A) 0.67 X 10*3/uL (0.20-1.00); Monocytes % (A) 10.3 %; NRBC Per 100 WBC 0 X 10*3/uL (0.00-0.01); Neutrophils # (A) 4.06 X 10*3/uL (1.80-7.70); Neutrophils % (A) 62.1 %; Platelet Count 168 X 10*3/uL (140-440); RBC 4.83 X 10*6/uL (4.40-5.60); RDW 11.9 % (11.5-14.5); WBC 6.53 X 10*3/uL (4.50-10.00)
[2024-08-16 15:55] LABS: ALT 24 U/L (10-49); AST 23 U/L (14-35); Albumin 4.2 g/dL (3.8-4.9); Albumin/Globulin Ratio 1.62 Ratio (1.60-3.17); Alkaline Phosphatase 94 U/L (41-126); BUN/Creat Ratio 18.38 Ratio (12.00-20.00); Blood Urea Nitrogen 14.7 mg/dL (9.0-27.0); Calcium 8.6 mg/dL (8.7-10.3); Carbon Dioxide 26.4 mmol/L (21.6-31.8); Chloride 104 mmol/L (96-109); Chol/HDL Ratio 4.39 Ratio; Globulin 2.6 g/dL (1.6-3.3); Glucose 100 mg/dL (70-110); LDL Cholesterol,Calculated 102.8 mg/dL (0.0-131.0); Potassium 4.2 mmol/L (3.5-5.5); Sodium 141 mmol/L (135-145); Total Bilirubin 0.8 mg/dL (0.3-1.2); Total Protein 6.8 g/dL (6.2-8.2)
== END | disposition home or self-care (01) ==
LOC: LABWHC1 09:40
PROVIDERS: ATTEND Internal Medicine
CPT/HCPCS: 36415; 71046; 80053; 80061; 84443; 85025

== ENCOUNTER 2025-05-06 18:24 | Emergency (ER) | payer OTHER ==
[2025-05-06 18:36] VITALS: RESP 20
--- NOTE | 2025-05-06 19:55 | ED ---
URI HPI - General Chief Complaint: Upper Respiratory Infection Stated Complaint: headache, cough Time Seen by Provider: 05/06/25 18:40 Source: patient, RN notes reviewed Mode of arrival: ambulatory Limitations: no limitations - History of Present Illness Initial Comments: 49-year-old male presents emergency department chief complaint fever cough congestion and bodyaches. Patient states symptoms been present for last few days. Patient states that he has had no sick contacts with similar symptoms. He has nonproductive cough. Patient complains of sinus pressure mild sore throat denies ear pain not take any recent antipyretics. Patient is a daily smoker. - Related Data Previous Rx's Medication Instructions Recorded ARIPiprazole [Abilify] 5 mg PO DAILY 30 Days tab 07/20/22 Nicotine 14Mg/24Hr Patch [Habitrol] 1 patch TRANSDERM DAILY 30 Days 07/20/22 patch Sertraline [Zoloft] 100 mg PO DAILY 30 Days tab 07/20/22 traZODone HCL [Desyrel] 100 mg PO HS 30 Days tab 07/20/22 Amoxic-Pot Clav 875-125Mg 1 tab PO Q12HR #20 tab 05/06/25 [Augmentin 875-125] Allergies Allergy/AdvReac Type Severity Reaction Status Date / Time No Known Allergies Allergy Verified 07/16/22 22:48 Review of Systems ROS Statement: Those systems with pertinent positive or pertinent negative responses have been documented in the HPI. ROS Other: All systems not noted in ROS Statement are negative. Past Medical History Past Medical History: Cancer, Diabetes Mellitus, Deep Vein Thrombosis (DVT), Hyperlipidemia, Hypertension, Osteoarthritis (OA), Pneumonia Additional Past Medical History / Comment(s): Pt states he started noticing difficulty with swallowing June,, went to [facility] on 07/20/18 d/t cough and chest pain, had chest xray and cat scan that showed mediastinal mass and was sent on 07/21/18 to [facility] where he had mediastinal mass biopsy. He states he has also had a L arm DVT. Other hx: Chronic low back pain, NIDDM type II, pt states dysphagia has resolved, "walking" pneumonia as a teen. History of Any Multi-Drug Resistant Organisms: MRSA Date of last positivie culture/infection: 2013 per pt MDRO Source:: L leg Past Surgical History: Adenoidectomy, Orthopedic Surgery, Tonsillectomy Additional Past Surgical History / Comment(s): PICC lines with current one placed 08/23/18, 07/22/18 mediastinal mass biopsy at [facility], R hand fracure with surgery/pins since removed. 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 Absent: scleral icterus, conjunctival injection, periorbital swelling ENT exam: Present: normal exam, mucous membranes moist Neck exam: Present: normal inspection, full ROM. Absent: tenderness, meningismus, lymphadenopathy Respiratory exam: Present: normal lung sounds bilaterally. Absent: respiratory distress, wheezes, rales, rhonchi, stridor Cardiovascular Exam: Present: normal rhythm, tachycardia, normal heart sounds. Absent: systolic murmur, diastolic murmur, rubs, gallop, clicks GI/Abdominal exam: Present: soft, normal bowel sounds. Absent: distended, tenderness, guarding, rebound, rigid Course Vital Signs 05/06/25 05/06/25 05/06/25 18:33 22:12 23:00 Temperature 99.5 F 103 F H 99.7 F H Pulse Rate 110 H 109 H Respiratory 20 20 Rate Blood Pressure 164/110 128/93 O2 Sat by Pulse 94 L 95 Oximetry Medical Decision Making - Medical Decision Making Was pt. sent in by a medical professional or institution (, PA, PROMOTIONS ASSISTANT, urgent care, hospital, or longterm...) When possible be specific @ -No Did you speak to anyone other than the patient for history (EMS, parent, family, police, friend...)? What history was obtained from this source @ -No Did you review nursing and triage notes (agree or disagree)? Why? @ -I reviewed and agree with nursing and triage notes Were old charts reviewed (outside hosp., previous admission, EMS record, old EKG, old radiological studies, urgent care reports/EKG's, longterm records)? Report findings @ -No old charts were reviewed Differential Diagnosis (chest pain, altered mental status, abdominal pain women, abdominal pain men, vaginal bleeding, weakness, fever, dyspnea, syncope, headache, dizziness, GI bleed, back pain, seizure, CVA, palpatations, mental health, musculoskeletal)? @ -COVID 19, RSV, influenza, pneumonia, acute bronchitis, URI, this list is not all inclusive EKG interpreted by me (3pts min.). @ -None X-rays interpreted by me (1pt min.). @ -Chest x-ray shows mild haziness, no definite lobar pneumonia CT interpreted by me (1pt min.). @ -None done U/S interpreted by me (1pt. min.). @ -None done What testing was considered but not performed or refused? (CT, X-rays, U/S, labs)? Why? @ -None What meds were considered but not given or refused? Why? @ -None Did you discuss the management of the patient with other professionals (professionals i.e. , PA, PROMOTIONS ASSISTANT, lab, RT, psych nurse, social media manager, electric motor repair supervisor, teacher, v/stol landing signal officer, family preservation caseworker)? Give summary @ -No Was smoking cessation discussed for >3mins.? @ -No Was critical care preformed (if so, how long)? @ -No Were there social determinants of health that impacted care today? How? (Homelessness, low income, unemployed, alcoholism, drug addiction, transportation, low edu. Level, literacy, decrease access to med. care, intermediate, rehab)? @ -No Was there de-escalation of care discussed even if they declined (Discuss DNR or withdrawal of care, Hospice)? DNR status @ -No What co-morbidities impacted this encounter? (DM, HTN, Smoking, COPD, CAD, Cancer, CVA, ARF, Chemo, Hep., AIDS, mental health diagnosis, sleep apnea, morbid obesity)? @ -None Was patient admitted / discharged? Hospital course, mention meds given and route, prescriptions, significant lab abnormalities, going to OR and other pertinent info. @ -Discharge patient negative swab, no definite lobar pneumonia though patient has significant rhonchi seen for the lobe pneumonia. Patient was given Rocephin discharged on Augmentin. Undiagnosed new problem with uncertain prognosis? @ -No Drug Therapy requiring intensive monitoring for toxicity (Heparin, Nitro, Insulin, Cardizem)? @ -No Were any procedures done? @ -No Diagnosis/symptom? @ -Acute tracheobronchitis Acute, or Chronic, or Acute on Chronic? @ -Acute Uncomplicated (without systemic symptoms) or Complicated (systemic symptoms)? @ -Uncomplicated Side effects of treatment? @ -No Exacerbation, Progression, or Severe Exacerbation? @ -No Poses a threat to life or bodily function? How? (Chest pain, [place], PA, pneumonia, PE, COPD, DKA, ARF, appy, cholecystitis, CVA, Diverticulitis, Homicidal, Suicidal, threat to staff... and all critical care pts) @ -No - Lab Data Lab Results 05/06/25 05/06/25 Range/Units 22:09 22:09 Influenza Type A (PCR) Not Detected (Not Detectd) Influenza Type B (PCR) Not Detected (Not Detectd) RSV (PCR) Not Detected (Not Detectd) SARS-CoV-2 (PCR) Not Detected (Not Detectd) Group A Strep (PCR) NOT DETECTED (Not Detectd) Disposition Clinical Impression: Acute tracheobronchitis Disposition: HOME SELF-CARE Condition: Stable Instructions (If sedation given, give patient instructions): Upper Respiratory Infection (ED) Additional Instructions: Please return to the Emergency Department if symptoms worsen or any other concerns. Prescriptions: Amoxic-Pot Clav 875-125Mg [Augmentin 875-125] 1 tab PO Q12HR #20 tab Is patient prescribed a controlled substance at d/c from ED?: No Referrals: Magan Sethi DO [Primary Care Provider] - 1-2 days Time of Disposition: 23:14
[2025-05-06] MEDS: ACETAMINOPHEN TAB 500 MG TAB PO STA (22:09)
--- NOTE | 2025-05-06 22:14 | XR ---
EXAMINATION TYPE: XR chest 2V DATE OF EXAM: 05/06/2025 8:46 PM COMPARISON: 08/16/2024 CLINICAL INDICATION: Male, 49 years old with history of fever, TECHNIQUE: XR chest 2V view(s) obtained. FINDINGS: The heart size is normal. The pulmonary vasculature is normal. The lungs are clear. IMPRESSION: 1. No acute pulmonary process. [facility], , 05/06/2025 10:12 PM
[2025-05-06] MEDS: IBUPROFEN 800 MG TAB PO STA (22:59)
[2025-05-06 23:04] LABS: RSV Not Detected (Not Detectd)
[2025-05-06] MEDS: cefTRIAXone 1,000 MG VIAL (IM USE) IM STA (23:19)
[2025-05-06 23:26] VITALS: BP 127/82; PULSE 100; TEMP 99.6
== END 2025-05-06 23:25 | disposition home or self-care (01) ==
LOC: EC 18:24
DX: J20.9 Acute bronchitis, unspecified (principal); F17.200 Nicotine dependence, unspecified, uncomplicated
CPT/HCPCS: 87651; 87636; 71046; 99284; 96372; J0696